=== PATIENT | female | born 1940 | race Two or more races ===

== ENCOUNTER 2016-09-14 18:16 | Inpatient (IN) | payer MEDICARE, OTHER ==
[~2016-09-14] VITALS: Ht 160 cm; Wt 102.5 kg
[2016-09-14 20:35] VITALS: BP 114/53; RESP 20
[2016-09-14] MEDS ORDERED: BIMA2.5D BOTH EYES (20:52)
[2016-09-14] MEDS ORDERED: COU5 PO (20:52)
[2016-09-14] MEDS ORDERED: ALPR0.257 PO (20:52)
[2016-09-14] MEDS ORDERED: LISI20TA11 PO (20:52)
[2016-09-14] MEDS ORDERED: TRAM50TA2 PO (20:52)
[2016-09-14] MEDS ORDERED: METO100T13 PO (20:52)
[2016-09-14] MEDS ORDERED: FER325 PO (20:52)
[2016-09-14] MEDS ORDERED: CHOL400C PO (20:52)
[2016-09-14 21:00] VITALS: Ht 160 cm; Wt 102.5 kg
--- NOTE | 2016-09-14 23:53 | HP ---
Date/Time of Note Date/Time of Note DATE: 09/14/16 TIME: 23:53 Assessment/Plan VTE Prophylaxis VTE Prophylaxis Intervention: heparin Assessment/Plan Assessment/Plan 1) Ulcer of Left Lower Leg with cellulitis - Admit to Med/Surg - IV ABX - Vancomycin and Rocephin (note, patient is listed as having a PCN allergy, but while she was at [facility], she received 1 dose each of Vancomycin and ZOSYN without adverse reaction. 2) Peripheral Vascular Disease 3) Undiagnosed Cardiac Murmur - EKG in AM - Echocardiogram 4) Essential Hypertension 5) Prediabetes - HgbA1c in AM 6) DVT 4 months ago, but patient does not remember where it was and she took herself off Coumadin 2 weeks ago - Heparin 5000 units SC Q 8 hours for aggressive DVT prophylaxis 7) Snoring - Sleep Disordered Breathing Suspected - Monitor HPI/ROS Admit Date/Time Admit Date/Time Sep 14, 2016 at 20:34 Hx of Present Illness This patient is transferred to us from [facility] after presenting there with complaints of worsening wound on her left lower extremity. She states the wound had been there for 10 days and she had been receiving outpatient treatment. She was on doxycycline and had multiple visits to the wound care center. She has an outpatient wound care appointment for this upcoming Friday, September 16, but felt the pain was too severe to wait until then. She feels that the wound has doubled in size with increasing redness and pain. She states the pain is severe and nothing seems to make it better or worse. She denies nausea vomiting fevers chills or other associated symptoms. She states that she was told she has borderline diabetes just a few weeks ago and that she had a DVT 4 months ago but stopped taking her Coumadin about 2 weeks ago. She does not recall if the DVT was in her leg or her arm. She has a history of multiple wounds on her lower legs she has had them on both the right and the left leg. While in the emergency room at [facility], patient had lab work, and EKG, a left tib-fib x-ray, a portable chest x-ray, and ultrasound of the left lower extremity venous system as well as antibiotics, fluids, pain medication and anti-emetics. EK-lead EKG at [address] [place] Normal sinus rhythm with ventricular rate of 64 bpm Left axis deviation Normal intervals No acute ST or T-wave changes suggestive of acute ischemia or ST JAZ LA BS: WBCs 10.3 without a left shift; H and H 11.8 and 37, respectively; platelets 280 Sodium 134; potassium 5.2; chloride 101; carbon dioxide 26; BUN 28; creatinine 1.4; glucose level 104; anion gap 12 eGFR > 60 RADIOLOGY: Portable chest x-ray impression: 1 atherosclerotic calcifications in the thoracic aorta; 2 no evidence for active cardiopulmonary disease Left tib-fib x-rays impression: 1 unremarkable left tibia and fibula x-ray series Ultrasound of the left lower extremity venous system impression: No evidence of a deep vein thrombosis within the left lower extremity. Unchanged from the previous examination (dated 08/20/2016) ER Course per ER Physician at [facility]: She has failed outpatient treatment and will be admitted for definitive management of her wound. She was empirically treated with IV vancomycin and IV Zosyn. She is noted to have an elevated BUN and creatinine with a ratio of 20- 1 and was given a normal saline 500 mL bolus. She has a creatinine level drawn on September 02, 2016 and it was 0.8 at that time she had a venous Doppler in August 20, 2016 that was negative for DVT. In addition, patient does mention that she got very sweaty twice and then felt hot and chilled 2 to 3 days ago. She states that at the same time she became nauseated and extremely tired. No specific chest pain, but a little short of breath. No pain between her shoulder blades. No history of a heart murmur or Echocardiogram. ROS General: Admits: Denies: Fever, Chills, Poor Appetite, Generalized Body Aches Eyes: Admits: Denies: Blurry Vision, Double Vision HENT: Admits: Denies: Ear Pain/Pressure, Runny/Stuffy Nose, Sore Throat Cardiovascular: Admits: Denies: Chest Pain, Palpitations, Leg Swelling, Heart Murmur Pulmonary: Admits: Denies: Cough, Wheeze, Shortness of Breath Gastrointestinal: Admits: Nausea Denies: Abdominal Pain, Vomiting, Diarrhea, Blood in Stool, Black-Colored Stool Urogenital: Admits: Denies: Burning with Urination, Urinary Frequency, Blood in Urine Musculoskeletal: Admits: Denies: Joint Pain, Joint Swelling, Muscle Pain Neurological: Admits: Denies: Headache, Dizziness, Numbness, Tingling, Shooting Pains Integumentary: Admits: Rash surrounding ulceration and extending to upper 1/3 of left leg and tenderness to the entire lower leg, but negative Suleman's sign. Calf is not firm. Denies: Itch Endocrine: Admits: Denies: Excessive Thirst, Excessive Hunger, Intolerant to Cold , Intolerant to Heat Psychiatric: Admits: Anxiety Denies: Depression PMH/Family/Social Social History Smoking Status: Never smoker Exam/Review of Systems Vital Signs Vitals Vital Signs Date Time Temp Pulse Resp B/P Pulse Ox O2 Delivery O2 Flow Rate FiO2 09/14/16 20:35 98.8 53 20 114/53 99 Exam Exam General: Morbidly obese female, alert and oriented, in no acute distress, but she does not recall in which limb she had the recent DVT Eyes: Sclera White, EOMI HENT: Normocephalic/Atraumatic, External Ears/Nose Normal, Moist Mucus Membranes Neck: Supple, Trachea Midline Cardiovascular: Normal Rate, Regular Rhythm, Normal S1 and S2, II/ mid- systolic and diastolic murmurs are present, heard loudest at the leeft sternam margin and radiating to the right and into the left axilla. No Extra Sounds. Radial pulse +2/4. Trace pedal edema to lower 1/3 of legs bilaterally.Patients feet are both cool and dusky with poor capillary refill. There is also evidence of chronic poor circulation with shiny, hairless, hyperpigmented skin to lower 1 /3 of legs bilaterally Pulmonary: Clear to Auscultation Bilaterally, Normal Respiratory Effort, No Rales, Rhonchi or Wheezes Gastrointestinal: Normoactive Bowel Sounds, Soft, Non-Tender/Non-Distended, No Hepatosplenomegaly Appreciated, No Pulsatile Masses Urogenital: Deferred Musculoskeletal: Normal Muscle Bulk and Tone Neurological: CN II - XII Grossly Intact, Non-Focal, Speech Normal Integumentary: Normal Moisture and Temperature, Good Turgor, No Jaundice, No Rash Lymphatic: No Cervical Lymphadenopathy Psychiatric: Appropriate Mood and Affect, Good Eye Contact Medications Medications Current Medications Morphine Sulfate (morphine) 2 mg Q6 PRN IV pain; Start 09/14/16 at 22:00 CHRISTIE HERRMANN DO Sep 14, 2016 23:53
[2016-09-15] MEDS ORDERED: VANCOMYCIN IV PER PHARMACY XX SCH
[2016-09-15] MEDS ORDERED: METOCLOPRAMIDE 10 MG INJ IV PRN
[2016-09-15] MEDS ORDERED: ONDANSETRON 4 MG TAB PO PRN
[2016-09-15] MEDS ORDERED: NACL 0.9% 3 ML SYG IV SCH
[2016-09-15] MEDS ORDERED: ACETAMINOPHEN 325 MG TAB PO PRN
[2016-09-15] MEDS: morphine 2 MG INJ IV PRN ×4 (00:11→18:37)
[2016-09-15 01:10] LABS: D-DIMER 804.48 ng/ml (<460)
[2016-09-15] MEDS: CEFTRIAXONE 1 GM/50 ML (PMX) 50 ML IV SCH (01:25)
[2016-09-15] MEDS ORDERED: VANCOMYCIN 2 GM in SOD CHLORIDE 0.9% 500 ML IVPB SCH (02:00)
[2016-09-15 05:57] LABS: ADD SCAN DIFF NO
[2016-09-15] MEDS: HEPARIN 5,000 UNIT/0.5 ML VIAL SC SCH ×3 (06:04→21:46)
[2016-09-15 06:15] LABS: ALBUMIN 3.4 g/dl (3.3-4.9); ALBUMIN/GLOBULIN RATIO 0.97; BILIRUBIN,INDIRECT 0.3 mg/dl (0-1.1); BILIRUBIN,TOTAL 0.3 mg/dl (0.2-1.3); CALCIUM 8.7 mg/dl (8.4-10.2); CHOL/HDL RATIO 2.5 RATIO; CREATININE 0.99 mg/dl (0.44-1.00); MAGNESIUM 2.1 mg/dl (1.7-2.5); POTASSIUM 4.8 mmol/L (3.5-5.1); TOTAL PROTEIN 6.9 g/dl (6.1-8.1)
[2016-09-15 06:20] LABS: BASOPHIL # 0.1 10^3/ul (0.0-0.1); BASOPHILS % 0.6 % (0.0-2.0); EOSINOPHILS # 0.3 10^3/ul (0.0-0.5); EOSINOPHILS % 3.9 % (0.0-7.0); HEMATOCRIT 32.7 % (37.0-47.0); HEMOGLOBIN 10.3 g/dl (12.0-16.0); LYMPHOCYTES # 2.6 10^3/ul (0.8-2.9); LYMPHOCYTES % 33.7 % (15.0-51.0); MEAN CORPUSCULAR HEMOGLOBIN 26.6 pg (29.0-33.0); MEAN CORPUSCULAR HGB CONC 31.5 g/dl (32.0-37.0); MEAN CORPUSCULAR VOLUME 84.5 fl (82.0-101.0); MEAN PLATELET VOLUME 10.8 fl (7.4-10.4); MONOCYTE # 0.7 10^3/ul (0.3-0.9); NEUTROPHIL # 4.1 10^3/ul (1.6-7.5); NEUTROPHILS % 52.5 % (39.0-77.0); PLATELET COUNT 235 10^3/UL (140-415); RED BLOOD COUNT 3.87 10^6/ul (4.20-5.40); RED CELL DISTRIBUTION WIDTH 15.4 % (11.5-14.5); WHITE BLOOD COUNT 7.7 10^3/ul (4.8-10.8)
[2016-09-15 06:32] LABS: THYROID STIMULATING HORMONE 1.73 MIU/L (0.465-4.680)
[2016-09-15 08:00] VITALS: BP 113/57; RESP 18
[2016-09-15] MEDS: FAMOTIDINE 20 MG TAB PO SCH ×2 (08:56→21:41)
[2016-09-15] MEDS: FERROUS SULFATE (EC) 325 MG TAB PO SCH (08:56)
[2016-09-15] MEDS: LISINOPRIL 20 MG TAB PO SCH ×3 (09:00→21:41)
[2016-09-15] MEDS: METOPROLOL (XL) 100 MG TAB PO SCH ×3 (09:00→16:54)
--- NOTE | 2016-09-15 14:18 | RADRPT ---
Vent Rate: 56 bpm RR Interval: 0 msec [place] Interval: 224 msec QRS Duration: 102 msec QT Interval: 410 msec QTC Interval: 395 msec P-R-T [place]: 72 - 86 - 78 degrees Sinus bradycardia with 1st degree AV block Indeterminate axis Incomplete right bundle branch block Abnormal ECG No previous tracing available for comparison Electronically Signed By: Moe Nelson [id number]
--- NOTE | 2016-09-15 16:59 | RADRPT ---
Echocardiogram Report Patient Name: RONALDO BAEZ Gender: Female Date: 1940 Study Date: 15-Sep-2016 [place] Hand: [facility] Location: [id number] Ref. Physician: CHRISTIE HERRMANN Quality: Adequate Procedures: Transthoracic echocardiogram with complete 2D, M-Mode, and doppler examination. Indications: NEW ONSET MURMUR. 2D/M Mode Doppler Measurement Value Normal Ranges Measurement Value Normal Ranges LVIDd 2D 4.8 3.5 - 5.6 cm DANIEL Vmax 1.3 cm2 LVIDs 2D 3.1 2.1 - 4.1 cm DANIEL VTI 1.3 cm2 LVPWd 2D 1.0 0.6 - 1.1 cm AV Mean Reagan 2.6 m/sec IVSd 2D 1.0 0.6 - 1.1 cm AV Mean PG 30.5 mmHg AoR Diam 2D 1.9 2.0 - 3.7 cm AV Peak Reagan 3.3 m/sec EDV 2D 110.0 cm3 AV Peak PG 44.7 mmHg ESV 2D 31.1 cm3 AV VTI 93.9 cm LVOT Diam 2.1 cm AI Peak PG 38.1 mmHg AI Peak Reagan 3.1 m/sec AI PHT 773.0 msec LVOT Mean Reagan 0.9 m/sec LVOT Mean PG 3.5 mmHg LVOT Peak Reagan 1.2 m/sec LVOT Peak PG 6.0 mmHg LVOT VTI 34.3 cm MV E Peak Reagan 1.3 m/sec MV A Peak Reagan 1.2 m/sec MV E/A 1.1 MV Decel Time 242 msec MV Decel [place] 6 MV E/A 1.1 TR Peak Reagan 2.6 m/sec TR Peak PG 28.0 mmHg Findings Left Ventricle: Normal left ventricular systolic function. Normal left ventricular cavity size. Normal left ventricular wall thickness. Ejection fraction is visually estimated at 65 %. Tissue Doppler/Mitral Doppler indices are consistent with impaired relaxation (Stage I diastolic dysfunction). Right Ventricle: Normal right ventricular size. Normal right ventricular systolic function. Left Atrium: There is moderate enlargement of left atrium. Right Atrium: The right atrium is normal in size. Mitral Valve: Mild mitral leaflet calcification. Mild mitral annular calcification. Trace mitral regurgitation. Aortic Valve: Moderate aortic stenosis. Max PG 44.70 mmHg. Mean PG 30.50 mmHg. Aortic cusps appear mildly calcified. Mild to moderate aortic valve regurgitation. Tricuspid Valve: Normal appearance of the tricuspid valve. Estimated peak PA systolic pressure 31 mmHg. There is mild tricuspid regurgitation. Pulmonic Valve: There is trace pulmonic regurgitation. Pericardium: Normal pericardium with no significant pericardial effusion. Aorta: Normal aortic root. IVC: Normal size and normal respiratory collapse consistent with normal right atrial pressure. Conclusions 1.Normal left ventricular systolic function. Normal left ventricular cavity size. Normal left ventricular wall thickness. Ejection fraction is visually estimated at 65 %. Tissue Doppler/Mitral Doppler indices are consistent with impaired relaxation (Stage I diastolic dysfunction). 2.Normal right ventricular size. Normal right ventricular systolic function. 3.There is moderate enlargement of left atrium. 4.The right atrium is normal in size. 5.Moderate aortic stenosis. Mild to moderate aortic valve regurgitation. 6.Trace mitral regurgitation. 7.Estimated peak PA systolic pressure 31 mmHg. There is mild tricuspid regurgitation. 8.Normal pericardium with no significant pericardial effusion. Electronically Signed By: Darrin Hernandez 15-Sep-2016 16:58:36 -0700 Patient Name: RONALDO BAEZ Study Date: 15-Sep-2016 [id number]
--- NOTE | 2016-09-15 17:56 | PN ---
Date/Time of Note Date/Time of Note DATE: 09/15/16 TIME: 17:51 Assessment/Plan VTE Prophylaxis VTE Prophylaxis Intervention: heparin Lines/Catheters IV Catheter Type (from Nrsg): Saline Lock Assessment/Plan Chief Complaint/Hosp Course 1) Ulcer of Left Lower Leg with cellulitis possibly related to PVD -Arterial US -Vascular consult - Admit to Med/Surg - IV ABX - Vancomycin and Rocephin 2) Peripheral Vascular Disease 3) Undiagnosed Cardiac Murmur - EKG in AM - Echocardiogram 4) Essential Hypertension 5) DVT 4 months ago, but patient does not remember where it was and she took herself off Coumadin 2 weeks ago - Heparin 5000 units SC Q 8 hours for aggressive DVT prophylaxis PPx- Heparin Problems: Subjective 24 Hr Interval Summary Skin: skin lesions Exam/Review of Systems Vital Signs Vitals Vital Signs Date Time Temp Pulse Resp B/P Pulse Ox O2 Delivery O2 Flow Rate FiO2 09/15/16 08:00 97.9 62 18 113/57 94 Intake and Output 09/14/16 09/14/16 09/15/16 15:00 23:00 07:00 Intake Total 550 ml Balance 550 ml Exam Constitutional: alert Respiratory: clear to auscultation Cardiovascular: regular rate and rhythm Gastrointestinal: soft, No distended Musculoskeletal: No nl extremities to inspection Results Result Diagram: 09/15/16 0455 09/15/16 0445 Results 24 hrs Laboratory Tests Test 09/15/16 04:45 09/15/16 04:55 Sodium Level 134 L Potassium Level 4.8 Chloride Level 107 Carbon Dioxide Level 23 Anion Gap 9 Blood Urea Nitrogen 23 H Creatinine 0.99 Glucose Level 92 Calcium Level 8.7 Magnesium Level 2.1 Total Bilirubin 0.3 Direct Bilirubin 0.00 Indirect Bilirubin 0.3 Aspartate Amino Transf (AST/SGOT) 21 Alanine Aminotransferase (ALT/SGPT) 23 Alkaline Phosphatase 75 Total Protein 6.9 Albumin 3.4 Globulin 3.50 H Albumin/Globulin Ratio 0.97 Triglycerides Level 83 Cholesterol Level 151 LDL Cholesterol, Calculated 74 HDL Cholesterol 60 Cholesterol/HDL Ratio 2.5 Thyroid Stimulating Hormone (TSH) 1.730 White Blood Count 7.7 Red Blood Count 3.87 L Hemoglobin 10.3 L Hematocrit 32.7 L Mean Corpuscular Volume 84.5 Mean Corpuscular Hemoglobin 26.6 L Mean Corpuscular Hemoglobin Concent 31.5 L Red Cell Distribution Width 15.4 H Platelet Count 235 Mean Platelet Volume 10.8 H Neutrophils % 52.5 Lymphocytes % 33.7 Monocytes % 9.0 Eosinophils % 3.9 Basophils % 0.6 Nucleated Red Blood Cells % 0.0 Neutrophils # 4.1 Lymphocytes # 2.6 Monocytes # 0.7 Eosinophils # 0.3 Basophils # 0.1 Nucleated Red Blood Cells # 0.0 Hemoglobin A1c 5.6 Medications Medications Current Medications Morphine Sulfate (morphine) 2 mg Q6 PRN IV pain Last administered on 09/15/16 12:16; Admin Dose 2 MG; Start 09/14/16 at 22:00 Ondansetron HCl (Zofran Tab) 4 mg Q6H PRN PO NAUSEA AND/OR VOMITING; Start at 00:00 Metoclopramide HCl (Reglan) 10 mg Q6H PRN IV NAUSEA AND/OR VOMITING; Start at 00:00 Acetaminophen (Tylenol Tab) 650 mg Q6H PRN PO PAIN LEVEL 1-3 OR FEVER; Start at 00:00 Oxycodone/ Acetaminophen (Percocet (5/ 325)) 1 tab Q6H PRN PO MODERATE PAIN LEVEL 4-6; Start 09/15/16 at 00:00 Morphine Sulfate (morphine) 2 mg Q4H PRN IV SEVERE PAIN LEVEL 7-10; Start 09/15 at 00:00 Famotidine (Pepcid) 20 mg Q12 PO Last administered on 09/15/16 08:56; Admin Dose 20 MG; Start 09/15/16 at 09:00 Heparin Sodium (Porcine) (Heparin (5000 Units/0.5 ml)) 5,000 unit Q8 SC Last administered on 09/15/16 14:17; Admin Dose 5,000 UNIT; Start 09/15/16 at 06:00 Vancomycin HCl 1 ea 1 ea NOTE XX ; Start 09/15/16 at 00:00 Ceftriaxone Sodium (Rocephin) 50 ml @ 100 mls/hr Q24H IV Last administered on 09/15/16 01:25; Admin Dose 100 MLS/HR; Start 09/15/16 at 00:00 Ferrous Sulfate (Ferrous Sulfate (Ec)) 325 mg DAILY PO Last administered on 08:56; Admin Dose 325 MG; Start 09/15/16 at 09:00 Lisinopril (Zestril) 20 mg BID PO ; Start 09/15/16 at 09:00 Metoprolol Succinate (Toprol Xl) 100 mg DAILY PO Last administered on t 16:54; Admin Dose 100 MG; Start 09/15/16 at 09:00 Alprazolam (Xanax) 0.25 mg HS PO ; Start 09/15/16 at 21:00 Latanoprost 1 drop 1 drop HS BOTH EYES ; Start 09/15/16 at 21:00 Vancomycin HCl/ Sodium Chloride (Vancocin/NS) 250 ml @ 83.333 mls/ hr Q24H IVPB ; Start 09/16/16 at 02:00 PHILL TRUONG Sep 15, 2016 17:56
[2016-09-15 18:38] VITALS: BP 148/74; PULSE 78; RESP 18
[2016-09-15 19:41] VITALS: BP 121/58; RESP 18
[2016-09-15] MEDS ORDERED: NON-FORMULARY/PATIENT OWN MED (Alprazolam 0.25 MG) PO SCH (21:00)
[2016-09-15] MEDS ORDERED: BIMATOPROST 0.01% 2.5 ML BTL BOTH EYES SCH (21:00)
[2016-09-15] MEDS: ALPRAZOLAM 0.25 MG TAB PO SCH (21:41)
[2016-09-15] MEDS: LATANOPROST 0.005% 2.5 ML OPH BOTH EYES SCH (21:49)
[2016-09-16] MEDS: CEFTRIAXONE 1 GM/50 ML (PMX) 50 ML IV SCH (00:12)
[2016-09-16] MEDS: morphine 2 MG INJ IV PRN ×4 (00:20→18:28)
[2016-09-16] MEDS: VANCOMYCIN 1.5 GM in SOD CHLORIDE 0.9% 250 ML IVPB SCH (02:33)
[2016-09-16 05:26] LABS: ADD SCAN DIFF NO
[2016-09-16 05:34] LABS: BASOPHILS % 0.6 % (0.0-2.0); EOSINOPHILS # 0.3 10^3/ul (0.0-0.5); EOSINOPHILS % 4.7 % (0.0-7.0); HEMATOCRIT 34.3 % (37.0-47.0); HEMOGLOBIN 10.7 g/dl (12.0-16.0); LYMPHOCYTES # 2.6 10^3/ul (0.8-2.9); LYMPHOCYTES % 37.7 % (15.0-51.0); MEAN CORPUSCULAR HEMOGLOBIN 26.3 pg (29.0-33.0); MEAN CORPUSCULAR HGB CONC 31.2 g/dl (32.0-37.0); MEAN CORPUSCULAR VOLUME 84.3 fl (82.0-101.0); MEAN PLATELET VOLUME 10.6 fl (7.4-10.4); MONOCYTE # 0.6 10^3/ul (0.3-0.9); MONOCYTES % 9.2 % (0.0-11.0); NEUTROPHIL # 3.3 10^3/ul (1.6-7.5); NEUTROPHILS % 47.7 % (39.0-77.0); PLATELET COUNT 228 10^3/UL (140-415); RED BLOOD COUNT 4.07 10^6/ul (4.20-5.40); RED CELL DISTRIBUTION WIDTH 15.2 % (11.5-14.5)
[2016-09-16 05:45] LABS: CREATININE 0.83 mg/dl (0.44-1.00); POTASSIUM 4.5 mmol/L (3.5-5.1)
[2016-09-16] MEDS: HEPARIN 5,000 UNIT/0.5 ML VIAL SC SCH ×3 (05:49→21:55)
[2016-09-16 07:48] VITALS: BP 158/68; RESP 18
[2016-09-16] MEDS: FAMOTIDINE 20 MG TAB PO SCH ×2 (08:18→20:50)
[2016-09-16] MEDS: FERROUS SULFATE (EC) 325 MG TAB PO SCH (08:18)
[2016-09-16] MEDS: LISINOPRIL 20 MG TAB PO SCH ×2 (08:18→20:50)
[2016-09-16] MEDS: METOPROLOL (XL) 100 MG TAB PO SCH (08:19)
--- NOTE | 2016-09-16 12:18 | RADRPT ---
PROCEDURE: US DVT. CLINICAL INDICATION: Left lower extremity pain and ulcer.. TECHNIQUE: Multiple longitudinal and transverse images of the bilateral lower extremity veins were obtained with hancock scale and color Doppler imaging. 2D grayscale measurements with compression, co aj Doppler flow, and augmentation was performed. The calf veins were interrogated as well. COMPARISON: No prior studies are available for comparison. FINDINGS: The bilateral common femoral, superficial femoral and popliteal veins are normally compressible thro ughout. Color flow demonstrates normal filling of the vessel. Normal waveforms are visualized and there is normal response to augmentation. IMPRESSION: 1. No evidence of a deep vein thrombosis involving either lower extremity. RPTAT: AACC Physician Last Date Time Electronically viewed and signed by Physician Last on 09/16/2016 12:18 /
[2016-09-16] MEDS: COLLAGENASE 30 GM TUBE TOP SCH (13:11)
--- NOTE | 2016-09-16 13:53 | RADRPT ---
PROCEDURE: Bilateral lower extremity arterial ultrasound CLINICAL INDICATION: Bilateral leg pain. Left lower extremity nonhealing wound TECHNIQUE: Multiple color and spectral Doppler images of the bilateral lower extremity arterial sy stem were obtained. Images were reviewed on a high-resolution PACS workstation. COMPARISON: None FINDINGS: The velocities and waveforms are within normal limits. Triphasic wave forms are seen throughout the bilateral lower extremity arterial system. No hemodynamically significant stenosis or occlusion is seen. Velocities: Centimeters per second. Right Common femoral artery: 132.1 Proximal SFA: 113.9 Mid SFA: 104.8 Distal SFA: 107.5 Popliteal: 101.7 Left: Common femoral artery: 116.9 Proximal SFA: 100.6 Mid SFA: 88 Distal SFA: 88.9 Popliteal: 85 JUICE: Right [employer]: 1.46 Right DPA: 1.38 Left [employer]: 1.53 Left DPA: 1.6 IMPRESSION: No hemodynamically significant stenosis. RPTAT: HPNM Physician Bc Date Time Electronically viewed and signed by Physician Bc on 09/16/2016 13:53 /
--- NOTE | 2016-09-16 14:15 | PN ---
Date/Time of Note Date/Time of Note DATE: 09/16/16 TIME: 14:12 Assessment/Plan VTE Prophylaxis VTE Prophylaxis Intervention: heparin Lines/Catheters IV [facility]from [facility] Saline Lock Urinary Cath still in place: No Assessment/Plan Chief Complaint/Hosp Course 1) Ulcer of Left Lower Leg with cellulitis possibly related to PVD -Arterial US is negative for significant stenosis -Venous study negative for DVT in both extremities -Vascular consult appreciated -Continue vancomycin and Rocephin 2) Peripheral Vascular Disease Vascular consultation 3) Moderate aortic stenosis -Monitor 4) Essential Hypertension-stable Continue lisinopril and metoprolol 5) DVT 4 months ago, but patient does not remember where it was and she took herself off Coumadin 2 weeks ago - Heparin 5000 units SC Q 8 hours for aggressive DVT prophylaxis -Venous study is negative for DVTs PPx- Heparin Problems: Subjective 24 Hr Interval Summary Skin: skin lesions Exam/Review of Systems Vital Signs Vitals Vital Signs Date Time Temp Pulse Resp B/P Pulse Ox O2 Delivery O2 Flow Rate FiO2 09/16/16 07:48 97.8 61 18 158/68 96 09/15/16 18:38 Room Air Intake and Output 09/15/16 09/15/16 09/16/16 15:00 23:00 07:00 Intake Total 800 ml 540 ml Balance 800 ml 540 ml Exam Constitutional: alert Respiratory: clear to auscultation Cardiovascular: regular rate and rhythm Gastrointestinal: soft, No distended Musculoskeletal: No nl extremities to inspection Results Result Diagram: 09/16/16 0506 09/16/16 0506 Results 24 hrs Laboratory Tests Test 09/16/16 05:06 White Blood Count 7.0 Red Blood Count 4.07 L Hemoglobin 10.7 L Hematocrit 34.3 L Mean Corpuscular Volume 84.3 Mean Corpuscular Hemoglobin 26.3 L Mean Corpuscular Hemoglobin Concent 31.2 L Red Cell Distribution Width 15.2 H Platelet Count 228 Mean Platelet Volume 10.6 H Neutrophils % 47.7 Lymphocytes % 37.7 Monocytes % 9.2 Eosinophils % 4.7 Basophils % 0.6 Nucleated Red Blood Cells % 0.0 Neutrophils # 3.3 Lymphocytes # 2.6 Monocytes # 0.6 Eosinophils # 0.3 Basophils # 0.0 Nucleated Red Blood Cells # 0.0 Sodium Level 135 Potassium Level 4.5 Chloride Level 106 Carbon Dioxide Level 25 Anion Gap 9 Blood Urea Nitrogen 18 Creatinine 0.83 Glucose Level 100 Calcium Level 9.0 Medications Medications Current Medications Morphine Sulfate (morphine) 2 mg Q6 PRN IV pain Last administered on 09/16/16 08:21; Admin Dose 2 MG; Start 09/14/16 at 22:00 Ondansetron HCl (Zofran Tab) 4 mg Q6H PRN PO NAUSEA AND/OR VOMITING; Start at 00:00 Metoclopramide HCl (Reglan) 10 mg Q6H PRN IV NAUSEA AND/OR VOMITING; Start at 00:00 Acetaminophen (Tylenol Tab) 650 mg Q6H PRN PO PAIN LEVEL 1-3 OR FEVER; Start at 00:00 Oxycodone/ Acetaminophen (Percocet (5/ 325)) 1 tab Q6H PRN PO MODERATE PAIN LEVEL 4-6; Start 09/15/16 at 00:00 Morphine Sulfate (morphine) 2 mg Q4H PRN IV SEVERE PAIN LEVEL 7-10 Last administered on 09/16/16 13:15; Admin Dose 2 MG; Start 09/15/16 at 00:00 Famotidine (Pepcid) 20 mg Q12 PO Last administered on 09/16/16 08:18; Admin Dose 20 MG; Start 09/15/16 at 09:00 Heparin Sodium (Porcine) (Heparin (5000 Units/0.5 ml)) 5,000 unit Q8 SC Last administered on 09/16/16 13:27; Admin Dose 5,000 UNIT; Start 09/15/16 at 06:00 Vancomycin HCl 1 ea 1 ea NOTE XX ; Start 09/15/16 at 00:00 Ceftriaxone Sodium (Rocephin) 50 ml @ 100 mls/hr Q24H IV Last administered on 09/16/16 00:12; Admin Dose 100 MLS/HR; Start 09/15/16 at 00:00 Ferrous Sulfate (Ferrous Sulfate (Ec)) 325 mg DAILY PO Last administered on 08:18; Admin Dose 325 MG; Start 09/15/16 at 09:00 Lisinopril (Zestril) 20 mg BID PO Last administered on 09/16/16 08:18; Admin Dose 20 MG; Start 09/15/16 at 09:00 Metoprolol Succinate (Toprol Xl) 100 mg DAILY PO Last administered on 08:19; Admin Dose 100 MG; Start 09/15/16 at 09:00 Alprazolam (Xanax) 0.25 mg HS PO Last administered on 09/15/16 21:41; Admin Dose 0.25 MG; Start 09/15/16 at 21:00 Latanoprost 1 drop 1 drop HS BOTH EYES Last administered on 09/15/16 21:49; Admin Dose 1 DROP; Start 09/15/16 at 21:00 Vancomycin HCl/ Sodium Chloride (Vancocin/NS) 250 ml @ 83.333 mls/ hr Q24H IVPB Last administered on 09/16/16 02:33; Admin Dose 83.333 MLS/HR; Start at 02:00 Collagenase (Santyl) 1 applic DAILY TOP Last administered on 09/16/16 13:11; Admin Dose 1 APPLIC; Start 09/16/16 at 12:30 PHILL TRUONG Sep 16, 2016 14:15
--- NOTE | 2016-09-16 16:35 | CONS ---
DATE OF ADMISSION: 09/14/2016 DATE OF CONSULTATION: 09/16/2016 TYPE OF CONSULTATION: Vascular surgery. Dear Doctors: Ms. Crane is a 75-year-old female who presented to [facility] from outside hosp ital with worsening left lower extremity nonhealing ulcer. It seems that the patient has been recei ving local wound care at outside facility for about a month with no improvement and worsening of her wound. The patient has significant amount of pain in that area and was evaluated and identified to have significant cellulitis and eschar has developed over that area. Of note, patient has had a hi story of DVT in the past which was diagnosed about 4 to 5 years ago. Patient had been on anticoagul ation on Coumadin for some time now. Patient also mentions that she has had a longstanding history of varicose veins in both lower extremities, more prominent on the left than the right. REVIEW OF SYSTEMS: A 12-point review performed and negative except what is mentioned in the HPI. T he patient denies shortness of breath, chest pain, nausea, vomiting, fever or chills. Some limited disabling claudication. PAST MEDICAL HISTORY: Entails morbidly obese, diabetes, hypertension, hypercholesterolemia, coronar y artery disease, bilateral lower extremity venous insufficiency and DVT. PAST SURGICAL HISTORY: None was recorded. SOCIAL HISTORY: Denies tobacco, alcohol or illicit drug use. FAMILY HISTORY: Positive for coronary artery disease and hypertension. PHYSICAL EXAMINATION: GENERAL: Alert and oriented x3, no apparent distress. HEENT: Normocephalic, atraumatic. PERRLA. Mucosa moist. NECK: Supple. No carotid bruit. PULMONARY: Clear to auscultation bilaterally, some systolic murmur. CHEST: Clear to auscultation bilaterally. No crackles. CARDIOVASCULAR: S1, S2 present, positive for systolic murmur. ABDOMEN: Soft, nontender, nondistended. Bowel sounds positive. Large truncal obesity and pannus. EXTREMITIES: Right lower extremity palpable femoral pulse, nonpalpable pedal pulse. Motor, sensory intact. Cap refill 3 to 4 seconds. Presence of lipodermatosclerosis, extensive spider veins and t elangiectasias from the ankle all the way up to the knee. Presence of varicose veins throughout the lower leg and in the medial aspect of the thigh. Left lower extremity palpable femoral pulse, nonpalpable pedal pulse. Motor, sensory intact. Cap r efill 3 to 4 seconds. Presence of lipodermatosclerosis around the ankle area. There is also a larg e lateral lower leg ulcer with eschar and tenderness upon palpation. There is surrounding erythema. There is also presence of extensive spider veins and telangiectasias. Presence of prominent varic ose veins, especially running along the anterolateral aspect of the lower leg on the segura all the wa y up to her distal thigh. There is eschar with no purulence identified. ASSESSMENT AND PLAN: Bilateral lower extremity atherosclerosis with a nonhealing ulcer. It seems t hat the patient may have a component of a mixed disease of bilateral lower extremities with arterial and venous insufficiency. We will plan to obtain noninvasive vascular studies to better ascertain her infrainguinal disease. The patient has had a longstanding history of varicose veins and his ulcer unfortunately has been wo rsening. This may be contributed to her venous disease, more so than the arterial. We will plan to obtain bilateral lower extremity reflux studies. It is unclear as to why the patient has developed a DVT. Would recommend today for hematology evalu ation and if the patient would require continuation of her Coumadin. Discussed findings, plan and management with the patient and she understands with a certified transl ator. Thank you for allowing us to partake in the care of your patient. Please call with any questions. Dictated By: ERIN SPEARS/CRISTIAN Conf#: [id number] DID#: [id number]
[2016-09-16 19:00] VITALS: BP 136/63; RESP 20
[2016-09-16] MEDS: ALPRAZOLAM 0.25 MG TAB PO SCH (20:50)
[2016-09-16] MEDS: LATANOPROST 0.005% 2.5 ML OPH BOTH EYES SCH (20:51)
[2016-09-17] MEDS: CEFTRIAXONE 1 GM/50 ML (PMX) 50 ML IV SCH ×2 (00:14→23:47)
[2016-09-17] MEDS: VANCOMYCIN 1.5 GM in SOD CHLORIDE 0.9% 250 ML IVPB SCH (01:43)
[2016-09-17] MEDS: morphine 2 MG INJ IV PRN ×4 (04:46→22:31)
[2016-09-17] MEDS: HEPARIN 5,000 UNIT/0.5 ML VIAL SC SCH ×3 (06:06→22:33)
[2016-09-17] MEDS: OXYCODONE/ACETAMINOPHEN (5/325) TAB PO PRN ×2 (06:10→20:45)
[2016-09-17 07:35] VITALS: BP 124/60; RESP 20
[2016-09-17] MEDS: FAMOTIDINE 20 MG TAB PO SCH ×2 (08:03→20:45)
[2016-09-17] MEDS: FERROUS SULFATE (EC) 325 MG TAB PO SCH (08:03)
[2016-09-17] MEDS: METOPROLOL (XL) 100 MG TAB PO SCH (08:03)
[2016-09-17] MEDS: COLLAGENASE 30 GM TUBE TOP SCH (08:03)
[2016-09-17] MEDS: LISINOPRIL 20 MG TAB PO SCH ×2 (08:04→20:45)
--- NOTE | 2016-09-17 18:59 | PN ---
Date/Time of Note Date/Time of Note DATE: 09/17/16 TIME: 18:58 Assessment/Plan VTE Prophylaxis VTE Prophylaxis Intervention: heparin Lines/Catheters IV Catheter Type (from Nrs): Saline Lock Urinary Cath still in place: No Assessment/Plan Chief Complaint/Hosp Course 1) Ulcer of Left Lower Leg with cellulitis possibly related to PVD -Arterial US is negative for significant stenosis -Venous study negative for DVT in both extremities -Vascular consult appreciated -Continue vancomycin and Rocephin, wound care 2) Peripheral Vascular Disease Vascular consultation 3) Moderate aortic stenosis -Monitor 4) Essential Hypertension-stable Continue lisinopril and metoprolol 5) DVT 4 months ago, but patient does not remember where it was and she took herself off Coumadin 2 weeks ago - Heparin 5000 units SC Q 8 hours for aggressive DVT prophylaxis -Venous study is negative for DVTs PPx- Heparin Problems: Subjective 24 Hr Interval Summary Skin: skin lesions Exam/Review of Systems Vital Signs Vitals Vital Signs Date Time Temp Pulse Resp B/P Pulse Ox O2 Delivery O2 Flow Rate FiO2 09/17/16 07:35 98.0 57 20 124/60 95 09/15/16 18:38 Room Air Intake and Output 09/16/16 09/16/16 09/17/16 15:00 23:00 07:00 Intake Total 960 ml 1070 ml Output Total 0 ml 400 ml Balance 960 ml 670 ml Exam Constitutional: alert, oriented Respiratory: clear to auscultation Cardiovascular: regular rate and rhythm Gastrointestinal: soft, No distended Musculoskeletal: No nl extremities to inspection Results Result Diagram: 09/16/16 0506 09/16/16 0506 Medications Medications Current Medications Morphine Sulfate (morphine) 2 mg Q6 PRN IV pain Last administered on 09/16/16t 08:21; Admin Dose 2 MG; Start 09/14/16 at 22:00 Ondansetron HCl (Zofran Tab) 4 mg Q6H PRN PO NAUSEA AND/OR VOMITING; Start at 00:00 Metoclopramide HCl (Reglan) 10 mg Q6H PRN IV NAUSEA AND/OR VOMITING; Start at 00:00 Acetaminophen (Tylenol Tab) 650 mg Q6H PRN PO PAIN LEVEL 1-3 OR FEVER; Start at 00:00 Oxycodone/ Acetaminophen (Percocet (5/ 325)) 1 tab Q6H PRN PO MODERATE PAIN LEVEL 4-6 Last administered on 09/17/16 06:10; Admin Dose 1 TAB; Start at 00:00 Morphine Sulfate (morphine) 2 mg Q4H PRN IV SEVERE PAIN LEVEL 7-10 Last administered on 09/17/16 18:47; Admin Dose 2 MG; Start 09/15/16 at 00:00 Famotidine (Pepcid) 20 mg Q12 PO Last administered on 09/17/16 08:03; Admin Dose 20 MG; Start 09/15/16 at 09:00 Heparin Sodium (Porcine) (Heparin (5000 Units/0.5 ml)) 5,000 unit Q8 SC Last administered on 09/17/16 12:00; Admin Dose 5,000 UNIT; Start 09/15/16 at 06:00 Vancomycin HCl 1 ea 1 ea NOTE XX ; Start 09/15/16 at 00:00 Ceftriaxone Sodium (Rocephin) 50 ml @ 100 mls/hr Q24H IV Last administered on 09/17/16 00:14; Admin Dose 100 MLS/HR; Start 09/15/16 at 00:00 Ferrous Sulfate (Ferrous Sulfate (Ec)) 325 mg DAILY PO Last administered on 08:03; Admin Dose 325 MG; Start 09/15/16 at 09:00 Lisinopril (Zestril) 20 mg BID PO Last administered on 09/17/16 08:04; Admin Dose 20 MG; Start 09/15/16 at 09:00 Metoprolol Succinate (Toprol Xl) 100 mg DAILY PO Last administered on 08:19; Admin Dose 100 MG; Start 09/15/16 at 09:00 Alprazolam (Xanax) 0.25 mg HS PO Last administered on 09/16/16 20:50; Admin Dose 0.25 MG; Start 09/15/16 at 21:00 Latanoprost 1 drop 1 drop HS BOTH EYES Last administered on 09/16/16 20:51; Admin Dose 1 DROP; Start 09/15/16 at 21:00 Vancomycin HCl/ Sodium Chloride (Vancocin/NS) 250 ml @ 83.333 mls/ hr Q24H IVPB Last administered on 09/17/16 01:43; Admin Dose 83.333 MLS/HR; Start at 02:00 Collagenase (Santyl) 1 applic DAILY TOP Last administered on 09/17/16 08:03; Admin Dose 1 APPLIC; Start 09/16/16 at 12:30 Miscellaneous Information (*Rx Drug Level Order Reminder*) VANCO TROUGH @ 0, 100 ON... ONCE ONCE XX ; Start 09/18/16 at 01:00; Stop 09/18/16 at 01:01 PHILL TRUONG Sep 17, 2016 18:59
[2016-09-17 20:18] VITALS: BP 166/67; RESP 20
[2016-09-17] MEDS: ALPRAZOLAM 0.25 MG TAB PO SCH (20:45)
[2016-09-17] MEDS: LATANOPROST 0.005% 2.5 ML OPH BOTH EYES SCH ×2 (21:00→22:32)
[2016-09-18] MEDS: VANCOMYCIN 1.5 GM in SOD CHLORIDE 0.9% 250 ML IVPB SCH (02:04)
[2016-09-18] MEDS: morphine 2 MG INJ IV PRN ×2 (02:57→09:48)
[2016-09-18] MEDS: OXYCODONE/ACETAMINOPHEN (5/325) TAB PO PRN (05:02)
[2016-09-18] MEDS: HEPARIN 5,000 UNIT/0.5 ML VIAL SC SCH (06:08)
[2016-09-18 08:07] VITALS: BP 139/65; RESP 18
[2016-09-18] MEDS: FERROUS SULFATE (EC) 325 MG TAB PO SCH (09:44)
[2016-09-18] MEDS: FAMOTIDINE 20 MG TAB PO SCH (09:44)
[2016-09-18] MEDS: LISINOPRIL 20 MG TAB PO SCH (09:44)
[2016-09-18] MEDS: METOPROLOL (XL) 100 MG TAB PO SCH (09:46)
[2016-09-18] MEDS: COLLAGENASE 30 GM TUBE TOP SCH (09:53)
[2016-09-18] MEDS ORDERED: SAN30GM TOP (10:31)
[2016-09-18] MEDS ORDERED: DOXY-220 PO (10:31)
--- NOTE | 2016-09-18 10:36 | PDOCDIS ---
Discharge Instructions CONDITION Patient Condition: Good HOME CARE INSTRUCTIONS: Diet Instructions: Reduced Calorie ACTIVITY: Activity Restrictions: No Restrictions FOLLOW UP/APPOINTMENTS Appointments F/U WITH YOUR PCP IN 1-2 WEEKS, F/U WITH DR ERIN LANDRY AT [facility] F/U WITH HOME HEALTH FOR WOUND CARE PHILL TRUONG Sep 18, 2016 10:36
[2016-09-18] MEDS ORDERED: Oxycodone/Acetamin (5/325) PO (10:39)
--- NOTE | 2016-09-18 17:49 | DS ---
DATE OF ADMISSION: 09/14/2016 DATE OF DISCHARGE: 09/18/2016 DISCHARGE DIAGNOSES: 1. Ulcer left lower leg with cellulitis, peripheral vascular disease ruled out. Deep vein thrombos is ruled out. Patient with wound care via home health and with Dr. Rai of [facility]. 2. Moderate aortic stenosis. Monitor. 3. Hypertension, stable. Continue home medications. 4. History of deep vein thrombosis. Etiology unclear, but the patient's ultrasound shows no deep v ein thrombosis at this time. HOSPITAL COURSE: The patient is a 75-year-old female with history of DVT x2 in the past, used to be on Coumadin, but gas stopped. She has a history of prediabetes, hypertension and peripheral vascul ar disease. The patient presents with an ulcer on the lateral part of her left lower leg and also w as very painful. The patient was seen by Dr. Rai of vascular surgery. She did have a ____ st udy that showed no evidence of hemodynamically significant stenosis. She had a venous study to rule out DVT, and she had no evidence of DVT involving either lower extremity. Patient was seen by [facility]. The patient was felt to be stable for discharge per vascular surgery with plans for w ound care and home health and follow up Dr. Rai as an outpatient. On the day of discharge, ed anaya's vitals, labs, physical exam were stable. She had no acute complaints and her pain was contr olled with medications and questions were answered. CONDITION ON DISCHARGE: Stable. DISPOSITION: To home. MEDICATIONS: To home with home health. MEDICATIONS: The patient was given a prescription for: 1. Santyl. 2. Doxycycline 100 mg p.o. b.i.d. for 1 days. 3. Percocet 10/325 1 tab p.o. q. 4 hours p.r.n. for pain. The patient to continue her other home medications. FOLLOWUP: The patient is to follow up with her PCP in 1 to [address] Rai at [facility]. The patient is also to follow up with home health. Greater than 30 minutes was spent coordinating discharge of this patient. Dictated By: PHILL TRUONG MD BS/NTS Conf#: [id number] DID#: [id number]
== END 2016-09-18 14:35 | disposition home or self-care (01) | DRG 593 ==
LOC: MS2 20:34
PROVIDERS: ADMIT Family Medicine; ATTEND Family Medicine
DX: L97.829 Non-pressure chronic ulcer of other part of left lower leg with unspecified severity (principal); L03.116 Cellulitis of left lower limb; R06.83 Snoring; Z68.41 Body mass index [BMI] 40.0-44.9, adult; I35.0 Nonrheumatic aortic (valve) stenosis; E66.01 Morbid (severe) obesity due to excess calories; E78.00 Pure hypercholesterolemia, unspecified; I10 Essential (primary) hypertension; I25.10 Atherosclerotic heart disease of native coronary artery without angina pectoris; R01.1 Cardiac murmur, unspecified; R73.03 Prediabetes; Z86.718 Personal history of other venous thrombosis and embolism
CPT/HCPCS: 80048; 80053; 80061; 80202; 83036; 83735; 84443; 85025; 85378; 87070; 93005; 93306; 93922; 93970; J0696; J1644; J2270; J3370; J7040; J7050

== ENCOUNTER 2016-10-29 09:00 | Day surgery (SDC) | payer MEDICARE, OTHER ==
[~2016-10-29] VITALS: Ht 160 cm; Wt 100.9 kg
[~2016-10-29 09:00] MED LIST: ALPR0.257 PO; BIMA2.5D BOTH EYES; CHOL400C PO; COU5 PO; DOXY-220 PO; FER325 PO; LISI20TA11 PO; METO100T13 PO; Oxycodone/Acetamin (5/325) PO; SAN30GM TOP; TRAM50TA2 PO
[2016-10-29 09:42] VITALS: BP 151/71; PULSE 63; RESP 16; Ht 160 cm; Wt 100.9 kg
[2016-10-29] MEDS ORDERED: ERGO500037 PO (09:58)
[2016-10-29] MEDS ORDERED: WARF10TA PO (09:59)
[2016-10-29] MEDS ORDERED: OXYC-209 PO (10:00)
--- NOTE | 2016-10-29 10:24 | RADRPT ---
PROCEDURE: XR Chest. CLINICAL INDICATION: Preop TECHNIQUE: An AP view of the chest was obtained. COMPARISON: No prior exam is available for comparison. FINDINGS: There is prominence of the interstitial markings. No pleural effusion or pneumothorax is seen. Th e cardiomediastinal silhouette is within normal limits for size. Calcifications are seen within the aortic arch. The osseous structures demonstrate senescent changes. IMPRESSION: 1. Mild prominence of the interstitial markings, may reflect mild underlying interstitial edema or chronic lung changes. 2. Aortic atherosclerosis. RPTAT: HH .Winnie Ortiz MD, MD Date Time Electronically viewed and signed by .Winnie Ortiz MD, on 10/29/2016 10:23 .G/
[2016-10-29] MEDS ORDERED: LIDOCAINE 1% (MPF) 30 ML INJ ONE ×2 (11:22→12:46)
[2016-10-29] MEDS ORDERED: FENTAnyl 50 MCG/ML VIAL IV PRN (12:30)
[2016-10-29] MEDS ORDERED: morphine (1 MG/ML) 10ML SYRINGE IV PRN ×2 (12:30)
[2016-10-29] MEDS ORDERED: DIPHENHYDRAMINE 50 MG INJ IV PRN (12:30)
[2016-10-29] MEDS ORDERED: ONDANSETRON 4 MG INJ IV PRN (12:30)
[2016-10-29] MEDS ORDERED: MIDAZOLAM 1 MG/ML 2 ML INJ ONE (12:40)
--- NOTE | 2016-10-29 12:42 | PDOCDIS ---
Discharge Instructions DIAGNOSIS Discharge Diagnosis: LLE VENOUS STASIS ULCER CONDITION Patient Condition: Good HOME CARE INSTRUCTIONS: Diet Instructions: Low Fat /Cholesterol ACTIVITY: Activity Restrictions: Slowly Increase Activity Avoid heavy lifting Do not Drive Do not operate Machinery Do not operate Power Tool Avoid Heavy Housework Keep Limb Elevated FOLLOW UP/APPOINTMENTS Appointments FOLLOW UP AT [facility] October, 830am DO NOT REMOVE DRESSING FOR ONE WEEK DO NOT TAKE A SHOWER OR BATH UNTIL SEEN IN OFFICE ERIN BLACKBURN MD Oct 29, 2016 12:42
[2016-10-29] MEDS ORDERED: CEFAZOLIN 1 GM INJ ONE (13:27)
[2016-10-29] MEDS ORDERED: LIDOCAINE 2% (SDV) 5 ML INJ ONE (13:27)
[2016-10-29] MEDS ORDERED: PROPOFOL 20 ML ONE (13:27)
[2016-10-29 13:36] VITALS: BP 118/49; PULSE 87; RESP 18
[2016-10-29 14:20] VITALS: BP 140/62; PULSE 69; RESP 16
--- NOTE | 2016-10-29 16:08 | OPR ---
Date/Time of Note Date/Time of Note DATE: 10/29/16 TIME: 16:02 Operative Report Free Text/Dictation DATE OF OPERATION: 10/29/2016 SURGEON: Matt Blackburn MD PREOPERATIVE DIAGNOSIS: Left lower extremity venous stasis ulcer and gangrene POSTOPERATIVE DIAGNOSIS: Same ANESTHESIA: sedation ESTIMATED BLOOD LOSS: Minimal. COMPLICATIONS: None. INDICATIONS: This is a 75-year-old female whom is noncompliant with diabetes and presented left lower extremity venous stasis ulcer and gangrene over the areas of her lower calf. The patient has been informed of the risks, benefits , and alternatives including but not limited to bleeding, worsening infection, limb loss, nerve injury, infection, , stroke, myocardial infarction, and multiple debridements in the near future and she has agreed to proceed. OPERATION PERFORMED: 1. Excisional sharp debridement of the left lower extremity involving skin, subcutaneous tissue, muscle Wound measuring 20cm X 11cm x 0.2cm in the greatest dimensions. 2. Application of 3 grams of xenograft MicroMatrix powder over the area of the lower leg. 3. Application of one [id number] two layer xenograft sheets measuring DESCRIPTION OF PROCEDURE: The patient was brought into the operating room table , placed in supine position. The normal bony prominences were padded. The anesthesia team had placed appropriate lines and anesthesia was induced. The patient tolerated procedure well and appropriate site was marked and confirmed. The patient's left lower extremity was then prepped and draped in usual standard sterile fashion. Preoperative antibiotics were given prior to skin incision. Using sharp scissors and a curette, excisional debridement of all necrotic tissue involving skin, subcutaneous tissue, and muscle was performed. The patient had good surrounding edges with necrotic tissues with necrotic fibrinous tissue that were all removed. Debridement was then performed with VersaJet device and good re-bleeding was initiated . Once this aspect was completed, we went ahead and placed xenograft micromatrix graft followed by two layer xenograft sheets over all the exposed areas. Adaptic was applied circumferentially followed by Surgilube. This was then followed with moist dressing, Telfa, 4 x 4, and Kerlix dressing. The patient tolerated procedure well and was taken to the postanesthesia care unit in stable condition. Our plan will be to revisit the wound again in one - two weeks. MATT BLACKBURN MD Oct 29, 2016 16:08
--- NOTE | 2016-10-30 17:51 | RADRPT ---
Vent Rate: 95 bpm RR Interval: 0 msec OH Interval: 162 msec QRS Duration: 88 msec QT Interval: 348 msec QTC Interval: 437 msec P-R-T Umbarger: 83 - 67 - 75 degrees Sinus rhythm with premature supraventricular complexes with occasional premature ventricular complexes Otherwise normal ECG Electronically Signed By: Fahad Gonzalez [id number]
== END 2016-10-29 16:55 | disposition home or self-care (01) ==
LOC: SDS 09:00
PROVIDERS: ATTEND Student in an Organized Health Care Education/Training Program
DX: I83.022 Varicose veins of left lower extremity with ulcer of calf (principal); L97.821 Non-pressure chronic ulcer of other part of left lower leg limited to breakdown of skin; I10 Essential (primary) hypertension; J44.9 Chronic obstructive pulmonary disease, unspecified; E66.01 Morbid (severe) obesity due to excess calories; Z68.39 Body mass index [BMI] 39.0-39.9, adult; I25.10 Atherosclerotic heart disease of native coronary artery without angina pectoris
CPT/HCPCS: 11043; 71010; 93005; J2250; J2270; J3010; Q4118; Q4166; J0690

== ENCOUNTER 2016-12-30 12:45 | Emergency (ER) | payer MEDICARE, OTHER ==
[~2016-12-30] VITALS: Ht 165.1 cm; Wt 99.0 kg
[~2016-12-30 12:45] MED LIST changes: -CHOL400C PO; -COU5 PO; -DOXY-220 PO; +ERGO500037 PO; +OXYC-209 PO; -Oxycodone/Acetamin (5/325) PO; -SAN30GM TOP; -TRAM50TA2 PO; +WARF10TA PO
[2016-12-30 12:54] VITALS: Ht 165.1 cm; Wt 99.0 kg
[2016-12-30] MEDS ORDERED: CIPR500T4 PO (14:10)
[2016-12-30] MEDS ORDERED: DOXY100T20 PO (14:10)
--- NOTE | 2016-12-30 14:39 | ERD ---
ER Documentation Chief Complaint Date/Time DATE: 12/30/16 TIME: 14:33 Chief Complaint Complain sof pain and swelling at the lower extremities HPI This is a 76-year-old female who has chronic lower extremity wounds and diabetes who presents for further evaluation. the patient is seen and treated in the amputation prevention center. The patient has chronic wounds and several times a week she is seen by the APC for dressing changes. Today they were concerned that there may be an infection, there were no doctors available and they sent the patient to the emergency room. The patient denies any fevers or chills. She states that she has had bilateral lower extreme any wounds that are unchanged. She states the chronic pain to bilateral lower extremities that is moderate and throbbing and constant that is unchanged. I spoke to the charge nurse at the amputation prevention center who stated that there may have been some greenish discharge and there were no doctors to look at the wound therefore she was sent to the emergency room. They do not report a document any fever. ROS All systems reviewed and are negative except as per history of present illness. Medications Home Meds Active Scripts Doxycycline Hyclate* (Doxycycline Hyclate*) 100 Mg Tablet.dr, 100 MG PO BID for 7 Days, TAB Prov:RONI VERDIN MD 12/30/16 Ciprofloxacin Hcl* (Ciprofloxacin Hcl*) 500 Mg Tablet, 500 MG PO BID for 7 Days , TAB Prov:RONI VERDIN MD 12/30/16 Reported Medications Oxycodone HCl/Acetaminophen (Percocet 10-325 mg Tablet) 1 Each Tablet, 1 EACH PO Q6 Y for PAIN, TAB 10/29/16 Warfarin Sodium* (Coumadin*) 10 Mg Tablet, 10 MG PO DAILY, TAB 10/29/16 Ergocalciferol (Vitamin D2) (VITAMIN D2) 50,000 Unit Capsule, 08154 UNIT PO EVERY FRIDAY, CAP 10/29/16 Bimatoprost* (Lumigan*) 0.01%-2.5 Ml Opht Drops, 1 DROP BOTH EYES HS, EA 09/14/16 Alprazolam (Alprazolam) 0.25 Mg Tab.rapdis, 0.25 MG PO hs for INSOMNIA, TAB 09/14/16 Metoprolol Succinate* (Toprol XL*) 100 Mg Tab.sr.24h, 100 MG PO DAILY, #30 TAB 09/14/16 Lisinopril* (Lisinopril*) 20 Mg Tablet, 20 MG PO BID, #30 TAB 09/14/16 Ferrous Sulfate* (Ferrous Sulfate*) 325 Mg Tabec, 325 MG PO DAILY, TAB 09/14/16 Allergies Allergies: Coded Allergies: Penicillins (Verified Allergy, Unknown, rash/hives, 12/30/16) PMhx/Soc History of Surgery: No Anesthesia Reaction: No Hx Neurological Disorder: No Hx Respiratory Disorders: No Hx Cardiac Disorders: No Hx Psychiatric Problems: No Hx Miscellaneous Medical Probl: Yes (BLOOD CLOT" LONG TIME AGO" PER PT) Hx Alcohol Use: No Hx Substance Use: No Hx Tobacco Use: No Smoking Status: Never smoker FmHx Family History: No diabetes Physical Exam Vitals Vital Signs Date Time Temp Pulse Resp B/P Pulse Ox O2 Delivery O2 Flow Rate FiO2 12/30/16 12:54 98.3 62 20 196/84 99 Physical Exam General: Well developed, well nourished, no acute distress Head: Normocephalic, atraumatic. Eyes: EOM intact ENT: Moist mucous membranes Neck: Full ROM Respiratory: No respiratory distress Cardiovascular: Good capillary refil Abdominal: Nondistended : Deferred MSK: Bilateral lower extremity wounds that appear to be subacute and chronic, the right lower extremity wound is slightly erythematous with slight weeping but this appears to be serosanguineous and likely secondary to edema fluid, no purulent drainage is noted. The patient has sensation that is intact. No crepitus Neurologic: Alert and oriented, moving all extremities, normal speech, steady gait Skin: As documented above Psych: Normal mood Procedures/MDM MEDICAL DECISION MAKING: The patient is afebrile her wounds appear to be subacute and chronic. There is slight weeping to the right lower extremity but this appears to be more edema fluid rather than infectious process. I spoke to the charge nurse who states the only reason she was sent to the emergency room is because there was no physician to see the patient at the amputation prevention center. I do not believe the patient requires laboratory testing or diagnostic imaging. Consideration for empiric antibiotics would be reasonable. I discussed the case with Dr. Blackburn, he is agreeable that the patient can follow-up on for routine care. I will initiate the patient on doxycycline and ciprofloxacin. This should cover staph, strep, anaerobes. ER COURSE: The patient states that her pain is at baseline and she does not require any further pain medication. A wound dressing will be applied at the amputation prevention center and the patient was discharged back to the [facility]. I kept the patient and/or family informed of laboratory and diagnostic imaging results throughout the emergency room course. DISPOSITION PLAN: We discussed follow up with the patient's primary care doctor within 24 to 48 hours as needed. We also discussed return to the emergency room for worsening symptoms or worsening condition. Outpatient referral: Amputation prevention center Discharge Medications: Doxycycline, ciprofloxacin Departure Diagnosis: Primary Impression: Leg wound, right Encounter type: initial encounter Qualified Code: S81.801A - Leg wound, right, initial encounter Additional Impression: Leg wound, left Encounter type: initial encounter Qualified Code: S81.802A - Leg wound, left , initial encounter Condition: Stable Patient Instructions: Wound Care Referrals: ERIN BLACKBURN MD Additional Instructions: Follow up on as planned RONI VERDIN MD Dec 30, 2016 14:39
== END 2016-12-30 14:51 | disposition home or self-care (01) ==
LOC: E/R 12:45
DX: S81.801A Unspecified open wound, right lower leg, initial encounter (principal); E11.9 Type 2 diabetes mellitus without complications; X58.XXXA Exposure to other specified factors, initial encounter; Y92.9 Unspecified place or not applicable; Z79.01 Long term (current) use of anticoagulants
CPT/HCPCS: 99284

== ENCOUNTER 2017-01-20 17:10 | Inpatient (IN) | payer MEDICARE, OTHER ==
[~2017-01-20] VITALS: Ht 152.4 cm; Wt 103.5 kg
[2017-01-20 17:00] VITALS: BP 158/70; PULSE 63; RESP 18
[~2017-01-20 17:10] MED LIST changes: +CIPR500T4 PO; +DOXY100T20 PO
[2017-01-20] MEDS ORDERED: DOCUSATE SODIUM 100 MG CAP PO PRN (18:30)
[2017-01-20] MEDS ORDERED: HYDROCODONE/APAP (5/325) TAB PO PRN (18:30)
[2017-01-20] MEDS ORDERED: MAGNESIUM HYDROXIDE 30ML CUP PO PRN (18:30)
[2017-01-20] MEDS ORDERED: ACETAMINOPHEN 325 MG TAB PO PRN (18:30)
[2017-01-20] MEDS ORDERED: ALBUTEROL/IPRATROPIUM (NEB) 3 ML AMP HHN PRN (18:30)
[2017-01-20] MEDS ORDERED: VANCOMYCIN IV PER PHARMACY XX SCH (18:30)
[2017-01-20] MEDS ORDERED: NACL 0.9% 3 ML SYG IV SCH (18:30)
[2017-01-20] MEDS ORDERED: ONDANSETRON 4 MG INJ IV PRN (18:30)
--- NOTE | 2017-01-20 18:41 | HP ---
Date/Time of Note Date/Time of Note DATE: 01/20/17 TIME: 18:35 Assessment/Plan VTE Prophylaxis VTE Prophylaxis Intervention: SCD's Assessment/Plan Chief Complaint/Hosp Course Assessment and plan: 76-year-old female sent in from [facility] clinic because of chronic lower extremity ulcers and possible cellulitis, past medical history of hypertension and possible diabetes and PVD. 1. Lower extremity ulcers: Given the fact there is also possible cellulitis, will start aztreonam and vancomycin. -We will get wound nurse consult as well as vascular surgery consult -Check TSH, A1c, lipid panel -We will also get PT consult -Given the lower extremity swelling, will also check bilateral lower extremity ultrasounds to rule out DVT. Patient has prior history of DVT 3 years ago. 2. Possible diabetes: Check A1c, sliding scale 3. HTN: Hold ARIANNA inhibitor in case any contrast procedures need to be done, continue beta-jarred, also hydralazine IV as needed 4. GI prophylaxis: PPI Problems: HPI/ROS Admit Date/Time Admit Date/Time Jan 20, 2017 at 17:10 Hx of Present Illness 76-year-old female past medical history of possible diabetes, hypertension, chronic lower extremity ulcers, questionable peripheral vascular disease, prior DVT, who was sent in from [facility] clinic because of chronic lower extremity ulcers and possible cellulitis. Patient denies fevers or chills, nausea vomiting, diarrhea constipation, headaches dizziness or loss of consciousness. Patient has been followed by Dr. Rai a vascular surgeon as outpatient, who sent patient in earlier today. Denies any prior history of any strokes or heart attack. Patient states she has not been taking Coumadin for the last few months as well, despite it being listed as an active medication. PMH/Family/Social Past Medical History Medical History: other Past Surgical History Past Surgical Hx: other (Cataract surgery) Family History Significant Family History: no pertinent family hx Social History Alcohol Use: none Smoking Status: Never smoker Drug Use: none Exam/Review of Systems Vital Signs Vitals Vital Signs Date Time Temp Pulse Resp B/P Pulse Ox O2 Delivery O2 Flow Rate FiO2 01/20/17 17:00 97.6 63 18 158/70 100 Room Air Exam Exam General: Lying in bed, family at bedside HEENT: Pupils equal round reactive to light, extraocular muscles intact Neck: Supple Respiratory: Clear to auscultation bilaterally Cardiovascular: S1-S2 heard, no rubs or gallops Abdomen: Soft, nontender, nondistended, no rebound or guarding, normal bowel sounds Muscular skeletal: 1+ pitting edema bilateral lower extremity to the mid calves , rest of her ulcers on the feet are wrapped in bandages Neurologic: No focal deficits Medications Medications Current Medications Ondansetron HCl (Zofran Inj) 4 mg Q6H PRN IV NAUSEA AND/OR VOMITING; Start at 18:30 Acetaminophen (Tylenol Tab) 650 mg Q6H PRN PO PAIN LEVEL 1-3 OR FEVER; Start at 18:30 Acetaminophen/ Hydrocodone Bitart ([place] (5/325)) 1 tab Q6H PRN PO MODERATE PAIN LEVEL 4-6; Start 01/20/17 at 18:30 Morphine Sulfate (morphine) 2 mg Q4H PRN IV SEVERE PAIN LEVEL 7-10; Start 01/20 at 18:30 Docusate Sodium (Colace) 100 mg Q12H PRN PO CONSTIPATION; Start 01/20/17 at 18: 30 Magnesium Hydroxide (Milk Of Mag) 30 ml DAILY PRN PO CONSTIPATION; Start at 18:30 Sodium Biphosphate/ Sodium Phosphate (Fleet Enema) 133 ml DAILY PRN [place] CONSTIPATION; Start 01/20/17 at 18:30 Pantoprazole 40 mg 40 mg DAILY@06 IV ; Start 01/21/17 at 06:00 Sodium Chloride (1/2 NS) 1,000 ml @ 75 mls/hr [id number] IV ; Start 01/20/17 at 18 :15 Lorazepam (Ativan) 0.5 mg Q6H PRN IV ANXIETY; Start 01/20/17 at 18:30 Vancomycin HCl (Vanco Iv Per Pharmacy) VANCOMYCIN PER PHARMACY NOTE XX ; Start 01/20/17 at 18:30; Status UNV Hydralazine HCl (Apresoline) 10 mg Q6H PRN IV ELEVATED BLOOD PRESSURE; Start at 18:30 Nitroglycerin (Nitroglycerin (Sl Tab) 0.4 Mg) 1 tab Q5M PRN SL ANGINA; Start at 18:30 Diagnostic Test (Pha) (Accu-Chek) 1 02 XX ; Start 01/21/17 at 02:00 Insulin Aspart (Novolog Insulin Pen) NOVOLOG *MILD* ALGORI... Q4 SC ; Start at 21:00 Bimatoprost ([place] 0.01% Oph) 1 drop HS BOTH EYES ; Start 01/20/17 at 21:00 Ferrous Sulfate (Ferrous Sulfate (Ec)) 325 mg DAILY PO ; Start 01/21/17 at 09:00 Metoprolol Succinate 100 mg 100 mg DAILY PO ; Start 01/21/17 at 09:00 Aztreonam (Azactam 1gm/NS (Pmx)) 50 ml @ 100 mls/hr Q12 IVPB ; Start 01/20/17 at 21:00 Miscellaneous Information 1 ea NOTE XX ; Start 01/20/17 at 19:00 Glucose (Glutose) 15 gm Q15M PRN PO DECREASED GLUCOSE; Start 01/20/17 at 19:00 Glucose (Glutose) 22.5 gm Q15M PRN PO DECREASED GLUCOSE; Start 01/20/17 at 19: 00 Dextrose (D50w Syringe) 25 ml Q15M PRN IV DECREASED GLUCOSE; Start 01/20/17 at 19:00 Dextrose (D50w Syringe) 50 ml Q15M PRN IV DECREASED GLUCOSE; Start 01/20/17 at 19:00 Glucagon (Glucagen) 1 mg Q15M PRN IM DECREASED GLUCOSE; Start 01/20/17 at 19:00 Glucose (Glutose) 15 gm Q15M PRN BUCCAL DECREASED GLUCOSE; Start 01/20/17 at 19 :00 SANDRA KNOWLES Jan 20, 2017 18:41
[2017-01-20] MEDS: morphine 2 MG INJ IV PRN ×2 (18:45→22:43)
[2017-01-20] MEDS ORDERED: GLUCAGON 1 MG INJ IM PRN (19:00)
[2017-01-20] MEDS ORDERED: GLUCOSE GEL 15 GRAM TUBE PO PRN ×2 (19:00)
[2017-01-20] MEDS ORDERED: GLUCOSE GEL 15 GRAM TUBE BUCCAL PRN (19:00)
[2017-01-20] MEDS ORDERED: DEXTROSE 50% 50 ML SYRINGE IV PRN ×2 (19:00)
[2017-01-20 19:29] LABS: INR 1.08; PT RATIO 1.1
[2017-01-20 19:30] LABS: PARTIAL THROMBOPLASTIN TIME 31.2 Sec (25.0-35.0)
[2017-01-20 19:56] VITALS: BP 169/81; RESP 20
[2017-01-20] MEDS: SOD CHLORIDE 0.45% 1,000 ML IV SCH (20:09)
[2017-01-20] MEDS: FUROSEMIDE 20 MG INJ IV SCH (20:10)
[2017-01-20] MEDS: INSULIN ASPART [NOVOLOG] 3 ML PEN SC SCH (20:22)
[2017-01-20] MEDS ORDERED: VANCOMYCIN 2 GM in SOD CHLORIDE 0.9% 500 ML IVPB SCH (20:30)
[2017-01-20] MEDS ORDERED: BIMATOPROST 0.01% 2.5 ML BTL BOTH EYES SCH (21:00)
[2017-01-20] MEDS: AZTREONAM 1 GM/NS (PMX) 50 ML IVPB SCH (21:27)
[2017-01-20] MEDS: LATANOPROST 0.005% 2.5 ML OPH BOTH EYES SCH (21:27)
[2017-01-21] MEDS: morphine 4 MG/ML VIAL IV PRN ×3 (00:13→09:37)
[2017-01-21] MEDS: INSULIN ASPART [NOVOLOG] 3 ML PEN SC SCH ×6 (00:34→21:00)
[2017-01-21 01:48] VITALS: BP 168/75; RESP 20
[2017-01-21] MEDS: ACCU-CHEK XX SCH (02:00)
[2017-01-21] MEDS: HYDROCODONE/APAP (10/325) TAB PO PRN (02:20)
[2017-01-21] MEDS: LORAZEPAM 2 MG INJ IV PRN (02:31)
[2017-01-21 05:24] VITALS: BP 138/63; PULSE 84; RESP 19
[2017-01-21 05:54] LABS: BASOPHIL # 0.1 10^3/ul (0.0-0.1); BASOPHILS % 0.6 % (0.0-2.0); EOSINOPHILS # 0.3 10^3/ul (0.0-0.5); EOSINOPHILS % 2.7 % (0.0-7.0); HEMATOCRIT 25.1 % (37.0-47.0); HEMOGLOBIN 7.7 g/dl (12.0-16.0); LYMPHOCYTES # 1.7 10^3/ul (0.8-2.9); LYMPHOCYTES % 16.5 % (15.0-51.0); MEAN CORPUSCULAR HEMOGLOBIN 24.4 pg (29.0-33.0); MEAN CORPUSCULAR HGB CONC 30.7 g/dl (32.0-37.0); MEAN CORPUSCULAR VOLUME 79.7 fl (82.0-101.0); MEAN PLATELET VOLUME 10.1 fl (7.4-10.4); MONOCYTE # 0.8 10^3/ul (0.3-0.9); MONOCYTES % 8.1 % (0.0-11.0); NEUTROPHILS % 71.6 % (39.0-77.0); PLATELET COUNT 347 10^3/UL (140-415); RED BLOOD COUNT 3.15 10^6/ul (4.20-5.40); RED CELL DISTRIBUTION WIDTH 16.5 % (11.5-14.5); WHITE BLOOD COUNT 10.4 10^3/ul (4.8-10.8)
[2017-01-21] MEDS ORDERED: PANTOPRAZOLE 40 MG INJ IV SCH (06:00)
[2017-01-21 06:06] LABS: INR 1.07; PROTIME 13.9 Sec (12.2-14.2); PT RATIO 1.1
[2017-01-21 06:28] LABS: CALCIUM 8.9 mg/dl (8.4-10.2); CHOL/HDL RATIO 2.1 RATIO; CREATININE 0.83 mg/dl (0.44-1.00); MAGNESIUM 1.8 mg/dl (1.7-2.5); PHOSPHORUS 4.2 mg/dl (2.5-4.9); POTASSIUM 4.8 mmol/L (3.5-5.1)
[2017-01-21 06:54] LABS: THYROID STIMULATING HORMONE 2.99 MIU/L (0.465-4.680)
[2017-01-21 07:28] VITALS: BP 119/57; RESP 20
[2017-01-21] MEDS: SOD CHLORIDE 0.45% 1,000 ML IV SCH ×2 (07:35→17:07)
--- NOTE | 2017-01-21 08:19 | RADRPT ---
PROCEDURE: Ultrasound of the bilateral lower extremity venous system. CLINICAL INDICATION: Bilateral leg pain and swelling, deep venous thrombosis TECHNIQUE: Gunter scale with and without compression, color doppler, spectral doppler of the venous system of the bilateral lower extremities was performed. Venous augmentation maneuvers were utilized . COMPARISON: 09/16/2016 FINDINGS: RIGHT: Common femoral vein: Patent. Femoral vein: Patent. Popliteal vein: Patent. Calf veins: Patent. No soft tissue abnormalities are identified. LEFT: Common femoral vein: Patent. Femoral vein: Patent. Popliteal vein: Patent. Calf veins: Patent. No soft tissue abnormalities are identified. IMPRESSION: No evidence of a deep vein thrombosis within the bilateral lower extremities. RPTAT: AADD .Yony Florse MD, MD Date Time Electronically viewed and signed by .Yony Flores MD, on 01/21/2017 08:18 .B/
[2017-01-21] MEDS: AZTREONAM 1 GM/NS (PMX) 50 ML IVPB SCH ×2 (09:36→20:59)
[2017-01-21] MEDS: FERROUS SULFATE (EC) 325 MG TAB PO SCH (09:36)
[2017-01-21] MEDS: FUROSEMIDE 20 MG INJ IV SCH (09:38)
[2017-01-21] MEDS: METOPROLOL (XL) 100 MG TAB PO SCH (09:42)
--- NOTE | 2017-01-21 10:08 | PN ---
Date/Time of Note Date/Time of Note DATE: 01/21/17 TIME: 10:05 Assessment/Plan VTE Prophylaxis VTE Prophylaxis Intervention: SCD's Lines/Catheters Urinary Cath still in place: No Assessment/Plan Chief Complaint/Hosp Course Assessment and plan: 76-year-old female sent in from [facility] clinic because of chronic lower extremity ulcers and possible cellulitis, past medical history of hypertension and possible diabetes and PVD. 1. Lower extremity ulcers: Given the fact there is also possible cellulitis, -Continue aztreonam and vancomycin. -Follow-up wound nurse consult as well as vascular surgery consult recommendation -Follow-up PT consult 2. Possible diabetes: A1c less than 6.0, monitor for now 3. HTN: Holding ARIANNA inhibitor in case any contrast procedures need to be done, continue beta-jarred, also hydralazine IV as needed 4. GI prophylaxis: PPI 5. History of DVT: Bilateral lower extremity ultrasound negative for DVT.Patient has prior history of DVT 3 years ago. -Monitor for now, patient stated she does not take Coumadin now for the last few months. Problems: Subjective 24 Hr Interval Summary Free Text/Dictation Patient with some body pains last night, waiting to be seen by vascular surgery and wound care teams. Exam/Review of Systems Vital Signs Vitals Vital Signs Date Time Temp Pulse Resp B/P Pulse Ox O2 Delivery O2 Flow Rate FiO2 01/21/17 07:28 98.8 75 20 119/57 95 01/21/17 05:24 Room Air Intake and Output 01/20/17 01/20/17 01/21/17 14:59 22:59 06:59 Intake Total 50 ml 650 ml Balance 50 ml 650 ml Exam General: Lying in bed, in mild distress HEENT: Pupils equal round reactive to light, extraocular muscles intact Neck: Supple Respiratory: Clear to auscultation bilaterally Cardiovascular: S1-S2 heard, no rubs or gallops Abdomen: Soft, nontender, nondistended, no rebound or guarding, normal bowel sounds Muscular skeletal: 1+ pitting edema bilateral lower extremity to the mid calves , rest of her ulcers on the feet are wrapped in bandages Neurologic: No focal deficits Results Result Diagram: 01/21/17 0519 01/21/17 0519 Results 24 hrs Laboratory Tests Test 01/20/17 18:51 01/20/17 20:15 01/21/17 00:28 01/21/17 05:15 Prothrombin Time 14.0 Prothrombin Time Ratio 1.1 INR International Normalized Ratio 1.08 Activated Partial Thromboplast Time 31.2 Free Thyroxine 1.10 Bedside Glucose 75 89 94 Test 01/21/17 05:19 01/21/17 09:28 White Blood Count 10.4 Red Blood Count 3.15 L Hemoglobin 7.7 #L Hematocrit 25.1 #L Mean Corpuscular Volume 79.7 L Mean Corpuscular Hemoglobin 24.4 L Mean Corpuscular Hemoglobin Concent 30.7 L Red Cell Distribution Width 16.5 H Platelet Count 347 Mean Platelet Volume 10.1 Neutrophils % 71.6 Lymphocytes % 16.5 Monocytes % 8.1 Eosinophils % 2.7 Basophils % 0.6 Nucleated Red Blood Cells % 0.0 Neutrophils # (Manual) 7.5 Lymphocytes # 1.7 Monocytes # 0.8 Eosinophils # 0.3 Basophils # 0.1 Nucleated Red Blood Cells # 0.0 Prothrombin Time 13.9 Prothrombin Time Ratio 1.1 INR International Normalized Ratio 1.07 Sodium Level 140 Potassium Level 4.8 Chloride Level 101 Carbon Dioxide Level 27 Anion Gap 17 H Blood Urea Nitrogen 22 H Creatinine 0.83 Glucose Level 98 Hemoglobin A1c 5.6 Calcium Level 8.9 Phosphorus Level 4.2 Magnesium Level 1.8 Triglycerides Level 56 Cholesterol Level 142 LDL Cholesterol, Calculated 66 HDL Cholesterol 65 Cholesterol/HDL Ratio 2.1 Thyroid Stimulating Hormone (TSH) 2.990 Bedside Glucose 86 Medications Medications Current Medications Ondansetron HCl (Zofran Inj) 4 mg Q6H PRN IV NAUSEA AND/OR VOMITING; Start at 18:30 Acetaminophen (Tylenol Tab) 650 mg Q6H PRN PO PAIN LEVEL 1-3 OR FEVER; Start at 18:30 Docusate Sodium (Colace) 100 mg Q12H PRN PO CONSTIPATION; Start 01/20/17 at 18: 30 Magnesium Hydroxide (Milk Of Mag) 30 ml DAILY PRN PO CONSTIPATION; Start at 18:30 Sodium Biphosphate/ Sodium Phosphate (Fleet Enema) 133 ml DAILY PRN [place] CONSTIPATION; Start 01/20/17 at 18:30 Pantoprazole 40 mg 40 mg DAILY@06 IV Last administered on 01/21/17t 05:17; Admin Dose 40 MG; Start 01/21/17 at 06:00 Sodium Chloride (1/2 NS) 1,000 ml @ 75 mls/hr [id number] IV Last administered on 01/20/17 20:09; Admin Dose 75 MLS/HR; Start 01/20/17 at 18:15 Lorazepam (Ativan) 0.5 mg Q6H PRN IV ANXIETY Last administered on 01/21/17 02: 31; Admin Dose 0.5 MG; Start 01/20/17 at 18:30 Vancomycin HCl (Vanco Iv Per Pharmacy) VANCOMYCIN PER PHARMACY NOTE XX ; Start 01/20/17 at 18:30 Hydralazine HCl (Apresoline) 10 mg Q6H PRN IV ELEVATED BLOOD PRESSURE; Start at 18:30 Nitroglycerin (Nitroglycerin (Sl Tab) 0.4 Mg) 1 tab Q5M PRN SL ANGINA; Start at 18:30 Diagnostic Test (Pha) (Accu-Chek) 1 ea 02 XX ; Start 01/21/17 at 02:00 Insulin Aspart (Novolog Insulin Pen) NOVOLOG *MILD* ALGORI... Q4 SC ; Start at 21:00 Ferrous Sulfate (Ferrous Sulfate (Ec)) 325 mg DAILY PO Last administered on 09:36; Admin Dose 325 MG; Start 01/21/17 at 09:00 Metoprolol Succinate 100 mg 100 mg DAILY PO Last administered on 01/21/17 09: 42; Admin Dose 100 MG; Start 01/21/17 at 09:00 Aztreonam (Azactam 1gm/NS (Pmx)) 50 ml @ 100 mls/hr Q12 IVPB Last administered on 01/21/17 09:36; Admin Dose 100 MLS/HR; Start 01/20/17 at 21:00 Miscellaneous Information 1 ea NOTE XX ; Start 01/20/17 at 19:00 Glucose (Glutose) 15 gm Q15M PRN PO DECREASED GLUCOSE; Start 01/20/17 at 19:00 Glucose (Glutose) 22.5 gm Q15M PRN PO DECREASED GLUCOSE; Start 01/20/17 at 19: 00 Dextrose (D50w Syringe) 25 ml Q15M PRN IV DECREASED GLUCOSE; Start 01/20/17 at 19:00 Dextrose (D50w Syringe) 50 ml Q15M PRN IV DECREASED GLUCOSE; Start 01/20/17 at 19:00 Glucagon (Glucagen) 1 mg Q15M PRN IM DECREASED GLUCOSE; Start 01/20/17 at 19:00 Glucose (Glutose) 15 gm Q15M PRN BUCCAL DECREASED GLUCOSE; Start 01/20/17 at 19 :00 Furosemide (Lasix) 20 mg DAILY IV Last administered on 01/21/17 09:38; Admin Dose 20 MG; Start 01/20/17 at 19:00 Latanoprost 1 drop 1 drop HS BOTH EYES Last administered on 01/20/17 21:27; Admin Dose 1 DROP; Start 01/20/17 at 21:00 Vancomycin HCl/ Sodium Chloride (Vancocin/NS) 250 ml @ 83.333 mls/ hr Q24H IVPB ; Start 01/21/17 at 22:30 Morphine Sulfate (morphine) 4 mg Q4H PRN IV PAIN Last administered on 09:37; Admin Dose 4 MG; Start 01/21/17 at 00:00 Acetaminophen/ Hydrocodone Bitart ([place] (10/325)) 1 tab Q4H PRN PO PAIN Last administered on 01/21/17 02:20; Admin Dose 1 TAB; Start 01/21/17 at 00:00 SANDRA KNOWLES Jan 21, 2017 10:08
[2017-01-21] MEDS: HYDROmorphONE 1 MG/ML SYG IV PRN ×2 (13:08→23:19)
--- NOTE | 2017-01-21 13:58 | HP ---
DATE OF ADMISSION: 01/20/2017 Dear Doctors: Ms. Crane is a 76-year-old female, known to our vascular surgery service for a long-standing history of bilateral lower extremity atherosclerosis with nonhealing ulcers and mixed disease with bilateral lower extremity venous insufficiency and varicose veins. The patient had been under our care at our wound care center with compression dressings and local wound care twice weekly; however, upon her last visitation to the Wound Care Center, it seems that the patient has developed significant erythema, pain and discomfort of the right lower extremity, suggestion of cellulitis. Therefore, the patient was admitted to [facility] for IV antibiotics and for further evaluation. In addition, the patient's right lower extremity had begun to increase in size, ulcer that was around the Achilles segment, in which concern for arterial insufficiency has become more prominent. The patient is going to be scheduled for an angiogram during her hospitalization. At the moment, patient denies shortness of breath, chest pain, nausea, vomiting, fever, or chills. Patient does have pain in bilateral lower extremities in the areas of where her ulcers. REVIEW OF SYSTEMS: Fourteen point review performed, negative except what was mentioned in HPI. PAST MEDICAL HISTORY: Entails morbidly obese, BMI of 44.6, hypertension, possible diabetes, bilateral lower extremity atherosclerosis with ulcers, bilateral lower extremity venous insufficiency with venous stasis ulcers, previous deep vein thrombosis, recurrent bilateral lower extremity cellulitis and ulcer formations, cataracts. SURGICAL HISTORY: Multiple debridements of bilateral lower extremities, cataract surgery. SOCIAL HISTORY: Denies tobacco, alcohol or illicit drug use. FAMILY HISTORY: Positive for diabetes and hypertension. PHYSICAL EXAMINATION: GENERAL APPEARANCE: Alert, oriented x3. No apparent distress. HEENT: Normocephalic, atraumatic. PERRLA. EOMI. Mucosa moist. NECK: Supple. No carotid bruit. LUNGS: Clear to auscultation bilaterally. No crackles. CARDIOVASCULAR: S1, S2 present. No murmurs. ABDOMEN: Soft, nontender, nondistended. Bowel sounds positive. Truncal obesity. EXTREMITIES: Right lower extremity: Palpable femoral pulse. Nonpalpable pedal pulse. Motor and sensory intact. Capillary refill 3 seconds. There are circumferential ulcers that start from the ankle all the way up to the knee. Areas of erythema, pain upon palpation. Areas of purulent discharge from her ulcers. Left lower extremity: Palpable femoral pulse. Nonpalpable pedal pulse. Motor and sensory intact. Capillary refill 3-4 seconds. Circumferential ulcers that are measuring different sizes from the ankle all the way up to the knee. ASSESSMENT AND PLAN: 1. Bilateral lower extremity atherosclerosis with nonhealing ulcers: It seems that the patient's atherosclerotic disease has become quite prominent as the patient's ulcer have worsened in size despite local wound care and compression dressing, as the patient has mixed disease of arterial and venous insufficiency. We will plan to schedule the patient to undergo angiography as the patient's noninvasive vascular studies have not definitively identified significant flow-limiting disease. However, at this point, with the concern of enlarging ulcers would need to further delineate this. 2. We will plan to obtain vein mapping for possible conduit if needed. 3. We will continue with the local wound care with applying Santyl to all the wounds for now. 4. Recommend continue with intravenous antibiotics with vancomycin and Zosyn until our infectious disease colleagues evaluate the patient and make other recommendations. 5. Recommend for the patient to be evaluated by our endocrine colleagues, as the patient has had borderline glucose levels. 6. Optimize vascular status (blood pressure meds, diet, nutrition, antiplatelets, sugar control, weight loss). 7. I discussed findings, plan and management with the patient with a certified accounts executive and they understand. Thank you for allowing us to partake in the care of your patient. Please call with any questions. Dictated By: Matt Rai MD /bela/lizzette /Document#: [id number]
[2017-01-21] MEDS: COLLAGENASE 30 GM TUBE TOP SCH (14:00)
[2017-01-21 14:01] VITALS: BP 126/67; RESP 20
--- NOTE | 2017-01-21 14:43 | RADRPT ---
Echocardiogram Report Patient Name: RONALDO BAEZ Gender: Female Date: 1940 Study Date: 21-Jan-2017 Plant Machinist: Wyatt Jensen [facility] Location: [id number] Ref. Physician: SANDRA KNOWLES Quality: Adequate Procedures: Transthoracic echocardiogram with complete 2D, M-Mode, and doppler examination. Indications: LE Edema. 2D/M Mode Doppler Measurement Value Normal Ranges Measurement Value Normal Ranges LVIDd 2D 3.8 3.5 - 5.6 cm DANIEL Vmax 1.6 cm2 LVIDs 2D 2.5 2.1 - 4.1 cm DANIEL VTI 1.6 cm2 LVPWd 2D 1.4 0.6 - 1.1 cm AV Mean Reagan 3.1 m/sec IVSd 2D 1.4 0.6 - 1.1 cm AV Mean PG 41.7 mmHg AoR Diam 2D 2.8 2.0 - 3.7 cm AV Peak Reagan 4.2 m/sec EDV 2D 60.1 cm3 AV Peak PG 70.6 mmHg ESV 2D 16.0 cm3 AV VTI 96.5 cm LA Dimen 2D 2.9 2.3 - 4.0 cm AI Peak PG 57.0 mmHg LVOT Diam 2.0 cm AI Peak Reagan 3.8 m/sec AI PHT 494.4 msec LVOT Mean Reagan 1.4 m/sec LVOT Mean PG 9.9 mmHg LVOT Peak Reagan 2.1 m/sec LVOT Peak PG 17.7 mmHg LVOT VTI 51.9 cm MV E Peak Reagan 0.8 m/sec MV A Peak Reagan 1.2 m/sec MV E/A 0.7 MV Decel Time 172 msec MV Decel Briscoe 5 MV E/A 0.7 TR Peak Reagan 4.2 m/sec TR Peak PG 71.5 mmHg RVSP 82.0 mmHg Findings Left Ventricle: Normal left ventricular systolic function. Normal left ventricular cavity size. Moderate concentric left ventricular hypertrophy. Ejection fraction is visually estimated at 65 %. Right Ventricle: Normal right ventricular size. Normal right ventricular systolic function. Left Atrium: The left atrium is normal in size. Right Atrium: The right atrium is normal in size. Mitral Valve: Mild mitral leaflet calcification. Moderate mitral annular calcification. Mild mitral valve regurgitation. Aortic Valve: Aortic valve not well visualized. Severe aortic stenosis. Aortic valve Max velocity 4.20 m/sec. Max PG 70.60 mmHg. Mean PG 41.70 mmHg. Aortic cusps appear severely calcified. Mild aortic valve regurgitation. Tricuspid Valve: Normal appearance of the tricuspid valve. Estimated peak PA systolic pressure 82 mmHg. There is moderate tricuspid regurgitation. Pulmonic Valve: Normal pulmonic valve appearance. Pericardium: Normal pericardium with no significant pericardial effusion. Aorta: Normal aortic root. IVC: Dilated IVC with respiratory collapse consistent with elevated right atrial pressure. Conclusions 1.Normal left ventricular systolic function. Normal left ventricular cavity size. Moderate concentric left ventricular hypertrophy. Ejection fraction is visually estimated at 65 %. 2.Mild mitral leaflet calcification. Moderate mitral annular calcification. Mild mitral valve regurgitation. 3.Aortic valve not well visualized. Severe aortic stenosis. Aortic valve Max velocity 4.20 m/sec. Max PG 70.60 mmHg. Mean PG 41.70 mmHg. Aortic cusps appear severely calcified. Mild aortic valve regurgitation. 4.Normal appearance of the tricuspid valve. Estimated peak PA systolic pressure 82 mmHg. There is moderate tricuspid regurgitation. 5.Dilated IVC with respiratory collapse consistent with elevated right atrial pressure. Electronically Signed By: Darwin Bah 21-Jan-2017 14:42:52 -0700 Patient Name: RONALDO BAEZ Study Date: 21-Jan-2017 [id number]
--- NOTE | 2017-01-21 17:45 | RADRPT ---
PROCEDURE: Bilateral lower extremity venous mapping. CLINICAL INDICATION: Preoperative for CABG. TECHNIQUE: The greater saphenous vein was evaluated bilaterally with ultrasound in the axial and s agittal planes. Diameter of the veins were determined as indicated below. COMPARISON: No prior studies are available for comparison. FINDINGS: Right greater saphenous vein: At groin: 0.64 cm. Upper thigh: 0.54 cm. Mid thigh: 0.38 cm. Lower thigh: 0.36 cm. At knee: 0.16 cm. Upper calf: 0.19 cm. Mid calf: 0.16 cm. Ankle: 0.17 cm. Left greater saphenous vein: At groin: 0.41 cm. Upper thigh: 0.35 cm. Mid thigh: 0.33 cm. Lower thigh: 0.30 cm. At knee: 0.19 cm. Upper calf: 0.15 cm. Mid calf: 0.24 cm. Ankle: 0.13 cm. The greater saphenous veins demonstrate normal compressibility with no thrombus or occlusion. IMPRESSION: 1. Diameter of greater saphenous veins as indicated above. 2. No thrombosis visualized. RPTAT: QQ .Gerald Rey MD, Date Time Electronically viewed and signed by .Gerald Rey MD, on 01/21/2017 17:45 .R/
[2017-01-21 19:44] VITALS: BP 155/75; RESP 20
[2017-01-21] MEDS: LATANOPROST 0.005% 2.5 ML OPH BOTH EYES SCH (20:58)
[2017-01-21] MEDS: FAMOTIDINE 20 MG INJ IV SCH (20:59)
[2017-01-21] MEDS ORDERED: VANCOMYCIN 1.5 GM in SOD CHLORIDE 0.9% 250 ML IVPB SCH (21:00)
[2017-01-21] MEDS: VANCOMYCIN 1.5 GM in SOD CHLORIDE 0.9% 250 ML IVPB SCH (23:19)
[2017-01-22] MEDS: INSULIN ASPART [NOVOLOG] 3 ML PEN SC SCH ×6 (01:00→21:00)
[2017-01-22 01:30] VITALS: BP 133/65; RESP 20
[2017-01-22] MEDS: ACCU-CHEK XX SCH (01:55)
[2017-01-22] MEDS: morphine 4 MG/ML VIAL IV PRN ×2 (04:55→21:25)
[2017-01-22 06:36] LABS: BASOPHIL # 0.1 10^3/ul (0.0-0.1); BASOPHILS % 0.6 % (0.0-2.0); EOSINOPHILS # 0.4 10^3/ul (0.0-0.5); EOSINOPHILS % 4.9 % (0.0-7.0); HEMATOCRIT 23.6 % (37.0-47.0); HEMOGLOBIN 7.1 g/dl (12.0-16.0); LYMPHOCYTES % 24.6 % (15.0-51.0); MEAN CORPUSCULAR HGB CONC 30.1 g/dl (32.0-37.0); MEAN CORPUSCULAR VOLUME 79.7 fl (82.0-101.0); MEAN PLATELET VOLUME 10.1 fl (7.4-10.4); MONOCYTE # 0.9 10^3/ul (0.3-0.9); MONOCYTES % 10.7 % (0.0-11.0); NEUTROPHILS % 58.8 % (39.0-77.0); PLATELET COUNT 312 10^3/UL (140-415); RED BLOOD COUNT 2.96 10^6/ul (4.20-5.40); RED CELL DISTRIBUTION WIDTH 16.7 % (11.5-14.5); WHITE BLOOD COUNT 7.9 10^3/ul (4.8-10.8)
[2017-01-22 07:03] LABS: CALCIUM 8.6 mg/dl (8.4-10.2); CREATININE 0.78 mg/dl (0.44-1.00); POTASSIUM 4.4 mmol/L (3.5-5.1)
[2017-01-22 07:35] VITALS: BP 122/57; RESP 18
[2017-01-22] MEDS: HYDROmorphONE 1 MG/ML SYG IV PRN ×3 (08:07→17:39)
[2017-01-22] MEDS: METOPROLOL (XL) 100 MG TAB PO SCH (08:28)
[2017-01-22] MEDS: FERROUS SULFATE (EC) 325 MG TAB PO SCH (08:28)
[2017-01-22] MEDS: COLLAGENASE 30 GM TUBE TOP SCH (08:29)
[2017-01-22] MEDS: AZTREONAM 1 GM/NS (PMX) 50 ML IVPB SCH ×2 (08:30→21:28)
[2017-01-22] MEDS: FUROSEMIDE 20 MG INJ IV SCH (08:37)
--- NOTE | 2017-01-22 12:37 | PN ---
Date/Time of Note Date/Time of Note DATE: 01/22/17 TIME: 12:33 Assessment/Plan VTE Prophylaxis VTE Prophylaxis Intervention: SCD's Lines/Catheters IV Catheter Type (from Nrs): Peripheral IV Urinary Cath still in place: No Assessment/Plan Chief Complaint/Hosp Course Assessment and plan: 76-year-old female sent in from [facility] clinic because of chronic lower extremity ulcers and possible cellulitis, past medical history of hypertension and possible diabetes and PVD. 1. Lower extremity ulcers: Wrapped with bandages. -Given the fact there is also possible cellulitis, Continue aztreonam and vancomycin. -Follow-up wound nurse consult as well as vascular surgery consult recommendations, will also get infectious disease consult -Follow-up PT consult 2. Possible diabetes: A1c less than 6.0, monitor for now 3. HTN: Holding ARIANNA inhibitor in case any contrast procedures need to be done, continue beta-jarred, also hydralazine IV as needed 4. GI prophylaxis: PPI 5. History of DVT: Bilateral lower extremity ultrasound negative for DVT.Patient has prior history of DVT 3 years ago. -Monitor for now, patient stated she does not take Coumadin now for the last few months. Problems: Subjective 24 Hr Interval Summary Free Text/Dictation No acute events overnight, although patient still having some pain symptoms. Seen by vascular surgery team. Exam/Review of Systems Vital Signs Vitals Vital Signs Date Time Temp Pulse Resp B/P Pulse Ox O2 Delivery O2 Flow Rate FiO2 01/22/17 07:35 98.5 67 18 122/57 96 01/21/17 05:24 Room Air Intake and Output 01/21/17 01/21/17 01/22/17 14:59 22:59 06:59 Intake Total 100 ml 900 ml 1150 ml Output Total 0 ml Balance 100 ml 900 ml 1150 ml Exam General: Lying in bed, no acute distress presently HEENT: Pupils equal round reactive to light, extraocular muscles intact Neck: Supple Respiratory: Clear to auscultation bilaterally Cardiovascular: S1-S2 heard, no rubs or gallops Abdomen: Soft, nontender, nondistended, no rebound or guarding, normal bowel sounds Muscular skeletal: 1+ pitting edema bilateral lower extremity to the mid calves , rest of her ulcers on the feet are wrapped in bandages Neurologic: No focal deficits Results Result Diagram: 01/22/17 0550 01/22/17 0550 Results 24 hrs Laboratory Tests Test 01/21/17 13:23 01/21/17 17:11 01/21/17 21:12 01/22/17 01:12 Bedside Glucose 105 97 103 97 Test 01/22/17 05:03 01/22/17 05:50 01/22/17 08:09 01/22/17 12:05 Bedside Glucose 90 167 107 White Blood Count 7.9 # Red Blood Count 2.96 L Hemoglobin 7.1 L Hematocrit 23.6 L Mean Corpuscular Volume 79.7 L Mean Corpuscular Hemoglobin 24.0 L Mean Corpuscular Hemoglobin Concent 30.1 L Red Cell Distribution Width 16.7 H Platelet Count 312 Mean Platelet Volume 10.1 Neutrophils % 58.8 Lymphocytes % 24.6 Monocytes % 10.7 Eosinophils % 4.9 Basophils % 0.6 Nucleated Red Blood Cells % 0.0 Neutrophils # (Manual) 4.7 Lymphocytes # 2.0 Monocytes # 0.9 Eosinophils # 0.4 Basophils # 0.1 Nucleated Red Blood Cells # 0.0 Sodium Level 135 Potassium Level 4.4 Chloride Level 98 Carbon Dioxide Level 28 Anion Gap 13 Blood Urea Nitrogen 18 Creatinine 0.78 Glucose Level 88 Calcium Level 8.6 Medications Medications Current Medications Ondansetron HCl (Zofran Inj) 4 mg Q6H PRN IV NAUSEA AND/OR VOMITING Last administered on 01/21/17 13:07; Admin Dose 4 MG; Start 01/20/17 at 18:30 Acetaminophen (Tylenol Tab) 650 mg Q6H PRN PO PAIN LEVEL 1-3 OR FEVER; Start at 18:30 Docusate Sodium (Colace) 100 mg Q12H PRN PO CONSTIPATION; Start 01/20/17 at 18: 30 Magnesium Hydroxide (Milk Of Mag) 30 ml DAILY PRN PO CONSTIPATION; Start at 18:30 Sodium Biphosphate/ Sodium Phosphate 133 ml 133 ml DAILY PRN DE CONSTIPATION; Start 01/20/17 at 18:30 Sodium Chloride (1/2 NS) 1,000 ml @ 75 mls/hr [id number] IV Last administered on 01/21/17 17:07; Admin Dose 75 MLS/HR; Start 01/20/17 at 18:15 Lorazepam (Ativan) 0.5 mg Q6H PRN IV ANXIETY Last administered on 01/21/17 02: 31; Admin Dose 0.5 MG; Start 01/20/17 at 18:30 Vancomycin HCl (Vanco Iv Per Pharmacy) VANCOMYCIN PER PHARMACY NOTE XX ; Start 01/20/17 at 18:30 Hydralazine HCl (Apresoline) 10 mg Q6H PRN IV ELEVATED BLOOD PRESSURE; Start at 18:30 Nitroglycerin (Nitroglycerin (Sl Tab) 0.4 Mg) 1 tab Q5M PRN SL ANGINA; Start at 18:30 Diagnostic Test (Pha) (Accu-Chek) 1 ea 02 XX ; Start 01/21/17 at 02:00 Insulin Aspart (Novolog Insulin Pen) NOVOLOG *MILD* ALGORI... Q4 SC ; Start at 21:00 Ferrous Sulfate (Ferrous Sulfate (Ec)) 325 mg DAILY PO Last administered on 08:28; Admin Dose 325 MG; Start 01/21/17 at 09:00 Metoprolol Succinate 100 mg 100 mg DAILY PO Last administered on 01/22/17 08: 28; Admin Dose 100 MG; Start 01/21/17 at 09:00 Aztreonam (Azactam 1gm/NS (Pmx)) 50 ml @ 100 mls/hr Q12 IVPB Last administered on 01/22/17 08:30; Admin Dose 100 MLS/HR; Start 01/20/17 at 21:00 Miscellaneous Information 1 ea NOTE XX ; Start 01/20/17 at 19:00 Glucose (Glutose) 15 gm Q15M PRN PO DECREASED GLUCOSE; Start 01/20/17 at 19:00 Glucose (Glutose) 22.5 gm Q15M PRN PO DECREASED GLUCOSE; Start 01/20/17 at 19: 00 Dextrose (D50w Syringe) 25 ml Q15M PRN IV DECREASED GLUCOSE; Start 01/20/17 at 19:00 Dextrose (D50w Syringe) 50 ml Q15M PRN IV DECREASED GLUCOSE; Start 01/20/17 at 19:00 Glucagon (Glucagen) 1 mg Q15M PRN IM DECREASED GLUCOSE; Start 01/20/17 at 19:00 Glucose (Glutose) 15 gm Q15M PRN BUCCAL DECREASED GLUCOSE; Start 01/20/17 at 19 :00 Furosemide (Lasix) 20 mg DAILY IV Last administered on 01/22/17 08:37; Admin Dose 20 MG; Start 01/20/17 at 19:00 Latanoprost 1 drop 1 drop HS BOTH EYES Last administered on 01/21/17 20:58; Admin Dose 1 DROP; Start 01/20/17 at 21:00 Vancomycin HCl/ Sodium Chloride (Vancocin/NS) 250 ml @ 83.333 mls/ hr Q24H IVPB Last administered on 01/21/17 23:19; Admin Dose 83.333 MLS/HR; Start at 22:30 Acetaminophen/ Hydrocodone Bitart ([place] (10/325)) 1 tab Q4H PRN PO PAIN Last administered on 01/21/17 02:20; Admin Dose 1 TAB; Start 01/21/17 at 00:00 Morphine Sulfate (morphine) 2 mg Q4H PRN IV PAIN Last administered on 04:55; Admin Dose 2 MG; Start 01/21/17 at 12:00 Hydromorphone HCl (Dilaudid) 1 mg Q6H PRN IV PAIN Last administered on 12:02; Admin Dose 1 MG; Start 01/21/17 at 10:30 Collagenase (Santyl) 1 applic DAILY TOP Last administered on 01/22/17 08:29; Admin Dose 1 APPLIC; Start 01/21/17 at 14:00 Famotidine (Pepcid Iv) 20 mg Q12 IV Last administered on 01/21/17 20:59; Admin Dose 20 MG; Start 01/21/17 at 21:00 SANDRA KNOWLES Jan 22, 2017 12:37
[2017-01-22] MEDS ORDERED: SOD CHLORIDE 0.9% 250 ML IV* ONE (12:48)
[2017-01-22] MEDS: SOD CHLORIDE 0.45% 1,000 ML IV SCH ×2 (13:00→23:35)
[2017-01-22] MEDS: FAMOTIDINE 20 MG INJ IV SCH ×2 (13:02→21:28)
[2017-01-22 13:14] VITALS: BP 130/65; RESP 18
[2017-01-22] MEDS: HYDROCODONE/APAP (10/325) TAB PO PRN ×2 (15:43→17:35)
[2017-01-22 17:01] LABS: ADD UMIC YES; UR ASCORBIC ACID NEGATIVE (NEGATIVE); UR BILIRUBIN (Dip) NEGATIVE (NEGATIVE); UR BLOOD (Dip) 1+ mg/dL (NEGATIVE); UR CLARITY SLIGHTLY CLOUDY (CLEAR); UR COLOR YELLOW (YELLOW); UR GLUCOSE (Dip) NEGATIVE (NEGATIVE); UR KETONES (Dip) NEGATIVE (NEGATIVE); UR LEUKOCYTE ESTERASE (Dip) TRACE Leu/ul (NEGATIVE); UR NITRITE (Dip) NEGATIVE (NEGATIVE); UR RBC 1 /HPF (0-5); UR SPECIFIC GRAVITY (Dip) 1.012 (1.003-1.030); UR SQUAMOUS EPITHELIAL CELL FEW /HPF (FEW); UR TOTAL PROTEIN (Dip) NEGATIVE (NEGATIVE); UR UROBILINOGEN (Dip) NEGATIVE (NEGATIVE)
--- NOTE | 2017-01-22 17:17 | PN ---
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 Will plan for angiogram, however, the patient does have low HH and will need to decipher for a GIB -Will continue with the local wound care with applying Santyl to all the wounds for now. -Continue with intravenous antibiotics -Optimize vascular status (blood pressure meds, diet, nutrition, antiplatelets, sugar control, weight loss). -Discussed findings, plan and management with the patient with a certified sales agent and they understand. -Thank you for allowing us to partake in the care of your patient. Please call with any questions. Problems: Subjective 24 Hr Interval Summary no new vascular events overnight Exam/Review of Systems Vital Signs Vitals Vital Signs Date Time Temp Pulse Resp B/P Pulse Ox O2 Delivery O2 Flow Rate FiO2 01/22/17 13:14 98.5 68 18 130/65 98 01/21/17 05:24 Room Air Intake and Output 01/21/17 01/21/17 01/22/17 15:00 23:00 07:00 Intake Total 100 ml 900 ml 1150 ml Output Total 0 ml Balance 100 ml 900 ml 1150 ml Exam Free Text/Dictation GENERAL APPEARANCE: Alert, oriented x3. LUNGS: Clear to auscultation bilaterally CARDIOVASCULAR: S1, S2 present ABDOMEN: Soft, nontender, nondistended. Bowel sounds positive. Truncal obesity. EXTREMITIES: -Right lower extremity: Palpable femoral pulse. Nonpalpable pedal pulse. Motor and sensory intact. Capillary refill 3 seconds. Circumferential ulcers from the ankle all the way up to the knee. erythema, pain upon palpation. Areas of purulent discharge from her ulcers. edema 1+ -Left lower extremity: Palpable femoral pulse. Nonpalpable pedal pulse. Motor and sensory intact. Capillary refill 3-4 seconds. Circumferential ulcers that are measuring different sizes from the ankle to the knee. edema 1+ Results Result Diagram: 01/22/17 0550 01/22/17 0550 ERIN BLACKBURN MD Jan 22, 2017 17:17
[2017-01-22] MEDS: SOD CHLORIDE 0.9% 1,000 ML IV SCH (20:00)
[2017-01-22 20:04] VITALS: BP 182/77; RESP 20
[2017-01-22 20:08] VITALS: BP 130/58; PULSE 68; RESP 18
[2017-01-22] MEDS: LATANOPROST 0.005% 2.5 ML OPH BOTH EYES SCH (21:00)
--- NOTE | 2017-01-22 22:14 | CONS ---
DATE OF ADMISSION: 01/20/2017 DATE OF CONSULTATION: 01/22/2017 Infectious Disease Consultation REASON FOR CONSULTATION: Antibiotic management. HISTORY OF PRESENT ILLNESS: Karla Youngblood is a 76-year-old female with numerous problems, who comes in from [facility] with chronic lower extremity ulcers and possible cellulitis and is being seen for antibiotic management. PROBLEMS: 1. Adult-onset diabetes mellitus. 2. Hypertension. 3. Chronic lower extremity ulcers secondary to diabetes. 4. Question of peripheral vascular disease. 5. Prior DVT. The patient denies fever, chills, nausea, vomiting. She has been followed by Dr. Rai, the vascular surgeon as an outpatient and he sent her in earlier on the 20 of January. She has not been taking Coumadin. She had chronic lower extremity ulcers and possible cellulitis. HOSPITAL COURSE: She was seen by Dr. Rai whose assessment was bilateral lower extremity atherosclerosis with nonhealing ulcers, the atherosclerotic disease appearing quite prominent as the patient's ulcers have worsened in size despite local care, wound compression dressings. She has mixed disease of arterial and venous insufficiency. She is scheduled to undergo angiography as patient's noninvasive vascular studies have not definitely identified significant flow-limiting disease. The patient was started on vancomycin and Zosyn. Endocrine was asked to play a role as well. On admission her white count was 10.4, H and H of 7.7 and 25.1, platelet count was 347,000. Today, white count is 7.9. The BUN and creatinine is 18/0.78. Urine is negative for nitrites and trace leukocyte esterase, 0 white cells per high-powered field. The patient is currently on vancomycin and aztreonam. ALLERGIES: SHE IS ALLERGIC TO PENICILLIN. PAST MEDICAL HISTORY: Operations as outlined. She also has cataract surgery in the past. FAMILY HISTORY: Noncontributory. SOCIAL HISTORY: She does not smoke, drink, or abuse drugs. ALLERGIES: NONE TO SULFA, OR FOODS. MEDICATION: Per chart. REVIEW OF SYSTEMS: As per HPI. PHYSICAL EXAMINATION: GENERAL: Patient is a well-developed, well-nourished, elderly appearing female who is alert, responsive, in no acute distress. VITAL SIGNS: Stable. She is afebrile. SKIN: Without generalized rash. HEENT: Within normal limits. NECK: Supple. Lymph nodes nonpalpable. CHEST: Decreased breath sounds at the bases. HEART: Without murmur or gallop. ABDOMEN: Soft, nontender, nondistended, without organomegaly or splenomegaly or masses. EXTREMITIES: Without cyanosis, clubbing, or edema. She has 1+ pitting edema in the bilateral lower extremities up to the calves. Her ulcers are wrapped in bandages at the present time. RECTAL AND GENITAL: Exam is deferred. NEUROLOGIC: No focal neurologic focal abnormalities IMPRESSION AND PLAN: The patient is on vancomycin and Zosyn. She is to have an angiogram to see if there is a way of improving her blood flow. We will continue her IV antibiotics. I will dictate my findings to the hospitalist and to Dr. Rai. Dictated By: Balta Herman MD JD/bela/[email or web address] /Document#: [id number]
[2017-01-22] MEDS: VANCOMYCIN 1.5 GM in SOD CHLORIDE 0.9% 250 ML IVPB SCH (22:46)
[2017-01-23] MEDS: INSULIN ASPART [NOVOLOG] 3 ML PEN SC SCH ×6 (01:00→20:51)
[2017-01-23] MEDS: HYDROmorphONE 1 MG/ML SYG IV PRN ×3 (01:15→20:34)
[2017-01-23 02:00] VITALS: BP 146/67; RESP 20
[2017-01-23] MEDS: ACCU-CHEK XX SCH ×3 (02:00→23:00)
[2017-01-23] MEDS: SOD CHLORIDE 0.9% 1,000 ML IV SCH ×3 (03:30→19:01)
[2017-01-23] MEDS: HYDROCODONE/APAP (10/325) TAB PO PRN ×2 (05:36→20:33)
[2017-01-23] MEDS: NA PHOSPHATE/BIPHOS 133 ML ENEMA PR PRN (05:40)
[2017-01-23] MEDS: FERROUS SULFATE (EC) 325 MG TAB PO SCH (07:57)
[2017-01-23] MEDS: FUROSEMIDE 20 MG INJ IV SCH (07:58)
[2017-01-23] MEDS: FAMOTIDINE 20 MG INJ IV SCH ×2 (08:00→20:34)
[2017-01-23] MEDS: AZTREONAM 1 GM/NS (PMX) 50 ML IVPB SCH ×2 (08:01→20:33)
[2017-01-23] MEDS: COLLAGENASE 30 GM TUBE TOP SCH (08:01)
[2017-01-23 08:06] VITALS: BP 150/67; RESP 19
[2017-01-23] MEDS: METOPROLOL (XL) 100 MG TAB PO SCH (09:00)
[2017-01-23] MEDS: morphine 4 MG/ML VIAL IV PRN ×2 (10:55→17:46)
--- NOTE | 2017-01-23 11:18 | PN ---
Date/Time of Note Date/Time of Note DATE: 01/23/17 TIME: 11:15 Assessment/Plan VTE Prophylaxis VTE Prophylaxis Intervention: SCD's Lines/Catheters IV Catheter Type (from Nrs): Peripheral IV Urinary Cath still in place: No Assessment/Plan Chief Complaint/Hosp Course Assessment and plan: 76-year-old female sent in from [facility] clinic because of chronic lower extremity ulcers and possible cellulitis, past medical history of hypertension and possible diabetes and PVD. 1. Lower extremity ulcers: Wrapped with bandages, with infection as well per - Continue aztreonam and vancomycin. -Follow-up wound nurse consult as well as vascular surgery consult recommendations, will also get infectious disease consult -Follow-up PT consult -Regarding peripheral vascular disease, for possible angiogram today per vascular surgery recommendations, follow-up their recommendations. -Follow-up pending CBC from this morning 2. diabetes: A1c less than 6.0, monitor for now 3. HTN: Holding ARIANNA inhibitor in case any contrast procedures need to be done, continue beta-jarred, also hydralazine IV as needed 4. GI prophylaxis: PPI 5. History of DVT: Bilateral lower extremity ultrasound negative for DVT.Patient has prior history of DVT 3 years ago. -Monitor for now, patient stated she does not take Coumadin now for the last few months. Problems: Subjective 24 Hr Interval Summary Free Text/Dictation Patient received blood transfusion yesterday. Still having some body pains. Awaiting possible angiogram later today. Occult is still pending as well per Exam/Review of Systems Vital Signs Vitals Vital Signs Date Time Temp Pulse Resp B/P Pulse Ox O2 Delivery O2 Flow Rate FiO2 01/23/17 08:06 98.1 58 19 150/67 95 01/22/17 20:08 Room Air Intake and Output 01/22/17 01/22/17 01/23/17 15:00 23:00 07:00 Intake Total 100 ml 1540 ml 250 ml Output Total 300 ml Balance 100 ml 1240 ml 250 ml Exam General: Lying in bed, no acute distress presently HEENT: Pupils equal round reactive to light, extraocular muscles intact Neck: Supple Respiratory: Clear to auscultation bilaterally Cardiovascular: S1-S2 heard, no rubs or gallops Abdomen: Soft, nontender, nondistended, no rebound or guarding, normal bowel sounds Muscular skeletal: 1+ pitting edema bilateral lower extremity to the mid calves , rest of her ulcers on the feet are wrapped in bandages Neurologic: No focal deficits Results Result Diagram: 01/22/17 0550 01/22/17 0550 Results 24 hrs Laboratory Tests Test 01/22/17 12:05 01/22/17 17:23 01/22/17 21:47 01/23/17 01:19 Bedside Glucose 107 123 89 108 Test 01/23/17 05:49 01/23/17 07:54 Bedside Glucose 74 87 Medications Medications Current Medications Ondansetron HCl (Zofran Inj) 4 mg Q6H PRN IV NAUSEA AND/OR VOMITING Last administered on 01/21/17 13:07; Admin Dose 4 MG; Start 01/20/17 at 18:30 Acetaminophen (Tylenol Tab) 650 mg Q6H PRN PO PAIN LEVEL 1-3 OR FEVER; Start at 18:30 Docusate Sodium (Colace) 100 mg Q12H PRN PO CONSTIPATION; Start 01/20/17 at 18: 30 Magnesium Hydroxide (Milk Of Mag) 30 ml DAILY PRN PO CONSTIPATION; Start at 18:30 Sodium Biphosphate/ Sodium Phosphate 133 ml 133 ml DAILY PRN HI CONSTIPATION Last administered on 01/23/17 05:40; Admin Dose 133 ML; Start 01/20/17 at 18:30 Sodium Chloride (1/2 NS) 1,000 ml @ 75 mls/hr [id number] IV Last administered on 01/22/17 13:00; Admin Dose 75 MLS/HR; Start 01/20/17 at 18:15 Lorazepam (Ativan) 0.5 mg Q6H PRN IV ANXIETY Last administered on 01/21/17 02: 31; Admin Dose 0.5 MG; Start 01/20/17 at 18:30 Vancomycin HCl (Vanco Iv Per Pharmacy) VANCOMYCIN PER PHARMACY NOTE XX ; Start 01/20/17 at 18:30 Hydralazine HCl (Apresoline) 10 mg Q6H PRN IV ELEVATED BLOOD PRESSURE; Start at 18:30 Nitroglycerin (Nitroglycerin (Sl Tab) 0.4 Mg) 1 tab Q5M PRN SL ANGINA; Start at 18:30 Diagnostic Test (Pha) (Accu-Chek) 1 ea 02 XX ; Start 01/21/17 at 02:00 Insulin Aspart (Novolog Insulin Pen) NOVOLOG *MILD* ALGORI... Q4 SC ; Start at 21:00 Ferrous Sulfate (Ferrous Sulfate (Ec)) 325 mg DAILY PO Last administered on 07:57; Admin Dose 325 MG; Start 01/21/17 at 09:00 Metoprolol Succinate 100 mg 100 mg DAILY PO Last administered on 01/22/17 08: 28; Admin Dose 100 MG; Start 01/21/17 at 09:00 Aztreonam (Azactam 1gm/NS (Pmx)) 50 ml @ 100 mls/hr Q12 IVPB Last administered on 01/23/17 08:01; Admin Dose 100 MLS/HR; Start 01/20/17 at 21:00 Miscellaneous Information 1 ea NOTE XX ; Start 01/20/17 at 19:00 Glucose (Glutose) 15 gm Q15M PRN PO DECREASED GLUCOSE; Start 01/20/17 at 19:00 Glucose (Glutose) 22.5 gm Q15M PRN PO DECREASED GLUCOSE; Start 01/20/17 at 19: 00 Dextrose (D50w Syringe) 25 ml Q15M PRN IV DECREASED GLUCOSE; Start 01/20/17 at 19:00 Dextrose (D50w Syringe) 50 ml Q15M PRN IV DECREASED GLUCOSE; Start 01/20/17 at 19:00 Glucagon (Glucagen) 1 mg Q15M PRN IM DECREASED GLUCOSE; Start 01/20/17 at 19:00 Glucose (Glutose) 15 gm Q15M PRN BUCCAL DECREASED GLUCOSE; Start 01/20/17 at 19 :00 Furosemide (Lasix) 20 mg DAILY IV Last administered on 01/23/17 07:58; Admin Dose 20 MG; Start 01/20/17 at 19:00 Latanoprost 1 drop 1 drop HS BOTH EYES Last administered on 01/21/17 20:58; Admin Dose 1 DROP; Start 01/20/17 at 21:00 Vancomycin HCl/ Sodium Chloride (Vancocin/NS) 250 ml @ 83.333 mls/ hr Q24H IVPB Last administered on 01/22/17 22:46; Admin Dose 83.333 MLS/HR; Start at 22:30 Acetaminophen/ Hydrocodone Bitart ([place] (10/325)) 1 tab Q4H PRN PO PAIN Last administered on 01/23/17 05:36; Admin Dose 1 TAB; Start 01/21/17 at 00:00 Morphine Sulfate (morphine) 2 mg Q4H PRN IV PAIN Last administered on 10:55; Admin Dose 2 MG; Start 01/21/17 at 12:00 Hydromorphone HCl (Dilaudid) 1 mg Q6H PRN IV PAIN Last administered on 07:01; Admin Dose 1 MG; Start 01/21/17 at 10:30 Collagenase (Santyl) 1 applic DAILY TOP Last administered on 01/23/17 08:01; Admin Dose 1 APPLIC; Start 01/21/17 at 14:00 Famotidine 20 mg 20 mg Q12 IV Last administered on 01/23/17 08:00; Admin Dose 20 MG; Start 01/21/17 at 21:00 Sodium Chloride (NS) 1,000 ml @ 100 mls/hr Q10H IV Last administered on 08:01; Admin Dose 100 MLS/HR; Start 01/22/17 at 17:30 SANDRA KNOWLES Jan 23, 2017 11:18
[2017-01-23] MEDS: SOD CHLORIDE 0.45% 1,000 ML IV SCH (12:29)
--- NOTE | 2017-01-23 15:10 | PN ---
DATE: 01/23/2017 SUBJECTIVE DATA: No acute changes overnight. The patient is alert, feels good, family at bedside. No fevers. Temperature 98.1, pulse 64, respirations 20, blood pressure 146/67, saturation 95 percent on room air. WBC yesterday was 7.9, BUN 18, creatinine 0.78. MICROBIOLOGY: Urine culture negative. ANTIMICROBIALS: The patient is on IV vancomycin and aztreonam. ALLERGIES: PENICILLIN. PHYSICAL EXAMINATION: Well-developed, obese, elderly woman, who is awake, in no distress. HEENT: Head atraumatic, normocephalic. Sclerae anicteric. Buccal mucosa dry. NECK: Supple. CHEST: Rise symmetrical. Breath sounds clear. HEART: S1, S2. ABDOMEN: Soft, bowel sounds present. EXTREMITIES: Without cyanosis. ASSESSMENT: 1. Bilateral lower extremities. Nonhealing ulcers, worsening with chronic venous insufficiency. 2. Peripheral vascular disease. 3. Diabetes. 4. Hypertension. 5. History of deep venous thrombosis. 6. Allergy to penicillin. PLAN: Patient remains stable. The scheduled for angiogram. Continue present care. Antibiotics. Wound cultures if able to obtain. Dictated By: Rommel Ball NP /bela/fredy /Document#: [id number]
[2017-01-23 15:11] LABS: WHITE BLOOD COUNT 9.3 10^3/ul (4.8-10.8)
[2017-01-23 15:12] LABS: BASOPHIL # 0.1 10^3/ul (0.0-0.1); BASOPHILS % 0.8 % (0.0-2.0); EOSINOPHILS # 0.3 10^3/ul (0.0-0.5); EOSINOPHILS % 3.2 % (0.0-7.0); HEMATOCRIT 32.9 % (37.0-47.0); HEMOGLOBIN 10.2 g/dl (12.0-16.0); LYMPHOCYTES # 1.9 10^3/ul (0.8-2.9); LYMPHOCYTES % 20.5 % (15.0-51.0); MEAN CORPUSCULAR HEMOGLOBIN 24.6 pg (29.0-33.0); MEAN CORPUSCULAR VOLUME 79.5 fl (82.0-101.0); MEAN PLATELET VOLUME 9.8 fl (7.4-10.4); MONOCYTE # 0.8 10^3/ul (0.3-0.9); MONOCYTES % 8.2 % (0.0-11.0); NEUTROPHILS % 66.8 % (39.0-77.0); PLATELET COUNT 336 10^3/UL (140-415); RED BLOOD COUNT 4.14 10^6/ul (4.20-5.40); RED CELL DISTRIBUTION WIDTH 16.1 % (11.5-14.5)
[2017-01-23 15:41] LABS: CALCIUM 8.7 mg/dl (8.4-10.2); CREATININE 0.78 mg/dl (0.44-1.00); POTASSIUM 3.7 mmol/L (3.5-5.1)
[2017-01-23 19:38] VITALS: BP 126/81; RESP 19
[2017-01-23] MEDS ORDERED: Discontinue current oral sulfonylureas (glyburide, glipizide, and/or glimepiride) prior to XX ONE (20:00)
[2017-01-23] MEDS ORDERED: HYPOGLYCEMIA PROTOCOL when Glucose is <70 mg/dL or symptomatic <90 mg/dL. XX ONE (20:00)
[2017-01-23] MEDS: LATANOPROST 0.005% 2.5 ML OPH BOTH EYES SCH (20:48)
[2017-01-23] MEDS: VANCOMYCIN 1.5 GM in SOD CHLORIDE 0.9% 250 ML IVPB SCH (22:46)
[2017-01-24] VITALS (14 sets, daily range): BP systolic 105–192; BP diastolic 63–80; PULSE 62–88; RESP 16–30
[2017-01-24] MEDS ORDERED: PENDING SANTYL ORDER FOR WOUND CARE XX PRN
[2017-01-24] MEDS: HYDROCODONE/APAP (10/325) TAB PO PRN ×4 (00:25→22:51)
[2017-01-24] MEDS: SOD CHLORIDE 0.45% 1,000 ML IV SCH (02:15)
[2017-01-24] MEDS: HYDROmorphONE 1 MG/ML SYG IV PRN ×4 (03:04→22:51)
[2017-01-24 05:47] LABS: BASOPHIL # 0.1 10^3/ul (0.0-0.1); BASOPHILS % 0.7 % (0.0-2.0); EOSINOPHILS # 0.5 10^3/ul (0.0-0.5); EOSINOPHILS % 6.3 % (0.0-7.0); HEMATOCRIT 29.1 % (37.0-47.0); HEMOGLOBIN 9.2 g/dl (12.0-16.0); LYMPHOCYTES # 2.4 10^3/ul (0.8-2.9); LYMPHOCYTES % 27.8 % (15.0-51.0); MEAN CORPUSCULAR HEMOGLOBIN 25.1 pg (29.0-33.0); MEAN CORPUSCULAR HGB CONC 31.6 g/dl (32.0-37.0); MEAN CORPUSCULAR VOLUME 79.3 fl (82.0-101.0); MEAN PLATELET VOLUME 9.9 fl (7.4-10.4); MONOCYTE # 0.9 10^3/ul (0.3-0.9); MONOCYTES % 10.4 % (0.0-11.0); NEUTROPHILS % 54.4 % (39.0-77.0); PLATELET COUNT 287 10^3/UL (140-415); RED BLOOD COUNT 3.67 10^6/ul (4.20-5.40); RED CELL DISTRIBUTION WIDTH 16.5 % (11.5-14.5); WHITE BLOOD COUNT 8.5 10^3/ul (4.8-10.8)
[2017-01-24 06:23] LABS: CALCIUM 8.1 mg/dl (8.4-10.2); CREATININE 0.87 mg/dl (0.44-1.00)
[2017-01-24] MEDS: INSULIN ASPART [NOVOLOG] 3 ML PEN SC SCH ×4 (08:08→21:00)
[2017-01-24] MEDS: FUROSEMIDE 20 MG INJ IV SCH (08:09)
[2017-01-24] MEDS: FAMOTIDINE 20 MG INJ IV SCH ×2 (08:09→21:05)
[2017-01-24] MEDS: METOPROLOL (XL) 100 MG TAB PO SCH (08:10)
[2017-01-24] MEDS: FERROUS SULFATE (EC) 325 MG TAB PO SCH (08:10)
[2017-01-24] MEDS: AZTREONAM 1 GM/NS (PMX) 50 ML IVPB SCH ×2 (08:10→21:06)
[2017-01-24] MEDS: COLLAGENASE 30 GM TUBE TOP SCH (08:11)
[2017-01-24] MEDS: SOD CHLORIDE 0.9% 1,000 ML IV SCH ×2 (09:30→09:53)
[2017-01-24] MEDS ORDERED: SOD CHLORIDE 0.45% 1,000 ML IV SCH ×2 (12:00→16:55)
--- NOTE | 2017-01-24 12:01 | PN ---
Date/Time of Note Date/Time of Note DATE: 01/24/17 TIME: 12:00 Assessment/Plan VTE Prophylaxis VTE Prophylaxis Intervention: SCD's Lines/Catheters IV Catheter Type (from Nrs): Peripheral IV Urinary Cath still in place: No Assessment/Plan Chief Complaint/Hosp Course Assessment and plan: 76-year-old female sent in from [facility] clinic because of chronic lower extremity ulcers and possible cellulitis, past medical history of hypertension and possible diabetes and PVD. 1. Lower extremity ulcers: Wrapped with bandages, with infection as well per - Continue aztreonam and vancomycin. -Follow-up wound nurse consult as well as vascular surgery consult recommendations, as well as infectious disease -Follow-up PT consult -Regarding peripheral vascular disease, for angiogram today per vascular surgery recommendations, follow-up their recommendations. -Follow-up pending CBC from this morning 2. diabetes: A1c less than 6.0, monitor for now 3. HTN: Holding ARIANNA inhibitor in case any contrast procedures need to be done, continue beta-jarred, also hydralazine IV as needed 4. GI prophylaxis: PPI 5. History of DVT: Bilateral lower extremity ultrasound negative for DVT.Patient has prior history of DVT 3 years ago. -Monitor for now, patient stated she does not take Coumadin now for the last few months. Problems: Subjective 24 Hr Interval Summary Free Text/Dictation Patient still having some lower extremity pain symptoms occasionally. Angiogram was not performed yesterday, but awaiting to be performed later this afternoon. Exam/Review of Systems Vital Signs Vitals Vital Signs Date Time Temp Pulse Resp B/P Pulse Ox O2 Delivery O2 Flow Rate FiO2 01/24/17 10:30 62 16 105/65 01/24/17 08:25 97.7 98 01/22/17 20:08 Room Air Intake and Output 01/23/17 01/23/17 01/24/17 14:59 22:59 06:59 Intake Total 50 ml 1400 ml 1440 ml Balance 50 ml 1400 ml 1440 ml Exam General: Lying in bed, no acute distress presently HEENT: Pupils equal round reactive to light, extraocular muscles intact Neck: Supple Respiratory: Clear to auscultation bilaterally Cardiovascular: S1-S2 heard, no rubs or gallops Abdomen: Soft, nontender, nondistended, no rebound or guarding, normal bowel sounds Muscular skeletal: 1+ pitting edema bilateral lower extremity to the mid calves , rest of her ulcers on the feet are wrapped in bandages Neurologic: No focal deficits Results Result Diagram: 01/24/17 0524 01/24/17 0524 Results 24 hrs Laboratory Tests Test 01/23/17 12:04 01/23/17 14:46 01/23/17 14:48 01/23/17 17:17 Bedside Glucose 76 73 Sodium Level 140 Potassium Level 3.7 Chloride Level 97 Carbon Dioxide Level 30 Anion Gap 17 H Blood Urea Nitrogen 11 Creatinine 0.78 Glucose Level 80 Calcium Level 8.7 White Blood Count 9.3 Red Blood Count 4.14 #L Hemoglobin 10.2 #L Hematocrit 32.9 #L Mean Corpuscular Volume 79.5 L Mean Corpuscular Hemoglobin 24.6 L Mean Corpuscular Hemoglobin Concent 31.0 L Red Cell Distribution Width 16.1 H Platelet Count 336 Mean Platelet Volume 9.8 Neutrophils % 66.8 Lymphocytes % 20.5 Monocytes % 8.2 Eosinophils % 3.2 Basophils % 0.8 Nucleated Red Blood Cells % 0.0 Neutrophils # (Manual) 6.2 Lymphocytes # 1.9 Monocytes # 0.8 Eosinophils # 0.3 Basophils # 0.1 Nucleated Red Blood Cells # 0.0 Test 01/23/17 20:50 01/23/17 21:19 01/24/17 05:24 01/24/17 07:35 Bedside Glucose 132 Vancomycin Level Trough 11.0 White Blood Count 8.5 Red Blood Count 3.67 L Hemoglobin 9.2 L Hematocrit 29.1 L Mean Corpuscular Volume 79.3 L Mean Corpuscular Hemoglobin 25.1 L Mean Corpuscular Hemoglobin Concent 31.6 L Red Cell Distribution Width 16.5 H Platelet Count 287 Mean Platelet Volume 9.9 Neutrophils % 54.4 Lymphocytes % 27.8 Monocytes % 10.4 Eosinophils % 6.3 Basophils % 0.7 Nucleated Red Blood Cells % 0.0 Neutrophils # (Manual) 4.6 Lymphocytes # 2.4 Monocytes # 0.9 Eosinophils # 0.5 Basophils # 0.1 Nucleated Red Blood Cells # 0.0 Sodium Level 137 Potassium Level 4.0 Chloride Level 102 Carbon Dioxide Level 30 Anion Gap 9 # Blood Urea Nitrogen 15 Creatinine 0.87 Glucose Level 89 Calcium Level 8.1 L Lab Scanned Report BLOOD TRANSFUSION Test 01/24/17 08:07 01/24/17 11:49 Bedside Glucose 90 91 Medications Medications Current Medications Ondansetron HCl (Zofran Inj) 4 mg Q6H PRN IV NAUSEA AND/OR VOMITING Last administered on 01/21/17 13:07; Admin Dose 4 MG; Start 01/20/17 at 18:30 Acetaminophen (Tylenol Tab) 650 mg Q6H PRN PO PAIN LEVEL 1-3 OR FEVER; Start at 18:30 Docusate Sodium (Colace) 100 mg Q12H PRN PO CONSTIPATION; Start 01/20/17 at 18: 30 Magnesium Hydroxide (Milk Of Mag) 30 ml DAILY PRN PO CONSTIPATION; Start at 18:30 Sodium Biphosphate/ Sodium Phosphate 133 ml 133 ml DAILY PRN [place] CONSTIPATION Last administered on 01/23/17 05:40; Admin Dose 133 ML; Start 01/20/17 at 18:30 Sodium Chloride (1/2 NS) 1,000 ml @ 75 mls/hr [id number] IV Last administered on 01/22/17 13:00; Admin Dose 75 MLS/HR; Start 01/20/17 at 18:15 Lorazepam (Ativan) 0.5 mg Q6H PRN IV ANXIETY Last administered on 01/21/17 02: 31; Admin Dose 0.5 MG; Start 01/20/17 at 18:30 Vancomycin HCl (Vanco Iv Per Pharmacy) VANCOMYCIN PER PHARMACY NOTE XX ; Start 01/20/17 at 18:30 Hydralazine HCl (Apresoline) 10 mg Q6H PRN IV ELEVATED BLOOD PRESSURE; Start at 18:30 Nitroglycerin (Nitroglycerin (Sl Tab) 0.4 Mg) 1 tab Q5M PRN SL ANGINA; Start at 18:30 Ferrous Sulfate (Ferrous Sulfate (Ec)) 325 mg DAILY PO Last administered on 01/24 08:10; Admin Dose 325 MG; Start 01/21/17 at 09:00 Metoprolol Succinate 100 mg 100 mg DAILY PO Last administered on 01/24/17 08:10 ; Admin Dose 100 MG; Start 01/21/17 at 09:00 Aztreonam (Azactam 1gm/NS (Pmx)) 50 ml @ 100 mls/hr Q12 IVPB Last administered on 01/24/17 08:10; Admin Dose 100 MLS/HR; Start 01/20/17 at 21:00 Miscellaneous Information 1 ea NOTE XX ; Start 01/20/17 at 19:00 Glucose (Glutose) 15 gm Q15M PRN PO DECREASED GLUCOSE; Start 01/20/17 at 19:00 Glucose (Glutose) 22.5 gm Q15M PRN PO DECREASED GLUCOSE; Start 01/20/17 at 19: 00 Dextrose (D50w Syringe) 25 ml Q15M PRN IV DECREASED GLUCOSE; Start 01/20/17 at 19:00 Dextrose (D50w Syringe) 50 ml Q15M PRN IV DECREASED GLUCOSE; Start 01/20/17 at 19:00 Glucagon (Glucagen) 1 mg Q15M PRN IM DECREASED GLUCOSE; Start 01/20/17 at 19:00 Glucose (Glutose) 15 gm Q15M PRN BUCCAL DECREASED GLUCOSE; Start 01/20/17 at 19 :00 Furosemide (Lasix) 20 mg DAILY IV Last administered on 01/24/17 08:09; Admin Dose 20 MG; Start 01/20/17 at 19:00 Latanoprost 1 drop 1 drop HS BOTH EYES Last administered on 01/23/17 20:48; Admin Dose 1 DROP; Start 01/20/17 at 21:00 Vancomycin HCl/ Sodium Chloride (Vancocin/NS) 250 ml @ 83.333 mls/ hr Q24H IVPB Last administered on 01/23/17 22:46; Admin Dose 83.333 MLS/HR; Start at 22:30 Acetaminophen/ Hydrocodone Bitart ([place] (10/325)) 1 tab Q4H PRN PO PAIN Last administered on 01/24/17 06:10; Admin Dose 1 TAB; Start 01/21/17 at 00:00 Morphine Sulfate (morphine) 2 mg Q4H PRN IV PAIN Last administered on 17:46; Admin Dose 2 MG; Start 01/21/17 at 12:00 Hydromorphone HCl (Dilaudid) 1 mg Q6H PRN IV PAIN Last administered on 09:53; Admin Dose 1 MG; Start 01/21/17 at 10:30 Collagenase (Santyl) 1 applic DAILY TOP Last administered on 01/24/17 08:11; Admin Dose 1 APPLIC; Start 01/21/17 at 14:00 Famotidine 20 mg 20 mg Q12 IV Last administered on 01/24/17 08:09; Admin Dose 20 MG; Start 01/21/17 at 21:00 Sodium Chloride (NS) 1,000 ml @ 100 mls/hr Q10H IV Last administered on 09:53; Admin Dose 100 MLS/HR; Start 01/22/17 at 17:30 Diagnostic Test (Pha) (Accu-Chek) 1 ea 02 XX ; Start 01/24/17 at 02:00 Diagnostic Test (Pha) (Accu-Chek) 1 ea 02 XX ; Start 01/24/17 at 02:00 Miscellaneous Information (Pending Santyl Order For Wound Care) This patient humphries... PRN PRN XX WOUND CARE; Start 01/24/17 at 00:00 SANDRA KNOWLES Jan 24, 2017 12:01
--- NOTE | 2017-01-24 13:42 | PN ---
DATE: 01/24/2017 SUBJECTIVE DATA: No events overnight. The patient is sleeping, looks comfortable. No fevers. OBJECTIVE DATA: VITAL SIGNS: Temperature 97.7, pulse 62, respirations 16, blood pressure 105/65. Saturation 98 percent on room air. LABORATORY AND DIAGNOSTIC DATA: WBC 8.5, no shift, no bands. BUN 15, creatinine 0.87. MICROBIOLOGY: Urine culture grew Beverly albicans less than 10,000 colonies. ANTIMICROBIALS: The patient is on vancomycin and Aztreonam. ALLERGIES: PENICILLIN. OBJECTIVE DATA: PHYSICAL EXAMINATION: GENERAL: Well-developed, obese, elderly woman, who is alert, in no distress. HEENT: Head atraumatic, normocephalic. Sclerae anicteric. Buccal mucosa pink. NECK: Supple. CHEST: Rise symmetrical. Breath sounds clear. HEART: S1, S2. ABDOMEN: Soft, bowel sounds present. EXTREMITIES: With bilateral lower extremity dressing intact. ASSESSMENT: 1. Bilateral lower extremities non-healing wounds. 2. Chronic venous insufficiency and peripheral vascular disease. 3. Diabetes. 4. Hypertension. 5. Penicillin allergy. PLAN: The patient remains stable. We will continue her on current regimen in regards to antibiotics. We will give her a dose of fluconazole. Await for vascular intervention. Dictated By: Rommel Ball NP /bela/leonor /Document#: [id number]
[2017-01-24] MEDS ORDERED: HEPARIN 1000 UNITS/NS (A-LINE) 1,000 ML ONE (15:59)
[2017-01-24] MEDS ORDERED: LIDOCAINE 1% (MDV) 20 ML INJ ONE (15:59)
[2017-01-24] MEDS ORDERED: IODIXANOL LOCM 100 ML BTL ONE (15:59)
[2017-01-24] MEDS ORDERED: MIDAZOLAM 1 MG/ML 2 ML INJ ONE (16:29)
[2017-01-24] MEDS ORDERED: FENTAnyl 50 MCG/ML VIAL ONE (16:29)
--- NOTE | 2017-01-24 16:55 | HPN ---
Date/Time of Note Date/Time of Note DATE: 01/24/17 TIME: 16:55 Interval H&P Admission Note Pt. seen H&P reviewed: No system changes ERIN BLACKBURN MD Jan 24, 2017 16:55
[2017-01-24] MEDS ORDERED: ONDANSETRON 4 MG INJ IV PRN (17:00)
--- NOTE | 2017-01-24 17:53 | SIPON ---
Date/Time of Note Date/Time of Note DATE: 01/24/17 TIME: 17:51 Operative Report Preoperative Diagnosis BILATERAL LOWER EXTREMITY NON-HEALING ULCERS Operation/Procedure Performed AORTOILIAC ANGIOGRAM AND BILATERAL LOWER EXTREMITY RUNOFFS Surgeon: ERIN BLACKBURN MD Anesthesia Type: moderate sedation Estimated Blood Loss: minimal Transfusion Required: no Specimen: none Grafts/Implants: none Complications: no ERIN BLACKBURN MD Jan 24, 2017 17:53
[2017-01-24] MEDS: LORAZEPAM 2 MG INJ IV PRN (18:15)
[2017-01-24] MEDS: hydrALAzine 20 MG INJ IV PRN (18:15)
[2017-01-24] MEDS ORDERED: FLUCONAZOLE 100 MG TAB PO SCH (20:30)
[2017-01-24] MEDS: LATANOPROST 0.005% 2.5 ML OPH BOTH EYES SCH (21:06)
[2017-01-24] MEDS: ACCU-CHEK XX SCH (21:18)
[2017-01-24] MEDS: VANCOMYCIN 1.5 GM in SOD CHLORIDE 0.9% 250 ML IVPB SCH (22:50)
[2017-01-25] VITALS (8 sets, daily range): BP systolic 124–175; BP diastolic 60–77; PULSE 62–77; RESP 18–22
[2017-01-25] MEDS: ACCU-CHEK XX SCH (01:12)
[2017-01-25 06:03] LABS: BASOPHIL # 0.1 10^3/ul (0.0-0.1); BASOPHILS % 0.8 % (0.0-2.0); EOSINOPHILS # 0.4 10^3/ul (0.0-0.5); EOSINOPHILS % 4.8 % (0.0-7.0); HEMATOCRIT 31.8 % (37.0-47.0); HEMOGLOBIN 9.8 g/dl (12.0-16.0); LYMPHOCYTES # 1.7 10^3/ul (0.8-2.9); MEAN CORPUSCULAR HEMOGLOBIN 24.7 pg (29.0-33.0); MEAN CORPUSCULAR HGB CONC 30.8 g/dl (32.0-37.0); MEAN CORPUSCULAR VOLUME 80.1 fl (82.0-101.0); MEAN PLATELET VOLUME 9.6 fl (7.4-10.4); MONOCYTE # 0.7 10^3/ul (0.3-0.9); MONOCYTES % 8.3 % (0.0-11.0); NEUTROPHILS % 66.8 % (39.0-77.0); PLATELET COUNT 305 10^3/UL (140-415); RED BLOOD COUNT 3.97 10^6/ul (4.20-5.40); RED CELL DISTRIBUTION WIDTH 16.5 % (11.5-14.5); WHITE BLOOD COUNT 8.9 10^3/ul (4.8-10.8)
[2017-01-25 06:20] LABS: CALCIUM 8.3 mg/dl (8.4-10.2); CREATININE 0.71 mg/dl (0.44-1.00); POTASSIUM 4.1 mmol/L (3.5-5.1)
[2017-01-25] MEDS: INSULIN ASPART [NOVOLOG] 3 ML PEN SC SCH ×4 (08:08→20:54)
[2017-01-25] MEDS: FERROUS SULFATE (EC) 325 MG TAB PO SCH (08:37)
[2017-01-25] MEDS: METOPROLOL (XL) 100 MG TAB PO SCH (08:38)
[2017-01-25] MEDS: FAMOTIDINE 20 MG INJ IV SCH (08:39)
[2017-01-25] MEDS: FUROSEMIDE 20 MG INJ IV SCH (08:39)
[2017-01-25] MEDS: AZTREONAM 1 GM/NS (PMX) 50 ML IVPB SCH ×2 (08:49→20:47)
[2017-01-25] MEDS: NITROGLYCERIN (SL) 0.4 MG TAB SL PRN ×2 (08:49→17:25)
[2017-01-25] MEDS: COLLAGENASE 30 GM TUBE TOP SCH (08:57)
--- NOTE | 2017-01-25 09:41 | RADRPT ---
Vent Rate: 91 bpm RR Interval: 0 msec HI Interval: 0 msec QRS Duration: 92 msec QT Interval: 358 msec QTC Interval: 440 msec P-R-T [place]: -25 - -89 - 79 degrees Undetermined rhythm Left axis deviation Abnormal ECG Electronically Signed By: Alec Briceno [id number]
[2017-01-25] MEDS: HYDROmorphONE 1 MG/ML SYG IV PRN (11:27)
--- NOTE | 2017-01-25 12:09 | PN ---
Date/Time of Note Date/Time of Note DATE: 01/25/17 TIME: 12:04 Assessment/Plan VTE Prophylaxis VTE Prophylaxis Intervention: SCD's Lines/Catheters IV Catheter Type (from Nrs): Peripheral IV Urinary Cath still in place: No Assessment/Plan Chief Complaint/Hosp Course Assessment and plan: 76-year-old female sent in from [facility] clinic because of chronic lower extremity ulcers and possible cellulitis, past medical history of hypertension and possible diabetes and PVD. 1. Lower extremity ulcers: Wrapped with bandages, status post lower extremity angiogram yesterday. - Continue aztreonam and vancomycin. -Follow-up vascular surgery consult recommendations, as well as infectious disease -Continue PT 2. diabetes: A1c less than 6.0, monitor for now 3. HTN: Holding ARIANNA inhibitor in case any contrast procedures need to be done, continue beta-jarred, also hydralazine IV as needed 4. GI prophylaxis: PPI 5. History of DVT: Bilateral lower extremity ultrasound negative for DVT.Patient has prior history of DVT 3 years ago. -Monitor for now, patient stated she does not take Coumadin now for the last few months. 6. Chest pain and arrhythmia: We will get cardiology consult Problems: Subjective 24 Hr Interval Summary Free Text/Dictation Patient had angiogram performed yesterday. Complained of some chest pain this morning, troponin was negative. Exam/Review of Systems Vital Signs Vitals Vital Signs Date Time Temp Pulse Resp B/P Pulse Ox O2 Delivery O2 Flow Rate FiO2 01/25/17 08:08 97.9 66 22 137/74 99 01/24/17 20:00 Nasal Cannula 2.0 Intake and Output 01/24/17 01/24/17 01/25/17 15:00 23:00 07:00 Intake Total 450 ml 810 ml 1660 ml Output Total 700 ml Balance 450 ml 110 ml 1660 ml Exam General: Lying in bed, no acute distress presently HEENT: Pupils equal round reactive to light, extraocular muscles intact Neck: Supple Respiratory: Clear to auscultation bilaterally Cardiovascular: S1-S2 heard, no rubs or gallops Abdomen: Soft, nontender, nondistended, no rebound or guarding, normal bowel sounds Muscular skeletal: 1+ pitting edema bilateral lower extremity to the mid calves , rest of her ulcers on the feet are wrapped in bandages Neurologic: No focal deficits Results Result Diagram: 01/25/17 0534 01/25/17 0534 Results 24 hrs Laboratory Tests Test 01/24/17 21:17 01/24/17 23:54 01/25/17 05:34 01/25/17 08:08 Bedside Glucose 77 83 Troponin I < 0.012 White Blood Count 8.9 Red Blood Count 3.97 L Hemoglobin 9.8 L Hematocrit 31.8 L Mean Corpuscular Volume 80.1 L Mean Corpuscular Hemoglobin 24.7 L Mean Corpuscular Hemoglobin Concent 30.8 L Red Cell Distribution Width 16.5 H Platelet Count 305 Mean Platelet Volume 9.6 Neutrophils % 66.8 Lymphocytes % 19.0 Monocytes % 8.3 Eosinophils % 4.8 Basophils % 0.8 Nucleated Red Blood Cells % 0.0 Neutrophils # (Manual) 5.9 Lymphocytes # 1.7 Monocytes # 0.7 Eosinophils # 0.4 Basophils # 0.1 Nucleated Red Blood Cells # 0.0 Sodium Level 135 Potassium Level 4.1 Chloride Level 102 Carbon Dioxide Level 28 Anion Gap 9 Blood Urea Nitrogen 14 Creatinine 0.71 Glucose Level 89 Calcium Level 8.3 L Medications Medications Current Medications Acetaminophen (Tylenol Tab) 650 mg Q6H PRN PO PAIN LEVEL 1-3 OR FEVER; Start at 18:30 Docusate Sodium (Colace) 100 mg Q12H PRN PO CONSTIPATION; Start 01/20/17 at 18: 30 Magnesium Hydroxide (Milk Of Mag) 30 ml DAILY PRN PO CONSTIPATION; Start at 18:30 Sodium Biphosphate/ Sodium Phosphate (Fleet Enema) 133 ml DAILY PRN [place] CONSTIPATION Last administered on 01/23/17 05:40; Admin Dose 133 ML; Start at 18:30 Lorazepam (Ativan) 0.5 mg Q6H PRN IV ANXIETY Last administered on 01/24/17 18: 15; Admin Dose 0.5 MG; Start 01/20/17 at 18:30 Vancomycin HCl (Vanco Iv Per Pharmacy) VANCOMYCIN PER PHARMACY NOTE XX ; Start 01/20/17 at 18:30 Hydralazine HCl (Apresoline) 10 mg Q6H PRN IV ELEVATED BLOOD PRESSURE Last administered on 01/24/17 18:15; Admin Dose 10 MG; Start 01/20/17 at 18:30 Nitroglycerin (Nitroglycerin (Sl Tab) 0.4 Mg) 1 tab Q5M PRN SL ANGINA Last administered on 01/25/17 08:49; Admin Dose 1 TAB; Start 01/20/17 at 18:30 Ferrous Sulfate (Ferrous Sulfate (Ec)) 325 mg DAILY PO Last administered on 01/25 08:37; Admin Dose 325 MG; Start 01/21/17 at 09:00 Metoprolol Succinate 100 mg 100 mg DAILY PO Last administered on 01/25/17 08:38 ; Admin Dose 100 MG; Start 01/21/17 at 09:00 Aztreonam (Azactam 1gm/NS (Pmx)) 50 ml @ 100 mls/hr Q12 IVPB Last administered on 01/25/17 08:49; Admin Dose 100 MLS/HR; Start 01/20/17 at 21:00 Miscellaneous Information 1 ea NOTE XX ; Start 01/20/17 at 19:00 Glucose (Glutose) 15 gm Q15M PRN PO DECREASED GLUCOSE; Start 01/20/17 at 19:00 Glucose (Glutose) 22.5 gm Q15M PRN PO DECREASED GLUCOSE; Start 01/20/17 at 19: 00 Dextrose (D50w Syringe) 25 ml Q15M PRN IV DECREASED GLUCOSE; Start 01/20/17 at 19:00 Dextrose (D50w Syringe) 50 ml Q15M PRN IV DECREASED GLUCOSE; Start 01/20/17 at 19:00 Glucagon (Glucagen) 1 mg Q15M PRN IM DECREASED GLUCOSE; Start 01/20/17 at 19:00 Glucose (Glutose) 15 gm Q15M PRN BUCCAL DECREASED GLUCOSE; Start 01/20/17 at 19 :00 Furosemide (Lasix) 20 mg DAILY IV Last administered on 01/25/17 08:39; Admin Dose 20 MG; Start 01/20/17 at 19:00 Latanoprost 1 drop 1 drop HS BOTH EYES Last administered on 01/24/17 21:06; Admin Dose 1 DROP; Start 01/20/17 at 21:00 Vancomycin HCl/ Sodium Chloride (Vancocin/NS) 250 ml @ 83.333 mls/ hr Q24H IVPB Last administered on 01/24/17 22:50; Admin Dose 83.333 MLS/HR; Start 01/21 at 22:30 Acetaminophen/ Hydrocodone Bitart ([place] (10/325)) 1 tab Q4H PRN PO PAIN Last administered on 01/24/17 22:51; Admin Dose 1 TAB; Start 01/21/17 at 00:00 Morphine Sulfate (morphine) 2 mg Q4H PRN IV PAIN Last administered on 17:46; Admin Dose 2 MG; Start 01/21/17 at 12:00 Hydromorphone HCl (Dilaudid) 1 mg Q6H PRN IV PAIN Last administered on 11:27; Admin Dose 1 MG; Start 01/21/17 at 10:30 Collagenase (Santyl) 1 applic DAILY TOP Last administered on 01/25/17 08:57; Admin Dose 1 APPLIC; Start 01/21/17 at 14:00 Diagnostic Test (Pha) (Accu-Chek) 1 ea 02 XX ; Start 01/24/17 at 02:00 Diagnostic Test (Pha) (Accu-Chek) 1 ea 02 XX ; Start 01/24/17 at 02:00 Miscellaneous Information (Pending Santyl Order For Wound Care) This patient humphries... PRN PRN XX WOUND CARE; Start 01/24/17 at 00:00 Ondansetron HCl (Zofran Inj) 4 mg Q4H PRN IV NAUSEA AND/OR VOMITING; Start 01/24 at 17:00 Famotidine (Pepcid) 20 mg DAILY PO ; Start 01/26/17 at 09:00 SANDRA KNOWLES Jan 25, 2017 12:09
[2017-01-25] MEDS: morphine 4 MG/ML VIAL IV PRN ×2 (16:00→20:22)
--- NOTE | 2017-01-25 18:32 | CONS ---
Date/Time of Note Date/Time of Note DATE: 01/25/17 TIME: 18:31 Assessment/Plan Assessment/Plan Chief Complaint/Hosp Course ID PROGRESS NOTE CURRENT ABX: => VANCO IV + Azactam + Diflucan 24H INTERVAL SUMMARY * Pt complaining of chest pain relieved by Morphine/NTG -> Troponins (-), afebrile, chart reviewed * POD #1 s/p 01/24/17 AORTOILIAC ANGIOGRAM AND BILATERAL LOWER EXTREMITY RUNOFFS * MICROBIOLOGY: * Leg Wound Cx 01/23 => WOUND CULTURE Preliminary Organism 1 GRAM NEGATIVE KALIN QUANTITY 2+ * Urine culture grew Beverly albicans less than 10,000 colonies. EXAM GENERAL: Well-developed, obese, elderly woman, who is alert, in no distress. HEENT: Head atraumatic, normocephalic. Sclerae anicteric. Buccal mucosa pink. NECK: Supple. CHEST: Rise symmetrical. Breath sounds clear. HEART: S1, S2. ABDOMEN: Soft, bowel sounds present. EXTREMITIES: With bilateral lower extremity dressing intact. ID ASSESSMENT 76 yo super morbid obese F admit with: 1. Bilateral lower extremities non-healing wounds. 2. PVD: Chronic venous insufficiency and peripheral arterial disease. * POD #1 s/p 01/24/17 AORTOILIAC ANGIOGRAM AND BILATERAL LOWER EXTREMITY RUNOFFS 3. Diabetes. 4. Hypertension. 5. Chest pain -> (-)Troponins, cards consult pending 6. Yeast UTI-> s/p Diflucan (-) MRSA Nares INVASIVES: PIV ABX ALLERGY: PCN CURRENT ABX: =>VANCO IV + Azactam + Diflucan ID RECOMMENDATIONS Continue current ABX f/u GNR wound Cx => Pending . Problems: Consultation Date/Type/Reason Admit Date/Time Jan 20, 2017 at 17:10 Initial Consult Date Exam/Review of Systems Vital Signs Vitals Vital Signs Date Time Temp Pulse Resp B/P Pulse Ox O2 Delivery O2 Flow Rate FiO2 01/25/17 14:24 98.0 104 20 175/77 99 01/24/17 20:00 Nasal Cannula 2.0 Intake and Output 01/24/17 01/24/17 01/25/17 15:00 23:00 07:00 Intake Total 450 ml 810 ml 1660 ml Output Total 700 ml Balance 450 ml 110 ml 1660 ml Results Result Diagram: 01/25/17 0534 01/25/17 0534 Results 24 hrs Laboratory Tests Test 01/24/17 21:17 01/24/17 23:54 01/25/17 05:34 01/25/17 08:08 Bedside Glucose 77 83 Troponin I < 0.012 White Blood Count 8.9 Red Blood Count 3.97 L Hemoglobin 9.8 L Hematocrit 31.8 L Mean Corpuscular Volume 80.1 L Mean Corpuscular Hemoglobin 24.7 L Mean Corpuscular Hemoglobin Concent 30.8 L Red Cell Distribution Width 16.5 H Platelet Count 305 Mean Platelet Volume 9.6 Neutrophils % 66.8 Lymphocytes % 19.0 Monocytes % 8.3 Eosinophils % 4.8 Basophils % 0.8 Nucleated Red Blood Cells % 0.0 Neutrophils # (Manual) 5.9 Lymphocytes # 1.7 Monocytes # 0.7 Eosinophils # 0.4 Basophils # 0.1 Nucleated Red Blood Cells # 0.0 Sodium Level 135 Potassium Level 4.1 Chloride Level 102 Carbon Dioxide Level 28 Anion Gap 9 Blood Urea Nitrogen 14 Creatinine 0.71 Glucose Level 89 Calcium Level 8.3 L Test 01/25/17 12:11 01/25/17 17:24 Bedside Glucose 83 96 Medications Medications Current Medications Acetaminophen (Tylenol Tab) 650 mg Q6H PRN PO PAIN LEVEL 1-3 OR FEVER; Start at 18:30 Docusate Sodium (Colace) 100 mg Q12H PRN PO CONSTIPATION; Start 01/20/17 at 18: 30 Magnesium Hydroxide (Milk Of Mag) 30 ml DAILY PRN PO CONSTIPATION; Start at 18:30 Sodium Biphosphate/ Sodium Phosphate (Fleet Enema) 133 ml DAILY PRN [place] CONSTIPATION Last administered on 01/23/17 05:40; Admin Dose 133 ML; Start at 18:30 Lorazepam (Ativan) 0.5 mg Q6H PRN IV ANXIETY Last administered on 01/24/17 18: 15; Admin Dose 0.5 MG; Start 01/20/17 at 18:30 Vancomycin HCl (Vanco Iv Per Pharmacy) VANCOMYCIN PER PHARMACY NOTE XX ; Start 01/20/17 at 18:30 Hydralazine HCl (Apresoline) 10 mg Q6H PRN IV ELEVATED BLOOD PRESSURE Last administered on 01/24/17 18:15; Admin Dose 10 MG; Start 01/20/17 at 18:30 Nitroglycerin (Nitroglycerin (Sl Tab) 0.4 Mg) 1 tab Q5M PRN SL ANGINA Last administered on 01/25/17 17:25; Admin Dose 1 TAB; Start 01/20/17 at 18:30 Ferrous Sulfate (Ferrous Sulfate (Ec)) 325 mg DAILY PO Last administered on 01/25 08:37; Admin Dose 325 MG; Start 01/21/17 at 09:00 Metoprolol Succinate 100 mg 100 mg DAILY PO Last administered on 01/25/17 08:38 ; Admin Dose 100 MG; Start 01/21/17 at 09:00 Aztreonam (Azactam 1gm/NS (Pmx)) 50 ml @ 100 mls/hr Q12 IVPB Last administered on 01/25/17 08:49; Admin Dose 100 MLS/HR; Start 01/20/17 at 21:00 Miscellaneous Information 1 ea NOTE XX ; Start 01/20/17 at 19:00 Glucose (Glutose) 15 gm Q15M PRN PO DECREASED GLUCOSE; Start 01/20/17 at 19:00 Glucose (Glutose) 22.5 gm Q15M PRN PO DECREASED GLUCOSE; Start 01/20/17 at 19: 00 Dextrose (D50w Syringe) 25 ml Q15M PRN IV DECREASED GLUCOSE; Start 01/20/17 at 19:00 Dextrose (D50w Syringe) 50 ml Q15M PRN IV DECREASED GLUCOSE; Start 01/20/17 at 19:00 Glucagon (Glucagen) 1 mg Q15M PRN IM DECREASED GLUCOSE; Start 01/20/17 at 19:00 Glucose (Glutose) 15 gm Q15M PRN BUCCAL DECREASED GLUCOSE; Start 01/20/17 at 19 :00 Furosemide (Lasix) 20 mg DAILY IV Last administered on 01/25/17 08:39; Admin Dose 20 MG; Start 01/20/17 at 19:00 Latanoprost 1 drop 1 drop HS BOTH EYES Last administered on 01/24/17 21:06; Admin Dose 1 DROP; Start 01/20/17 at 21:00 Vancomycin HCl/ Sodium Chloride (Vancocin/NS) 250 ml @ 83.333 mls/ hr Q24H IVPB Last administered on 01/24/17 22:50; Admin Dose 83.333 MLS/HR; Start 01/21 at 22:30 Acetaminophen/ Hydrocodone Bitart ([place] (10/325)) 1 tab Q4H PRN PO PAIN Last administered on 01/24/17 22:51; Admin Dose 1 TAB; Start 01/21/17 at 00:00 Morphine Sulfate (morphine) 2 mg Q4H PRN IV PAIN Last administered on 01/25/17 16:00; Admin Dose 2 MG; Start 01/21/17 at 12:00 Hydromorphone HCl (Dilaudid) 1 mg Q6H PRN IV PAIN Last administered on 11:27; Admin Dose 1 MG; Start 01/21/17 at 10:30 Collagenase (Santyl) 1 applic DAILY TOP Last administered on 01/25/17 08:57; Admin Dose 1 APPLIC; Start 01/21/17 at 14:00 Diagnostic Test (Pha) (Accu-Chek) 1 ea 02 XX ; Start 01/24/17 at 02:00 Diagnostic Test (Pha) (Accu-Chek) 1 ea 02 XX ; Start 01/24/17 at 02:00 Miscellaneous Information (Pending Santyl Order For Wound Care) This patient humphries... PRN PRN XX WOUND CARE; Start 01/24/17 at 00:00 Ondansetron HCl (Zofran Inj) 4 mg Q4H PRN IV NAUSEA AND/OR VOMITING; Start 01/24 at 17:00 Famotidine (Pepcid) 20 mg DAILY PO ; Start 01/26/17 at 09:00 MARCELO BEE NP Jan 25, 2017 18:32
[2017-01-25] MEDS: LATANOPROST 0.005% 2.5 ML OPH BOTH EYES SCH (20:47)
[2017-01-25] MEDS: hydrALAzine 20 MG INJ IV PRN (20:49)
[2017-01-25] MEDS: VANCOMYCIN 1.5 GM in SOD CHLORIDE 0.9% 250 ML IVPB SCH (22:47)
[2017-01-26] MEDS: morphine 2 MG INJ IV PRN ×3 (01:22→18:20)
[2017-01-26] MEDS: ACCU-CHEK XX SCH ×2 (02:00)
[2017-01-26 02:56] VITALS: BP 133/58; RESP 18
[2017-01-26 06:54] LABS: BASOPHIL # 0.1 10^3/ul (0.0-0.1); BASOPHILS % 0.6 % (0.0-2.0); EOSINOPHILS # 0.5 10^3/ul (0.0-0.5); EOSINOPHILS % 5.3 % (0.0-7.0); HEMATOCRIT 31.1 % (37.0-47.0); HEMOGLOBIN 9.6 g/dl (12.0-16.0); LYMPHOCYTES # 1.7 10^3/ul (0.8-2.9); LYMPHOCYTES % 20.4 % (15.0-51.0); MEAN CORPUSCULAR HEMOGLOBIN 24.5 pg (29.0-33.0); MEAN CORPUSCULAR HGB CONC 30.9 g/dl (32.0-37.0); MEAN CORPUSCULAR VOLUME 79.3 fl (82.0-101.0); MEAN PLATELET VOLUME 9.9 fl (7.4-10.4); MONOCYTE # 0.8 10^3/ul (0.3-0.9); MONOCYTES % 9.1 % (0.0-11.0); NEUTROPHILS % 64.2 % (39.0-77.0); NUCLEATED RED BLOOD CELLS% 0.2 /100WBC (0.0-0.0); PLATELET COUNT 291 10^3/UL (140-415); RED BLOOD COUNT 3.92 10^6/ul (4.20-5.40); RED CELL DISTRIBUTION WIDTH 16.8 % (11.5-14.5); WHITE BLOOD COUNT 8.5 10^3/ul (4.8-10.8)
[2017-01-26 07:33] LABS: CALCIUM 8.7 mg/dl (8.4-10.2); CREATININE 0.69 mg/dl (0.44-1.00); POTASSIUM 4.1 mmol/L (3.5-5.1)
[2017-01-26] MEDS: INSULIN ASPART [NOVOLOG] 3 ML PEN SC SCH ×3 (08:02→21:00)
[2017-01-26] MEDS: AZTREONAM 1 GM/NS (PMX) 50 ML IVPB SCH (09:40)
[2017-01-26] MEDS: COLLAGENASE 30 GM TUBE TOP SCH (09:40)
[2017-01-26] MEDS: FAMOTIDINE 20 MG TAB PO SCH (09:41)
[2017-01-26] MEDS: FUROSEMIDE 20 MG INJ IV SCH (09:41)
[2017-01-26] MEDS: FERROUS SULFATE (EC) 325 MG TAB PO SCH (09:41)
[2017-01-26] MEDS: METOPROLOL (XL) 100 MG TAB PO SCH (09:41)
[2017-01-26] MEDS: APIXABAN 5 MG TABLET PO SCH ×3 (11:37→22:42)
--- NOTE | 2017-01-26 11:40 | PN ---
Date/Time of Note Date/Time of Note DATE: 01/26/17 TIME: 11:35 Assessment/Plan VTE Prophylaxis VTE Prophylaxis Intervention: other (Eliquis) Lines/Catheters IV C[facility]ter Type (from [facility]): Saline Lock Urinary Cath still in place: No Assessment/Plan Chief Complaint/Hosp Course Assessment and plan: 76-year-old female sent in from [facility] clinic because of chronic lower extremity ulcers and possible cellulitis, past medical history of hypertension and possible diabetes and PVD. 1. Lower extremity ulcers: Wrapped with bandages, status post lower extremity angiogram 2 days ago, official results still pending. Wound culture positive for Pseudomonas. -Change aztreonam to ciprofloxacin based on sensitivities, and continue vancomycin. -Follow-up vascular surgery consult recommendations, as well as infectious disease recommendations -Continue PT 2. diabetes: A1c less than 6.0, monitor for now 3. HTN: Holding ARIANNA inhibitor in case any further contrast procedures need to be done, continue beta-jarred, also hydralazine IV as needed 4. GI prophylaxis: PPI 5. History of DVT: Bilateral lower extremity ultrasound negative for DVT.Patient has prior history of DVT 3 years ago. -Monitor for now, patient stated she does not take Coumadin now for the last few months. 6. Chest pain and arrhythmia: Resolving, but EKG did show signs of atrial fibrillation. Upon palpation of her pulse, her pulse does appear to be irregularly irregular, rate controlled. Denies chest pain or palpitations presently. -Follow-up cardiology consult -We will go ahead and have patient transferred to telemetry floor for continued monitoring -While awaiting for cardiology consult, with the presumptive diagnosis of new onset atrial fibrillation, rate controlled, and with a CHADS2 score likely of 2, will go ahead and start low-dose Eliquis 2.5 mg p.o. twice daily today until further cardiac input and further telemetry monitoring. Problems: Subjective 24 Hr Interval Summary Free Text/Dictation Patient having less chest pain and leg pain symptoms. Still waiting to be seen by cardiology team. Exam/Review of Systems Vital Signs Vitals Vital Signs Date Time Temp Pulse Resp B/P Pulse Ox O2 Delivery O2 Flow Rate FiO2 01/26/17 02:56 98.5 74 18 133/58 96 01/25/17 21:30 Room Air 01/24/17 20:00 2.0 Intake and Output 901/25/17 01/26/17 15:00 23:00 07:00 Intake Total 100 ml 1130 ml 970 ml Output Total 900 ml Balance 100 ml 1130 ml 70 ml Exam General: Lying in bed, no acute distress presently HEENT: Pupils equal round reactive to light, extraocular muscles intact Neck: Supple Respiratory: Clear to auscultation bilaterally Cardiovascular: S1-S2 heard, no rubs or gallops Abdomen: Soft, nontender, nondistended, no rebound or guarding, normal bowel sounds Muscular skeletal: 1+ pitting edema bilateral lower extremity to the mid calves , rest of her ulcers on the feet are wrapped in bandages Neurologic: No focal deficits Results Result Diagram: 01/26/17 0548 01/26/17 0548 Results 24 hrs Laboratory Tests Test 01/25/17 12:11 01/25/17 17:24 01/25/17 20:54 01/26/17 05:48 Bedside Glucose 83 96 82 White Blood Count 8.5 Red Blood Count 3.92 L Hemoglobin 9.6 L Hematocrit 31.1 L Mean Corpuscular Volume 79.3 L Mean Corpuscular Hemoglobin 24.5 L Mean Corpuscular Hemoglobin Concent 30.9 L Red Cell Distribution Width 16.8 H Platelet Count 291 Mean Platelet Volume 9.9 Neutrophils % 64.2 Lymphocytes % 20.4 Monocytes % 9.1 Eosinophils % 5.3 Basophils % 0.6 Nucleated Red Blood Cells % 0.2 H Neutrophils # (Manual) 5.5 Lymphocytes # 1.7 Monocytes # 0.8 Eosinophils # 0.5 Basophils # 0.1 Nucleated Red Blood Cells # 0.0 Sodium Level 136 Potassium Level 4.1 Chloride Level 102 Carbon Dioxide Level 28 Anion Gap 10 Blood Urea Nitrogen 14 Creatinine 0.69 Glucose Level 92 Calcium Level 8.7 Test 01/26/17 08:02 Bedside Glucose 95 Medications Medications Current Medications Acetaminophen (Tylenol Tab) 650 mg Q6H PRN PO PAIN LEVEL 1-3 OR FEVER; Start at 18:30 Docusate Sodium (Colace) 100 mg Q12H PRN PO CONSTIPATION; Start 01/20/17 at 18: 30 Magnesium Hydroxide (Milk Of Mag) 30 ml DAILY PRN PO CONSTIPATION; Start at 18:30 Sodium Biphosphate/ Sodium Phosphate (Fleet Enema) 133 ml DAILY PRN [place] CONSTIPATION Last administered on 01/23/17 05:40; Admin Dose 133 ML; Start at 18:30 Lorazepam (Ativan) 0.5 mg Q6H PRN IV ANXIETY Last administered on 01/24/17 18: 15; Admin Dose 0.5 MG; Start 01/20/17 at 18:30 Vancomycin HCl (Vanco Iv Per Pharmacy) VANCOMYCIN PER PHARMACY NOTE XX ; Start 01/20/17 at 18:30 Hydralazine HCl (Apresoline) 10 mg Q6H PRN IV ELEVATED BLOOD PRESSURE Last administered on 01/25/17 20:49; Admin Dose 10 MG; Start 01/20/17 at 18:30 Nitroglycerin (Nitroglycerin (Sl Tab) 0.4 Mg) 1 tab Q5M PRN SL ANGINA Last administered on 01/25/17 17:25; Admin Dose 1 TAB; Start 01/20/17 at 18:30 Ferrous Sulfate (Ferrous Sulfate (Ec)) 325 mg DAILY PO Last administered on 01/26 09:41; Admin Dose 325 MG; Start 01/21/17 at 09:00 Metoprolol Succinate (Toprol Xl) 100 mg DAILY PO Last administered on 01/26/17 09:41; Admin Dose 100 MG; Start 01/21/17 at 09:00 Miscellaneous Information 1 ea NOTE XX ; Start 01/20/17 at 19:00 Glucose (Glutose) 15 gm Q15M PRN PO DECREASED GLUCOSE; Start 01/20/17 at 19:00 Glucose (Glutose) 22.5 gm Q15M PRN PO DECREASED GLUCOSE; Start 01/20/17 at 19: 00 Dextrose (D50w Syringe) 25 ml Q15M PRN IV DECREASED GLUCOSE; Start 01/20/17 at 19:00 Dextrose (D50w Syringe) 50 ml Q15M PRN IV DECREASED GLUCOSE; Start 01/20/17 at 19:00 Glucagon (Glucagen) 1 mg Q15M PRN IM DECREASED GLUCOSE; Start 01/20/17 at 19:00 Glucose (Glutose) 15 gm Q15M PRN BUCCAL DECREASED GLUCOSE; Start 01/20/17 at 19 :00 Furosemide (Lasix) 20 mg DAILY IV Last administered on 01/26/17 09:41; Admin Dose 20 MG; Start 01/20/17 at 19:00 Latanoprost 1 drop 1 drop HS BOTH EYES Last administered on 01/25/17 20:47; Admin Dose 1 DROP; Start 01/20/17 at 21:00 Vancomycin HCl/ Sodium Chloride (Vancocin/NS) 250 ml @ 83.333 mls/ hr Q24H IVPB Last administered on 01/25/17 22:47; Admin Dose 83.333 MLS/HR; Start 01/21 at 22:30 Acetaminophen/ Hydrocodone Bitart ([place] (10/325)) 1 tab Q4H PRN PO PAIN Last administered on 01/24/17 22:51; Admin Dose 1 TAB; Start 01/21/17 at 00:00 Collagenase (Santyl) 1 applic DAILY TOP Last administered on 01/26/17 09:40; Admin Dose 1 APPLIC; Start 01/21/17 at 14:00 Diagnostic Test (Pha) (Accu-Chek) 1 ea 02 XX ; Start 01/24/17 at 02:00 Diagnostic Test (Pha) (Accu-Chek) 1 ea 02 XX ; Start 01/24/17 at 02:00 Miscellaneous Information (Pending Santyl Order For Wound Care) This patient humphries... PRN PRN XX WOUND CARE; Start 01/24/17 at 00:00 Ondansetron HCl (Zofran Inj) 4 mg Q4H PRN IV NAUSEA AND/OR VOMITING; Start 01/24 at 17:00 Famotidine (Pepcid) 20 mg DAILY PO Last administered on 01/26/17 09:41; Admin Dose 20 MG; Start 01/26/17 at 09:00 Morphine Sulfate 2 mg 2 mg Q2H PRN IV PAIN Last administered on 01/26/17 04:10 ; Admin Dose 2 MG; Start 01/26/17 at 01:30 Ciprofloxacin/ Dextrose (Cipro Ivpb) 200 ml @ 200 mls/hr Q12 IVPB ; Start at 11:30 Apixaban (Eliquis) 2.5 mg BID PO ; Start 01/26/17 at 11:30 SANDRA KNOWLES Jan 26, 2017 11:40
[2017-01-26 12:33] VITALS: PULSE 82
[2017-01-26 12:41] VITALS: BP 131/80; RESP 18
[2017-01-26] MEDS: HYDROCODONE/APAP (10/325) TAB PO PRN (13:56)
[2017-01-26] MEDS: CIPROFLOXACIN 400MG/D5W 200 ML IVPB SCH ×2 (13:57→22:42)
--- NOTE | 2017-01-26 14:49 | CONS ---
Date/Time of Note Date/Time of Note DATE: 01/26/17 TIME: 14:42 Assessment/Plan Assessment/Plan Chief Complaint/Hosp Course ID PROGRESS NOTE CURRENT ABX: => VANCO IV + + Diflucan + CIPRO s/p Azactam 24H INTERVAL SUMMARY * Super morbid obese F, stable, no fevers, * POD #2 s/p 01/24/17 AORTOILIAC ANGIOGRAM AND BILATERAL LOWER EXTREMITY RUNOFFS * MICROBIOLOGY: * Leg Wound Cx 01/23 => WOUND CULTURE Final Organism 1 PSEUDOMONAS AERUGINOSA QUANTITY 2+ P.AERUG M.I.C. RX --------- --- AMIKACIN <=2 S AZTREONAM S CEFEPIME 2 S CEFTAZIDIME 4 S CIPROFLOXACIN <=0.25 S GENTAMICIN <=1 S LEVOFLOXACIN 1 S TOBRAMYCIN <=1 S PIPERACILLIN/TAZOBACTAM 8 S EXAM GENERAL: Well-developed, obese, elderly woman, who is alert, in no distress. HEENT: Head atraumatic, normocephalic. Sclerae anicteric. Buccal mucosa pink. NECK: Supple. CHEST: Rise symmetrical. Breath sounds clear. HEART: S1, S2. ABDOMEN: Soft, bowel sounds present. EXTREMITIES: With bilateral lower extremity dressing intact. ID ASSESSMENT 76 yo super morbid obese F admit with: 1. Bilateral lower extremities non-healing wounds. * Leg Wound Cx 01/23 => WOUND CULTURE Final Organism 1 PSEUDOMONAS AERUGINOSA QUANTITY 2+ P.AERUG M.I.C. RX --------- --- AMIKACIN <=2 S AZTREONAM S CEFEPIME 2 S CEFTAZIDIME 4 S CIPROFLOXACIN <=0.25 S GENTAMICIN <=1 S LEVOFLOXACIN 1 S TOBRAMYCIN <=1 S PIPERACILLIN/TAZOBACTAM 8 S 2. PVD: Chronic venous insufficiency and peripheral arterial disease. * POD #2 s/p 01/24/17 AORTOILIAC ANGIOGRAM AND BILATERAL LOWER EXTREMITY RUNOFFS 3. Diabetes. 4. Hypertension. 5. Chest pain -> (-)Troponins, cards consult pending 6. Yeast UTI-> s/p Diflucan (-) MRSA Nares INVASIVES: PIV ABX ALLERGY: PCN CURRENT ABX: =>VANCO IV ++ Diflucan + CIPRO Azactam -> DC'd 01/26 ID RECOMMENDATIONS Azactam changed to Cipro by primary -- Continue Vanco IV . . Problems: Consultation Date/Type/Reason Admit Date/Time Jan 20, 2017 at 17:10 Exam/Review of Systems Vital Signs Vitals Vital Signs Date Time Temp Pulse Resp B/P Pulse Ox O2 Delivery O2 Flow Rate FiO2 01/26/17 12:41 98.5 55 18 131/80 97 01/25/17 21:30 Room Air 01/24/17 20:00 2.0 Intake and Output 01/25/17 01/25/17 01/26/17 15:00 23:00 07:00 Intake Total 100 ml 1130 ml 970 ml Output Total 900 ml Balance 100 ml 1130 ml 70 ml Results Result Diagram: 01/26/17 0548 01/26/17 0548 Results 24 hrs Laboratory Tests Test 01/25/17 17:24 01/25/17 20:54 01/26/17 05:48 01/26/17 08:02 Bedside Glucose 96 82 95 White Blood Count 8.5 Red Blood Count 3.92 L Hemoglobin 9.6 L Hematocrit 31.1 L Mean Corpuscular Volume 79.3 L Mean Corpuscular Hemoglobin 24.5 L Mean Corpuscular Hemoglobin Concent 30.9 L Red Cell Distribution Width 16.8 H Platelet Count 291 Mean Platelet Volume 9.9 Neutrophils % 64.2 Lymphocytes % 20.4 Monocytes % 9.1 Eosinophils % 5.3 Basophils % 0.6 Nucleated Red Blood Cells % 0.2 H Neutrophils # (Manual) 5.5 Lymphocytes # 1.7 Monocytes # 0.8 Eosinophils # 0.5 Basophils # 0.1 Nucleated Red Blood Cells # 0.0 Sodium Level 136 Potassium Level 4.1 Chloride Level 102 Carbon Dioxide Level 28 Anion Gap 10 Blood Urea Nitrogen 14 Creatinine 0.69 Glucose Level 92 Calcium Level 8.7 Test 01/26/17 12:18 Bedside Glucose 92 Medications Medications Current Medications Acetaminophen (Tylenol Tab) 650 mg Q6H PRN PO PAIN LEVEL 1-3 OR FEVER; Start at 18:30 Docusate Sodium (Colace) 100 mg Q12H PRN PO CONSTIPATION; Start 01/20/17 at 18: 30 Magnesium Hydroxide (Milk Of Mag) 30 ml DAILY PRN PO CONSTIPATION; Start at 18:30 Sodium Biphosphate/ Sodium Phosphate (Fleet Enema) 133 ml DAILY PRN [place] CONSTIPATION Last administered on 01/23/17 05:40; Admin Dose 133 ML; Start at 18:30 Lorazepam (Ativan) 0.5 mg Q6H PRN IV ANXIETY Last administered on 01/24/17 18: 15; Admin Dose 0.5 MG; Start 01/20/17 at 18:30 Vancomycin HCl (Vanco Iv Per Pharmacy) VANCOMYCIN PER PHARMACY NOTE XX ; Start 01/20/17 at 18:30 Hydralazine HCl (Apresoline) 10 mg Q6H PRN IV ELEVATED BLOOD PRESSURE Last administered on 01/25/17 20:49; Admin Dose 10 MG; Start 01/20/17 at 18:30 Nitroglycerin (Nitroglycerin (Sl Tab) 0.4 Mg) 1 tab Q5M PRN SL ANGINA Last administered on 01/25/17 17:25; Admin Dose 1 TAB; Start 01/20/17 at 18:30 Ferrous Sulfate (Ferrous Sulfate (Ec)) 325 mg DAILY PO Last administered on 01/26 09:41; Admin Dose 325 MG; Start 01/21/17 at 09:00 Metoprolol Succinate (Toprol Xl) 100 mg DAILY PO Last administered on 01/26/17 09:41; Admin Dose 100 MG; Start 01/21/17 at 09:00 Miscellaneous Information 1 ea NOTE XX ; Start 01/20/17 at 19:00 Glucose (Glutose) 15 gm Q15M PRN PO DECREASED GLUCOSE; Start 01/20/17 at 19:00 Glucose (Glutose) 22.5 gm Q15M PRN PO DECREASED GLUCOSE; Start 01/20/17 at 19: 00 Dextrose (D50w Syringe) 25 ml Q15M PRN IV DECREASED GLUCOSE; Start 01/20/17 at 19:00 Dextrose (D50w Syringe) 50 ml Q15M PRN IV DECREASED GLUCOSE; Start 01/20/17 at 19:00 Glucagon (Glucagen) 1 mg Q15M PRN IM DECREASED GLUCOSE; Start 01/20/17 at 19:00 Glucose (Glutose) 15 gm Q15M PRN BUCCAL DECREASED GLUCOSE; Start 01/20/17 at 19 :00 Furosemide (Lasix) 20 mg DAILY IV Last administered on 01/26/17 09:41; Admin Dose 20 MG; Start 01/20/17 at 19:00 Latanoprost 1 drop 1 drop HS BOTH EYES Last administered on 01/25/17 20:47; Admin Dose 1 DROP; Start 01/20/17 at 21:00 Vancomycin HCl/ Sodium Chloride (Vancocin/NS) 250 ml @ 83.333 mls/ hr Q24H IVPB Last administered on 01/25/17 22:47; Admin Dose 83.333 MLS/HR; Start 01/21 at 22:30 Acetaminophen/ Hydrocodone Bitart ([place] (10/325)) 1 tab Q4H PRN PO PAIN Last administered on 01/26/17 13:56; Admin Dose 1 TAB; Start 01/21/17 at 00:00 Collagenase (Santyl) 1 applic DAILY TOP Last administered on 01/26/17 09:40; Admin Dose 1 APPLIC; Start 01/21/17 at 14:00 Diagnostic Test (Pha) (Accu-Chek) 1 ea 02 XX ; Start 01/24/17 at 02:00 Diagnostic Test (Pha) (Accu-Chek) 1 ea 02 XX ; Start 01/24/17 at 02:00 Miscellaneous Information (Pending Santyl Order For Wound Care) This patient humphries... PRN PRN XX WOUND CARE; Start 01/24/17 at 00:00 Ondansetron HCl (Zofran Inj) 4 mg Q4H PRN IV NAUSEA AND/OR VOMITING; Start 01/24 at 17:00 Famotidine (Pepcid) 20 mg DAILY PO Last administered on 01/26/17 09:41; Admin Dose 20 MG; Start 01/26/17 at 09:00 Morphine Sulfate 2 mg 2 mg Q2H PRN IV PAIN Last administered on 01/26/17 04:10 ; Admin Dose 2 MG; Start 01/26/17 at 01:30 Ciprofloxacin/ Dextrose (Cipro Ivpb) 200 ml @ 200 mls/hr Q12 IVPB Last administered on 01/26/17 13:57; Admin Dose 200 MLS/HR; Start 01/26/17 at 11:30 Apixaban (Eliquis) 2.5 mg BID PO Last administered on 01/26/17 11:37; Admin Dose 2.5 MG; Start 01/26/17 at 11:30 MARCELO BEE NP Jan 26, 2017 14:49
[2017-01-26 16:02] VITALS: BP 112/54; RESP 17
[2017-01-26 16:53] VITALS: PULSE 74
[2017-01-26 20:00] VITALS: BP 131/60; PULSE 65; RESP 20
[2017-01-26] MEDS: LATANOPROST 0.005% 2.5 ML OPH BOTH EYES SCH (22:42)
[2017-01-27] VITALS (11 sets, daily range): BP systolic 117–173; BP diastolic 57–79; PULSE 59–100; RESP 18–20
[2017-01-27] MEDS: HYDROCODONE/APAP (10/325) TAB PO PRN ×3 (00:48→19:55)
[2017-01-27] MEDS: VANCOMYCIN 1.5 GM in SOD CHLORIDE 0.9% 250 ML IVPB SCH (00:49)
[2017-01-27] MEDS: ACCU-CHEK XX SCH ×2 (02:00)
[2017-01-27 07:07] LABS: BASOPHIL # 0.1 10^3/ul (0.0-0.1); BASOPHILS % 0.7 % (0.0-2.0); EOSINOPHILS # 0.5 10^3/ul (0.0-0.5); EOSINOPHILS % 5.9 % (0.0-7.0); HEMATOCRIT 30.7 % (37.0-47.0); HEMOGLOBIN 9.6 g/dl (12.0-16.0); LYMPHOCYTES # 1.9 10^3/ul (0.8-2.9); LYMPHOCYTES % 24.8 % (15.0-51.0); MEAN CORPUSCULAR HEMOGLOBIN 24.9 pg (29.0-33.0); MEAN CORPUSCULAR HGB CONC 31.3 g/dl (32.0-37.0); MEAN CORPUSCULAR VOLUME 79.5 fl (82.0-101.0); MONOCYTE # 0.8 10^3/ul (0.3-0.9); MONOCYTES % 10.2 % (0.0-11.0); NEUTROPHILS % 58.1 % (39.0-77.0); PLATELET COUNT 278 10^3/UL (140-415); RED BLOOD COUNT 3.86 10^6/ul (4.20-5.40); RED CELL DISTRIBUTION WIDTH 16.7 % (11.5-14.5); WHITE BLOOD COUNT 7.6 10^3/ul (4.8-10.8)
[2017-01-27 07:39] LABS: CALCIUM 8.7 mg/dl (8.4-10.2); CREATININE 0.74 mg/dl (0.44-1.00)
[2017-01-27] MEDS: INSULIN ASPART [NOVOLOG] 3 ML PEN SC SCH ×4 (08:00→21:00)
[2017-01-27] MEDS ORDERED: LISINOPRIL 20 MG TAB PO SCH (09:00)
[2017-01-27] MEDS: FAMOTIDINE 20 MG TAB PO SCH (09:20)
[2017-01-27] MEDS: METOPROLOL (XL) 100 MG TAB PO SCH (09:20)
[2017-01-27] MEDS: FERROUS SULFATE (EC) 325 MG TAB PO SCH (09:20)
[2017-01-27] MEDS: FUROSEMIDE 20 MG INJ IV SCH (09:36)
[2017-01-27] MEDS: CIPROFLOXACIN 400MG/D5W 200 ML IVPB SCH (10:53)
[2017-01-27] MEDS: morphine 2 MG INJ IV PRN ×2 (17:31→23:28)
[2017-01-27] MEDS: COLLAGENASE 30 GM TUBE TOP SCH (17:34)
--- NOTE | 2017-01-27 18:46 | PN ---
Date/Time of Note Date/Time of Note DATE: 01/27/17 TIME: 18:41 Assessment/Plan Lines/Catheters IV Catheter Type (from [facility]): Saline Lock Jones in Place (from [facility]): No Assessment/Plan Chief Complaint/Hosp Course -Bilateral lower extremity atherosclerosis with nonhealing ulcers: S/P Angiogram -It seems the patient has in-line flow from the common femoral artery all the way down to her PT artery to the foot and her ulcerations likely related to her venous insufficiency as shes had history of what seems to be mixed (arterial/ venous) -Recommend with the local wound care with applying Santyl to all the wounds for now. -Will plan to re-apply two layer compression therapy once her cellulitis settles down. She may be a candidate for shaquille boot -Continue with intravenous antibiotics -Optimize vascular status (blood pressure meds, diet, nutrition, antiplatelets, sugar control, weight loss). -Discussed findings, plan and management with the patient with a certified senior technical support engineer and they understand. -Thank you for allowing us to partake in the care of your patient. Please call with any questions. Problems: Subjective 24 Hr Interval Summary no new vascular events overnight Exam/Review of Systems Vital Signs Vitals Vital Signs Date Time Temp Pulse Resp B/P Pulse Ox O2 Delivery O2 Flow Rate FiO2 01/27/17 16:55 98.3 65 20 131/60 100 01/25/17 21:30 Room Air 01/24/17 20:00 2.0 Intake and Output 01/26/17 01/26/17 01/27/17 14:59 22:59 06:59 Intake Total 300 ml Output Total 250 ml Balance 50 ml Exam Free Text/Dictation GENERAL APPEARANCE: Alert, oriented x3. LUNGS: Clear to auscultation bilaterally CARDIOVASCULAR: S1, S2 present ABDOMEN: Soft, nontender, nondistended. Bowel sounds positive. Truncal obesity. EXTREMITIES: -Right lower extremity: Palpable femoral pulse. Nonpalpable pedal pulse. Motor and sensory intact. Capillary refill 3 seconds. Circumferential ulcers from the ankle all the way up to the knee. erythema, pain upon palpation. Areas of purulent discharge from her ulcers improving . edema 1+ -Left lower extremity: Palpable femoral pulse. Nonpalpable pedal pulse. Motor and sensory intact. Capillary refill 3-4 seconds. Circumferential ulcers that are measuring different sizes from the ankle to the knee. edema 1+ Results Result Diagram: 01/27/17 0623 01/27/17 0623 ERIN BLACKBURN MD Jan 27, 2017 18:45
[2017-01-27] MEDS: CIPROFLOXACIN 500 MG TAB PO SCH (18:47)
--- NOTE | 2017-01-27 19:56 | PN ---
Date/Time of Note Date/Time of Note DATE: 01/27/17 TIME: 19:42 Assessment/Plan VTE Prophylaxis VTE Prophylaxis Intervention: SCD's Lines/Catheters IV Catheter Type (from Nrsg): Saline Lock Urinary Cath still in place: No Assessment/Plan Assessment/Plan 76 yo F with PVD, chronic LE ulcers sent from [facility] clinic for chronic LE ulcers PLAN #chronic LE ulcers, concern for possible cellulitis -cont cipro for PSAR isolated from wounds. anticipate 5-7 days of therapy -vascular on cs #HTN: cont home meds #chest pain: transient AFib, now in sinus with PACs -cards eval pending -ATC started -TTE with preserved EF last week SNF placement pending Subjective 24 Hr Interval Summary Free Text/Dictation in sinus with PACs re tele leg wounds unchanged per patient Exam/Review of Systems Vital Signs Vitals Vital Signs Date Time Temp Pulse Resp B/P Pulse Ox O2 Delivery O2 Flow Rate FiO2 01/27/17 16:55 98.3 65 20 131/60 100 01/25/17 21:30 Room Air 01/24/17 20:00 2.0 Intake and Output 01/26/17 01/26/17 01/27/17 14:59 22:59 06:59 Intake Total 300 ml Output Total 250 ml Balance 50 ml Exam nad no mrg lungs clear abd soft wounds with adherent dressings in place Results Result Diagram: 01/27/17 0623 01/27/17 0623 Results 24 hrs Laboratory Tests Test 01/26/17 21:13 01/27/17 06:23 01/27/17 08:32 01/27/17 12:03 Bedside Glucose 95 88 102 White Blood Count 7.6 Red Blood Count 3.86 L Hemoglobin 9.6 L Hematocrit 30.7 L Mean Corpuscular Volume 79.5 L Mean Corpuscular Hemoglobin 24.9 L Mean Corpuscular Hemoglobin Concent 31.3 L Red Cell Distribution Width 16.7 H Platelet Count 278 Mean Platelet Volume 10.0 Neutrophils % 58.1 Lymphocytes % 24.8 Monocytes % 10.2 Eosinophils % 5.9 Basophils % 0.7 Nucleated Red Blood Cells % 0.0 Neutrophils # (Manual) 4.4 Lymphocytes # 1.9 Monocytes # 0.8 Eosinophils # 0.5 Basophils # 0.1 Nucleated Red Blood Cells # 0.0 Sodium Level 135 Potassium Level 4.0 Chloride Level 100 Carbon Dioxide Level 31 Anion Gap 8 Blood Urea Nitrogen 18 Creatinine 0.74 Glucose Level 91 Calcium Level 8.7 Test 01/27/17 17:14 Bedside Glucose 103 Medications Medications Current Medications Acetaminophen (Tylenol Tab) 650 mg Q6H PRN PO PAIN LEVEL 1-3 OR FEVER; Start at 18:30 Docusate Sodium (Colace) 100 mg Q12H PRN PO CONSTIPATION; Start 01/20/17 at 18: 30 Magnesium Hydroxide (Milk Of Mag) 30 ml DAILY PRN PO CONSTIPATION; Start at 18:30 Sodium Biphosphate/ Sodium Phosphate (Fleet Enema) 133 ml DAILY PRN [place] CONSTIPATION Last administered on 01/23/17 05:40; Admin Dose 133 ML; Start at 18:30 Hydralazine HCl (Apresoline) 10 mg Q6H PRN IV ELEVATED BLOOD PRESSURE Last administered on 01/25/17 20:49; Admin Dose 10 MG; Start 01/20/17 at 18:30 Nitroglycerin (Nitroglycerin (Sl Tab) 0.4 Mg) 1 tab Q5M PRN SL ANGINA Last administered on 01/25/17 17:25; Admin Dose 1 TAB; Start 01/20/17 at 18:30 Ferrous Sulfate (Ferrous Sulfate (Ec)) 325 mg DAILY PO Last administered on 01/27 09:20; Admin Dose 325 MG; Start 01/21/17 at 09:00 Metoprolol Succinate (Toprol Xl) 100 mg DAILY PO Last administered on 01/27/17 09:20; Admin Dose 100 MG; Start 01/21/17 at 09:00 Miscellaneous Information 1 ea NOTE XX ; Start 01/20/17 at 19:00 Glucose (Glutose) 15 gm Q15M PRN PO DECREASED GLUCOSE; Start 01/20/17 at 19:00 Glucose (Glutose) 22.5 gm Q15M PRN PO DECREASED GLUCOSE; Start 01/20/17 at 19: 00 Dextrose (D50w Syringe) 25 ml Q15M PRN IV DECREASED GLUCOSE; Start 01/20/17 at 19:00 Dextrose (D50w Syringe) 50 ml Q15M PRN IV DECREASED GLUCOSE; Start 01/20/17 at 19:00 Glucagon (Glucagen) 1 mg Q15M PRN IM DECREASED GLUCOSE; Start 01/20/17 at 19:00 Glucose (Glutose) 15 gm Q15M PRN BUCCAL DECREASED GLUCOSE; Start 01/20/17 at 19 :00 Furosemide (Lasix) 20 mg DAILY IV Last administered on 01/27/17 09:36; Admin Dose 20 MG; Start 01/20/17 at 19:00 Latanoprost (Xalatan) 1 drop HS BOTH EYES Last administered on 01/26/17 22:42; Admin Dose 1 DROP; Start 01/20/17 at 21:00 Acetaminophen/ Hydrocodone Bitart ([place] (10/325)) 1 tab Q4H PRN PO PAIN Last administered on 01/27/17 09:36; Admin Dose 1 TAB; Start 01/21/17 at 00:00 Collagenase (Santyl) 1 applic DAILY TOP Last administered on 01/27/17 17:34; Admin Dose 1 APPLIC; Start 01/21/17 at 14:00 Diagnostic Test (Pha) (Accu-Chek) 1 ea 02 XX ; Start 01/24/17 at 02:00 Diagnostic Test (Pha) (Accu-Chek) 1 ea 02 XX ; Start 01/24/17 at 02:00 Miscellaneous Information (Pending Santyl Order For Wound Care) This patient humphries... PRN PRN XX WOUND CARE; Start 01/24/17 at 00:00 Ondansetron HCl (Zofran Inj) 4 mg Q4H PRN IV NAUSEA AND/OR VOMITING; Start 01/24 at 17:00 Morphine Sulfate (morphine) 2 mg Q2H PRN IV PAIN Last administered on 01/27/17 17:31; Admin Dose 2 MG; Start 01/26/17 at 01:30 Apixaban (Eliquis) 2.5 mg BID PO Last administered on 01/26/17 22:42; Admin Dose 2.5 MG; Start 01/26/17 at 11:30 Lisinopril (Zestril) 20 mg DAILY PO ; Start 01/27/17 at 09:00; Status Future Hold Ciprofloxacin (Cipro) 500 mg BID@18 PO Last administered on 01/27/17 18:47; Admin Dose 500 MG; Start 01/27/17 at 18:00 LATESHA PIMENTEL MD Jan 27, 2017 19:56
--- NOTE | 2017-01-27 20:00 | CONS ---
Date/Time of Note Date/Time of Note DATE: 01/27/17 TIME: 19:58 Assessment/Plan Assessment/Plan Chief Complaint/Hosp Course ID PROGRESS NOTE CURRENT ABX: => VANCO IV + + Diflucan + CIPRO s/p Azactam 24H INTERVAL SUMMARY * No new issues, resting w/eyes closed, super morbid obese F, stable, no fevers, * POD #3 s/p 01/24/17 AORTOILIAC ANGIOGRAM AND BILATERAL LOWER EXTREMITY RUNOFFS * MICROBIOLOGY: * Leg Wound Cx 01/23 => WOUND CULTURE Final Organism 1 PSEUDOMONAS AERUGINOSA QUANTITY 2+ P.AERUG M.I.C. RX --------- --- AMIKACIN <=2 S AZTREONAM S CEFEPIME 2 S CEFTAZIDIME 4 S CIPROFLOXACIN <=0.25 S GENTAMICIN <=1 S LEVOFLOXACIN 1 S TOBRAMYCIN <=1 S PIPERACILLIN/TAZOBACTAM 8 S EXAM GENERAL: Well-developed, obese, elderly woman, who is alert, in no distress. HEENT: Head atraumatic, normocephalic. Sclerae anicteric. Buccal mucosa pink. NECK: Supple. CHEST: Rise symmetrical. Breath sounds clear. HEART: S1, S2. ABDOMEN: Soft, bowel sounds present. EXTREMITIES: With bilateral lower extremity dressing intact. ID ASSESSMENT 76 yo super morbid obese F admit with: 1. Bilateral lower extremities non-healing wounds. * Leg Wound Cx 01/23 => WOUND CULTURE Final Organism 1 PSEUDOMONAS AERUGINOSA QUANTITY 2+ P.AERUG M.I.C. RX --------- --- AMIKACIN <=2 S AZTREONAM S CEFEPIME 2 S CEFTAZIDIME 4 S CIPROFLOXACIN <=0.25 S GENTAMICIN <=1 S LEVOFLOXACIN 1 S TOBRAMYCIN <=1 S PIPERACILLIN/TAZOBACTAM 8 S 2. PVD: Chronic venous insufficiency and peripheral arterial disease. * POD #2 s/p 01/24/17 AORTOILIAC ANGIOGRAM AND BILATERAL LOWER EXTREMITY RUNOFFS 3. Diabetes. 4. Hypertension. 5. Chest pain -> (-)Troponins, cards consult pending 6. Yeast UTI-> s/p Diflucan (-) MRSA Nares INVASIVES: PIV ABX ALLERGY: PCN CURRENT ABX: =>VANCO IV ++ Diflucan + CIPRO Azactam -> DC'd 01/26 ID RECOMMENDATIONS Azactam changed to Cipro by primary -- Continue Vanco IV Vascular notes reviewed -- topical wound care w/compression Tx henry romano future . . . Problems: Consultation Date/Type/Reason Admit Date/Time Jan 20, 2017 at 17:10 Exam/Review of Systems Vital Signs Vitals Vital Signs Date Time Temp Pulse Resp B/P Pulse Ox O2 Delivery O2 Flow Rate FiO2 01/27/17 19:47 98.0 78 20 173/74 98 01/25/17 21:30 Room Air 01/24/17 20:00 2.0 Intake and Output 01/26/17 01/26/17 01/27/17 15:00 23:00 07:00 Intake Total 300 ml Output Total 250 ml Balance 50 ml Results Result Diagram: 01/27/17 0623 01/27/17 0623 Results 24 hrs Laboratory Tests Test 01/26/17 21:13 01/27/17 06:23 01/27/17 08:32 01/27/17 12:03 Bedside Glucose 95 88 102 White Blood Count 7.6 Red Blood Count 3.86 L Hemoglobin 9.6 L Hematocrit 30.7 L Mean Corpuscular Volume 79.5 L Mean Corpuscular Hemoglobin 24.9 L Mean Corpuscular Hemoglobin Concent 31.3 L Red Cell Distribution Width 16.7 H Platelet Count 278 Mean Platelet Volume 10.0 Neutrophils % 58.1 Lymphocytes % 24.8 Monocytes % 10.2 Eosinophils % 5.9 Basophils % 0.7 Nucleated Red Blood Cells % 0.0 Neutrophils # (Manual) 4.4 Lymphocytes # 1.9 Monocytes # 0.8 Eosinophils # 0.5 Basophils # 0.1 Nucleated Red Blood Cells # 0.0 Sodium Level 135 Potassium Level 4.0 Chloride Level 100 Carbon Dioxide Level 31 Anion Gap 8 Blood Urea Nitrogen 18 Creatinine 0.74 Glucose Level 91 Calcium Level 8.7 Test 01/27/17 17:14 Bedside Glucose 103 Medications Medications Current Medications Acetaminophen (Tylenol Tab) 650 mg Q6H PRN PO PAIN LEVEL 1-3 OR FEVER; Start at 18:30 Docusate Sodium (Colace) 100 mg Q12H PRN PO CONSTIPATION; Start 01/20/17 at 18: 30 Magnesium Hydroxide (Milk Of Mag) 30 ml DAILY PRN PO CONSTIPATION; Start at 18:30 Sodium Biphosphate/ Sodium Phosphate (Fleet Enema) 133 ml DAILY PRN [place] CONSTIPATION Last administered on 01/23/17 05:40; Admin Dose 133 ML; Start at 18:30 Hydralazine HCl (Apresoline) 10 mg Q6H PRN IV ELEVATED BLOOD PRESSURE Last administered on 01/25/17 20:49; Admin Dose 10 MG; Start 01/20/17 at 18:30 Nitroglycerin (Nitroglycerin (Sl Tab) 0.4 Mg) 1 tab Q5M PRN SL ANGINA Last administered on 01/25/17 17:25; Admin Dose 1 TAB; Start 01/20/17 at 18:30 Ferrous Sulfate (Ferrous Sulfate (Ec)) 325 mg DAILY PO Last administered on 01/27 09:20; Admin Dose 325 MG; Start 01/21/17 at 09:00 Metoprolol Succinate (Toprol Xl) 100 mg DAILY PO Last administered on 01/27/17 09:20; Admin Dose 100 MG; Start 01/21/17 at 09:00 Miscellaneous Information 1 ea NOTE XX ; Start 01/20/17 at 19:00 Glucose (Glutose) 15 gm Q15M PRN PO DECREASED GLUCOSE; Start 01/20/17 at 19:00 Glucose (Glutose) 22.5 gm Q15M PRN PO DECREASED GLUCOSE; Start 01/20/17 at 19: 00 Dextrose (D50w Syringe) 25 ml Q15M PRN IV DECREASED GLUCOSE; Start 01/20/17 at 19:00 Dextrose (D50w Syringe) 50 ml Q15M PRN IV DECREASED GLUCOSE; Start 01/20/17 at 19:00 Glucagon (Glucagen) 1 mg Q15M PRN IM DECREASED GLUCOSE; Start 01/20/17 at 19:00 Glucose (Glutose) 15 gm Q15M PRN BUCCAL DECREASED GLUCOSE; Start 01/20/17 at 19 :00 Furosemide (Lasix) 20 mg DAILY IV Last administered on 01/27/17 09:36; Admin Dose 20 MG; Start 01/20/17 at 19:00 Latanoprost (Xalatan) 1 drop HS BOTH EYES Last administered on 01/26/17 22:42; Admin Dose 1 DROP; Start 01/20/17 at 21:00 Acetaminophen/ Hydrocodone Bitart ([place] (10/325)) 1 tab Q4H PRN PO PAIN Last administered on 01/27/17 19:55; Admin Dose 1 TAB; Start 01/21/17 at 00:00 Collagenase (Santyl) 1 applic DAILY TOP Last administered on 01/27/17 17:34; Admin Dose 1 APPLIC; Start 01/21/17 at 14:00 Diagnostic Test (Pha) (Accu-Chek) 1 ea 02 XX ; Start 01/24/17 at 02:00 Diagnostic Test (Pha) (Accu-Chek) 1 ea 02 XX ; Start 01/24/17 at 02:00 Miscellaneous Information (Pending Santyl Order For Wound Care) This patient humphries... PRN PRN XX WOUND CARE; Start 01/24/17 at 00:00 Ondansetron HCl (Zofran Inj) 4 mg Q4H PRN IV NAUSEA AND/OR VOMITING; Start 01/24 at 17:00 Morphine Sulfate (morphine) 2 mg Q2H PRN IV PAIN Last administered on 01/27/17 17:31; Admin Dose 2 MG; Start 01/26/17 at 01:30 Apixaban (Eliquis) 2.5 mg BID PO Last administered on 01/26/17 22:42; Admin Dose 2.5 MG; Start 01/26/17 at 11:30 Lisinopril (Zestril) 20 mg DAILY PO ; Start 01/27/17 at 09:00; Status Future Hold Ciprofloxacin (Cipro) 500 mg BID@ PO Last administered on 01/27/17 18:47; Admin Dose 500 MG; Start 01/27/17 at 18:00 MARCELO BEE NP Jan 27, 2017 20:00
[2017-01-27] MEDS: APIXABAN 5 MG TABLET PO SCH (20:40)
[2017-01-27] MEDS: LATANOPROST 0.005% 2.5 ML OPH BOTH EYES SCH (20:40)
[2017-01-27] MEDS: LISINOPRIL 20 MG TAB PO SCH (21:00)
[2017-01-28] VITALS (10 sets, daily range): BP systolic 105–157; BP diastolic 43–94; PULSE 61–70; RESP 19–20
[2017-01-28] MEDS: ACCU-CHEK XX SCH ×2 (02:00)
[2017-01-28] MEDS: morphine 2 MG INJ IV PRN ×3 (03:50→23:53)
[2017-01-28] MEDS: CIPROFLOXACIN 500 MG TAB PO SCH ×2 (06:53→17:30)
[2017-01-28 07:39] LABS: BASOPHIL # 0.1 10^3/ul (0.0-0.1); BASOPHILS % 1.2 % (0.0-2.0); EOSINOPHILS # 0.5 10^3/ul (0.0-0.5); EOSINOPHILS % 6.5 % (0.0-7.0); HEMATOCRIT 31.3 % (37.0-47.0); HEMOGLOBIN 9.5 g/dl (12.0-16.0); LYMPHOCYTES # 1.9 10^3/ul (0.8-2.9); LYMPHOCYTES % 24.8 % (15.0-51.0); MEAN CORPUSCULAR HEMOGLOBIN 24.2 pg (29.0-33.0); MEAN CORPUSCULAR HGB CONC 30.4 g/dl (32.0-37.0); MEAN CORPUSCULAR VOLUME 79.8 fl (82.0-101.0); MEAN PLATELET VOLUME 10.1 fl (7.4-10.4); MONOCYTE # 0.7 10^3/ul (0.3-0.9); MONOCYTES % 9.5 % (0.0-11.0); NEUTROPHILS % 57.7 % (39.0-77.0); PLATELET COUNT 282 10^3/UL (140-415); RED BLOOD COUNT 3.92 10^6/ul (4.20-5.40); RED CELL DISTRIBUTION WIDTH 17.1 % (11.5-14.5); WHITE BLOOD COUNT 7.5 10^3/ul (4.8-10.8)
[2017-01-28] MEDS: INSULIN ASPART [NOVOLOG] 3 ML PEN SC SCH ×4 (08:00→20:58)
--- NOTE | 2017-01-28 08:01 | OPR ---
DATE OF OPERATION: 01/24/2017 SURGEON: Matt Rai MD. PREOPERATIVE DIAGNOSIS: Bilateral lower extremity nonhealing ulcers. POSTOPERATIVE DIAGNOSIS: Bilateral lower extremity nonhealing ulcers. ANESTHESIA: Local with moderate sedation. ESTIMATED BLOOD LOSS: Minimal. COMPLICATIONS: None. HEPARIN: As recorded. CONTRAST: As recorded ACCESS: Left common femoral artery, 5-Haitian sheath. CLOSURE: Manual compression Angio-Seal closure device. SEDATION: Under physician's supervision, moderate sedation was administered intravenously under continuous monitoring by the interventional team and attending physician. Pulse oximeter, heart rate and blood pressures were continuously monitored by the interventional surgeon. The physician spent time was 35 minutes of [id number] sedation time with the patient. INDICATIONS: This is a 76-year-old female, whom has had history of bilateral lower extremity venous insufficiency and infrapopliteal tibial disease. The patient has had a long- standing history of nonhealing lower extremity ulcers despite 2- layer compression therapy. Therefore, alternatives, risks and benefits were discussed with the patient. Angiogram was suggested. The patient had been informed alternatives, risks and benefits of angiogram, balloon angioplasty, stenting and atherectomy. The risks including, but not limited to, bleeding, thrombosis, embolization, myocardial infarction, , device malfunction, infection, nephrotoxicity, patient has agreed to proceed. OPERATION PERFORMED: 1. Ultrasound-guided access of the left common femoral artery. 2. Aortoiliac angiogram. 3. Third order selection of the right common femoral artery and the right lower extremity angiogram. 4. Moderate sedation. FINDINGS: 1. Bilateral renal arteries are patent. 2. Infrarenal aorta is patent. 3. Bilateral common iliac, internal iliac, and external iliacs are tortuous and patent. 4. The left common femoral artery is patent. 5. Proximal left profunda femoral artery is patent. 6. Left proximal superficial femoral artery is patent. 7. Right common femoral artery is patent. 8. Right superficial femoral artery is patent. 9. Right profunda femoral artery is patent. 10. The right above-knee popliteal artery is patent. 11. Right at-knee popliteal artery is patent. 12. The right below-knee popliteal artery is patent. 13. Right tibioperoneal trunk is patent. 14. The right anterior tibial artery is patent in its proximal aspect and then it becomes diminutive towards the foot. 15. Right peroneal artery is patent and becomes diminutive near the ankle. 16. Right posterior tibial artery is the dominant vessel to the foot. Normal in caliber. 17. Right common plantar artery is patent. 18. Right lateral plantar artery is patent. 19. Right medial plantar artery is not visualized. 20. Right dorsalis pedis artery is not visualized. 21. Limited pedal artery circulation. 22. Left superficial femoral artery is patent. 23. Left profunda femoral artery is patent. 24. Left above-knee popliteal artery is patent. 25. Left at-knee popliteal artery is patent. 26. Left below-knee popliteal artery is patent. 27. Left tibioperoneal trunk is patent. 28. Left anterior tibial artery is patent in its proximal aspect and diminutive near the foot. 29. Left peroneal artery is patent in its proximal aspect and becomes diminutive near the foot. 30. Left posterior tibial artery is patent with inline flow to the foot. 31. Left common plantar artery is patent. 32. Left lateral plantar artery and medial plantar arteries are not well visualized. 33. Left dorsalis pedis artery is not well visualized OPERATIVE PROCEDURE: The patient was brought into the angio suite, and positioned in supine position on the fluoroscopic table. Sedation was administered without complications. The left groin was shaved, prepped, and draped in usual standard sterile fashion. Time-out and appropriate site was marked and confirmed. Local anesthesia was then infiltrated in the region of the left common femoral artery. The artery was then cannulated with a micro-access needle under ultrasound guidance and a guidewire was advanced into the iliac artery under fluoroscopic guidance. The needle was removed and a micro-catheter was placed. A Bentson wire was then passed into the infrarenal aorta under fluoroscopic guidance, followed by a short 5-Haitian sheath over the wire. The sheath was then appropriately flushed with heparinized saline solution. Omni Flush catheter was then passed into the suprarenal aorta and an aortoiliac angiogram was performed. Findings are noted above. At this point, the Omni Flush catheter was then used to select the right common femoral artery in a 3rd order selection. A right lower extremity angiogram was then performed and findings are noted above. It was identified patient has in-line flow from the common femoral artery all the way down to the foot via a posterior tibial artery as the dominant the tibial vessel. At this point, Omni Flush catheter was then removed and a left lower extremity angiogram was then performed through the 5-Haitian sheath. Left lower extremity angiogram was then performed and findings are noted above. It was also identified patient has inline flow all the way down to the foot via a dominant posterior tibial artery on the left side. At this point, it was determined no further vascular intervention would be needed and all catheter sheaths and wires were removed. Angio-Seal closure device was deployed in the left common femoral artery. The patient tolerated procedure well, was taken to the postanesthesia care unit in stable condition. PLAN: Essentially, the patient has bilateral lower extremity in- line flow from the common femoral artery all the way down to the foot via the posterior tibial artery vessel. No further vascular intervention will be needed from an arterial aspect even though the patient does have severe pedal disease that is not amenable for any open or endovascular intervention. At this point, I would recommend for the patient to continue with her with her 2- layer compression therapies for her venous insufficiency. We will continue to follow the patient as an outpatient. Dictated By: Matt Rai MD /bela/lizzette /Document#: [id number]
[2017-01-28 08:20] LABS: CALCIUM 8.5 mg/dl (8.4-10.2); CREATININE 0.75 mg/dl (0.44-1.00)
[2017-01-28] MEDS: FERROUS SULFATE (EC) 325 MG TAB PO SCH (09:54)
[2017-01-28] MEDS: APIXABAN 5 MG TABLET PO SCH ×2 (09:54→20:58)
[2017-01-28] MEDS: FUROSEMIDE 20 MG INJ IV SCH (09:54)
[2017-01-28] MEDS: HYDROCODONE/APAP (10/325) TAB PO PRN ×2 (09:55→16:02)
[2017-01-28] MEDS: LISINOPRIL 20 MG TAB PO SCH ×2 (09:55→20:57)
[2017-01-28] MEDS: METOPROLOL (XL) 100 MG TAB PO SCH (09:55)
--- NOTE | 2017-01-28 14:23 | PN ---
Date/Time of Note Date/Time of Note DATE: 01/28/17 TIME: 14:21 Assessment/Plan Lines/Catheters IV Catheter Type (from [facility]): Saline Lock Jones in Place (from [facility]): No Assessment/Plan Chief Complaint/Hosp Course -Bilateral lower extremity atherosclerosis with nonhealing ulcers: S/P Angiogram -It seems the patient has in-line flow from the common femoral artery all the way down to her PT artery to the foot and her ulcerations likely related to her venous insufficiency as shes had history of what seems to be mixed (arterial/ venous) -Recommend with the local wound care with applying Santyl to all the wounds for now. -Will plan to re-apply two layer compression therapy . She may be a candidate for shaquille boot -Educated patient as she is non-compliant with elevating LE's -Continue with intravenous antibiotics -Optimize vascular status (blood pressure meds, diet, nutrition, antiplatelets, sugar control, weight loss). -Discussed findings, plan and management with the patient with a certified sports recruiter and they understand. -Thank you for allowing us to partake in the care of your patient. Please call with any questions. Problems: Subjective 24 Hr Interval Summary no new vascular events overnight Exam/Review of Systems Vital Signs Vitals Vital Signs Date Time Temp Pulse Resp B/P Pulse Ox O2 Delivery O2 Flow Rate FiO2 01/28/17 12:11 99.1 62 20 105/54 98 01/25/17 21:30 Room Air 01/24/17 20:00 2.0 Exam Free Text/Dictation GENERAL APPEARANCE: Alert, oriented x3. LUNGS: Clear to auscultation bilaterally CARDIOVASCULAR: S1, S2 present ABDOMEN: Soft, nontender, nondistended. Bowel sounds positive. Truncal obesity. EXTREMITIES: -Right lower extremity: Palpable femoral pulse. Nonpalpable pedal pulse. Motor and sensory intact. Capillary refill 3 seconds. Circumferential ulcers from the ankle all the way up to the knee. erythema and pain improved. edema much improved -Left lower extremity: Palpable femoral pulse. Nonpalpable pedal pulse. Motor and sensory intact. Capillary refill 3-4 seconds. Circumferential ulcers that are measuring different sizes from the ankle to the knee improving. edema much improved Results Result Diagram: 01/28/17 0611 01/28/17610 ERIN BLACKBURN MD Jan 28, 2017 14:23
[2017-01-28] MEDS: COLLAGENASE 30 GM TUBE TOP SCH (14:52)
[2017-01-28] MEDS: NA PHOSPHATE/BIPHOS 133 ML ENEMA PR PRN (16:01)
[2017-01-28] MEDS ORDERED: BISACODYL 10 MG SUPP PR PRN (17:00)
--- NOTE | 2017-01-28 17:08 | PN ---
Date/Time of Note Date/Time of Note DATE: 01/28/17 TIME: 17:06 Assessment/Plan VTE Prophylaxis VTE Prophylaxis Intervention: SCD's Lines/Catheters IV Catheter Type (from Nrsg): Saline Lock Urinary Cath still in place: No Assessment/Plan Assessment/Plan 76 yo F with PVD, chronic LE ulcers sent from [facility] clinic for chronic LE ulcers PLAN #chronic LE ulcers, concern for possible cellulitis -cont cipro for PSAR isolated from wounds. Pt has been on abx since 01.20. Will stop abx in the AM -vascular on cs #HTN: cont home meds #chest pain: transient AFib, now in sinus with PACs -ATC started -TTE with preserved EF last week -HR controlled -PCP follow up after discharge -lasix converted to PO SNF placement pending Subjective 24 Hr Interval Summary Free Text/Dictation awaiting SNF transfer Exam/Review of Systems Vital Signs Vitals Vital Signs Date Time Temp Pulse Resp B/P Pulse Ox O2 Delivery O2 Flow Rate FiO2 01/28/17 16:12 98.3 64 20 117/54 98 01/25/17 21:30 Room Air 01/24/17 20:00 2.0 Exam nad no mrg lungs clear abd soft LEs dressed Results Result Diagram: 01/28/17 0611 01/28/17 0611 Results 24 hrs Laboratory Tests Test 01/27/17 17:14 01/27/17 21:05 01/28/17 06:11 01/28/17 08:17 Bedside Glucose 103 101 101 White Blood Count 7.5 Red Blood Count 3.92 L Hemoglobin 9.5 L Hematocrit 31.3 L Mean Corpuscular Volume 79.8 L Mean Corpuscular Hemoglobin 24.2 L Mean Corpuscular Hemoglobin Concent 30.4 L Red Cell Distribution Width 17.1 H Platelet Count 282 Mean Platelet Volume 10.1 Neutrophils % 57.7 Lymphocytes % 24.8 Monocytes % 9.5 Eosinophils % 6.5 Basophils % 1.2 Nucleated Red Blood Cells % 0.0 Neutrophils # (Manual) 4.3 Lymphocytes # 1.9 Monocytes # 0.7 Eosinophils # 0.5 Basophils # 0.1 Nucleated Red Blood Cells # 0.0 Sodium Level 135 Potassium Level 4.0 Chloride Level 100 Carbon Dioxide Level 29 Anion Gap 10 Blood Urea Nitrogen 21 H Creatinine 0.75 Glucose Level 83 Calcium Level 8.5 Test 01/28/17 11:37 Bedside Glucose 109 Medications Medications Current Medications Acetaminophen (Tylenol Tab) 650 mg Q6H PRN PO PAIN LEVEL 1-3 OR FEVER; Start at 18:30 Docusate Sodium (Colace) 100 mg Q12H PRN PO CONSTIPATION; Start 01/20/17 at 18: 30 Magnesium Hydroxide (Milk Of Mag) 30 ml DAILY PRN PO CONSTIPATION Last administered on 01/28/17 09:53; Admin Dose 30 ML; Start 01/20/17 at 18:30 Sodium Biphosphate/ Sodium Phosphate (Fleet Enema) 133 ml DAILY PRN [place] CONSTIPATION Last administered on 01/28/17 16:01; Admin Dose 133 ML; Start 01/20 at 18:30 Hydralazine HCl (Apresoline) 10 mg Q6H PRN IV ELEVATED BLOOD PRESSURE Last administered on 01/25/17 20:49; Admin Dose 10 MG; Start 01/20/17 at 18:30 Nitroglycerin (Nitroglycerin (Sl Tab) 0.4 Mg) 1 tab Q5M PRN SL ANGINA Last administered on 01/25/17 17:25; Admin Dose 1 TAB; Start 01/20/17 at 18:30 Ferrous Sulfate (Ferrous Sulfate (Ec)) 325 mg DAILY PO Last administered on 01/28 09:54; Admin Dose 325 MG; Start 01/21/17 at 09:00 Metoprolol Succinate (Toprol Xl) 100 mg DAILY PO Last administered on 01/28/17 09:55; Admin Dose 100 MG; Start 01/21/17 at 09:00 Miscellaneous Information 1 ea NOTE XX ; Start 01/20/17 at 19:00 Glucose (Glutose) 15 gm Q15M PRN PO DECREASED GLUCOSE; Start 01/20/17 at 19:00 Glucose (Glutose) 22.5 gm Q15M PRN PO DECREASED GLUCOSE; Start 01/20/17 at 19: 00 Dextrose (D50w Syringe) 25 ml Q15M PRN IV DECREASED GLUCOSE; Start 01/20/17 at 19:00 Dextrose (D50w Syringe) 50 ml Q15M PRN IV DECREASED GLUCOSE; Start 01/20/17 at 19:00 Glucagon (Glucagen) 1 mg Q15M PRN IM DECREASED GLUCOSE; Start 01/20/17 at 19:00 Glucose (Glutose) 15 gm Q15M PRN BUCCAL DECREASED GLUCOSE; Start 01/20/17 at 19 :00 Furosemide (Lasix) 20 mg DAILY IV Last administered on 01/28/17 09:54; Admin Dose 20 MG; Start 01/20/17 at 19:00 Latanoprost (Xalatan) 1 drop HS BOTH EYES Last administered on 01/27/17 20:40; Admin Dose 1 DROP; Start 01/20/17 at 21:00 Acetaminophen/ Hydrocodone Bitart ([place] (10/325)) 1 tab Q4H PRN PO PAIN Last administered on 01/28/17 16:02; Admin Dose 1 TAB; Start 01/21/17 at 00:00 Collagenase (Santyl) 1 applic DAILY TOP Last administered on 01/28/17 14:52; Admin Dose 1 APPLIC; Start 01/21/17 at 14:00 Diagnostic Test (Pha) (Accu-Chek) 1 ea 02 XX ; Start 01/24/17 at 02:00 Diagnostic Test (Pha) (Accu-Chek) 1 ea 02 XX ; Start 01/24/17 at 02:00 Miscellaneous Information (Pending Santyl Order For Wound Care) This patient humphries... PRN PRN XX WOUND CARE; Start 01/24/17 at 00:00 Ondansetron HCl (Zofran Inj) 4 mg Q4H PRN IV NAUSEA AND/OR VOMITING; Start 01/24 at 17:00 Morphine Sulfate (morphine) 2 mg Q2H PRN IV PAIN Last administered on 01/28/17 14:52; Admin Dose 2 MG; Start 01/26/17 at 01:30 Apixaban (Eliquis) 2.5 mg BID PO Last administered on 01/28/17 09:54; Admin Dose 2.5 MG; Start 01/26/17 at 11:30 Ciprofloxacin (Cipro) 500 mg BID@18 PO Last administered on 01/28/17 06:53; Admin Dose 500 MG; Start 01/27/17 at 18:00 Lisinopril (Zestril) 20 mg BID PO Last administered on 01/28/17 09:55; Admin Dose 20 MG; Start 01/27/17 at 21:00 Bisacodyl (Dulcolax Supp) 10 mg DAILY PRN [place] CONSTIPATION; Start 01/28/17 at 17: 00 LATESHA PIMENTEL MD Jan 28, 2017 17:08
[2017-01-28] MEDS: LATANOPROST 0.005% 2.5 ML OPH BOTH EYES SCH (20:57)
--- NOTE | 2017-01-28 22:06 | PN ---
DATE: 01/28/2017 SUBJECTIVE DATA: No acute changes. Patient is awake, looks comfortable, afebrile. LABORATORY AND DIAGNOSTIC DATA: WBC 7.5. No shift, no bands. BUN 21, creatinine 0.75. MICROBIOLOGY: Lower extremity wound culture growing Pseudomonas aeruginosa, susceptible to all antibiotics. ALLERGIES: PENICILLIN. ANTIMICROBIALS: Ciprofloxacin. PHYSICAL EXAMINATION: GENERAL: Well-developed, obese, elderly woman, who is awake, in no distress. HEENT: Head atraumatic, normocephalic. Sclerae nonicteric. NECK: Supple. CHEST: Rise symmetrical. Breath sounds clear. HEART: S1, S2. ABDOMEN: Soft, bowel sounds present. EXTREMITIES: With bilateral lower extremity dressing intact. ASSESSMENT: 1. Bilateral lower extremities chronic cellulitis with chronic venous stasis. 2. Peripheral vascular disease. 3. Diabetes. 4. Hypertension. PLAN: Patient remains stable, on appropriate antibiotics. Continue local wound care. Follow recommendations of consultants. Dictated By: Rommel Ball NP /bela/jesse /Document#: [id number]
[2017-01-29] MEDS: ACCU-CHEK XX SCH ×2 (01:04)
[2017-01-29 02:22] VITALS: BP 115/57; RESP 18
[2017-01-29] MEDS: morphine 2 MG INJ IV PRN ×5 (03:45→20:49)
[2017-01-29] MEDS: CIPROFLOXACIN 500 MG TAB PO SCH ×2 (05:18→17:52)
[2017-01-29] MEDS: INSULIN ASPART [NOVOLOG] 3 ML PEN SC SCH ×4 (08:00→21:00)
[2017-01-29 08:07] VITALS: BP 125/56; RESP 19
[2017-01-29] MEDS: METOPROLOL (XL) 100 MG TAB PO SCH (08:50)
[2017-01-29] MEDS: LISINOPRIL 20 MG TAB PO SCH ×2 (08:50→20:58)
[2017-01-29] MEDS: FUROSEMIDE 40 MG TAB PO SCH (08:50)
[2017-01-29] MEDS: APIXABAN 5 MG TABLET PO SCH ×2 (08:51→20:57)
[2017-01-29] MEDS: COLLAGENASE 30 GM TUBE TOP SCH (08:51)
[2017-01-29] MEDS: FERROUS SULFATE (EC) 325 MG TAB PO SCH (08:51)
--- NOTE | 2017-01-29 13:00 | CONS ---
Date/Time of Note Date/Time of Note DATE: 01/29/17 TIME: 12:59 Assessment/Plan Assessment/Plan Chief Complaint/Hosp Course SUBJECTIVE DATA: No acute changes. Patient is awake, looks comfortable, afebrile. MICROBIOLOGY: Lower extremity wound culture growing Pseudomonas aeruginosa, susceptible to all antibiotics. ALLERGIES: PENICILLIN. ANTIMICROBIALS: Ciprofloxacin. PHYSICAL EXAMINATION: GENERAL: Well-developed, obese, elderly woman, who is awake, in no distress. HEENT: Head atraumatic, normocephalic. Sclerae nonicteric. NECK: Supple. CHEST: Rise symmetrical. Breath sounds clear. HEART: S1, S2. ABDOMEN: Soft, bowel sounds present. EXTREMITIES: With bilateral lower extremity dressing intact. ASSESSMENT: 1. Bilateral lower extremities chronic cellulitis with chronic venous stasis. 2. Peripheral vascular disease. 3. Diabetes. 4. Hypertension. PLAN: Patient remains stable, continue antibiotics, local wound care, vascular surgery rec-s DW staff Problems: Consultation Date/Type/Reason Admit Date/Time Jan 20, 2017 at 17:10 Initial Consult Date Type of Consultation: ID Exam/Review of Systems Vital Signs Vitals Vital Signs Date Time Temp Pulse Resp B/P Pulse Ox O2 Delivery O2 Flow Rate FiO2 01/29/17 08:07 98.2 67 19 125/56 95 01/25/17 21:30 Room Air Intake and Output 01/28/17 01/28/17 01/29/17 14:59 22:59 06:59 Intake Total 350 ml 320 ml Output Total 400 ml Balance -50 ml 320 ml Results Result Diagram: 01/28/17 0611 01/28/17 0611 Results 24 hrs Laboratory Tests Test 01/28/17 20:56 01/29/17 08:10 01/29/17 11:40 Bedside Glucose 106 96 73 Medications Medications Current Medications Acetaminophen (Tylenol Tab) 650 mg Q6H PRN PO PAIN LEVEL 1-3 OR FEVER; Start at 18:30 Docusate Sodium (Colace) 100 mg Q12H PRN PO CONSTIPATION; Start 01/20/17 at 18: 30 Magnesium Hydroxide (Milk Of Mag) 30 ml DAILY PRN PO CONSTIPATION Last administered on 01/28/17t 09:53; Admin Dose 30 ML; Start 01/20/17 at 18:30 Sodium Biphosphate/ Sodium Phosphate (Fleet Enema) [address] CONSTIPATION Last administered on 01/28/17 16:01; Admin Dose 133 ML; Start 01/20 at 18:30 Hydralazine HCl (Apresoline) 10 mg Q6H PRN IV ELEVATED BLOOD PRESSURE Last administered on 01/25/17 20:49; Admin Dose 10 MG; Start 01/20/17 at 18:30 Nitroglycerin (Nitroglycerin (Sl Tab) 0.4 Mg) 1 tab Q5M PRN SL ANGINA Last administered on 01/25/17 17:25; Admin Dose 1 TAB; Start 01/20/17 at 18:30 Ferrous Sulfate (Ferrous Sulfate (Ec)) 325 mg DAILY PO Last administered on 01/29 08:51; Admin Dose 325 MG; Start 01/21/17 at 09:00 Metoprolol Succinate (Toprol Xl) 100 mg DAILY PO Last administered on 01/29/17 08:50; Admin Dose 100 MG; Start 01/21/17 at 09:00 Miscellaneous Information 1 ea NOTE XX ; Start 01/20/17 at 19:00 Glucose (Glutose) 15 gm Q15M PRN PO DECREASED GLUCOSE; Start 01/20/17 at 19:00 Glucose (Glutose) 22.5 gm Q15M PRN PO DECREASED GLUCOSE; Start 01/20/17 at 19: 00 Dextrose (D50w Syringe) 25 ml Q15M PRN IV DECREASED GLUCOSE; Start 01/20/17 at 19:00 Dextrose (D50w Syringe) 50 ml Q15M PRN IV DECREASED GLUCOSE; Start 01/20/17 at 19:00 Glucagon (Glucagen) 1 mg Q15M PRN IM DECREASED GLUCOSE; Start 01/20/17 at 19:00 Glucose (Glutose) 15 gm Q15M PRN BUCCAL DECREASED GLUCOSE; Start 01/20/17 at 19 :00 Latanoprost (Xalatan) 1 drop HS BOTH EYES Last administered on 01/28/17 20:57; Admin Dose 1 DROP; Start 01/20/17 at 21:00 Acetaminophen/ Hydrocodone Bitart ([place] (10/325)) 1 tab Q4H PRN PO PAIN Last administered on 01/28/17 16:02; Admin Dose 1 TAB; Start 01/21/17 at 00:00 Collagenase (Santyl) 1 applic DAILY TOP Last administered on 01/29/17 08:51; Admin Dose 1 APPLIC; Start 01/21/17 at 14:00 Diagnostic Test (Pha) (Accu-Chek) 1 ea 02 XX ; Start 01/24/17 at 02:00 Diagnostic Test (Pha) (Accu-Chek) 1 ea 02 XX ; Start 01/24/17 at 02:00 Miscellaneous Information (Pending Santyl Order For Wound Care) This patient humphries... PRN PRN XX WOUND CARE; Start 01/24/17 at 00:00 Ondansetron HCl (Zofran Inj) 4 mg Q4H PRN IV NAUSEA AND/OR VOMITING; Start 01/24 at 17:00 Morphine Sulfate (morphine) 2 mg Q2H PRN IV PAIN Last administered on 01/29/17 03:45; Admin Dose 2 MG; Start 01/26/17 at 01:30 Apixaban (Eliquis) 2.5 mg BID PO Last administered on 01/29/17 08:51; Admin Dose 2.5 MG; Start 01/26/17 at 11:30 Ciprofloxacin (Cipro) 500 mg BID@06,18 PO Last administered on 01/29/17 05:18; Admin Dose 500 MG; Start 01/27/17 at 18:00 Lisinopril (Zestril) 20 mg BID PO Last administered on 01/29/17 08:50; Admin Dose 20 MG; Start 01/27/17 at 21:00 Bisacodyl (Dulcolax Supp) [address] CONSTIPATION Last administered on 01/28/17 17:30; Admin Dose 10 MG; Start 01/28/17 at 17:00 Furosemide (Lasix) 40 mg DAILY PO Last administered on 01/29/17 08:50; Admin Dose 40 MG; Start 01/29/17 at 09:00 ALECIA SOTELO NP Jan 29, 2017 13:00
[2017-01-29 14:36] VITALS: BP 99/44; RESP 19
[2017-01-29] MEDS ORDERED: NITROGLYCERIN (SL) 0.4 MG TAB SL PRN (17:00)
--- NOTE | 2017-01-29 18:30 | PN ---
Date/Time of Note Date/Time of Note DATE: 01/29/17 TIME: 18:29 Assessment/Plan VTE Prophylaxis VTE Prophylaxis Intervention: SCD's Lines/Catheters IV Catheter Type (from Nrsg): Saline Lock Urinary Cath still in place: No Assessment/Plan Assessment/Plan 76 yo F with PVD, chronic LE ulcers sent from [facility] clinic for chronic LE ulcers PLAN #chronic LE ulcers, concern for possible cellulitis -cont cipro for PSAR isolated from wounds. Pt has been on abx since 01.20.length of therapy as per ID -vascular on cs -vitamins as per RD #HTN: cont home meds #chest pain: transient AFib, now in sinus with PACs -ATC started -TTE with preserved EF last week -HR controlled -PCP follow up after discharge -lasix converted to PO SNF placement pending Subjective 24 Hr Interval Summary Free Text/Dictation wondering when she'll be leaving Exam/Review of Systems Vital Signs Vitals Vital Signs Date Time Temp Pulse Resp B/P Pulse Ox O2 Delivery O2 Flow Rate FiO2 01/29/17 14:36 98.4 71 19 99/44 97 01/25/17 21:30 Room Air Intake and Output 01/28/17 01/28/17 01/29/17 15:00 23:00 07:00 Intake Total 350 ml 320 ml Output Total 400 ml Balance -50 ml 320 ml Exam nad no mrg lungs clear abd soft LEs wrapped Results Result Diagram: 01/28/17 0611 01/28/17 0611 Results 24 hrs Laboratory Tests Test 01/28/17 20:56 01/29/17 08:10 01/29/17 11:40 01/29/17 17:21 Bedside Glucose 106 96 73 118 Medications Medications Current Medications Acetaminophen (Tylenol Tab) 650 mg Q6H PRN PO PAIN LEVEL 1-3 OR FEVER; Start at 18:30 Docusate Sodium (Colace) 100 mg Q12H PRN PO CONSTIPATION; Start 01/20/17 at 18: 30 Magnesium Hydroxide (Milk Of Mag) 30 ml DAILY PRN PO CONSTIPATION Last administered on 01/28/17 09:53; Admin Dose 30 ML; Start 01/20/17 at 18:30 Sodium Biphosphate/ Sodium Phosphate (Fleet Enema) 133 ml DAILY PRN [place] CONSTIPATION Last administered on 01/28/17 16:01; Admin Dose 133 ML; Start 01/20 at 18:30 Hydralazine HCl (Apresoline) 10 mg Q6H PRN IV ELEVATED BLOOD PRESSURE Last administered on 01/25/17 20:49; Admin Dose 10 MG; Start 01/20/17 at 18:30 Ferrous Sulfate (Ferrous Sulfate (Ec)) 325 mg DAILY PO Last administered on 01/29 08:51; Admin Dose 325 MG; Start 01/21/17 at 09:00 Metoprolol Succinate (Toprol Xl) 100 mg DAILY PO Last administered on 01/29/17 08:50; Admin Dose 100 MG; Start 01/21/17 at 09:00 Miscellaneous Information 1 ea NOTE XX ; Start 01/20/17 at 19:00 Glucose (Glutose) 15 gm Q15M PRN PO DECREASED GLUCOSE; Start 01/20/17 at 19:00 Glucose (Glutose) 22.5 gm Q15M PRN PO DECREASED GLUCOSE; Start 01/20/17 at 19: 00 Dextrose (D50w Syringe) 25 ml Q15M PRN IV DECREASED GLUCOSE; Start 01/20/17 at 19:00 Dextrose (D50w Syringe) 50 ml Q15M PRN IV DECREASED GLUCOSE; Start 01/20/17 at 19:00 Glucagon (Glucagen) 1 mg Q15M PRN IM DECREASED GLUCOSE; Start 01/20/17 at 19:00 Glucose (Glutose) 15 gm Q15M PRN BUCCAL DECREASED GLUCOSE; Start 01/20/17 at 19 :00 Latanoprost (Xalatan) 1 drop HS BOTH EYES Last administered on 01/28/17 20:57; Admin Dose 1 DROP; Start 01/20/17 at 21:00 Acetaminophen/ Hydrocodone Bitart ([place] (10/325)) 1 tab Q4H PRN PO PAIN Last administered on 01/28/17 16:02; Admin Dose 1 TAB; Start 01/21/17 at 00:00 Collagenase (Santyl) 1 applic DAILY TOP Last administered on 01/29/17 08:51; Admin Dose 1 APPLIC; Start 01/21/17 at 14:00 Diagnostic Test (Pha) (Accu-Chek) 1 ea 02 XX ; Start 01/24/17 at 02:00 Diagnostic Test (Pha) (Accu-Chek) 1 ea 02 XX ; Start 01/24/17 at 02:00 Miscellaneous Information (Pending Santyl Order For Wound Care) This patient humphries... PRN PRN XX WOUND CARE; Start 01/24/17 at 00:00 Ondansetron HCl (Zofran Inj) 4 mg Q4H PRN IV NAUSEA AND/OR VOMITING; Start 01/24 at 17:00 Morphine Sulfate (morphine) 2 mg Q2H PRN IV PAIN Last administered on 01/29/17 17:52; Admin Dose 2 MG; Start 01/26/17 at 01:30 Apixaban (Eliquis) 2.5 mg BID PO Last administered on 01/29/17 08:51; Admin Dose 2.5 MG; Start 01/26/17 at 11:30 Ciprofloxacin (Cipro) 500 mg BID@,18 PO Last administered on 01/29/17 17:52; Admin Dose 500 MG; Start 01/27/17 at 18:00 Lisinopril (Zestril) 20 mg BID PO Last administered on 01/29/17 08:50; Admin Dose 20 MG; Start 01/27/17 at 21:00 Bisacodyl (Dulcolax Supp) 10 mg DAILY PRN [place] CONSTIPATION Last administered on 01/28/17 17:30; Admin Dose 10 MG; Start 01/28/17 at 17:00 Furosemide (Lasix) 40 mg DAILY PO Last administered on 01/29/17 08:50; Admin Dose 40 MG; Start 01/29/17 at 09:00 Nitroglycerin (Nitroglycerin (Sl Tab) 0.4 Mg) 1 tab Q5M PRN SL ANGINA; Start at 17:00 LATESHA PIMENTEL MD Jan 29, 2017 18:30
--- NOTE | 2017-01-29 19:14 | CONS ---
DATE OF ADMISSION: 01/20/2017 DATE OF CONSULTATION: 01/29/2017 REASON FOR CONSULTATION: Chest pain. Assess for acute coronary syndrome, as well as possible cardiac arrhythmia. REFERRING PHYSICIAN: Lilly Saez MD from the hospitalist service HISTORY OF PRESENT ILLNESS: Ms. Youngblood is a very pleasant 76- year-old Latvian-speaking female with a history of peripheral arterial disease, nonhealing lower extremity ulcerations, diabetes mellitus, hypertension, who initially presented with nonhealing ulcers and lower extremity pain and possible infection consistent with cellulitis. Initially upon arrival, January 20 blood pressure of 158/70, pulse 63, temp 97.6, 100 percent on room air. The patient's labs, sodium 140, potassium 4.8, creatinine 0.83, BUN 22, TSH 2.99, free T4 at 1.1. White blood cell count 10.4, hemoglobin of 7.7, platelet count 347. UA borderline. Patient underwent a venous ultrasound revealing no evidence of DVT in the bilateral lower extremities and admitted to the floor. Patient was initially monitored on telemetry at that time revealing sinus rhythm with frequent PACs and a questionable episode of paroxysmal atrial fibrillation more likely consistent with sinus arrhythmias with PACs. The patient's chest pain is resolved at this time. Patient continues on leg pain. PAST MEDICAL HISTORY: As above in HPI. MEDICATION: In hospital: 1. Lasix 40 mg daily. 2. Zestril 20 mg p.o. b.i.d. 3. Ciprofloxacin. 4. Eliquis 2.5 mg p.o. b.i.d. 5. Metoprolol 100 mg daily. 6. Xalatan eyedrops. ALLERGIES: PENICILLIN. SOCIAL HISTORY: No tobacco, EtOH or illicit drug use. FAMILY HISTORY: No history of sudden cardiac or early CAD. REVIEW OF SYSTEMS: As above in HPI. CONSTITUTIONAL: No fevers or chills. RESPIRATORY: No current shortness of breath. CARDIOVASCULAR: Intermittent chest pain. GASTROINTESTINAL: No vomiting. GENITOURINARY: No hematuria. MUSCULOSKELETAL: Lower extremity ulcerations, lower extremity cellulitis. ENDOCRINE: Diabetes mellitus. PHYSICAL EXAMINATION: VITAL SIGNS: Temperature of 98.4, blood pressure 99/44, pulse 71, respiratory rate 19, saturating 97 percent. GENERAL: The patient is alert, awake, complaining of leg pain. NECK: JVP approximately 9 cm of water. LUNGS: Fair air movement throughout with mildly decreased breath sounds at the bases bilaterally. HEART: Regular rate and rhythm. Normal S1, S2. A 1/6 systolic murmur. Nondisplaced PMI. ABDOMEN: Positive bowel sounds. Soft. EXTREMITIES: Nonhealing lower extremity ulcerations. Multiple excoriations on the legs, difficult to palpate distal pulses. Bilateral posterior tibial, dorsalis pedis. Legs wrapped bilaterally. LABORATORY: As above in HPI with most recently from the : Sodium 135, potassium 4, creatinine 0.7, BUN of 21. White blood cell count 7.5, hemoglobin 9.5, platelet count of 282. IMAGING STUDIES: As above in HPI. No further imaging studies for reviewed. ECG from January 24 had revealed a rhythm most consistent with sinus rhythm with frequent PACs, left axis deviation, nonspecific ST abnormalities diffusely. IMPRESSION: 1. Cardiac arrhythmia with at this time most consistent with sinus rhythm with premature atrial contractions, questionable history of paroxysmal atrial fibrillation, patient was on Coumadin. 2. Chest pain, currently resolved. 3. Abnormal electrocardiogram. Assess for acute coronary syndrome. 4. Hypertension. 5. Peripheral arterial disease. 6. Nonhealing lower extremity ulcers. 7. Cellulitis. 8. Diabetes mellitus. RECOMMENDATIONS: 1. At this time would complete the patient's rule out for myocardial infarction to ensure the patient's chest pain was not due to acute coronary syndrome, acute myocardial infarction and send troponin q.6h x2. 2. Patient is already status post 2D echo on January 21, that revealed a preserved EF but severe aortic stenosis. 3. Continue the patient's current antihypertensive at this time with Zestril and Toprol-XL. 4. We will continue patient's Eliquis at this time though for likely for history of atrial fibrillation. Patient does not have a clear atrial fibrillation here in the hospital. 5. Continue the patient's gentle Lasix diuresis and continue patient's lower extremity wound care and antibiotic coverage. 6. In addition, we will give patient sublingual nitroglycerin for recurrence of chest pain, and patient should have close followup for her aortic stenosis upon discharge in my clinic. Thank you for allowing to take part in the care of this patient. I will continue to follow her closely with you. Further recommendation will be made as patient progresses in her inpatient hospital course. Dictated By: Angel Norwood MD /bela/brittney /Document#: [id number] CC: Lilly Saez MD;*[facility]*
[2017-01-29 19:26] LABS: CREATINE KINASE 67 IU/L (23-200)
[2017-01-29 19:39] LABS: CK-MB 1.43 ng/ml (0.0-2.4)
[2017-01-29 19:41] LABS: TROPONIN-I < 0.012 ng/ml (0.00-0.12)
[2017-01-29 20:19] VITALS: BP 115/54; RESP 18
[2017-01-29] MEDS: ASCORBIC ACID 500 MG TAB PO SCH (20:57)
[2017-01-29] MEDS: LATANOPROST 0.005% 2.5 ML OPH BOTH EYES SCH (20:57)
[2017-01-29 21:08] VITALS: BP 142/60; PULSE 66
[2017-01-30] MEDS: morphine 2 MG INJ IV PRN ×6 (00:13→20:55)
[2017-01-30] MEDS: ACCU-CHEK XX SCH ×2 (01:21)
[2017-01-30] MEDS: HYDROCODONE/APAP (10/325) TAB PO PRN ×2 (01:23→16:58)
[2017-01-30 01:29] LABS: CREATINE KINASE 56 IU/L (23-200)
[2017-01-30 01:41] LABS: CK-MB 1.18 ng/ml (0.0-2.4)
[2017-01-30 01:48] LABS: TROPONIN-I < 0.012 ng/ml (0.00-0.12)
[2017-01-30 02:25] VITALS: BP 127/59; RESP 17
[2017-01-30] MEDS: CIPROFLOXACIN 500 MG TAB PO SCH (06:00)
[2017-01-30 07:04] LABS: CHOL/HDL RATIO 2.5 RATIO
[2017-01-30] MEDS: INSULIN ASPART [NOVOLOG] 3 ML PEN SC SCH ×4 (07:41→21:00)
[2017-01-30 08:16] VITALS: BP 133/60; RESP 18
[2017-01-30] MEDS: FERROUS SULFATE (EC) 325 MG TAB PO SCH (08:44)
[2017-01-30] MEDS: ASCORBIC ACID 500 MG TAB PO SCH ×2 (08:44→20:54)
[2017-01-30] MEDS: APIXABAN 5 MG TABLET PO SCH ×2 (08:44→20:54)
[2017-01-30] MEDS: ZINC SULFATE 220 MG CAP PO SCH (08:44)
[2017-01-30] MEDS: LISINOPRIL 20 MG TAB PO SCH (08:44)
[2017-01-30] MEDS: MULTIVITAMINS THERAPEUTIC TAB PO SCH (08:45)
[2017-01-30] MEDS: FUROSEMIDE 40 MG TAB PO SCH (08:45)
[2017-01-30] MEDS: METOPROLOL (XL) 100 MG TAB PO SCH (08:45)
[2017-01-30] MEDS: COLLAGENASE 30 GM TUBE TOP SCH (08:46)
[2017-01-30 15:04] VITALS: BP 95/53; RESP 18
--- NOTE | 2017-01-30 15:22 | PN ---
Date/Time of Note Date/Time of Note DATE: 01/30/17 TIME: 15:20 Assessment/Plan VTE Prophylaxis VTE Prophylaxis Intervention: SCD's Lines/Catheters IV Catheter Type (from Nrsg): Saline Lock Urinary Cath still in place: No Assessment/Plan Assessment/Plan 76 yo F with PVD, chronic LE ulcers sent from [facility] clinic for chronic LE ulcers PLAN #chronic LE ulcers, concern for possible cellulitis -cont cipro for PSAR isolated from wounds. Pt has been on abx since 01.20.length of therapy as per ID would stop at 14 days unless ID advises stopping sooner -vascular on cs -vitamins as per RD #HTN: cont home meds #chest pain: transient AFib, now in sinus with PACs -ATC started -TTE with preserved EF last week -HR controlled -PCP follow up after discharge -lasix converted to PO SNF placement pending Subjective 24 Hr Interval Summary Free Text/Dictation Pt's daughter with lots of questions about varicose veins Exam/Review of Systems Vital Signs Vitals Vital Signs Date Time Temp Pulse Resp B/P Pulse Ox O2 Delivery O2 Flow Rate FiO2 01/30/17 15:04 97.9 62 18 95/53 97 Intake and Output 01/29/17 01/29/17 01/30/17 15:00 23:00 07:00 Intake Total 780 ml 340 ml Balance 780 ml 340 ml Exam nad no mrg lungs clear abd soft L leg assessed, improved in edema and wound sizes Results Result Diagram: 01/28/17 0611 01/28/17 0611 Results 24 hrs Laboratory Tests Test 01/29/17 17:21 01/29/17 18:13 01/29/17 21:00 01/30/17 01:04 Bedside Glucose 118 100 Creatine Kinase 67 56 Creatine Kinase Index 2.1 2.1 Creatinine Kinase MB (Mass) 1.43 1.18 Troponin I < 0.012 < 0.012 Test 01/30/17 05:49 01/30/17 07:31 01/30/17 12:16 Triglycerides Level 50 Cholesterol Level 132 LDL Cholesterol, Calculated 70 HDL Cholesterol 52 Cholesterol/HDL Ratio 2.5 Bedside Glucose 86 123 Medications Medications Current Medications Acetaminophen (Tylenol Tab) 650 mg Q6H PRN PO PAIN LEVEL 1-3 OR FEVER; Start at 18:30 Docusate Sodium (Colace) 100 mg Q12H PRN PO CONSTIPATION; Start 01/20/17 at 18: 30 Magnesium Hydroxide (Milk Of Mag) 30 ml DAILY PRN PO CONSTIPATION Last administered on 01/28/17 09:53; Admin Dose 30 ML; Start 01/20/17 at 18:30 Sodium Biphosphate/ Sodium Phosphate (Fleet Enema) 133 ml DAILY PRN [place] CONSTIPATION Last administered on 01/28/17 16:01; Admin Dose 133 ML; Start 01/20 at 18:30 Hydralazine HCl (Apresoline) 10 mg Q6H PRN IV ELEVATED BLOOD PRESSURE Last administered on 01/25/17 20:49; Admin Dose 10 MG; Start 01/20/17 at 18:30 Ferrous Sulfate (Ferrous Sulfate (Ec)) 325 mg DAILY PO Last administered on 01/30 08:44; Admin Dose 325 MG; Start 01/21/17 at 09:00 Metoprolol Succinate (Toprol Xl) 100 mg DAILY PO Last administered on 01/30/17 08:45; Admin Dose 100 MG; Start 01/21/17 at 09:00 Miscellaneous Information 1 ea NOTE XX ; Start 01/20/17 at 19:00 Glucose (Glutose) 15 gm Q15M PRN PO DECREASED GLUCOSE; Start 01/20/17 at 19:00 Glucose (Glutose) 22.5 gm Q15M PRN PO DECREASED GLUCOSE; Start 01/20/17 at 19: 00 Dextrose (D50w Syringe) 25 ml Q15M PRN IV DECREASED GLUCOSE; Start 01/20/17 at 19:00 Dextrose (D50w Syringe) 50 ml Q15M PRN IV DECREASED GLUCOSE; Start 01/20/17 at 19:00 Glucagon (Glucagen) 1 mg Q15M PRN IM DECREASED GLUCOSE; Start 01/20/17 at 19:00 Glucose (Glutose) 15 gm Q15M PRN BUCCAL DECREASED GLUCOSE; Start 01/20/17 at 19 :00 Latanoprost (Xalatan) 1 drop HS BOTH EYES Last administered on 01/29/17 20:57; Admin Dose 1 DROP; Start 01/20/17 at 21:00 Acetaminophen/ Hydrocodone Bitart ([place] (10/325)) 1 tab Q4H PRN PO PAIN Last administered on 01/30/17 01:23; Admin Dose 1 TAB; Start 01/21/17 at 00:00 Collagenase (Santyl) 1 applic DAILY TOP Last administered on 01/30/17 08:46; Admin Dose 1 APPLIC; Start 01/21/17 at 14:00 Diagnostic Test (Pha) (Accu-Chek) 1 ea 02 XX ; Start 01/24/17 at 02:00 Diagnostic Test (Pha) (Accu-Chek) 1 ea 02 XX ; Start 01/24/17 at 02:00 Miscellaneous Information (Pending Santyl Order For Wound Care) This patient humphries... PRN PRN XX WOUND CARE; Start 01/24/17 at 00:00 Ondansetron HCl (Zofran Inj) 4 mg Q4H PRN IV NAUSEA AND/OR VOMITING; Start 01/24 at 17:00 Morphine Sulfate (morphine) 2 mg Q2H PRN IV PAIN Last administered on 01/30/17 14:59; Admin Dose 2 MG; Start 01/26/17 at 01:30 Apixaban (Eliquis) 2.5 mg BID PO Last administered on 01/30/17 08:44; Admin Dose 2.5 MG; Start 01/26/17 at 11:30 Ciprofloxacin (Cipro) 500 mg BID@18 PO Last administered on 01/30/17 06:00; Admin Dose 500 MG; Start 01/27/17 at 18:00 Lisinopril (Zestril) 20 mg BID PO Last administered on 01/30/17 08:44; Admin Dose 20 MG; Start 01/27/17 at 21:00 Bisacodyl (Dulcolax Supp) 10 mg DAILY PRN [place] CONSTIPATION Last administered on 01/28/17 17:30; Admin Dose 10 MG; Start 01/28/17 at 17:00 Furosemide (Lasix) 40 mg DAILY PO Last administered on 01/30/17 08:45; Admin Dose 40 MG; Start 01/29/17 at 09:00 Nitroglycerin (Nitroglycerin (Sl Tab) 0.4 Mg) 1 tab Q5M PRN SL ANGINA; Start at 17:00 Multivitamins Therapeutic (Theragran) 1 tab DAILY PO Last administered on 08:45; Admin Dose 1 TAB; Start 01/30/17 at 09:00 Zinc Sulfate (Zinc Sulfate) 220 mg DAILY PO Last administered on 01/30/17 08:44 ; Admin Dose 220 MG; Start 01/30/17 at 09:00; Stop 02/13/17 at 08:59 Ascorbic Acid (Vitamin C) 500 mg BID PO Last administered on 01/30/17 08:44; Admin Dose 500 MG; Start 01/29/17 at 21:00 LATESHA PIMENTEL MD Jan 30, 2017 15:22
--- NOTE | 2017-01-30 18:21 | PN ---
DATE: 01/30/2017 SUBJECTIVE DATA: No acute events overnight. The patient is alert, lying comfortably in bed. Family at bedside. The patient still has significant amount of pain in her lower extremities and her daughter who is at bedside requesting antibiotics to be changed to intravenous route. ALLERGIES: THE PATIENT IS ALLERGIC TO PENICILLIN. ANTIMICROBIALS: She is currently on oral ciprofloxacin. MICROBIOLOGY: Wound culture grew Pseudomonas aeruginosa, susceptible to all antibiotics. PHYSICAL EXAMINATION: GENERAL: This is obese, well developed, elderly woman, who is awake, in no distress. HEENT: Head atraumatic, normocephalic. Sclerae anicteric. Buccal mucosa pink. NECK: Supple. CHEST: Chest rise symmetrical. Breath sounds clear. HEART: S1, S2. ABDOMEN: Soft, bowel sounds present. EXTREMITIES: Bilateral lower extremities is [place] wrapped. ASSESSMENT: 1. Bilateral lower extremity chronic nonhealing vascular wound, status post debridement. 2. Peripheral vascular disease. 3. Diabetes. 4. Hypertension. PLAN: 1. We are going to change ciprofloxacin to IV as per family request. 2. We are going to add gentamicin topical twice a day. 3. Continue local wound care as per Vascular team. 4. Follow recommendations of consultants. Dictated By: Rommel Ball NP /bela/jessica /Document#: [id number] [place]
[2017-01-30] MEDS: GENTAMICIN 0.1% 15 GM OINT TOP SCH (18:22)
--- NOTE | 2017-01-30 18:29 | CONS ---
Date/Time of Note Date/Time of Note DATE: 01/30/17 TIME: 18:24 Assessment/Plan Assessment/Plan Chief Complaint/Hosp Course IMPRESSION: 1. Cardiac arrhythmia with at this time most consistent with sinus rhythm with premature atrial contractions, questionable history of paroxysmal atrial fibrillation, patient was on Coumadin at baseline 2. Chest pain, currently resolved.-negative trop x 3/NL EF by echo this admit 3. Abnormal electrocardiogram. Assess for acute coronary syndrome. 4. Hypertension. 5. Peripheral arterial disease. 6. Nonhealing lower extremity ulcers. 7. Cellulitis LE. 8. Diabetes mellitus. Recc: -Continue current BB consider decrease in zestril given marginal BP -Continue abx's and f/u cx data -Follow exam closely -Continue gentle lasix diuresis and follow volume status closely Problems: Consultation Date/Type/Reason Admit Date/Time Jan 20, 2017 at 17:10 Initial Consult Date 01/29/2017 Type of Consultation: cardiology Reason for Consultation cardiac arrythmia Referring Provider: LATESHA PIMENTEL MD Exam/Review of Systems Vital Signs Vitals Vital Signs Date Time Temp Pulse Resp B/P Pulse Ox O2 Delivery O2 Flow Rate FiO2 01/30/17 15:04 97.9 62 18 95/53 97 Intake and Output 01/29/17 01/29/17 01/30/17 14:59 22:59 06:59 Intake Total 780 ml 340 ml Balance 780 ml 340 ml Exam Review of Systems: CONSTITUTIONAL: No fevers, chills. PULMONARY: No sob CARDIOVASCULAR: No chest pain/palpitations GASTROINTESTINAL: No nausea/vomiting. GENITOURINARY: No hematuria/dysuria. MUSCULOSKELETAL: pain in legs PSYCHIATRIC: The patient denies depression. NEUROLOGIC: No weakness Constitutional: alert, oriented Psych: no complaints Head: normocephalic ENMT: mucosa pink and moist Neck: jvd (8-9 cm water), supple Respiratory: intercostal retraction (at bases/B) Cardiovascular: regular rate and rhythm Gastrointestinal: non-tender, soft Extremities: edema (bilateral), other (legs wrapped bilateral ) Neurological: other (No focal deficits) Results Result Diagram: 01/28/17 0611 01/28/17 0611 Results 24 hrs Laboratory Tests Test 01/29/17 21:00 01/30/17 01:04 01/30/17 05:49 01/30/17 07:31 Bedside Glucose 100 86 Creatine Kinase 56 Creatine Kinase Index 2.1 Creatinine Kinase MB (Mass) 1.18 Troponin I < 0.012 Triglycerides Level 50 Cholesterol Level 132 LDL Cholesterol, Calculated 70 HDL Cholesterol 52 Cholesterol/HDL Ratio 2.5 Test 01/30/17 12:16 01/30/17 17:04 Bedside Glucose 123 109 Medications Medications Current Medications Acetaminophen (Tylenol Tab) 650 mg Q6H PRN PO PAIN LEVEL 1-3 OR FEVER; Start at 18:30 Docusate Sodium (Colace) 100 mg Q12H PRN PO CONSTIPATION; Start 01/20/17 at 18: 30 Magnesium Hydroxide (Milk Of Mag) 30 ml DAILY PRN PO CONSTIPATION Last administered on 01/28/17 09:53; Admin Dose 30 ML; Start 01/20/17 at 18:30 Sodium Biphosphate/ Sodium Phosphate (Fleet Enema) 133 ml DAILY PRN [place] CONSTIPATION Last administered on 01/28/17 16:01; Admin Dose 133 ML; Start 01/20 at 18:30 Hydralazine HCl (Apresoline) 10 mg Q6H PRN IV ELEVATED BLOOD PRESSURE Last administered on 01/25/17 20:49; Admin Dose 10 MG; Start 01/20/17 at 18:30 Ferrous Sulfate (Ferrous Sulfate (Ec)) 325 mg DAILY PO Last administered on 01/30 08:44; Admin Dose 325 MG; Start 01/21/17 at 09:00 Metoprolol Succinate (Toprol Xl) 100 mg DAILY PO Last administered on 01/30/17 08:45; Admin Dose 100 MG; Start 01/21/17 at 09:00 Miscellaneous Information 1 ea NOTE XX ; Start 01/20/17 at 19:00 Glucose (Glutose) 15 gm Q15M PRN PO DECREASED GLUCOSE; Start 01/20/17 at 19:00 Glucose (Glutose) 22.5 gm Q15M PRN PO DECREASED GLUCOSE; Start 01/20/17 at 19: 00 Dextrose (D50w Syringe) 25 ml Q15M PRN IV DECREASED GLUCOSE; Start 01/20/17 at 19:00 Dextrose (D50w Syringe) 50 ml Q15M PRN IV DECREASED GLUCOSE; Start 01/20/17 at 19:00 Glucagon (Glucagen) 1 mg Q15M PRN IM DECREASED GLUCOSE; Start 01/20/17 at 19:00 Glucose (Glutose) 15 gm Q15M PRN BUCCAL DECREASED GLUCOSE; Start 01/20/17 at 19 :00 Latanoprost (Xalatan) 1 drop HS BOTH EYES Last administered on 01/29/17 20:57; Admin Dose 1 DROP; Start 01/20/17 at 21:00 Acetaminophen/ Hydrocodone Bitart ([place] (10/325)) 1 tab Q4H PRN PO PAIN Last administered on 01/30/17 16:58; Admin Dose 1 TAB; Start 01/21/17 at 00:00 Collagenase (Santyl) 1 applic DAILY TOP Last administered on 01/30/17 08:46; Admin Dose 1 APPLIC; Start 01/21/17 at 14:00 Diagnostic Test (Pha) (Accu-Chek) 1 ea 02 XX ; Start 01/24/17 at 02:00 Miscellaneous Information (Pending Santyl Order For Wound Care) This patient humphries... PRN PRN XX WOUND CARE; Start 01/24/17 at 00:00 Ondansetron HCl (Zofran Inj) 4 mg Q4H PRN IV NAUSEA AND/OR VOMITING; Start 01/24 at 17:00 Morphine Sulfate (morphine) 2 mg Q2H PRN IV PAIN Last administered on 01/30/17 18:22; Admin Dose 2 MG; Start 01/26/17 at 01:30 Apixaban (Eliquis) 2.5 mg BID PO Last administered on 01/30/17 08:44; Admin Dose 2.5 MG; Start 01/26/17 at 11:30 Lisinopril (Zestril) 20 mg BID PO Last administered on 01/30/17 08:44; Admin Dose 20 MG; Start 01/27/17 at 21:00 Bisacodyl (Dulcolax Supp) 10 mg DAILY PRN [place] CONSTIPATION Last administered on 01/28/17 17:30; Admin Dose 10 MG; Start 01/28/17 at 17:00 Furosemide (Lasix) 40 mg DAILY PO Last administered on 01/30/17 08:45; Admin Dose 40 MG; Start 01/29/17 at 09:00 Nitroglycerin (Nitroglycerin (Sl Tab) 0.4 Mg) 1 tab Q5M PRN SL ANGINA; Start at 17:00 Multivitamins Therapeutic (Theragran) 1 tab DAILY PO Last administered on 08:45; Admin Dose 1 TAB; Start 01/30/17 at 09:00 Zinc Sulfate (Zinc Sulfate) 220 mg DAILY PO Last administered on 01/30/17 08:44 ; Admin Dose 220 MG; Start 01/30/17 at 09:00; Stop 02/13/17 at 08:59 Ascorbic Acid 500 mg 500 mg BID PO Last administered on 01/30/17 08:44; Admin Dose 500 MG; Start 01/29/17 at 21:00 Ciprofloxacin/ Dextrose (Cipro Ivpb) 200 ml @ 200 mls/hr Q12 IVPB ; Start at 21:00 Gentamicin Sulfate (Gentamicin 0.1% Oint) 1 applic TID TOP Last administered on 01/30/17 18:22; Admin Dose 1 APPLIC; Start 01/30/17 at 21:00 STEWART SOUZA Jan 30, 2017 18:29
--- NOTE | 2017-01-30 19:35 | RADRPT ---
Vent Rate: 61 bpm RR Interval: 0 msec NE Interval: 212 msec QRS Duration: 100 msec QT Interval: 416 msec QTC Interval: 418 msec P-R-T [place]: 65 - -62 - 69 degrees Sinus rhythm with 1st degree AV block Left axis deviation Abnormal ECG Electronically Signed By: Angel Norwood [id number]
[2017-01-30] MEDS: LATANOPROST 0.005% 2.5 ML OPH BOTH EYES SCH (20:54)
[2017-01-30] MEDS: CIPROFLOXACIN 400MG/D5W 200 ML IVPB SCH (20:54)
[2017-01-30 20:58] VITALS: BP 140/58; RESP 16
[2017-01-31] MEDS: morphine 2 MG INJ IV PRN ×3 (01:31→09:13)
[2017-01-31] MEDS: ACCU-CHEK XX SCH (02:00)
[2017-01-31 02:57] VITALS: BP 129/60; RESP 20
[2017-01-31] MEDS: INSULIN ASPART [NOVOLOG] 3 ML PEN SC SCH ×3 (07:58→17:49)
[2017-01-31 08:00] VITALS: BP 131/60; RESP 20
[2017-01-31] MEDS ORDERED: LISINOPRIL 20 MG TAB PO SCH (09:00)
[2017-01-31] MEDS: CIPROFLOXACIN 400MG/D5W 200 ML IVPB SCH (09:12)
[2017-01-31] MEDS: FERROUS SULFATE (EC) 325 MG TAB PO SCH (09:14)
[2017-01-31] MEDS: MULTIVITAMINS THERAPEUTIC TAB PO SCH (09:14)
[2017-01-31] MEDS: ASCORBIC ACID 500 MG TAB PO SCH (09:14)
[2017-01-31] MEDS: ZINC SULFATE 220 MG CAP PO SCH (09:14)
[2017-01-31] MEDS: GENTAMICIN 0.1% 15 GM OINT TOP SCH ×2 (09:15→13:47)
[2017-01-31] MEDS: COLLAGENASE 30 GM TUBE TOP SCH (09:15)
[2017-01-31] MEDS: APIXABAN 5 MG TABLET PO SCH (09:15)
[2017-01-31] MEDS: FUROSEMIDE 40 MG TAB PO SCH (09:15)
[2017-01-31] MEDS: METOPROLOL (XL) 100 MG TAB PO SCH (09:15)
[2017-01-31] MEDS: HYDROCODONE/APAP (10/325) TAB PO PRN ×2 (12:15→16:18)
[2017-01-31 14:00] VITALS: BP 113/64; RESP 20
--- NOTE | 2017-01-31 16:16 | CONS ---
Date/Time of Note Date/Time of Note DATE: 01/31/17 TIME: 16:15 Assessment/Plan Assessment/Plan Chief Complaint/Hosp Course SUBJECTIVE DATA: No acute changes. Patient is awake, looks comfortable, afebrile. MICROBIOLOGY: Lower extremity wound culture growing Pseudomonas aeruginosa, susceptible to all antibiotics. ALLERGIES: PENICILLIN. ANTIMICROBIALS: Ciprofloxacin, Gentamicin topical. PHYSICAL EXAMINATION: GENERAL: Well-developed, obese, elderly woman, who is awake, in no distress. HEENT: Head atraumatic, normocephalic. Sclerae nonicteric. NECK: Supple. CHEST: Rise symmetrical. Breath sounds clear. HEART: S1, S2. ABDOMEN: Soft, bowel sounds present. EXTREMITIES: With bilateral lower extremity dressing intact. ASSESSMENT: 1. Bilateral lower extremities chronic cellulitis with chronic venous stasis. 2. Peripheral vascular disease. 3. Diabetes. 4. Hypertension. PLAN: Patient remains stable, continue antibiotics, local wound care, vascular surgery rec-s. Recommend PO Cipro or Levaquin and topical Gent for 2 weeks DW staff Problems: Consultation Date/Type/Reason Admit Date/Time Jan 20, 2017 at 17:10 Type of Consultation: id Referring Provider: LATESHA PIMENTEL MD Exam/Review of Systems Vital Signs Vitals Vital Signs Date Time Temp Pulse Resp B/P Pulse Ox O2 Delivery O2 Flow Rate FiO2 01/31/17 08:00 98.6 86 20 131/60 96 Intake and Output 01/30/17 01/30/17 01/31/17 15:00 23:00 07:00 Intake Total 1220 ml 480 ml Output Total 300 ml Balance 1220 ml 180 ml Results Result Diagram: 01/28/17 0611 01/28/17 0611 Results 24 hrs Laboratory Tests Test 01/30/17 17:04 01/30/17 21:15 01/31/17 07:56 01/31/17 12:02 Bedside Glucose 109 105 94 75 Medications Medications Current Medications Acetaminophen (Tylenol Tab) 650 mg Q6H PRN PO PAIN LEVEL 1-3 OR FEVER; Start at 18:30 Docusate Sodium (Colace) 100 mg Q12H PRN PO CONSTIPATION; Start 01/20/17 at 18: 30 Magnesium Hydroxide (Milk Of Mag) 30 ml DAILY PRN PO CONSTIPATION Last administered on 01/28/17t 09:53; Admin Dose 30 ML; Start 01/20/17 at 18:30 Sodium Biphosphate/ Sodium Phosphate (Fleet Enema) 133 ml DAILY PRN [place] CONSTIPATION Last administered on 01/28/17 16:01; Admin Dose 133 ML; Start 01/20 at 18:30 Ferrous Sulfate (Ferrous Sulfate (Ec)) 325 mg DAILY PO Last administered on 01/31 09:14; Admin Dose 325 MG; Start 01/21/17 at 09:00 Metoprolol Succinate (Toprol Xl) 100 mg DAILY PO Last administered on 01/31/17 09:15; Admin Dose 100 MG; Start 01/21/17 at 09:00 Miscellaneous Information 1 ea NOTE XX ; Start 01/20/17 at 19:00 Glucose (Glutose) 15 gm Q15M PRN PO DECREASED GLUCOSE; Start 01/20/17 at 19:00 Glucose (Glutose) 22.5 gm Q15M PRN PO DECREASED GLUCOSE; Start 01/20/17 at 19: 00 Dextrose (D50w Syringe) 25 ml Q15M PRN IV DECREASED GLUCOSE; Start 01/20/17 at 19:00 Dextrose (D50w Syringe) 50 ml Q15M PRN IV DECREASED GLUCOSE; Start 01/20/17 at 19:00 Glucagon (Glucagen) 1 mg Q15M PRN IM DECREASED GLUCOSE; Start 01/20/17 at 19:00 Glucose (Glutose) 15 gm Q15M PRN BUCCAL DECREASED GLUCOSE; Start 01/20/17 at 19 :00 Latanoprost (Xalatan) 1 drop HS BOTH EYES Last administered on 01/30/17 20:54; Admin Dose 1 DROP; Start 01/20/17 at 21:00 Acetaminophen/ Hydrocodone Bitart ([place] (10/325)) 1 tab Q4H PRN PO PAIN Last administered on 01/31/17 12:15; Admin Dose 1 TAB; Start 01/21/17 at 00:00 Collagenase (Santyl) 1 applic DAILY TOP Last administered on 01/31/17 09:15; Admin Dose 1 APPLIC; Start 01/21/17 at 14:00 Diagnostic Test (Pha) (Accu-Chek) 1 ea 02 XX ; Start 01/24/17 at 02:00 Miscellaneous Information (Pending Santyl Order For Wound Care) This patient humphries... PRN PRN XX WOUND CARE; Start 01/24/17 at 00:00 Ondansetron HCl (Zofran Inj) 4 mg Q4H PRN IV NAUSEA AND/OR VOMITING; Start 01/24 at 17:00 Apixaban (Eliquis) 2.5 mg BID PO Last administered on 01/31/17 09:15; Admin Dose 2.5 MG; Start 01/26/17 at 11:30 Bisacodyl (Dulcolax Supp) 10 mg DAILY PRN [place] CONSTIPATION Last administered on 01/28/17 17:30; Admin Dose 10 MG; Start 01/28/17 at 17:00 Furosemide (Lasix) 40 mg DAILY PO Last administered on 01/31/17 09:15; Admin Dose 40 MG; Start 01/29/17 at 09:00 Nitroglycerin (Nitroglycerin (Sl Tab) 0.4 Mg) 1 tab Q5M PRN SL ANGINA; Start at 17:00 Multivitamins Therapeutic (Theragran) 1 tab DAILY PO Last administered on 09:14; Admin Dose 1 TAB; Start 01/30/17 at 09:00 Zinc Sulfate (Zinc Sulfate) 220 mg DAILY PO Last administered on 01/31/17 09:14 ; Admin Dose 220 MG; Start 01/30/17 at 09:00; Stop 02/13/17 at 08:59 Ascorbic Acid 500 mg 500 mg BID PO Last administered on 01/31/17 09:14; Admin Dose 500 MG; Start 01/29/17 at 21:00 Ciprofloxacin/ Dextrose (Cipro Ivpb) 200 ml @ 200 mls/hr Q12 IVPB Last administered on 01/31/17 09:12; Admin Dose 200 MLS/HR; Start 01/30/17 at 21:00 Gentamicin Sulfate (Gentamicin 0.1% Oint) 1 applic TID TOP Last administered on 01/31/17 13:47; Admin Dose 1 APPLIC; Start 01/30/17 at 21:00 Lisinopril (Zestril) 20 mg DAILY PO Last administered on 01/31/17 09:14; Admin Dose 20 MG; Start 01/31/17 at 09:00 ALECIA SOTELO NP Jan 31, 2017 16:16
--- NOTE | 2017-01-31 17:04 | CONS ---
Date/Time of Note Date/Time of Note DATE: 01/31/17 TIME: 17:01 Assessment/Plan Assessment/Plan Chief Complaint/Hosp Course IMPRESSION: 1. Cardiac arrhythmia with at this time most consistent with sinus rhythm with premature atrial contractions, questionable history of paroxysmal atrial fibrillation, patient was on Coumadin at baseline 2. Chest pain, currently resolved.-negative trop x 3/NL EF by echo this admit 3. Abnormal electrocardiogram-negative trop x 3 4. Hypertension. 5. Peripheral arterial disease. 6. Nonhealing lower extremity ulcers. 7. Cellulitis LE. 8. Diabetes mellitus. Recc: -Continue current BB and ACEI now only daily and follow BP closely -Continue abx's and f/u cx data -Follow exam closely -Continue gentle daily lasix diuresis and follow volume status closely Problems: Consultation Date/Type/Reason Admit Date/Time Jan 20, 2017 at 17:10 Initial Consult Date 01/29/2017 Type of Consultation: cardiology Reason for Consultation cardiac arrytthmia Referring Provider: LATESHA PIMENTEL MD Exam/Review of Systems Vital Signs Vitals Vital Signs Date Time Temp Pulse Resp B/P Pulse Ox O2 Delivery O2 Flow Rate FiO2 01/31/17 14:00 98.6 86 20 113/64 96 Intake and Output 01/30/17 01/30/17 01/31/17 15:00 23:00 07:00 Intake Total 1220 ml 480 ml Output Total 300 ml Balance 1220 ml 180 ml Exam Review of Systems: CONSTITUTIONAL: No fevers, chills. PULMONARY: No sob CARDIOVASCULAR: No chest pain/palpitations GASTROINTESTINAL: No nausea/vomiting. GENITOURINARY: No hematuria/dysuria. MUSCULOSKELETAL: No myagias/arthalgias. PSYCHIATRIC: The patient denies depression. NEUROLOGIC: No weakness Constitutional: alert Psych: no complaints Head: normocephalic ENMT: mucosa pink and moist Neck: jvd (9 cm water), supple Respiratory: diminished breath sounds (at bases/B) Cardiovascular: regular rate and rhythm Gastrointestinal: non-tender, soft Musculoskeletal: muscle weakness (mild generalized) Extremities: edema (none) Neurological: other (No focal deficits) Results Result Diagram: 01/28/17 0611 01/28/17 0611 Results 24 hrs Laboratory Tests Test 01/30/17 17:04 01/30/17 21:15 01/31/17 07:56 01/31/17 12:02 Bedside Glucose 109 105 94 75 Medications Medications Current Medications Acetaminophen (Tylenol Tab) 650 mg Q6H PRN PO PAIN LEVEL 1-3 OR FEVER; Start at 18:30 Docusate Sodium (Colace) 100 mg Q12H PRN PO CONSTIPATION; Start 01/20/17 at 18: 30 Magnesium Hydroxide (Milk Of Mag) 30 ml DAILY PRN PO CONSTIPATION Last administered on 01/28/17 09:53; Admin Dose 30 ML; Start 01/20/17 at 18:30 Sodium Biphosphate/ Sodium Phosphate (Fleet Enema) 133 ml DAILY PRN [place] CONSTIPATION Last administered on 01/28/17 16:01; Admin Dose 133 ML; Start 01/20 at 18:30 Ferrous Sulfate (Ferrous Sulfate (Ec)) 325 mg DAILY PO Last administered on 01/31 09:14; Admin Dose 325 MG; Start 01/21/17 at 09:00 Metoprolol Succinate (Toprol Xl) 100 mg DAILY PO Last administered on 01/31/17 09:15; Admin Dose 100 MG; Start 01/21/17 at 09:00 Miscellaneous Information 1 ea NOTE XX ; Start 01/20/17 at 19:00 Glucose (Glutose) 15 gm Q15M PRN PO DECREASED GLUCOSE; Start 01/20/17 at 19:00 Glucose (Glutose) 22.5 gm Q15M PRN PO DECREASED GLUCOSE; Start 01/20/17 at 19: 00 Dextrose (D50w Syringe) 25 ml Q15M PRN IV DECREASED GLUCOSE; Start 01/20/17 at 19:00 Dextrose (D50w Syringe) 50 ml Q15M PRN IV DECREASED GLUCOSE; Start 01/20/17 at 19:00 Glucagon (Glucagen) 1 mg Q15M PRN IM DECREASED GLUCOSE; Start 01/20/17 at 19:00 Glucose (Glutose) 15 gm Q15M PRN BUCCAL DECREASED GLUCOSE; Start 01/20/17 at 19 :00 Latanoprost (Xalatan) 1 drop HS BOTH EYES Last administered on 01/30/17 20:54; Admin Dose 1 DROP; Start 01/20/17 at 21:00 Acetaminophen/ Hydrocodone Bitart ([place] (10325)) 1 tab Q4H PRN PO PAIN Last administered on 01/31/17 16:18; Admin Dose 1 TAB; Start 01/21/17 at 00:00 Collagenase (Santyl) 1 applic DAILY TOP Last administered on 01/31/17 09:15; Admin Dose 1 APPLIC; Start 01/21/17 at 14:00 Diagnostic Test (Pha) (Accu-Chek) 1 ea 02 XX ; Start 01/24/17 at 02:00 Miscellaneous Information (Pending Santyl Order For Wound Care) This patient humphries... PRN PRN XX WOUND CARE; Start 01/24/17 at 00:00 Ondansetron HCl (Zofran Inj) 4 mg Q4H PRN IV NAUSEA AND/OR VOMITING; Start 01/24 at 17:00 Apixaban (Eliquis) 2.5 mg BID PO Last administered on 01/31/17 09:15; Admin Dose 2.5 MG; Start 01/26/17 at 11:30 Bisacodyl (Dulcolax Supp) 10 mg DAILY PRN [place] CONSTIPATION Last administered on 01/28/17 17:30; Admin Dose 10 MG; Start 01/28/17 at 17:00 Furosemide (Lasix) 40 mg DAILY PO Last administered on 01/31/17 09:15; Admin Dose 40 MG; Start 01/29/17 at 09:00 Nitroglycerin (Nitroglycerin (Sl Tab) 0.4 Mg) 1 tab Q5M PRN SL ANGINA; Start at 17:00 Multivitamins Therapeutic (Theragran) 1 tab DAILY PO Last administered on 09:14; Admin Dose 1 TAB; Start 01/30/17 at 09:00 Zinc Sulfate (Zinc Sulfate) 220 mg DAILY PO Last administered on 01/31/17 09:14 ; Admin Dose 220 MG; Start 01/30/17 at 09:00; Stop 02/13/17 at 08:59 Ascorbic Acid 500 mg 500 mg BID PO Last administered on 01/31/17 09:14; Admin Dose 500 MG; Start 01/29/17 at 21:00 Ciprofloxacin/ Dextrose (Cipro Ivpb) 200 ml @ 200 mls/hr Q12 IVPB Last administered on 01/31/17 09:12; Admin Dose 200 MLS/HR; Start 01/30/17 at 21:00 Gentamicin Sulfate (Gentamicin 0.1% Oint) 1 applic TID TOP Last administered on 01/31/17 13:47; Admin Dose 1 APPLIC; Start 01/30/17 at 21:00 Lisinopril (Zestril) 20 mg DAILY PO Last administered on 01/31/17 09:14; Admin Dose 20 MG; Start 01/31/17 at 09:00 STEWART SOUZA Jan 31, 2017 17:03
--- NOTE | 2017-01-31 18:22 | DS ---
Date/Time of Note Date/Time of Note DATE: 01/31/17 TIME: 18:15 Discharge Summary Admission/Discharge Info Admit Date/Time Jan 20, 2017 at 17:10 Discharge Date/Time Discharge Diagnosis cellulitis, chronic lower extremity ulcers Patient Condition: Stable Consults infectious disease, vascular surgery Procedures 8.28 BL LE dopplers IMPRESSION: No evidence of a deep vein thrombosis within the bilateral lower extremities. 8.29 BL LE vein mapping IMPRESSION: 1. Diameter of greater saphenous veins as indicated above. 2. No thrombosis visualized. TTE 8.29 Conclusions 1. Normal left ventricular systolic function. Normal left ventricular cavity size. Moderate concentric left ventricular hypertrophy. Ejection fraction is visually estimated at 65 %. 2. Mild mitral leaflet calcification. Moderate mitral annular calcification. Mild mitral valve regurgitation. 3. Aortic valve not well visualized. Severe aortic stenosis. Aortic valve Max velocity 4.20 m/sec. Max PG 70.60 mmHg. Mean PG 41.70 mmHg. Aortic cusps appear severely calcified. Mild aortic valve regurgitation. 4. Normal appearance of the tricuspid valve. Estimated peak PA systolic pressure 82 mmHg. There is moderate tricuspid regurgitation. 5. Dilated IVC with respiratory collapse consistent with elevated right atrial pressure. 9.31 leg wound culture: pseudomonas 9.1 OPERATION PERFORMED: 1. Ultrasound-guided access of the left common femoral artery. 2. Aortoiliac angiogram. 3. Third order selection of the right common femoral artery and the right lower extremity angiogram. 4. Moderate sedation. FINDINGS: 1. Bilateral renal arteries are patent. 2. Infrarenal aorta is patent. 3. Bilateral common iliac, internal iliac, and external iliacs are tortuous and patent. 4. The left common femoral artery is patent. 5. Proximal left profunda femoral artery is patent. 6. Left proximal superficial femoral artery is patent. 7. Right common femoral artery is patent. 8. Right superficial femoral artery is patent. 9. Right profunda femoral artery is patent. 10. The right above-knee popliteal artery is patent. 11. Right at-knee popliteal artery is patent. 12. The right below-knee popliteal artery is patent. 13. Right tibioperoneal trunk is patent. 14. The right anterior tibial artery is patent in its proximal aspect and then it becomes diminutive towards the foot. 15. Right peroneal artery is patent and becomes diminutive near the ankle. 16. Right posterior tibial artery is the dominant vessel to the foot. Normal in caliber. 17. Right common plantar artery is patent. 18. Right lateral plantar artery is patent. 19. Right medial plantar artery is not visualized. 20. Right dorsalis pedis artery is not visualized. 21. Limited pedal artery circulation. 22. Left superficial femoral artery is patent. 23. Left profunda femoral artery is patent. 24. Left above-knee popliteal artery is patent. 25. Left at-knee popliteal artery is patent. 26. Left below-knee popliteal artery is patent. 27. Left tibioperoneal trunk is patent. 28. Left anterior tibial artery is patent in its proximal aspect and diminutive near the foot. 29. Left peroneal artery is patent in its proximal aspect and becomes diminutive near the foot. 30. Left posterior tibial artery is patent with inline flow to the foot. 31. Left common plantar artery is patent. 32. Left lateral plantar artery and medial plantar arteries are not well visualized. 33. Left dorsalis pedis artery is not well visualized Hx of Present Illness 76-year-old female past medical history of possible diabetes, hypertension, chronic lower extremity ulcers, questionable peripheral vascular disease, prior DVT, who was sent in from [facility] because of chronic lower extremity ulcers and possible cellulitis. Patient denies fevers or chills, nausea vomiting, diarrhea constipation, headaches dizziness or loss of consciousness. Patient has been followed by Dr. Blackburn a vascular surgeon as outpatient, who sent patient in earlier today. Denies any prior history of any strokes or heart attack. Patient states she has not been taking Coumadin for the last few months as well, despite it being listed as an active medication. Hospital Course 76 yo F with PVD, chronic LE ulcers sent from [facility] for chronic LE ulcers with possible cellulitis. PSAR isolated from wounds on culture, pt seen by ID and started on ciprofloxacin. Pt seen by her wound physician who advised compression. Pt also with transient AFib during her stay, rate controlled. Pt was already supposed to be on ATC (warfarin on home meds list). This was changed to Eliquis for convenience purposes. Blood pressure medications adjusted during her stay as well. Changes from admit meds: cipro for cellulitis, should follow up with ID within 1-2 weeks warfarin stopped, changed to Eliquis Vitamin C, Zinc, topical Santyl, topical gent started for wounds Lasix started for help with BP control and chronic LE edema Lisinopril changed from BID to daily Home Meds Active Scripts Doxycycline Hyclate* (Doxycycline Hyclate*) 100 Mg Tablet.dr, 100 MG PO BID for 7 Days, TAB Prov:RONI VERDIN MD 12/30/16 Ciprofloxacin Hcl* (Ciprofloxacin Hcl*) 500 Mg Tablet, 500 MG PO BID for 7 Days , TAB Prov:RONI VERDIN MD 12/30/16 Reported Medications Oxycodone HCl/Acetaminophen (Percocet 10-325 mg Tablet) 1 Each Tablet, 1 EACH PO Q6 Y for PAIN, TAB 10/29/16 Warfarin Sodium* (Coumadin*) 10 Mg Tablet, 10 MG PO DAILY, TAB 10/29/16 Ergocalciferol (Vitamin D2) (VITAMIN D2) 50,000 Unit Capsule, 30054 UNIT PO EVERY FRIDAY, CAP 10/29/16 Bimatoprost* (Lumigan*) 0.01%-2.5 Ml Opht Drops, 1 DROP BOTH EYES HS, EA 09/14/16 Alprazolam (Alprazolam) 0.25 Mg Tab.rapdis, 0.25 MG PO hs for INSOMNIA, TAB 09/14/16 Metoprolol Succinate* (Toprol XL*) 100 Mg Tab.sr.24h, 100 MG PO DAILY, #30 TAB 09/14/16 Lisinopril* (Lisinopril*) 20 Mg Tablet, 20 MG PO BID, #30 TAB 09/14/16 Ferrous Sulfate* (Ferrous Sulfate*) 325 Mg Tabec, 325 MG PO DAILY, TAB 09/14/16 Follow-up Plan [facility], PCP, ID Primary Care Provider Harper Moura Time spent on discharge: > 30 minutes Pending Labs Laboratory Tests Test 01/30/17 21:15 01/31/17 07:56 01/31/17 12:02 01/31/17 17:46 Bedside Glucose 105mg/dL (70-220) 94mg/dL (70-220) 75mg/dL (70-220) 155mg/dL (70-220) Copies To: CC: IGNACIO YORK MD; ERIN BLACKBURN MD, ELLEN MD Jan 31, 2017 18:22
--- NOTE | 2017-01-31 18:26 | PDOCDIS ---
Discharge Instructions DIAGNOSIS Discharge Diagnosis cellulitis, chronic lower extremity ulcers CONDITION Patient Condition: Stable HOME CARE INSTRUCTIONS: Special Diet: 1800 ADA FOLLOW UP/APPOINTMENTS Follow-up Plan Within 2 weeks follow up with your regular doctor, the vascular doctor at [facility] and the infectious disease doctors Dentro de 2 semanas de seguimiento con smith mdico regular, el mdico vascular en [facility] y los mdicos de [facility] Rai Office Address [id number] [address] Office Infectious Disease [facility] Herman Office Address [address] [facility] [address] [place] [address] Office LATESHA PIMENTEL MD Jan 31, 2017 18:26
== END 2017-01-31 19:00 | DRG 300 ==
LOC: MS2 17:10 → MS4 01-26 12:02 → PP2 01-28 23:25
PROVIDERS: ADMIT Internal Medicine; ATTEND Internal Medicine
PROC: 30233N1 Transfusion of Nonautologous Red Blood Cells into Peripheral Vein, Percutaneous Approach (ICD-10-PCS; 2017-01-22)
PROC: B40D1ZZ Plain Radiography of Aorta and Bilateral Lower Extremity Arteries using Low Osmolar Contrast (ICD-10-PCS; principal; 2017-01-24)
DX: I70.238 Atherosclerosis of native arteries of right leg with ulceration of other part of lower leg (principal); L03.115 Cellulitis of right lower limb; E11.622 Type 2 diabetes mellitus with other skin ulcer; Z68.41 Body mass index [BMI] 40.0-44.9, adult; L03.116 Cellulitis of left lower limb; B96.5 Pseudomonas (aeruginosa) (mallei) (pseudomallei) as the cause of diseases classified elsewhere; I48.91 Unspecified atrial fibrillation; B37.49 Other urogenital candidiasis; I10 Essential (primary) hypertension; E66.01 Morbid (severe) obesity due to excess calories; L97.819 Non-pressure chronic ulcer of other part of right lower leg with unspecified severity; L97.829 Non-pressure chronic ulcer of other part of left lower leg with unspecified severity; I70.248 Atherosclerosis of native arteries of left leg with ulceration of other part of lower leg; Z86.718 Personal history of other venous thrombosis and embolism; R07.9 Chest pain, unspecified; I87.8 Other specified disorders of veins
CPT/HCPCS: 36430; 80048; 80061; 80202; 81001; 82270; 82550; 82553; 82962; 83036; 83735; 84100; 84439; 84443; 84484; 85025; 85610; 85730; 86850; 86900; 86901; 86920; 87070; 87086; 93005; 93306; 93970; 97110; 97161; 97162; 97530; J1940; C1760; C1769; C1887; C1894; C9113; J0360; J0744; J1170; J1644; J1815; J2060; J2250; J2270; J2405; J3010; J3370; J7030; J7040; J7050; P9016; Q9967

== ENCOUNTER 2017-02-03 18:34 | Inpatient (IN) | payer MEDICARE, OTHER ==
[~2017-02-03] VITALS: Ht 162.6 cm; Wt 93.7 kg
[~2017-02-03 18:34] MED LIST changes: +METO-336 PO; -METO100T13 PO
--- NOTE | 2017-02-03 19:20 | ERA ---
ER Documentation Chief Complaint Date/Time DATE: 02/03/17 TIME: 19:17 Chief Complaint miquel pa from [facility] for BLE wounds HPI 76-year-old woman here for evaluation of bilateral lower skin ulcerations. She has been using oral antibiotics for a few days but wounds to the lower extremities have become red and more purulent. ROS All systems reviewed and are negative except as per history of present illness. Medications Home Meds Active Scripts Ciprofloxacin Hcl* (Ciprofloxacin Hcl*) 500 Mg Tablet, 500 MG PO BID for 7 Days , TAB Prov:RONI VERDIN MD 12/30/16 Reported Medications Latanoprost (Latanoprost) 2.5 Ml Drops, 1 DROP BOTH EYES QHS, #1 BOTTLE 02/03/17 Magnesium Hydroxide* (Milk Of Magnesia*) 400 Mg/5 Ml Oral.susp, 30 ML PO Q24H for CONSTIPATION, ML 02/03/17 Nystatin (Nystatin Powder) 1 Each Powder.ea., 1 APPLIC TOPICAL Q8, BOTTLE 02/03/17 Multivitamin with Minerals (Multivitamins with Minerals) 1 Each Tablet, 1 EACH PO DAILY, TAB 02/03/17 Ascorbic Acid (Vitamin C) 500 Mg Tab, 500 MG PO DAILY, TAB 02/03/17 Gabapentin* (Gabapentin*) 300 Mg Capsule, 300 MG PO TID, #90 CAP 02/03/17 Warfarin Sodium* (Warfarin Sodium*) 6 Mg Tablet, 6 MG PO DAILY, TAB 02/03/17 Warfarin Sodium* (Warfarin Sodium*) 4 Mg Tablet, 4 MG PO DAILY, TAB 02/03/17 Apixaban* (Eliquis*) 5 Mg Tablet, 5 MG PO DAILY, TAB 02/03/17 Nifedipine* (Nifedipine ER*) 90 Mg Tablet.sa, 90 MG PO DAILY, TAB.SA 02/03/17 Furosemide* (Furosemide*) 40 Mg Tablet, 40 MG PO DAILY, TAB 02/03/17 Oxycodone HCl/Acetaminophen (Percocet 10-325 mg Tablet) 1 Each Tablet, 1 EACH PO Q6 Y for PAIN, TAB 10/29/16 Ergocalciferol (Vitamin D2) (VITAMIN D2) 50,000 Unit Capsule, 24180 UNIT PO EVERY FRIDAY, CAP 10/29/16 Bimatoprost* (Lumigan*) 0.01%-2.5 Ml Opht Drops, 1 DROP BOTH EYES HS, EA 09/14/16 Alprazolam (Alprazolam) 0.25 Mg Tab.rapdis, 0.25 MG PO hs for INSOMNIA, TAB 09/14/16 Metoprolol Succinate* (Toprol XL*) 100 Mg Tab.sr.24h, 100 MG PO DAILY, #30 TAB 09/14/16 Lisinopril* (Lisinopril*) 20 Mg Tablet, 20 MG PO DAILY, #30 TAB 09/14/16 Ferrous Sulfate* (Ferrous Sulfate*) 325 Mg Tabec, 325 MG PO DAILY, TAB 09/14/16 Discontinued Reported Medications Warfarin Sodium* (Coumadin*) 10 Mg Tablet, 10 MG PO DAILY, TAB 10/29/16 Discontinued Scripts Doxycycline Hyclate* (Doxycycline Hyclate*) 100 Mg Tablet.dr, 100 MG PO BID for 7 Days, TAB Prov:RONI VERDIN MD 12/30/16 Allergies Allergies: Coded Allergies: Penicillins (Verified Allergy, Unknown, rash/hives, 02/03/17) PMhx/Soc Bilateral lower extremity atherosclerosis with nonhealing skin ulcerations currently being treated with oral ciprofloxacin and doxycycline, Diabetes mellitus,hypertension, chronic lower extremity ulcers, prior DVT, A. fib History of Surgery: Yes (Cataract -3 yrs) Anesthesia Reaction: No Hx Neurological Disorder: No Hx Respiratory Disorders: No Hx Cardiac Disorders: Yes (HTN) Hx Psychiatric Problems: Yes (Depression) Hx Miscellaneous Medical Probl: Yes (chronic BLE ulcer,poss cellulitis,htn, DM , PVD) Hx Alcohol Use: No Hx Substance Use: No Hx Tobacco Use: No FmHx Family History: No diabetes Physical Exam Vitals Vital Signs Date Time Temp Pulse Resp B/P Pulse Ox O2 Delivery O2 Flow Rate FiO2 02/03/17 20:00 97.9 69 20 144/59 100 Room Air 02/03/17 19:07 98.8 77 19 115/72 99 Physical Exam GENERAL: Well-developed, well-nourished, well-hydrated, in no apparent distress , looks nontoxic in appearance HEENT: Moist mucous membranes, pink conjunctiva, no cervical spine tenderness or step-off deformities, no goiter, no jaundice or icterus, extraocular movements intact without pain. No submandibular induration, and no pharyngeal erythema NEURO: Alert and oriented 3, cranial nerves II through XII intact bilaterally, pupils equal round reactive to light, no focal deficits or facial asymmetry, sensation intact distally Strength 5/5 in upper and lower extremities bilaterally CARDIAC: Regular rate and rhythm, no murmurs rubs or gallops LUNGS: Clear bilaterally no wheezing crackles or stridor ABDOMEN: Soft nontender, no guarding, no rigidity, no rebound, no psoas sign no obturator sign. Normoactive bowel sounds SKIN: Bilateral lower extremity skin ulcerations and skin erythema with induration, purulent discharge EXTREMITIES: No clubbing cyanosis or edema, calves are bilaterally symmetrical, no Homans sign, no popliteal cord sign. Distal pulses equal and bilateral PSYCH: Normal affect without agitation or irritability Result Diagram: 02/05/17 0451 02/06/17 0520 Results 24 hrs Laboratory Tests Test 02/03/17 19:00 White Blood Count 9.810^3/ul Red Blood Count 4.4810^6/ul Hemoglobin 11.0g/dl Hematocrit 36.2% Mean Corpuscular Volume 80.8fl Mean Corpuscular Hemoglobin 24.6pg Mean Corpuscular Hemoglobin Concent 30.4g/dl Red Cell Distribution Width 17.0% Platelet Count 21135^3/UL Mean Platelet Volume 10.4fl Neutrophils % 65.7% Lymphocytes % 22.0% Monocytes % 8.3% Eosinophils % 2.7% Basophils % 0.8% Nucleated Red Blood Cells % 0.0/100WBC Neutrophils # (Manual) 6.410^3/ul Lymphocytes # 2.210^3/ul Monocytes # 0.810^3/ul Eosinophils # 0.310^3/ul Basophils # 0.110^3/ul Nucleated Red Blood Cells # 0.010^3/ul Prothrombin Time 14.5Sec Prothrombin Time Ratio 1.1 INR International Normalized Ratio 1.13 Sodium Level 134mmol/L Potassium Level 4.3mmol/L Chloride Level 98mmol/L Carbon Dioxide Level 29mmol/L Anion Gap 11 Blood Urea Nitrogen 32mg/dl Creatinine 0.95mg/dl Glucose Level 109mg/dl Calcium Level 9.2mg/dl Total Bilirubin 0.2mg/dl Direct Bilirubin 0.00mg/dl Indirect Bilirubin 0.2mg/dl Aspartate Amino Transf (AST/SGOT) 21IU/L Alanine Aminotransferase (ALT/SGPT) 26IU/L Alkaline Phosphatase 79IU/L Total Protein 7.9g/dl Albumin 3.9g/dl Globulin 4.00g/dl Albumin/Globulin Ratio 0.97 Lipase 38U/L Current Medications Medications (Trade) Dose Ordered Sig/Laine Route PRN Reason Start Time Stop Time Status Last Admin Dose Admin Sodium Chloride 500 ml @ 500 mls/hr Q1H STAT IV 02/03/17 19:25 02/03/17 20:24 DC 02/03/17 21:00 Cefepime HCl 50 ml @ 100 mls/hr ONCE ONCE IVPB 02/03/17 19:30 02/03/17 19:59 DC 02/03/17 21:00 Vancomycin HCl (Vancocin) 250 ml @ 125 mls/hr ONCE IVPB 02/03/17 19:30 02/03/17 21:29 DC 02/03/17 21:36 Ibuprofen (Motrin) 600 mg ONCE ONCE PO 02/03/17 19:30 02/03/17 19:33 DC 02/03/17 20:59 Procedures/MDM IV line was established 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 EKG performed, read by me revealed a normal sinus rhythm at 64 bpm, left axis deviation, and a right ventricular conduction delay with incarceration of 106 ms , no concerning ST elevations or depressions noted. I administered vancomycin 1 g IV, cefepime 1 g IV, 1 L normal saline IV 1 and ibuprofen 600 mg p.o. CBC and electrolytes were normal, liver function tests were normal, troponin was negative. Departure Diagnosis: Primary Impression: Bilateral lower leg cellulitis Additional Impression: Peripheral vascular disease Condition: MURPHY Addison MD Feb 03, 2017 19:20
[2017-02-03] MEDS ORDERED: SOD CHLORIDE 0.9% 500 ML IV STA (19:25)
[2017-02-03] MEDS ORDERED: IBUPROFEN 600 MG TAB PO ONE (19:30)
[2017-02-03] MEDS ORDERED: VANCOMYCIN 1 GM (PMX) 250 ML IVPB SCH (19:30)
[2017-02-03] MEDS ORDERED: CEFEPIME 1GM/50 ML (PMX) 50 ML IVPB ONE (19:30)
[2017-02-03 20:00] VITALS: TEMP 97.9
[2017-02-03 20:39] LABS: BASOPHIL # 0.1 10^3/ul (0.0-0.1); BASOPHILS % 0.8 % (0.0-2.0); EOSINOPHILS # 0.3 10^3/ul (0.0-0.5); EOSINOPHILS % 2.7 % (0.0-7.0); HEMATOCRIT 36.2 % (37.0-47.0); LYMPHOCYTES # 2.2 10^3/ul (0.8-2.9); MEAN CORPUSCULAR HEMOGLOBIN 24.6 pg (29.0-33.0); MEAN CORPUSCULAR HGB CONC 30.4 g/dl (32.0-37.0); MEAN CORPUSCULAR VOLUME 80.8 fl (82.0-101.0); MEAN PLATELET VOLUME 10.4 fl (7.4-10.4); MONOCYTE # 0.8 10^3/ul (0.3-0.9); MONOCYTES % 8.3 % (0.0-11.0); NEUTROPHILS % 65.7 % (39.0-77.0); PLATELET COUNT 349 10^3/UL (140-415); RED BLOOD COUNT 4.48 10^6/ul (4.20-5.40); WHITE BLOOD COUNT 9.8 10^3/ul (4.8-10.8)
[2017-02-03 20:56] LABS: INR 1.13; PROTIME 14.5 Sec (12.2-14.2); PT RATIO 1.1
[2017-02-03 20:58] LABS: ALBUMIN 3.9 g/dl (3.3-4.9); ALBUMIN/GLOBULIN RATIO 0.97; BILIRUBIN,INDIRECT 0.2 mg/dl (0-1.1); BILIRUBIN,TOTAL 0.2 mg/dl (0.2-1.3); CALCIUM 9.2 mg/dl (8.4-10.2); CREATININE 0.95 mg/dl (0.44-1.00); POTASSIUM 4.3 mmol/L (3.5-5.1); TOTAL PROTEIN 7.9 g/dl (6.1-8.1)
[2017-02-03] MEDS ORDERED: FURO40TA4 PO (20:58)
[2017-02-03] MEDS ORDERED: NIFE90TA21 PO (20:59)
[2017-02-03] MEDS ORDERED: APIX5TAB PO (21:00)
[2017-02-03] MEDS ORDERED: WARF4TAB52 PO (21:00)
[2017-02-03] MEDS ORDERED: WARF6TAB35 PO (21:00)
[2017-02-03] MEDS ORDERED: GABA300C16 PO (21:01)
[2017-02-03] MEDS ORDERED: ASC500 PO (21:02)
[2017-02-03] MEDS ORDERED: MULT-105 PO (21:03)
[2017-02-03] MEDS ORDERED: NYST1POW22 TOPICAL (21:04)
[2017-02-03] MEDS ORDERED: MAGN400O4 PO (21:06)
[2017-02-03] MEDS ORDERED: LATA2.5D2 BOTH EYES (21:08)
[2017-02-03 22:52] VITALS: BP 146/63; RESP 18
[2017-02-03] MEDS ORDERED: VANCOMYCIN IV PER PHARMACY XX SCH (23:30)
[2017-02-03] MEDS ORDERED: ACETAMINOPHEN 325 MG TAB PO PRN (23:30)
[2017-02-03] MEDS ORDERED: ONDANSETRON 4 MG INJ IV PRN (23:30)
[2017-02-03] MEDS ORDERED: morphine 2 MG INJ IV PRN (23:30)
[2017-02-04] MEDS: MAGNESIUM HYDROXIDE 30ML CUP PO SCH ×2 (00:16→23:29)
[2017-02-04 01:41] VITALS: Ht 162.6 cm; Wt 93.7 kg
[2017-02-04] MEDS ORDERED: GLUCOSE GEL 15 GRAM TUBE PO PRN ×2 (02:00)
[2017-02-04] MEDS ORDERED: GLUCOSE GEL 15 GRAM TUBE BUCCAL PRN (02:00)
[2017-02-04] MEDS: ACCU-CHEK XX SCH (02:00)
[2017-02-04] MEDS ORDERED: DEXTROSE 50% 50 ML SYRINGE IV PRN ×2 (02:00)
[2017-02-04] MEDS ORDERED: GLUCAGON 1 MG INJ IM PRN (02:00)
[2017-02-04] MEDS ORDERED: PENDING SANTYL ORDER FOR WOUND CARE XX PRN (02:30)
[2017-02-04] MEDS ORDERED: VANCOMYCIN 1.25 GM in SOD CHLORIDE 0.9% 250 ML IVPB SCH (03:00)
[2017-02-04 03:11] VITALS: BP 120/56; RESP 16
[2017-02-04] MEDS: NYSTATIN 15 GM POWDER BTL TOP SCH ×3 (05:30→21:58)
[2017-02-04 06:00] LABS: BASOPHIL # 0.1 10^3/ul (0.0-0.1); BASOPHILS % 1.2 % (0.0-2.0); EOSINOPHILS # 0.4 10^3/ul (0.0-0.5); EOSINOPHILS % 5.4 % (0.0-7.0); HEMATOCRIT 32.7 % (37.0-47.0); HEMOGLOBIN 9.9 g/dl (12.0-16.0); LYMPHOCYTES # 1.9 10^3/ul (0.8-2.9); LYMPHOCYTES % 25.1 % (15.0-51.0); MEAN CORPUSCULAR HEMOGLOBIN 24.2 pg (29.0-33.0); MEAN CORPUSCULAR HGB CONC 30.3 g/dl (32.0-37.0); MEAN PLATELET VOLUME 10.4 fl (7.4-10.4); MONOCYTE # 0.7 10^3/ul (0.3-0.9); MONOCYTES % 9.7 % (0.0-11.0); NEUTROPHILS % 58.2 % (39.0-77.0); PLATELET COUNT 298 10^3/UL (140-415); RED BLOOD COUNT 4.09 10^6/ul (4.20-5.40); RED CELL DISTRIBUTION WIDTH 17.1 % (11.5-14.5); WHITE BLOOD COUNT 7.4 10^3/ul (4.8-10.8)
[2017-02-04 06:23] LABS: IRON 22 ug/dl (35-150)
[2017-02-04 06:33] LABS: TOTAL IRON BINDING CAPACITY 278 ug/dl (241-421)
[2017-02-04 07:18] LABS: ALBUMIN/GLOBULIN RATIO 0.96; BILIRUBIN,INDIRECT 0.3 mg/dl (0-1.1); BILIRUBIN,TOTAL 0.3 mg/dl (0.2-1.3); CALCIUM 9.2 mg/dl (8.4-10.2); CREATININE 0.77 mg/dl (0.44-1.00); PHOSPHORUS 4.3 mg/dl (2.5-4.9); POTASSIUM 4.2 mmol/L (3.5-5.1); TOTAL PROTEIN 6.1 g/dl (6.1-8.1)
[2017-02-04] MEDS: INSULIN ASPART [NOVOLOG] 3 ML PEN SC SCH ×4 (07:30→21:00)
[2017-02-04] MEDS: INSULIN GLARGINE [LANtus] 3 ML PEN SC SCH (08:00)
[2017-02-04 08:04] VITALS: BP 134/62; RESP 18
[2017-02-04] MEDS: morphine 4 MG/ML VIAL IV PRN (08:58)
[2017-02-04] MEDS: CEFEPIME 1GM/50 ML (PMX) 50 ML IVPB SCH ×2 (08:59→21:29)
[2017-02-04] MEDS ORDERED: APIXABAN 5 MG TABLET PO SCH (09:00)
[2017-02-04] MEDS: NIFEdipine (XL) 90 MG TAB PO SCH (10:40)
[2017-02-04] MEDS: LISINOPRIL 20 MG TAB PO SCH (10:41)
[2017-02-04] MEDS: GABAPENTIN 300 MG CAP PO SCH ×3 (10:41→21:30)
[2017-02-04] MEDS: METOPROLOL (XL) 100 MG TAB PO SCH (10:41)
[2017-02-04] MEDS: ASCORBIC ACID 500 MG TAB PO SCH (10:42)
[2017-02-04] MEDS: FUROSEMIDE 40 MG TAB PO SCH (10:42)
[2017-02-04] MEDS: FERROUS SULFATE (EC) 325 MG TAB PO SCH (10:42)
[2017-02-04] MEDS: HYDROCODONE/APAP (10/325) TAB PO PRN (12:30)
--- NOTE | 2017-02-04 13:31 | CONS ---
DATE OF ADMISSION: 02/03/2017 DATE OF CONSULTATION: 02/03/2017 HISTORY OF PRESENT ILLNESS: Ms. Crane is a 76-year-old female known to our vascular surgery service secondary to longstanding history of bilateral lower extremity atherosclerosis and venous insufficiency with multiple nonhealing ulcers that are circumferential of her lower leg. As of recent, patient was admitted earlier in December in which she underwent IV antibiotic treatment with leg elevations and eventual CO2 angiography which identified patient having inline flow from her common femoral artery all the way down to her bilateral feet with a single- vessel runoff. At that point, it was determined the patient has adequate arterial flow and requires mainly local wound care and limb elevation and compression therapy for treatment of her ulcerations. Unfortunately, although she has been discharged with p.o. antibiotics, it seems that she has developed recurrent cellulitis of her right lower extremity with a wound that has been draining. At the moment, the patient denies shortness of breath, chest pain, nausea, vomiting, fever, or chills. She denies lower extremity rest pain or discomfort. REVIEW OF SYSTEMS: A 14-point review performed and negative except what was mentioned in HPI. PAST MEDICAL HISTORY: Morbidly obese with BMI of 44.6, hypertension, borderline diabetic, bilateral lower extremity atherosclerosis with ulcers, bilateral lower extremity venous insufficiency with venous stasis ulcers, history of DVT, bilateral recurrent cellulitis and cataracts. PAST SURGICAL HISTORY: Bilateral lower extremity debridements of her ulcers, cataract surgery, and lower extremity angiogram. SOCIAL HISTORY: Denies tobacco, alcohol or illicit drug use. FAMILY HISTORY: Positive for diabetes and hypertension. PHYSICAL EXAMINATION: GENERAL APPEARANCE: Alert and oriented x3 in no apparent distress. HEENT: Normocephalic and atraumatic. PERRLA. EOMI. Mucosa moist. NECK: Supple. No carotid bruit. PULMONARY: Clear to auscultation bilaterally, no crackles. HEART: S1, S2 present. No murmurs. ABDOMEN: Soft, nontender, nondistended. Bowel sounds positive. Large truncal obesity. EXTREMITIES: Right lower extremity palpable femoral pulse. Nonpalpable pedal pulse. Motor and sensory intact. Capillary refill 3 seconds. There is circumferential ulcers, especially on the anterior segura where there is purulent drainage from an ulcer with necrotic fibrinous tissue. She has erythema that goes from the ankle all the way up to her upper calf, areas of varicose veins, spider veins and telangiectasias, and lipodermatosclerosis. The left lower extremity palpable femoral pulse. Nonpalpable pedal pulse. Motor and sensory intact. Capillary refill 3-4 seconds. There is circumferential ulcers that are smaller in size. Small area of erythema around her ulcer near her medial aspect of the lower leg. Otherwise, presence of lipodermatosclerosis, spider veins, telangiectasias. Edema bilateral lower extremities, 2+. IMPRESSION AND PLAN: 1. Bilateral lower extremity atherosclerosis with nonhealing ulcers: It seems the patient does have a component of atherosclerotic disease, especially in her infrapopliteal segment in which she only has 1 tibial vessel that is her main runoff to the foot. No further vascular intervention would be needed in regard to her arterial perfusion, however the patient does have mixed venous and arterial disease in which she would require close observation of her wound healing and compression therapy with limb elevation. 2. Bilateral lower extremity venous insufficiency and venous stasis ulcers (CEAP classification 6): The patient is not necessarily compliant with her limb elevation and compression therapy for her lower extremity venous stasis ulcers. The patient does have reflux in her lower extremities. However, she may have a pelvic venous disease in which further investigation would need to be obtained with possible venograms to further delineate her venous outflow. At the moment, we will plan to keep the patient on IV antibiotics and keep her limbs elevated and local wound care. 3. We will plan to discuss local wound care with Santyl and silver alginate/Melgisorb. 4. Optimize vascular status, (BP medications, diet, nutrition, exercise, sugar control, antiplatelets, weight loss). 5. Discussed findings, plan and management with the patient and the family at the bedside and they understand. Thank you for allowing us to partake in the care of your patient. Please call with any questions. Dictated By: Matt Rai MD /bela/greyson /Document#: [id number]
--- NOTE | 2017-02-04 14:01 | PN ---
Date/Time of Note Date/Time of Note DATE: 02/04/17 TIME: 13:46 Assessment/Plan VTE Prophylaxis VTE Prophylaxis Intervention: LMWH Lines/Catheters IV Catheter Type (from Nrsg): Saline Lock Assessment/Plan Assessment/Plan 1. Bilateral lower extremity venous insufficiency with stasis dermatitis and ulcers, with cellulitis, on cefepime and vancomycin 2. Peripheral vascular disease. follow up with vascular 3. Diabetes. on insulin, stable 4. Hypertension, stable 5. Patient had DVT on lower extremity 4 years ago that she was taking eliquis but she has stopped it for 4 weeks 6. Recent fall with back pain, spinal x-ray 7. Glaucoma, on eye drops 8. DVT prophylaxis: lovenox Exam/Review of Systems Vital Signs Vitals Vital Signs Date Time Temp Pulse Resp B/P Pulse Ox O2 Delivery O2 Flow Rate FiO2 02/04/17 08:04 98.3 60 18 134/62 96 02/03/17 21:00 Room Air Intake and Output 02/03/17 02/03/17 02/04/17 15:00 23:00 07:00 Intake Total 550 ml 820 ml Balance 550 ml 820 ml Exam Constitutional: alert, obese, oriented, well developed Psych: nl mood/affect, no complaints Head: atraumatic, normocephalic Eyes: EOMI, nl conjunctiva, nl lids ENMT: nl external ears & nose, nl lips & teeth, nl nasal mucosa & septum Neck: non-tender, supple Respiratory: clear to auscultation, normal air movement, No congested cough, No crackles/rales, No diminished breath sounds, No intercostal retraction, No labored breathing, No other, No respirations, No tactile fremitus, No wheezing Cardiovascular: nl pulses, regular rate and rhythm, No S3, No S4, No bruits, No diastolic murmur, No edema, No gallop, No irregular rhythm, No jugular venous distention (JVD), No murmurs/extra sounds, No other, No rub, No systolic murmur Gastrointestinal: nl liver, spleen, non-tender, soft Musculoskeletal: nl extremities to inspection 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, nl mental status, nl speech, nl strength, other (bilateral lower extremity wounds ) Results Result Diagram: 02/04/17 0500 02/04/17 0519 Results 24 hrs Laboratory Tests Test 02/03/17 19:00 02/03/17 22:22 02/04/17 05:00 02/04/17 05:19 White Blood Count 9.8 # 7.4 # Red Blood Count 4.48 4.09 L Hemoglobin 11.0 L 9.9 L Hematocrit 36.2 L 32.7 L Mean Corpuscular Volume 80.8 L 80.0 L Mean Corpuscular Hemoglobin 24.6 L 24.2 L Mean Corpuscular Hemoglobin Concent 30.4 L 30.3 L Red Cell Distribution Width 17.0 H 17.1 H Platelet Count 349 # 298 Mean Platelet Volume 10.4 10.4 Neutrophils % 65.7 58.2 Lymphocytes % 22.0 25.1 Monocytes % 8.3 9.7 Eosinophils % 2.7 5.4 Basophils % 0.8 1.2 Nucleated Red Blood Cells % 0.0 0.0 Neutrophils # (Manual) 6.4 4.3 Lymphocytes # 2.2 1.9 Monocytes # 0.8 0.7 Eosinophils # 0.3 0.4 Basophils # 0.1 0.1 Nucleated Red Blood Cells # 0.0 0.0 Prothrombin Time 14.5 H Prothrombin Time Ratio 1.1 INR International Normalized Ratio 1.13 Sodium Level 134 L 136 Potassium Level 4.3 4.2 Chloride Level 98 105 Carbon Dioxide Level 29 26 Anion Gap 11 9 Blood Urea Nitrogen 32 H 30 H Creatinine 0.95 0.77 Glucose Level 109 88 Calcium Level 9.2 9.2 Total Bilirubin 0.2 0.3 Direct Bilirubin 0.00 0.00 Indirect Bilirubin 0.2 0.3 Aspartate Amino Transf (AST/SGOT) 21 17 Alanine Aminotransferase (ALT/SGPT) 26 21 Alkaline Phosphatase 79 67 Total Protein 7.9 6.1 # Albumin 3.9 3.0 L Globulin 4.00 H 3.10 Albumin/Globulin Ratio 0.97 0.96 Lipase 38 Bedside Glucose 84 Hemoglobin A1c 5.3 Phosphorus Level 4.3 Magnesium Level 2.0 Iron Level 22 L Total Iron Binding Capacity 278 Percent Iron Saturation 8 L Test 02/04/17 05:21 02/04/17 08:07 02/04/17 12:02 Ferritin 59.0 Bedside Glucose 94 127 Medications Medications Current Medications Ascorbic Acid (Vitamin C) 500 mg DAILY PO Last administered on 02/04/17t 10:42 ; Admin Dose 500 MG; Start 02/04/17 at 09:00 Ferrous Sulfate (Ferrous Sulfate (Ec)) 325 mg DAILY PO Last administered on 10:42; Admin Dose 325 MG; Start 02/04/17 at 09:00 Furosemide (Lasix) 40 mg DAILY PO Last administered on 02/04/17 10:42; Admin Dose 40 MG; Start 02/04/17 at 09:00 Gabapentin (Neurontin) 300 mg TID PO Last administered on 02/04/17 13:09; Admin Dose 300 MG; Start 02/04/17 at 09:00 Latanoprost (Xalatan) 1 drop QHS BOTH EYES ; Start 02/04/17 at 21:00 Lisinopril (Zestril) 20 mg DAILY PO Last administered on 02/04/17 10:41; Admin Dose 20 MG; Start 02/04/17 at 09:00 Magnesium Hydroxide (Milk Of Mag) 30 ml Q24H PO Last administered on 02/04/17 00:16; Admin Dose 30 ML; Start 02/03/17 at 23:00 Metoprolol Succinate (Toprol Xl) 100 mg DAILY PO Last administered on 10:41; Admin Dose 100 MG; Start 02/04/17 at 09:00 Nifedipine (Procardia Xl) 90 mg DAILY PO Last administered on 02/04/17 10:40; Admin Dose 90 MG; Start 02/04/17 at 09:00 Nystatin 1 applic Q8 TOP Last administered on 02/04/17 05:30; Admin Dose 1 APPLIC; Start 02/04/17 at 06:00 Insulin Glargine (Lantus) 10 unit DAILY@08 SC ; Start 02/04/17 at 08:00 Ondansetron HCl 4 mg 4 mg Q6H PRN IV NAUSEA AND/OR VOMITING; Start 02/03/17 at 23:30 Cefepime HCl (Maxipime 1gm/50 ml (Pmx)) 50 ml @ 100 mls/hr Q12 IVPB Last administered on 02/04/17 08:59; Admin Dose 100 MLS/HR; Start 02/04/17 at 09:00 Diagnostic Test (Pha) (Accu-Chek) 1 ea 02 XX ; Start 02/04/17 at 02:00 Acetaminophen (Tylenol Tab) 650 mg Q6H PRN PO PAIN AND OR ELEVATED TEMP; Start 02/03/17 at 23:30 Apixaban (Eliquis) 5 mg DAILY PO Last administered on 02/04/17 10:40; Admin Dose 5 MG; Start 02/04/17 at 09:00 Morphine Sulfate (morphine) 4 mg Q4H PRN IV PAIN Last administered on 08:58; Admin Dose 4 MG; Start 02/04/17 at 02:00 Acetaminophen/ Hydrocodone Bitart ([place] (10/325)) 1 tab Q4H PRN PO PAIN Last administered on 02/04/17 12:30; Admin Dose 1 TAB; Start 02/04/17 at 02:00 Miscellaneous Information 1 ea NOTE XX ; Start 02/04/17 at 02:00 Glucose (Glutose) 15 gm Q15M PRN PO DECREASED GLUCOSE; Start 02/04/17 at 02:00 Glucose (Glutose) 22.5 gm Q15M PRN PO DECREASED GLUCOSE; Start 02/04/17 at 02: 00 Dextrose (D50w Syringe) 25 ml Q15M PRN IV DECREASED GLUCOSE; Start 02/04/17 at 02:00 Dextrose (D50w Syringe) 50 ml Q15M PRN IV DECREASED GLUCOSE; Start 02/04/17 at 02:00 Glucagon (Glucagen) 1 mg Q15M PRN IM DECREASED GLUCOSE; Start 02/04/17 at 02:00 Glucose (Glutose) 15 gm Q15M PRN BUCCAL DECREASED GLUCOSE; Start 02/04/17 at 02 :00 Miscellaneous Information This patient humphries... PRN PRN XX WOUND CARE; Start 02/04 at 02:30 Vancomycin HCl/ Sodium Chloride (Vancocin/NS) 250 ml @ 83.333 mls/ hr Q24H IVPB ; Start 02/05/17 at 03:00 KIMBERLY CARLSON MD Feb 04, 2017 13:59
[2017-02-04 14:35] VITALS: BP 113/56; RESP 16
[2017-02-04] MEDS: ENOXAPARIN 40 MG/0.4 ML SYG SC SCH (15:00)
[2017-02-04] MEDS: [UNRECOGNIZED DRUG - REMARK] XX SCH (17:30)
[2017-02-04 19:35] VITALS: BP 108/58; RESP 20
[2017-02-04] MEDS: LATANOPROST 0.005% 2.5 ML OPH BOTH EYES SCH (21:30)
--- NOTE | 2017-02-04 22:29 | HP ---
Date/Time of Note Date/Time of Note DATE: 02/04/17 TIME: 22:29 Assessment/Plan VTE Prophylaxis VTE Prophylaxis Intervention: heparin Lines/Catheters IV Catheter Type (from Nrsg): Saline Lock Assessment/Plan Assessment/Plan ASSESSMENT 76-year-old female past medical history of hypertension, chronic bilateral lower extremity ulcers, peripheral vascular disease, DVT, who presented to ER c /o worsening lower ext cellulitis. PLAN IV abx wound cx Vascular, ID and Wound care consult Pain mgmt Cont home meds with adjustment as needed HPI/ROS Admit Date/Time Admit Date/Time Feb 03, 2017 at 20:27 Hx of Present Illness This is a 76-year-old female past medical history of hypertension, chronic bilateral lower extremity ulcers, peripheral vascular disease, DVT, who presented to ER c/o worsening lower ext cellulitis. [facility], but per daughter cellulitis gotten worsen and as such they decided to come back here for evaluation. pt reported bilateral lower ext pain as well. Denied fever/chills, CP or SOB. . ROS Psychological: nl mood/affect, no complaints PMH/Family/Social Past Surgical History Past Surgical Hx: other Social History Smoking Status: Never smoker Exam/Review of Systems Vital Signs Vitals Vital Signs Date Time Temp Pulse Resp B/P Pulse Ox O2 Delivery O2 Flow Rate FiO2 02/04/17 19:35 97.5 67 20 108/58 97 02/03/17 21:00 Room Air Intake and Output 02/03/17 02/03/17 02/04/17 15:00 23:00 07:00 Intake Total 550 ml 820 ml Balance 550 ml 820 ml Exam Constitutional: alert, oriented, well developed Head: atraumatic, normocephalic Eyes: EOMI, PERRL Respiratory: clear to auscultation Cardiovascular: nl pulses, regular rate and rhythm Gastrointestinal: non-tender, soft Musculoskeletal: other (maxwell lower ext erythema, ulcer, tenderness and blackish skin changes on segura) Labs Result Diagram: 02/04/17 0500 02/04/17 0519 Medications Medications Current Medications Ascorbic Acid (Vitamin C) 500 mg DAILY PO Last administered on 02/04/17t 10:42 ; Admin Dose 500 MG; Start 02/04/17 at 09:00 Ferrous Sulfate (Ferrous Sulfate (Ec)) 325 mg DAILY PO Last administered on 10:42; Admin Dose 325 MG; Start 02/04/17 at 09:00 Furosemide (Lasix) 40 mg DAILY PO Last administered on 02/04/17 10:42; Admin Dose 40 MG; Start 02/04/17 at 09:00 Gabapentin (Neurontin) 300 mg TID PO Last administered on 02/04/17 21:30; Admin Dose 300 MG; Start 02/04/17 at 09:00 Latanoprost (Xalatan) 1 drop QHS BOTH EYES Last administered on 02/04/17 21:30 ; Admin Dose 1 DROP; Start 02/04/17 at 21:00 Lisinopril (Zestril) 20 mg DAILY PO Last administered on 02/04/17 10:41; Admin Dose 20 MG; Start 02/04/17 at 09:00 Magnesium Hydroxide (Milk Of Mag) 30 ml Q24H PO Last administered on 02/04/17 00:16; Admin Dose 30 ML; Start 02/03/17 at 23:00 Metoprolol Succinate (Toprol Xl) 100 mg DAILY PO Last administered on 10:41; Admin Dose 100 MG; Start 02/04/17 at 09:00 Nifedipine (Procardia Xl) 90 mg DAILY PO Last administered on 02/04/17 10:40; Admin Dose 90 MG; Start 02/04/17 at 09:00 Nystatin 1 applic Q8 TOP Last administered on 02/04/17 21:58; Admin Dose 1 APPLIC; Start 02/04/17 at 06:00 Insulin Glargine (Lantus) 10 unit DAILY@08 SC ; Start 02/04/17 at 08:00 Ondansetron HCl 4 mg 4 mg Q6H PRN IV NAUSEA AND/OR VOMITING; Start 02/03/17 at 23:30 Cefepime HCl (Maxipime 1gm/50 ml (Pmx)) 50 ml @ 100 mls/hr Q12 IVPB Last administered on 02/04/17 21:29; Admin Dose 100 MLS/HR; Start 02/04/17 at 09:00 Diagnostic Test (Pha) (Accu-Chek) 1 ea 02 XX ; Start 02/04/17 at 02:00 Acetaminophen (Tylenol Tab) 650 mg Q6H PRN PO PAIN AND OR ELEVATED TEMP; Start 02/03/17 at 23:30 Morphine Sulfate (morphine) 4 mg Q4H PRN IV PAIN Last administered on 08:58; Admin Dose 4 MG; Start 02/04/17 at 02:00 Acetaminophen/ Hydrocodone Bitart ([place] (10/325)) 1 tab Q4H PRN PO PAIN Last administered on 02/04/17 12:30; Admin Dose 1 TAB; Start 02/04/17 at 02:00 Miscellaneous Information 1 ea NOTE XX ; Start 02/04/17 at 02:00 Glucose (Glutose) 15 gm Q15M PRN PO DECREASED GLUCOSE; Start 02/04/17 at 02:00 Glucose (Glutose) 22.5 gm Q15M PRN PO DECREASED GLUCOSE; Start 02/04/17 at 02: 00 Dextrose (D50w Syringe) 25 ml Q15M PRN IV DECREASED GLUCOSE; Start 02/04/17 at 02:00 Dextrose (D50w Syringe) 50 ml Q15M PRN IV DECREASED GLUCOSE; Start 02/04/17 at 02:00 Glucagon (Glucagen) 1 mg Q15M PRN IM DECREASED GLUCOSE; Start 02/04/17 at 02:00 Glucose (Glutose) 15 gm Q15M PRN BUCCAL DECREASED GLUCOSE; Start 02/04/17 at 02 :00 Miscellaneous Information This patient humphries... PRN PRN XX WOUND CARE; Start 02/04 at 02:30 Vancomycin HCl/ Sodium Chloride (Vancocin/NS) 250 ml @ 83.333 mls/ hr Q24H IVPB ; Start 02/05/17 at 03:00 Enoxaparin Sodium (Lovenox) 40 mg DAILY@15 SC ; Start 02/04/17 at 15:00 Patient Own Medication 1 ea DAILY BOTH EYES ; Start 02/05/17 at 21:00; Status UNV Miscellaneous Information (*Order Clarification Bulletin) LUMIGAN DROPS: PLEASE ASK FAMILY... Q8H XX ; Start 02/04/17 at 17:30 FAHAD ROGER MD Feb 04, 2017 22:29
[2017-02-05] MEDS: [UNRECOGNIZED DRUG - REMARK] XX SCH ×3 (01:30→17:30)
[2017-02-05] MEDS: ACCU-CHEK XX SCH (02:00)
[2017-02-05 02:34] VITALS: BP 140/63; RESP 20
[2017-02-05] MEDS ORDERED: VANCOMYCIN 1.5 GM in SOD CHLORIDE 0.9% 250 ML IVPB SCH (03:00)
[2017-02-05] MEDS: NYSTATIN 15 GM POWDER BTL TOP SCH ×3 (05:11→21:29)
[2017-02-05 05:34] LABS: BASOPHIL # 0.1 10^3/ul (0.0-0.1); BASOPHILS % 1.3 % (0.0-2.0); EOSINOPHILS # 0.5 10^3/ul (0.0-0.5); EOSINOPHILS % 6.4 % (0.0-7.0); HEMATOCRIT 31.4 % (37.0-47.0); HEMOGLOBIN 9.4 g/dl (12.0-16.0); LYMPHOCYTES # 1.8 10^3/ul (0.8-2.9); LYMPHOCYTES % 23.8 % (15.0-51.0); MEAN CORPUSCULAR HEMOGLOBIN 23.9 pg (29.0-33.0); MEAN CORPUSCULAR HGB CONC 29.9 g/dl (32.0-37.0); MEAN CORPUSCULAR VOLUME 79.9 fl (82.0-101.0); MEAN PLATELET VOLUME 10.3 fl (7.4-10.4); MONOCYTE # 0.7 10^3/ul (0.3-0.9); MONOCYTES % 8.8 % (0.0-11.0); NEUTROPHILS % 59.4 % (39.0-77.0); PLATELET COUNT 306 10^3/UL (140-415); RED BLOOD COUNT 3.93 10^6/ul (4.20-5.40); RED CELL DISTRIBUTION WIDTH 17.5 % (11.5-14.5); WHITE BLOOD COUNT 7.6 10^3/ul (4.8-10.8)
[2017-02-05 06:04] LABS: CALCIUM 9.1 mg/dl (8.4-10.2); CREATININE 0.77 mg/dl (0.44-1.00); POTASSIUM 4.3 mmol/L (3.5-5.1)
--- NOTE | 2017-02-05 07:23 | RADRPT ---
PROCEDURE: XR Cervical Spine. CLINICAL INDICATION: Fall, pain TECHNIQUE: Supine portable AP, lateral and odontoid views of the cervical spine were performed. Th e images were reviewed on a PACS workstation. COMPARISON: None. FINDINGS: The exam is limited due to positioning. The shoulder partially obscures the upper cervical spine on the lateral view. There is loss of the normal cervical lordosis. The vertebral body alignment, height and osseous mineralization are see normal. There is severe C4-5, C5-6 disc height loss and endplate spondylosis. Multilevel facet arthrosis is noted. No acute fracture is identified. IMPRESSION: Straightening of the cervical lordosis. Severe C4-5, C5-6 degenerative disc disease. Limited exam. CT is recommended if clinically indicated. Physician Candy Date Time Electronically viewed and signed by Physician Candy on 02/05/2017 07:23 /
[2017-02-05] MEDS: INSULIN ASPART [NOVOLOG] 3 ML PEN SC SCH ×4 (07:30→21:00)
[2017-02-05 07:59] VITALS: BP 124/59; RESP 20
[2017-02-05] MEDS: INSULIN GLARGINE [LANtus] 3 ML PEN SC SCH (08:00)
--- NOTE | 2017-02-05 08:28 | RADRPT ---
PROCEDURE: XR thoracic Spine. CLINICAL INDICATION: Fall, pain TECHNIQUE: AP, and lateral views of the thoracic spine were obtained. COMPARISON: No prior studies are available for comparison. FINDINGS: Increase thoracic kyphosis and reverse S-shaped scoliosis are noted. There is grossly normal vertebral mineralization and alignment. Multilevel small anterior osteophytes and mild moderate disc height loss are visualized. The T8 vertebral body appears decreased in height. The lateral view is limited due to artifact from the ribs and motion. IMPRESSION: Moderate degenerative changes of the thoracic spine.. Probable T8 compression fracture, age indeterminate. The lateral view is limited. Physician Candy Date Time Electronically viewed and signed by Physician Candy on 02/05/2017 08:28 ANNE/
[2017-02-05] MEDS: GABAPENTIN 300 MG CAP PO SCH ×3 (08:56→21:06)
[2017-02-05] MEDS: FERROUS SULFATE (EC) 325 MG TAB PO SCH (08:57)
[2017-02-05] MEDS: FUROSEMIDE 40 MG TAB PO SCH (08:57)
[2017-02-05] MEDS: METOPROLOL (XL) 100 MG TAB PO SCH (08:57)
[2017-02-05] MEDS: ASCORBIC ACID 500 MG TAB PO SCH (08:58)
[2017-02-05] MEDS: LISINOPRIL 20 MG TAB PO SCH (08:58)
[2017-02-05] MEDS: NIFEdipine (XL) 90 MG TAB PO SCH (08:59)
[2017-02-05] MEDS: CEFEPIME 1GM/50 ML (PMX) 50 ML IVPB SCH ×2 (08:59→21:06)
[2017-02-05] MEDS: morphine 4 MG/ML VIAL IV PRN ×2 (09:02→18:59)
--- NOTE | 2017-02-05 14:00 | PN ---
Date/Time of Note Date/Time of Note DATE: 02/05/17 TIME: 13:57 Assessment/Plan VTE Prophylaxis VTE Prophylaxis Intervention: LMWH Lines/Catheters IV Catheter Type (from Nrsg): Saline Lock Assessment/Plan Assessment/Plan 1. Bilateral lower extremity venous insufficiency with stasis dermatitis and ulcers, with cellulitis, on cefepime and vancomycin 2. Peripheral vascular disease. follow up with vascular 3. Diabetes. on insulin, stable 4. Hypertension, stable 5. Patient had DVT on lower extremity 4 years ago that she was taking eliquis but she has stopped it for 4 weeks 6. Recent fall with back pain, spinal x-ray 7. Glaucoma, on eye drops 8. Bilateral knee pain, likely osteoarthritis, x-ray 9. T8 possible mild compression fracture, pain management and PT 10. DVT prophylaxis: lovenox Subjective 24 Hr Interval Summary Free Text/Dictation knee pain on both side Exam/Review of Systems Vital Signs Vitals Vital Signs Date Time Temp Pulse Resp B/P Pulse Ox O2 Delivery O2 Flow Rate FiO2 02/05/17 07:59 97.8 62 20 124/59 95 02/03/17 21:00 Room Air Intake and Output 02/04/17 02/04/17 02/05/17 15:00 23:00 07:00 Intake Total 50 ml 1050 ml 360 ml Balance 50 ml 1050 ml 360 ml Exam Constitutional: alert, obese, oriented, well developed Head: atraumatic, normocephalic Eyes: EOMI, PERRL, nl conjunctiva, nl lids ENMT: nl external ears & nose, nl lips & teeth, nl nasal mucosa & septum Neck: non-tender, supple Respiratory: clear to auscultation, normal air movement, No congested cough, No crackles/rales, No diminished breath sounds, No intercostal retraction, No labored breathing, No other, No respirations, No tactile fremitus, No wheezing Cardiovascular: nl pulses, regular rate and rhythm, No S3, No S4, No bruits, No diastolic murmur, No edema, No gallop, No irregular rhythm, No jugular venous distention (JVD), No murmurs/extra sounds, No other, No rub, No systolic murmur Gastrointestinal: nl liver, spleen, non-tender, soft, No ascites, No bowel sounds, No distended, No firm, No hepatomegaly, No mass , No other, No rebound or guarding, No splenomegaly, No surgical scars, No tender Extremities: normal pulses, other (bilateral lower extremity wounds) Neurological: RECYCLING MANAGER II-XII intact, nl mental status, nl speech, nl strength Skin: nl turgor Results Result Diagram: 02/05/17 0451 02/05/17 0451 Results 24 hrs Laboratory Tests Test 02/04/17 17:30 02/04/17 21:28 02/05/17 04:51 02/05/17 07:57 Bedside Glucose 128 87 98 White Blood Count 7.6 Red Blood Count 3.93 L Hemoglobin 9.4 L Hematocrit 31.4 L Mean Corpuscular Volume 79.9 L Mean Corpuscular Hemoglobin 23.9 L Mean Corpuscular Hemoglobin Concent 29.9 L Red Cell Distribution Width 17.5 H Platelet Count 306 Mean Platelet Volume 10.3 Neutrophils % 59.4 Lymphocytes % 23.8 Monocytes % 8.8 Eosinophils % 6.4 Basophils % 1.3 Nucleated Red Blood Cells % 0.0 Neutrophils # (Manual) 4.5 Lymphocytes # 1.8 Monocytes # 0.7 Eosinophils # 0.5 Basophils # 0.1 Nucleated Red Blood Cells # 0.0 Sodium Level 136 Potassium Level 4.3 Chloride Level 103 Carbon Dioxide Level 30 Anion Gap 7 L Blood Urea Nitrogen 27 H Creatinine 0.77 Glucose Level 96 Calcium Level 9.1 Test 02/05/17 11:38 Bedside Glucose 108 Medications Medications Current Medications Ascorbic Acid (Vitamin C) 500 mg DAILY PO Last administered on 02/05/17 08:58 ; Admin Dose 500 MG; Start 02/04/17 at 09:00 Ferrous Sulfate (Ferrous Sulfate (Ec)) 325 mg DAILY PO Last administered on 08:57; Admin Dose 325 MG; Start 02/04/17 at 09:00 Furosemide (Lasix) 40 mg DAILY PO Last administered on 02/05/17 08:57; Admin Dose 40 MG; Start 02/04/17 at 09:00 Gabapentin (Neurontin) 300 mg TID PO Last administered on 02/05/17 13:14; Admin Dose 300 MG; Start 02/04/17 at 09:00 Latanoprost (Xalatan) 1 drop QHS BOTH EYES Last administered on 02/04/17 21:30 ; Admin Dose 1 DROP; Start 02/04/17 at 21:00 Lisinopril (Zestril) 20 mg DAILY PO Last administered on 02/05/17 08:58; Admin Dose 20 MG; Start 02/04/17 at 09:00 Magnesium Hydroxide (Milk Of Mag) 30 ml Q24H PO Last administered on 02/04/17 23:29; Admin Dose 30 ML; Start 02/03/17 at 23:00 Metoprolol Succinate (Toprol Xl) 100 mg DAILY PO Last administered on 08:57; Admin Dose 100 MG; Start 02/04/17 at 09:00 Nifedipine (Procardia Xl) 90 mg DAILY PO Last administered on 02/05/17 08:59; Admin Dose 90 MG; Start 02/04/17 at 09:00 Nystatin 1 applic Q8 TOP Last administered on 02/05/17 05:11; Admin Dose 1 APPLIC; Start 02/04/17 at 06:00 Insulin Glargine (Lantus) 10 unit DAILY@08 SC ; Start 02/04/17 at 08:00 Ondansetron HCl 4 mg 4 mg Q6H PRN IV NAUSEA AND/OR VOMITING; Start 02/03/17 at 23:30 Cefepime HCl (Maxipime 1gm/50 ml (Pmx)) 50 ml @ 100 mls/hr Q12 IVPB Last administered on 02/05/17 08:59; Admin Dose 100 MLS/HR; Start 02/04/17 at 09:00 Diagnostic Test (Pha) (Accu-Chek) 1 ea 02 XX ; Start 02/04/17 at 02:00 Acetaminophen (Tylenol Tab) 650 mg Q6H PRN PO PAIN AND OR ELEVATED TEMP; Start 02/03/17 at 23:30 Morphine Sulfate (morphine) 4 mg Q4H PRN IV PAIN Last administered on 09:02; Admin Dose 4 MG; Start 02/04/17 at 02:00 Acetaminophen/ Hydrocodone Bitart ([place] (10/325)) 1 tab Q4H PRN PO PAIN Last administered on 02/04/17 12:30; Admin Dose 1 TAB; Start 02/04/17 at 02:00 Miscellaneous Information 1 ea NOTE XX ; Start 02/04/17 at 02:00 Glucose (Glutose) 15 gm Q15M PRN PO DECREASED GLUCOSE; Start 02/04/17 at 02:00 Glucose (Glutose) 22.5 gm Q15M PRN PO DECREASED GLUCOSE; Start 02/04/17 at 02: 00 Dextrose (D50w Syringe) 25 ml Q15M PRN IV DECREASED GLUCOSE; Start 02/04/17 at 02:00 Dextrose (D50w Syringe) 50 ml Q15M PRN IV DECREASED GLUCOSE; Start 02/04/17 at 02:00 Glucagon (Glucagen) 1 mg Q15M PRN IM DECREASED GLUCOSE; Start 02/04/17 at 02:00 Glucose (Glutose) 15 gm Q15M PRN BUCCAL DECREASED GLUCOSE; Start 02/04/17 at 02 :00 Miscellaneous Information This patient humphries... PRN PRN XX WOUND CARE; Start 02/04 at 02:30 Vancomycin HCl/ Sodium Chloride (Vancocin/NS) 250 ml @ 83.333 mls/ hr Q24H IVPB Last administered on 02/05/17t 03:12; Admin Dose 83.333 MLS/HR; Start at 03:00 Enoxaparin Sodium (Lovenox) 40 mg DAILY@15 SC ; Start 02/04/17 at 15:00 Patient Own Medication 1 ea DAILY BOTH EYES ; Start 02/05/17 at 21:00; Status UNV Miscellaneous Information (*Order Clarification Bulletin) LUMIGAN DROPS: PLEASE ASK FAMILY... Q8H XX ; Start 02/04/17 at 17:30 KIMBERLY CARLSON MD Feb 05, 2017 14:00
--- NOTE | 2017-02-05 14:08 | RADRPT ---
PROCEDURE: XR Lumbar Spine. CLINICAL INDICATION: Back pain. TECHNIQUE: Three views. AP, lateral and cone-down lateral view of the lumbar spine were obtained. COMPARISON: No prior studies are available for comparison. FINDINGS: There is lumbar scoliosis convex left superiorly measuring 16 degrees between T10 and L2. There is lumbar scoliosis convex right inferiorly measuring 25 degrees between L3 and L5. There is no lytic or blastic lesion. There is no fracture or dislocation. There are degenerative changes with disc space narrowing and osteophytes throughout. IMPRESSION: 1. Scoliosis as described above. 2. Degenerative changes throughout. 3. No acute abnormality. RPTAT: QQ .Gerald Rey MD, MD Date Time Electronically viewed and signed by .Gerald Rey MD, MD on 02/05/2017 14:07 .R/
[2017-02-05 14:32] VITALS: BP 111/57; RESP 16
[2017-02-05] MEDS: ENOXAPARIN 40 MG/0.4 ML SYG SC SCH (15:21)
[2017-02-05 19:52] VITALS: BP 93/51; RESP 18
[2017-02-05] MEDS ORDERED: PATIENT'S OWN MEDICATION BOTH EYES SCH (21:00)
[2017-02-05] MEDS: LATANOPROST 0.005% 2.5 ML OPH BOTH EYES SCH (21:06)
[2017-02-05] MEDS: MAGNESIUM HYDROXIDE 30ML CUP PO SCH (22:29)
[2017-02-06] VITALS (10 sets, daily range): BP systolic 114–171; BP diastolic 55–89; PULSE 67–74; RESP 16–24
[2017-02-06] MEDS: morphine 4 MG/ML VIAL IV PRN ×3 (00:08→13:28)
[2017-02-06] MEDS: [UNRECOGNIZED DRUG - REMARK] XX SCH ×2 (01:25→09:30)
--- NOTE | 2017-02-06 01:42 | RADRPT ---
PROCEDURE: XR Chest. CLINICAL INDICATION: Preoperative evaluation. TECHNIQUE: Single frontal view of the chest. COMPARISON: Plain film chest dated 10/29/2016. FINDINGS: Cardiomegaly. Prominence of bilateral pulmonary arteries compatible with a degree of pulmonary arter y hypertension. Atherosclerotic calcifications in the tortuous thoracic aorta. Mild vascular crowdin g at bilateral lung bases, and pulmonary vascular markings are accentuated by patient body habitus a nd hypoinflated lungs. The lungs are otherwise clear. No signs of pleural fluid or pneumothorax are seen. The osseous structures and soft tissues are unremarkable. IMPRESSION: 1. Likely degree of pulmonary vascular hypertension. 2. Mild vascular crowding at bilateral lung bases. RPTAT: [facility] Physician Jolie Date Time Electronically viewed and signed by Physician Jolie on 02/06/2017 01:41 RS/
[2017-02-06] MEDS: ACCU-CHEK XX SCH (02:00)
--- NOTE | 2017-02-06 04:59 | CONS ---
DATE OF ADMISSION: 02/03/2017 DATE OF CONSULTATION: 02/06/2017 CONSULTING PHYSICIAN: Dr. Balta Herman. HISTORY OF PRESENT ILLNESS: The patient is a 76-year-old female who was admitted for failed outpatient antibiotic treatment for infected stasis dermatitis. The patient has a long history of stasis dermatitis, stasis ulcers, and cellulitis of both lower extremities and is attending the [facility]. She has been treated with elevation, bandages, and antibiotics when indicated. She is not perfectly compliant with elevation. PHYSICAL EXAMINATION: VITALS: On admission on 02/03/2017, the patient had a white count of 9800. She was afebrile. Her vital signs were stable. Her blood pressure is 93/51, pulse 54, temperature 98.6, and oxygen saturation 96 percent on room air. GENERAL: Reveals a morbidly obese, female, who is alert and cooperative. HEENT: The pupils are equal, round, and reactive to light. Extraocular movements are full. NECK: Supple. CHEST: Clear to auscultation. HEART: Regular without gallops, murmurs, or rubs. ABDOMEN: Obese, soft. No palpable organs. EXTREMITIES: Examination of the lower extremities reveal extensive connecting areas of granulation tissue with areas of necrotic tissue and slough on both lower extremities. There is +3 edema of both legs and feet. There is no foul odor. NEUROLOGIC: The patient can move all 4 extremities. Cranial nerves 2-12 are within normal limits. INITIAL IMPRESSION: 1. Cellulitis in both lower extremities. 2. Stasis ulcers in both legs. 3. Venous insufficiency, bilateral. 4. Morbid obesity. 5. Hypertension. RECOMMENDATIONS: Pending culture and MRSA, would begin treatment with cefazolin 1 gram IV q.8 h and change pending any other culture and sensitivity results. It would be appropriate to do so. Also, elevate the lower extremities 30 degrees and consider some judicious use of diuretic therapy and wet- to-dry saline bandages for removing slough. Thank you, Dr. Glass, for referring this patient to Dr. Herman. Dictated By: Sharonda Elizalde MD /bela/matteo /Document#: [id number]
[2017-02-06] MEDS: NYSTATIN 15 GM POWDER BTL TOP SCH ×3 (05:26→22:01)
[2017-02-06] MEDS ORDERED: CEFAZOLIN 1 GM/50 ML (PMX) 50 ML IVPB SCH (06:00)
[2017-02-06 06:42] LABS: ALBUMIN 3.1 g/dl (3.3-4.9); ALBUMIN/GLOBULIN RATIO 0.91; BILIRUBIN,INDIRECT 0.5 mg/dl (0-1.1); BILIRUBIN,TOTAL 0.5 mg/dl (0.2-1.3); CALCIUM 8.7 mg/dl (8.4-10.2); CREATININE 0.71 mg/dl (0.44-1.00); POTASSIUM 4.4 mmol/L (3.5-5.1); TOTAL PROTEIN 6.5 g/dl (6.1-8.1)
[2017-02-06] MEDS: INSULIN ASPART [NOVOLOG] 3 ML PEN SC SCH ×4 (07:30→20:55)
[2017-02-06] MEDS: INSULIN GLARGINE [LANtus] 3 ML PEN SC SCH (08:00)
[2017-02-06] MEDS: NIFEdipine (XL) 90 MG TAB PO SCH (09:00)
[2017-02-06] MEDS: ASCORBIC ACID 500 MG TAB PO SCH (09:00)
[2017-02-06] MEDS: LISINOPRIL 20 MG TAB PO SCH (09:00)
[2017-02-06] MEDS: METOPROLOL (XL) 100 MG TAB PO SCH (09:00)
[2017-02-06] MEDS: FUROSEMIDE 40 MG TAB PO SCH (09:00)
[2017-02-06] MEDS: FERROUS SULFATE (EC) 325 MG TAB PO SCH (09:00)
[2017-02-06] MEDS: GABAPENTIN 300 MG CAP PO SCH ×3 (09:00→20:54)
--- NOTE | 2017-02-06 12:04 | PN ---
Date/Time of Note Date/Time of Note DATE: 02/06/17 TIME: 12:00 Assessment/Plan VTE Prophylaxis VTE Prophylaxis Intervention: LMWH Lines/Catheters IV Catheter Type (from Nrsg): Saline Lock Assessment/Plan Assessment/Plan 1. Bilateral lower extremity venous insufficiency with stasis dermatitis and ulcers, with cellulitis, surgical debridement today, on antibiotics per ID 2. Severe pulmonary hypertension 3. Severe aortic stenosis, cardiology/surgery outpatient, discussed with patient and family 4. Peripheral vascular disease. follow up with vascular 5. Diabetes. on insulin, stable 6. Hypertension, stable 7. Patient had DVT on lower extremity 4 years ago that she was taking eliquis but she has stopped it for 4 weeks 8. Recent fall with back pain, spinal x-ray 9. Glaucoma, on eye drops 10. Bilateral knee pain, likely osteoarthritis, x-ray 11. T8 possible mild compression fracture, pain management and PT 12. Recent mechanical fall 13. DVT prophylaxis: lovenox Subjective 24 Hr Interval Summary Free Text/Dictation right knee pain Exam/Review of Systems Vital Signs Vitals Vital Signs Date Time Temp Pulse Resp B/P Pulse Ox O2 Delivery O2 Flow Rate FiO2 02/06/17 08:10 98.8 64 20 125/61 97 02/03/17 21:00 Room Air Intake and Output 02/05/17 02/05/17 02/06/17 15:00 23:00 07:00 Intake Total 100 ml 1110 ml 900 ml Balance 100 ml 1110 ml 900 ml Exam Constitutional: alert, obese, oriented, well developed Psych: nl mood/affect, no complaints Head: atraumatic, normocephalic Eyes: EOMI, PERRL, nl conjunctiva, nl lids, nl sclera ENMT: nl external ears & nose, nl lips & teeth, nl nasal mucosa & septum Neck: non-tender, supple Respiratory: clear to auscultation, normal air movement, No congested cough, No crackles/rales, No diminished breath sounds, No intercostal retraction, No labored breathing, No other, No respirations, No tactile fremitus, No wheezing Cardiovascular: nl pulses, regular rate and rhythm, No S3, No S4, No bruits, No diastolic murmur, No edema, No gallop, No irregular rhythm, No jugular venous distention (JVD), No murmurs/extra sounds, No other, No rub, No systolic murmur Gastrointestinal: nl liver, spleen, non-tender, soft, No ascites, No bowel sounds, No distended, No firm, No hepatomegaly, No mass , No other, No rebound or guarding, No splenomegaly, No surgical scars, No tender Musculoskeletal: nl extremities to inspection Extremities: other (bilateral lower extremity wounds) Neurological: COUNTY CORONER II-XII intact, nl mental status, nl speech, nl strength Results Result Diagram: 02/05/17 0451 02/06/17 0520 Results 24 hrs Laboratory Tests Test 02/05/17 17:06 02/05/17 21:10 02/06/17 05:20 02/06/17 07:55 Bedside Glucose 110 102 86 Sodium Level 134 L Potassium Level 4.4 Chloride Level 99 Carbon Dioxide Level 31 Anion Gap 8 Blood Urea Nitrogen 28 H Creatinine 0.71 Glucose Level 85 Calcium Level 8.7 Total Bilirubin 0.5 Direct Bilirubin 0.00 Indirect Bilirubin 0.5 Aspartate Amino Transf (AST/SGOT) 17 Alanine Aminotransferase (ALT/SGPT) 22 Alkaline Phosphatase 63 Total Protein 6.5 Albumin 3.1 L Globulin 3.40 H Albumin/Globulin Ratio 0.91 Medications Medications Current Medications Ascorbic Acid (Vitamin C) 500 mg DAILY PO Last administered on 02/05/17 08:58 ; Admin Dose 500 MG; Start 02/04/17 at 09:00 Ferrous Sulfate (Ferrous Sulfate (Ec)) 325 mg DAILY PO Last administered on 08:57; Admin Dose 325 MG; Start 02/04/17 at 09:00 Furosemide (Lasix) 40 mg DAILY PO Last administered on 02/05/17 08:57; Admin Dose 40 MG; Start 02/04/17 at 09:00 Gabapentin (Neurontin) 300 mg TID PO Last administered on 02/05/17 21:06; Admin Dose 300 MG; Start 02/04/17 at 09:00 Latanoprost (Xalatan) 1 drop QHS BOTH EYES Last administered on 02/05/17 21:06 ; Admin Dose 1 DROP; Start 02/04/17 at 21:00 Lisinopril (Zestril) 20 mg DAILY PO Last administered on 02/05/17 08:58; Admin Dose 20 MG; Start 02/04/17 at 09:00 Magnesium Hydroxide (Milk Of Mag) 30 ml Q24H PO Last administered on 02/05/17 22:29; Admin Dose 30 ML; Start 02/03/17 at 23:00 Metoprolol Succinate (Toprol Xl) 100 mg DAILY PO Last administered on 08:57; Admin Dose 100 MG; Start 02/04/17 at 09:00 Nifedipine (Procardia Xl) 90 mg DAILY PO Last administered on 02/05/17 08:59; Admin Dose 90 MG; Start 02/04/17 at 09:00 Nystatin 1 applic Q8 TOP Last administered on 02/06/17 05:26; Admin Dose 1 APPLIC; Start 02/04/17 at 06:00 Insulin Glargine (Lantus) 10 unit DAILY@08 SC ; Start 02/04/17 at 08:00 Ondansetron HCl (Zofran Inj) 4 mg Q6H PRN IV NAUSEA AND/OR VOMITING; Start 04/11 at 23:30 Diagnostic Test (Pha) (Accu-Chek) 1 ea 02 XX ; Start 02/04/17 at 02:00 Acetaminophen (Tylenol Tab) 650 mg Q6H PRN PO PAIN AND OR ELEVATED TEMP; Start 02/03/17 at 23:30 Morphine Sulfate (morphine) 4 mg Q4H PRN IV PAIN Last administered on 08:00; Admin Dose 4 MG; Start 02/04/17 at 02:00 Acetaminophen/ Hydrocodone Bitart ([place] (10/325)) 1 tab Q4H PRN PO PAIN Last administered on 02/04/17 12:30; Admin Dose 1 TAB; Start 02/04/17 at 02:00 Miscellaneous Information 1 ea NOTE XX ; Start 02/04/17 at 02:00 Glucose (Glutose) 15 gm Q15M PRN PO DECREASED GLUCOSE; Start 02/04/17 at 02:00 Glucose (Glutose) 22.5 gm Q15M PRN PO DECREASED GLUCOSE; Start 02/04/17 at 02: 00 Dextrose (D50w Syringe) 25 ml Q15M PRN IV DECREASED GLUCOSE; Start 02/04/17 at 02:00 Dextrose (D50w Syringe) 50 ml Q15M PRN IV DECREASED GLUCOSE; Start 02/04/17 at 02:00 Glucagon (Glucagen) 1 mg Q15M PRN IM DECREASED GLUCOSE; Start 02/04/17 at 02:00 Glucose (Glutose) 15 gm Q15M PRN BUCCAL DECREASED GLUCOSE; Start 02/04/17 at 02 :00 Miscellaneous Information (Pending [facility] Order For Wound Care) This patient humphries... PRN PRN XX WOUND CARE; Start 02/04/17 at 02:30 Enoxaparin Sodium (Lovenox) 40 mg DAILY@15 SC Last administered on 02/05/17 15 :21; Admin Dose 40 MG; Start 02/04/17 at 15:00 Patient Own Medication 1 ea DAILY BOTH EYES ; Start 02/05/17 at 21:00; Status UNV Miscellaneous Information LUMIGAN DROPS: PLEASE ASK FAMILY... Q8H XX ; Start 05/11 at 17:30 Cefazolin Sodium (Ancef 1 Gm/50 ml (Pmx)) 50 ml @ 100 mls/hr Q8 IVPB Last administered on 02/06/17 05:26; Admin Dose 100 MLS/HR; Start 02/06/17 at 06:00 ; Stop 02/20/17 at 12:00 KIMBERLY CARLSON MD Feb 06, 2017 12:04
[2017-02-06] MEDS: ENOXAPARIN 40 MG/0.4 ML SYG SC SCH (15:00)
--- NOTE | 2017-02-06 15:06 | RADRPT ---
PROCEDURE: XR Left Knee. CLINICAL INDICATION: Trauma due to a fall. Left knee pain. TECHNIQUE: Two views. Frontal and lateral. COMPARISON: No prior studies are available for comparison. FINDINGS: There is no fracture or dislocation. Vascular calcifications are present consistent with atherosclerosis. There are degenerative changes with osteophytes arising from all 3 joint compartment margins. There is medial joint compartment narrowing, subarticular sclerosis, and mild deformity. There is no lytic or blastic lesion. There is no radiopaque foreign body. IMPRESSION: 1. Atherosclerosis. 2. Moderate to severe degenerative changes. 3. Otherwise unremarkable images of the left knee. RPTAT: QQ .Gerald Rey MD, MD Date Time Electronically viewed and signed by .Gerald Rey MD, MD on 02/06/2017 15:06 .R/
--- NOTE | 2017-02-06 15:09 | RADRPT ---
PROCEDURE: Right knee radiographs. CLINICAL INDICATION: Right knee pain. TECHNIQUE: Two views. Frontal and lateral. COMPARISON: No prior studies are available for comparison. FINDINGS: There is no fracture or dislocation. The soft tissues are normal. There are degenerative changes with osteophytes arising from all 3 joint compartment margins. There is medial and lateral joint compartment narrowing. There is lateral joint compartment subarticular s clerosis. There is no lytic or blastic lesion. There is no joint effusion. IMPRESSION: 1. Moderate degenerative changes. 2. Otherwise unremarkable images of the right knee. RPTAT: QQ .Gerald Rey MD, MD Date Time Electronically viewed and signed by .Gerald Rey MD, on 02/06/2017 15:09 .R/
--- NOTE | 2017-02-06 15:10 | CONS ---
Date/Time of Note Date/Time of Note DATE: 02/06/17 TIME: 15:06 Assessment/Plan Assessment/Plan Chief Complaint/Hosp Course SUBJECTIVE DATA: No acute changes over night. Patient is awake, looks comfortable, afebrile, family at bedside. MICROBIOLOGY: Lower extremity wound culture 01/23 grew Pseudomonas aeruginosa, susceptible to all antibiotics. ALLERGIES: PENICILLIN. Abx: Ancef PHYSICAL EXAMINATION: GENERAL: Well-developed, obese, elderly woman, who is awake, in no distress. HEENT: Head atraumatic, normocephalic. Sclerae nonicteric. NECK: Supple. CHEST: Rise symmetrical. Breath sounds clear. HEART: S1, S2. ABDOMEN: Soft, bowel sounds present. EXTREMITIES: With bilateral lower extremity dressing intact. ASSESSMENT: 1. Bilateral lower extremities acute on chronic cellulitis with chronic venous stasis. 2. Peripheral vascular disease. 3. Diabetes. 4. Hypertension. PLAN: Clinically stable, change antibiotics to Cefepime, repeat wound cx, continue local wound care, vascular/podiatry rec-s. DW family at bedside Problems: Consultation Date/Type/Reason Admit Date/Time Feb 03, 2017 at 20:27 Initial Consult Date Type of Consultation: ID Exam/Review of Systems Vital Signs Vitals Vital Signs Date Time Temp Pulse Resp B/P Pulse Ox O2 Delivery O2 Flow Rate FiO2 02/06/17 14:42 98.4 57 20 134/58 98 02/03/17 21:00 Room Air Intake and Output 02/05/17 02/05/17 02/06/17 15:00 23:00 07:00 Intake Total 100 ml 1110 ml 900 ml Balance 100 ml 1110 ml 900 ml Results Result Diagram: 02/05/17 0451 02/06/17 0520 Results 24 hrs Laboratory Tests Test 02/05/17 17:06 02/05/17 21:10 02/06/17 05:20 02/06/17 07:55 Bedside Glucose 110 102 86 Sodium Level 134 L Potassium Level 4.4 Chloride Level 99 Carbon Dioxide Level 31 Anion Gap 8 Blood Urea Nitrogen 28 H Creatinine 0.71 Glucose Level 85 Calcium Level 8.7 Total Bilirubin 0.5 Direct Bilirubin 0.00 Indirect Bilirubin 0.5 Aspartate Amino Transf (AST/SGOT) 17 Alanine Aminotransferase (ALT/SGPT) 22 Alkaline Phosphatase 63 Total Protein 6.5 Albumin 3.1 L Globulin 3.40 H Albumin/Globulin Ratio 0.91 Test 02/06/17 12:11 Bedside Glucose 93 Medications Medications Current Medications Ascorbic Acid (Vitamin C) 500 mg DAILY PO Last administered on 02/05/17 08:58 ; Admin Dose 500 MG; Start 02/04/17 at 09:00 Ferrous Sulfate (Ferrous Sulfate (Ec)) 325 mg DAILY PO Last administered on 08:57; Admin Dose 325 MG; Start 02/04/17 at 09:00 Furosemide (Lasix) 40 mg DAILY PO Last administered on 02/05/17 08:57; Admin Dose 40 MG; Start 02/04/17 at 09:00 Gabapentin (Neurontin) 300 mg TID PO Last administered on 02/05/17 21:06; Admin Dose 300 MG; Start 02/04/17 at 09:00 Latanoprost (Xalatan) 1 drop QHS BOTH EYES Last administered on 02/05/17 21:06 ; Admin Dose 1 DROP; Start 02/04/17 at 21:00 Lisinopril (Zestril) 20 mg DAILY PO Last administered on 02/05/17 08:58; Admin Dose 20 MG; Start 02/04/17 at 09:00 Magnesium Hydroxide (Milk Of Mag) 30 ml Q24H PO Last administered on 02/05/17 22:29; Admin Dose 30 ML; Start 02/03/17 at 23:00 Metoprolol Succinate (Toprol Xl) 100 mg DAILY PO Last administered on 08:57; Admin Dose 100 MG; Start 02/04/17 at 09:00 Nifedipine (Procardia Xl) 90 mg DAILY PO Last administered on 02/05/17 08:59; Admin Dose 90 MG; Start 02/04/17 at 09:00 Nystatin 1 applic Q8 TOP Last administered on 02/06/17 05:26; Admin Dose 1 APPLIC; Start 02/04/17 at 06:00 Insulin Glargine (Lantus) 10 unit DAILY@08 SC ; Start 02/04/17 at 08:00 Ondansetron HCl (Zofran Inj) 4 mg Q6H PRN IV NAUSEA AND/OR VOMITING; Start 04/11 at 23:30 Diagnostic Test (Pha) (Accu-Chek) 1 ea 02 XX ; Start 02/04/17 at 02:00 Acetaminophen (Tylenol Tab) 650 mg Q6H PRN PO PAIN AND OR ELEVATED TEMP; Start 02/03/17 at 23:30 Morphine Sulfate (morphine) 4 mg Q4H PRN IV PAIN Last administered on 13:28; Admin Dose 4 MG; Start 02/04/17 at 02:00 Acetaminophen/ Hydrocodone Bitart ([place] (10/325)) 1 tab Q4H PRN PO PAIN Last administered on 02/04/17 12:30; Admin Dose 1 TAB; Start 02/04/17 at 02:00 Miscellaneous Information 1 ea NOTE XX ; Start 02/04/17 at 02:00 Glucose (Glutose) 15 gm Q15M PRN PO DECREASED GLUCOSE; Start 02/04/17 at 02:00 Glucose (Glutose) 22.5 gm Q15M PRN PO DECREASED GLUCOSE; Start 02/04/17 at 02: 00 Dextrose (D50w Syringe) 25 ml Q15M PRN IV DECREASED GLUCOSE; Start 02/04/17 at 02:00 Dextrose (D50w Syringe) 50 ml Q15M PRN IV DECREASED GLUCOSE; Start 02/04/17 at 02:00 Glucagon (Glucagen) 1 mg Q15M PRN IM DECREASED GLUCOSE; Start 02/04/17 at 02:00 Glucose (Glutose) 15 gm Q15M PRN BUCCAL DECREASED GLUCOSE; Start 02/04/17 at 02 :00 Miscellaneous Information (Pending Santyl Order For Wound Care) This patient humphries... PRN PRN XX WOUND CARE; Start 02/04/17 at 02:30 Enoxaparin Sodium (Lovenox) 40 mg DAILY@15 SC Last administered on 02/05/17 15 :21; Admin Dose 40 MG; Start 02/04/17 at 15:00 Patient Own Medication 1 ea DAILY BOTH EYES ; Start 02/05/17 at 21:00; Status UNV Miscellaneous Information LUMIGAN DROPS: PLEASE ASK FAMILY... Q8H XX ; Start 05/11 at 17:30 Cefazolin Sodium (Ancef 1 Gm/50 ml (Pmx)) 50 ml @ 100 mls/hr Q8 IVPB Last administered on 02/06/17 05:26; Admin Dose 100 MLS/HR; Start 02/06/17 at 06:00 ; Stop 02/20/17 at 12:00 ALECIA SOTELO NP Feb 06, 2017 15:10
--- NOTE | 2017-02-06 16:45 | HPN ---
Date/Time of Note Date/Time of Note DATE: 02/06/17 TIME: 16:45 Interval H&P Admission Note Pt. seen H&P reviewed: No system changes ERIN BLACKBURN MD Feb 06, 2017 16:45
[2017-02-06] MEDS ORDERED: MIDAZOLAM 1 MG/ML 2 ML INJ ONE (16:54)
[2017-02-06] MEDS ORDERED: LIDOCAINE 2% (SDV) 5 ML INJ ONE (17:34)
[2017-02-06] MEDS ORDERED: ETOMIDATE 20 MG INJ ONE (17:34)
[2017-02-06] MEDS ORDERED: CEFAZOLIN 1 GM INJ ONE (17:34)
[2017-02-06] MEDS ORDERED: ONDANSETRON 4 MG INJ ONE (17:34)
[2017-02-06] MEDS ORDERED: FENTAnyl 50 MCG/ML VIAL ONE (17:42)
[2017-02-06] MEDS: morphine (1 MG/ML) 10ML SYRINGE IV PRN ×3 (17:54→18:17)
[2017-02-06] MEDS: FENTAnyl 50 MCG/ML VIAL IV PRN ×2 (17:54→18:16)
[2017-02-06] MEDS ORDERED: DIPHENHYDRAMINE 50 MG INJ IV PRN (18:00)
[2017-02-06] MEDS ORDERED: MEPERIDINE 25 MG INJ IV PRN (18:00)
[2017-02-06] MEDS ORDERED: ONDANSETRON 4 MG INJ IV PRN (18:00)
--- NOTE | 2017-02-06 18:01 | SIPON ---
Date/Time of Note Date/Time of Note DATE: 02/06/17 TIME: 17:42 Operative Report Preoperative Diagnosis BILATERAL LOWER EXTREMITY ULCERS Postoperative Diagnosis SAME Operation/Procedure Performed RLE DEBRIDEMENT AND AMNIOTIC TISSUE GRAFT APPLICATION Surgeon see signature line Anesthesia Type: MAC Estimated Blood Loss: minimal Transfusion Required: no Specimen: none Grafts/Implants AMNIOTIC TISSUE Complications: no ERIN BLACKBURN MD Feb 06, 2017 18:01
--- NOTE | 2017-02-06 20:19 | OPR ---
DATE OF OPERATION: 02/06/2017 PREOPERATIVE DIAGNOSIS: Bilateral lower extremity nonhealing ulcers and venous insufficiency. POSTOPERATIVE DIAGNOSIS: Bilateral lower extremity nonhealing ulcers and venous insufficiency. OPERATION PERFORMED: 1. Right lower extremity sharp excisional debridement of multiple ulcers, greatest measuring 8 x 4 x 1 cm. 2. Application of amniotic tissue application measuring 7 x 6 cm (Amniofix). 3. Application of 1 g of amniotic tissue powder (Amniofill). INDICATIONS: This is a 76-year-old female, whom has had history of bilateral lower extremity arterial venous insufficiency. As of recent the patient had undergone a CO2 angiography that identified patient having severe infrapopliteal disease. However, having inline flow from the common femoral artery all the way down to the ankle via 1 tibial vessel that is intact. However, the patient does have reflux and venous insufficiency bilateral lower extremities that she has had history of bilateral lipodermatosclerosis, telangiectasias, varicose veins and spider veins. Further, the patient has had chronic lower extremity edema and ulcers that have been gradually improving with leg elevation and compression dressings. However, the patient has had history of noncompliance and at times has had issues with her wound is slowly progressing. Risks and benefits, and alternatives were discussed with the patient, including but not limited to, , stroke, [place], heart attack, infection, bleeding, nerve injury, limb loss, re-debridement and patient has agreed to proceed. OPERATIVE PROCEDURE: The patient was brought into the operative table, placed in supine position. Preop antibiotics were given. The patient's lower extremities were marked and confirmed. The right lower extremity was then draped and prepped in the usual standard sterile fashion. Using sharp scissors and number 15 scalpel, debridement of multiple necrotic ulcers of the right lower extremity were performed. These ulcers were on the anterolateral and anteromedial aspect of the segura measuring 1.5 x 1.5 cm in the largest was in the back of the lower leg around the Achilles and the heel where it measured 5 x 3 x 1 cm. Once we had removed all the necrotic fibrinous tissue with a sharp excisional debridement. An adequate rebleeding was generated. We went ahead and applied Amniofill 1 g amniotic tissue powder. Once this was applied we went ahead and applied amniotic Amniofix 67 x 6 cm amniotic tissue and once this was completed, we went ahead and placed Adaptic with Hydrogel. This was then covered by sterile dressing, Kerlix and Meliton wrap. The patient tolerated procedure well, was taken to the postanesthesia care unit in stable condition. All instrument, sponge, needle counts were correct times 2. ANESTHESIA: LMA. ESTIMATED BLOOD LOSS: Minimal. COMPLICATIONS: None. GRAFTS: As recorded in the dictation. PLAN: We will plan to remove the dressing in about 5-7 days. From a Vascular Surgery standpoint, the patient will require to be on IV antibiotics for another 4-5 days as the patient did not improve on p.o. antibiotics when she was discharged. Dictated By: Matt aRi MD /bela/jessica /Document#: [id number]
[2017-02-06] MEDS: CEFEPIME 1GM/50 ML (PMX) 50 ML IVPB SCH (20:54)
[2017-02-06] MEDS: LATANOPROST 0.005% 2.5 ML OPH BOTH EYES SCH (21:04)
[2017-02-06] MEDS: SENNA TAB PO SCH (22:22)
[2017-02-06] MEDS ORDERED: BISACODYL 10 MG SUPP PR ONE (22:30)
[2017-02-06] MEDS: MAGNESIUM HYDROXIDE 30ML CUP PO SCH (23:02)
[2017-02-07] MEDS: LACTULOSE 30ML CUP PO SCH ×4 (00:04→17:56)
[2017-02-07] MEDS: [UNRECOGNIZED DRUG - REMARK] XX SCH (01:30)
[2017-02-07] MEDS: morphine 4 MG/ML VIAL IV PRN ×4 (01:46→22:03)
[2017-02-07] MEDS: ACCU-CHEK XX SCH (01:52)
[2017-02-07 02:45] VITALS: BP 136/62; RESP 16
[2017-02-07] MEDS: NYSTATIN 15 GM POWDER BTL TOP SCH ×3 (06:03→22:05)
[2017-02-07 06:59] LABS: BASOPHIL # 0.1 10^3/ul (0.0-0.1); BASOPHILS % 0.7 % (0.0-2.0); EOSINOPHILS # 0.3 10^3/ul (0.0-0.5); EOSINOPHILS % 2.9 % (0.0-7.0); HEMOGLOBIN 10.9 g/dl (12.0-16.0); LYMPHOCYTES # 2.2 10^3/ul (0.8-2.9); LYMPHOCYTES % 24.8 % (15.0-51.0); MEAN CORPUSCULAR HEMOGLOBIN 24.7 pg (29.0-33.0); MEAN CORPUSCULAR HGB CONC 30.3 g/dl (32.0-37.0); MEAN CORPUSCULAR VOLUME 81.4 fl (82.0-101.0); MEAN PLATELET VOLUME 10.5 fl (7.4-10.4); MONOCYTE # 0.6 10^3/ul (0.3-0.9); NEUTROPHIL # 5.7 10^3/ul (1.6-7.5); NEUTROPHILS % 64.3 % (39.0-77.0); PLATELET COUNT 372 10^3/UL (140-415); RED BLOOD COUNT 4.42 10^6/ul (4.20-5.40); WHITE BLOOD COUNT 8.9 10^3/ul (4.8-10.8)
[2017-02-07 07:25] VITALS: BP 121/59; RESP 16
[2017-02-07 07:25] LABS: CALCIUM 9.2 mg/dl (8.4-10.2); CREATININE 0.7 mg/dl (0.44-1.00); POTASSIUM 4.4 mmol/L (3.5-5.1)
[2017-02-07] MEDS: INSULIN ASPART [NOVOLOG] 3 ML PEN SC SCH ×4 (07:30→21:00)
[2017-02-07] MEDS: SENNA TAB PO SCH ×2 (08:57→20:52)
[2017-02-07] MEDS: GABAPENTIN 300 MG CAP PO SCH ×3 (08:58→20:52)
[2017-02-07] MEDS: ASCORBIC ACID 500 MG TAB PO SCH (08:58)
[2017-02-07] MEDS: CEFEPIME 1GM/50 ML (PMX) 50 ML IVPB SCH ×2 (08:58→20:52)
[2017-02-07] MEDS: NIFEdipine (XL) 90 MG TAB PO SCH ×2 (08:58→09:18)
[2017-02-07] MEDS: FUROSEMIDE 40 MG TAB PO SCH (08:58)
[2017-02-07] MEDS: METOPROLOL (XL) 100 MG TAB PO SCH (08:59)
[2017-02-07] MEDS: LISINOPRIL 20 MG TAB PO SCH (08:59)
[2017-02-07] MEDS: INSULIN GLARGINE [LANtus] 3 ML PEN SC SCH ×2 (09:01→09:18)
[2017-02-07] MEDS: FERROUS SULFATE (EC) 325 MG TAB PO SCH (09:06)
[2017-02-07 14:06] VITALS: BP 99/52; RESP 18
--- NOTE | 2017-02-07 16:28 | PN ---
Date/Time of Note Date/Time of Note DATE: 02/07/17 TIME: 16:26 Assessment/Plan VTE Prophylaxis VTE Prophylaxis Intervention: LMWH Lines/Catheters IV Catheter Type (from Nrsg): [place] Assessment/Plan Assessment/Plan 1. Bilateral lower extremity venous insufficiency with stasis dermatitis and ulcers, with cellulitis, surgical debridement 02/06/2017, on antibiotics per ID 2. Severe pulmonary hypertension 3. Severe aortic stenosis, cardiology/surgery outpatient, discussed with patient and family 4. Peripheral vascular disease. follow up with vascular 5. Diabetes. on insulin, stable 6. Hypertension, stable 7. Patient had DVT on lower extremity 4 years ago that she was taking eliquis but she has stopped it for 4 weeks 8. Recent fall with back pain, spinal x-ray 9. Glaucoma, on eye drops 10. Bilateral knee pain, osteoarthritis, no fracture on x-ray 11. T8 possible mild compression fracture, pain management and PT 12. Recent mechanical fall 13. DVT prophylaxis: lovenox Subjective 24 Hr Interval Summary Free Text/Dictation afebrile Exam/Review of Systems Vital Signs Vitals Vital Signs Date Time Temp Pulse Resp B/P Pulse Ox O2 Delivery O2 Flow Rate FiO2 02/07/17 14:06 98.2 64 18 99/52 97 02/06/17 18:12 Room Air Intake and Output 02/06/17 02/06/17 02/07/17 15:00 23:00 07:00 Intake Total 250 ml 950 ml Output Total 510 ml Balance -260 ml 950 ml Exam Constitutional: alert, obese, oriented, well developed Psych: nl mood/affect, no complaints Head: atraumatic, normocephalic Eyes: EOMI, PERRL, nl conjunctiva, nl lids ENMT: nl external ears & nose, nl lips & teeth, nl nasal mucosa & septum Neck: non-tender, supple Respiratory: clear to auscultation, normal air movement, No congested cough, No crackles/rales, No diminished breath sounds, No intercostal retraction, No labored breathing, No other, No respirations, No tactile fremitus, No wheezing Cardiovascular: nl pulses, regular rate and rhythm, No S3, No S4, No bruits, No diastolic murmur, No edema, No gallop, No irregular rhythm, No jugular venous distention (JVD), No murmurs/extra sounds, No other, No rub, No systolic murmur Gastrointestinal: nl liver, spleen, non-tender, soft, No ascites, No bowel sounds, No distended, No firm, No hepatomegaly, No mass , No other, No rebound or guarding, No splenomegaly, No surgical scars, No tender Musculoskeletal: nl extremities to inspection Extremities: other (wounds on lower extremities) 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, nl mental status, nl speech, nl strength Results Result Diagram: 02/07/1754202/07/17542 Results 24 hrs Laboratory Tests Test 02/06/17 20:53 02/07/17 05:43 02/07/17 08:05 02/07/17 11:41 Bedside Glucose 113 100 88 White Blood Count 8.9 Red Blood Count 4.42 Hemoglobin 10.9 L Hematocrit 36.0 L Mean Corpuscular Volume 81.4 L Mean Corpuscular Hemoglobin 24.7 L Mean Corpuscular Hemoglobin Concent 30.3 L Red Cell Distribution Width 17.0 H Platelet Count 372 # Mean Platelet Volume 10.5 H Neutrophils % 64.3 Lymphocytes % 24.8 Monocytes % 7.0 Eosinophils % 2.9 Basophils % 0.7 Nucleated Red Blood Cells % 0.0 Neutrophils # 5.7 Lymphocytes # 2.2 Monocytes # 0.6 Eosinophils # 0.3 Basophils # 0.1 Nucleated Red Blood Cells # 0.0 Sodium Level 135 Potassium Level 4.4 Chloride Level 99 Carbon Dioxide Level 30 Anion Gap 10 Blood Urea Nitrogen 22 H Creatinine 0.70 Glucose Level 95 Calcium Level 9.2 Medications Medications Current Medications Ascorbic Acid (Vitamin C) 500 mg DAILY PO Last administered on 02/07/17 08:58 ; Admin Dose 500 MG; Start 02/04/17 at 09:00 Ferrous Sulfate (Ferrous Sulfate (Ec)) 325 mg DAILY PO Last administered on 09:06; Admin Dose 325 MG; Start 02/04/17 at 09:00 Furosemide (Lasix) 40 mg DAILY PO Last administered on 02/07/17 08:58; Admin Dose 40 MG; Start 02/04/17 at 09:00 Gabapentin (Neurontin) 300 mg TID PO Last administered on 02/07/17 13:22; Admin Dose 300 MG; Start 02/04/17 at 09:00 Latanoprost (Xalatan) 1 drop QHS BOTH EYES Last administered on 02/06/17 21:04 ; Admin Dose 1 DROP; Start 02/04/17 at 21:00 Lisinopril (Zestril) 20 mg DAILY PO Last administered on 02/07/17 08:59; Admin Dose 20 MG; Start 02/04/17 at 09:00 Magnesium Hydroxide (Milk Of Mag) 30 ml Q24H PO Last administered on 02/06/17 23:02; Admin Dose 30 ML; Start 02/03/17 at 23:00 Metoprolol Succinate (Toprol Xl) 100 mg DAILY PO Last administered on 08:59; Admin Dose 100 MG; Start 02/04/17 at 09:00 Nifedipine (Procardia Xl) 90 mg DAILY PO Last administered on 02/07/17 08:58; Admin Dose 90 MG; Start 02/04/17 at 09:00 Nystatin 1 applic Q8 TOP Last administered on 02/07/17 06:03; Admin Dose 1 APPLIC; Start 02/04/17 at 06:00 Insulin Glargine (Lantus) 10 unit DAILY@08 SC ; Start 02/04/17 at 08:00 Ondansetron HCl (Zofran Inj) 4 mg Q6H PRN IV NAUSEA AND/OR VOMITING; Start 04/11 at 23:30 Diagnostic Test (Pha) (Accu-Chek) 1 ea 02 XX ; Start 02/04/17 at 02:00 Acetaminophen (Tylenol Tab) 650 mg Q6H PRN PO PAIN AND OR ELEVATED TEMP; Start 02/03/17 at 23:30 Morphine Sulfate (morphine) 4 mg Q4H PRN IV PAIN Last administered on 09:02; Admin Dose 4 MG; Start 02/04/17 at 02:00 Acetaminophen/ Hydrocodone Bitart ([place] (10/325)) 1 tab Q4H PRN PO PAIN Last administered on 02/04/17 12:30; Admin Dose 1 TAB; Start 02/04/17 at 02:00 Miscellaneous Information 1 ea NOTE XX ; Start 02/04/17 at 02:00 Glucose (Glutose) 15 gm Q15M PRN PO DECREASED GLUCOSE; Start 02/04/17 at 02:00 Glucose (Glutose) 22.5 gm Q15M PRN PO DECREASED GLUCOSE; Start 02/04/17 at 02: 00 Dextrose (D50w Syringe) 25 ml Q15M PRN IV DECREASED GLUCOSE; Start 02/04/17 at 02:00 Dextrose (D50w Syringe) 50 ml Q15M PRN IV DECREASED GLUCOSE; Start 02/04/17 at 02:00 Glucagon (Glucagen) 1 mg Q15M PRN IM DECREASED GLUCOSE; Start 02/04/17 at 02:00 Glucose (Glutose) 15 gm Q15M PRN BUCCAL DECREASED GLUCOSE; Start 02/04/17 at 02 :00 Miscellaneous Information (Pending Santyl Order For Wound Care) This patient uhmphries... PRN PRN XX WOUND CARE; Start 02/04/17 at 02:30 Enoxaparin Sodium 40 mg 40 mg DAILY@15 SC Last administered on 02/05/17 15:21 ; Admin Dose 40 MG; Start 02/04/17 at 15:00 Cefepime HCl (Maxipime 1gm/50 ml (Pmx)) 50 ml @ 100 mls/hr Q12 IVPB Last administered on 02/07/17 08:58; Admin Dose 100 MLS/HR; Start 02/06/17 at 21:00 ; Stop 02/11/17 at 21:00 Lactulose (Enulose) 30 gm Q6 PO Last administered on 02/07/17 13:22; Admin Dose 30 GM; Start 02/07/17 at 00:00 Senna (Senokot) 2 tab BID PO Last administered on 02/07/17 08:57; Admin Dose 2 TAB; Start 02/06/17 at 22:30 KIMBERLY CARLSON MD Feb 07, 2017 16:28
[2017-02-07] MEDS: ENOXAPARIN 40 MG/0.4 ML SYG SC SCH (17:55)
[2017-02-07 20:32] VITALS: BP 129/60; RESP 18
[2017-02-07] MEDS: LATANOPROST 0.005% 2.5 ML OPH BOTH EYES SCH (20:52)
[2017-02-07] MEDS: MAGNESIUM HYDROXIDE 30ML CUP PO SCH (23:00)
--- NOTE | 2017-02-08 01:59 | PN ---
DATE: 02/07/2017 SUBJECTIVE DATA: No events overnight. The patient is lying comfortably in bed. No fevers. LABORATORY AND DIAGNOSTIC DATA: WBC 8.9. No shift. No bands. BUN 22 and creatinine 0.70. ANTIMICROBIALS: The patient is on cefepime. PHYSICAL EXAMINATION: Well-developed, obese, elderly woman who is in no distress. HEENT: Head is atraumatic and normocephalic. Sclerae are anicteric. Buccal mucosa is pink. NECK: Supple. LUNGS: Chest rise is symmetrical. Breath sounds are clear. HEART: S1, S2. ABDOMEN: Soft. Bowel sounds are present. EXTREMITIES: With dressing of lower extremities intact. ASSESSMENT: 1. Bilateral lower extremities nonhealing wounds with wound culture previously growing Pseudomonas aeruginosa. The patient is on cefepime. She is status post right lower extremity I and D yesterday. 2. Diabetes with diabetic neuropathy. 3. Hypertension. PLAN: The patient remains stable. Continue present care. Antibiotics. Local wound care as per vascular recommendations. Await for intraoperative cx's Dictated By: Rommel Ball NP /bela/matteo /Document#: [id number] [place]
[2017-02-08] MEDS: ACCU-CHEK XX SCH (02:00)
[2017-02-08 03:21] VITALS: BP 158/69; RESP 18
[2017-02-08 06:30] LABS: BASOPHIL # 0.1 10^3/ul (0.0-0.1); BASOPHILS % 0.8 % (0.0-2.0); EOSINOPHILS # 0.5 10^3/ul (0.0-0.5); EOSINOPHILS % 7.3 % (0.0-7.0); HEMATOCRIT 32.7 % (37.0-47.0); LYMPHOCYTES # 2.1 10^3/ul (0.8-2.9); MEAN CORPUSCULAR HEMOGLOBIN 24.6 pg (29.0-33.0); MEAN CORPUSCULAR HGB CONC 30.6 g/dl (32.0-37.0); MEAN CORPUSCULAR VOLUME 80.5 fl (82.0-101.0); MEAN PLATELET VOLUME 10.1 fl (7.4-10.4); MONOCYTE # 0.5 10^3/ul (0.3-0.9); MONOCYTES % 7.6 % (0.0-11.0); NEUTROPHIL # 3.4 10^3/ul (1.6-7.5); PLATELET COUNT 323 10^3/UL (140-415); RED BLOOD COUNT 4.06 10^6/ul (4.20-5.40); WHITE BLOOD COUNT 6.6 10^3/ul (4.8-10.8)
[2017-02-08] MEDS: NYSTATIN 15 GM POWDER BTL TOP SCH ×3 (06:50→21:11)
[2017-02-08] MEDS: LACTULOSE 30ML CUP PO SCH ×5 (06:50→23:42)
[2017-02-08] MEDS: morphine 4 MG/ML VIAL IV PRN ×4 (06:50→23:41)
[2017-02-08 07:01] LABS: CALCIUM 9.2 mg/dl (8.4-10.2); CREATININE 0.81 mg/dl (0.44-1.00); POTASSIUM 4.6 mmol/L (3.5-5.1)
[2017-02-08] MEDS: INSULIN ASPART [NOVOLOG] 3 ML PEN SC SCH ×4 (07:30→21:00)
[2017-02-08 08:16] VITALS: BP 156/67; RESP 18
[2017-02-08] MEDS: ASCORBIC ACID 500 MG TAB PO SCH (09:33)
[2017-02-08] MEDS: FUROSEMIDE 40 MG TAB PO SCH (09:33)
[2017-02-08] MEDS: FERROUS SULFATE (EC) 325 MG TAB PO SCH (09:33)
[2017-02-08] MEDS: GABAPENTIN 300 MG CAP PO SCH ×3 (09:33→20:59)
[2017-02-08] MEDS: LISINOPRIL 20 MG TAB PO SCH (09:33)
[2017-02-08] MEDS: SENNA TAB PO SCH ×2 (09:33→20:59)
[2017-02-08] MEDS: METOPROLOL (XL) 100 MG TAB PO SCH (09:33)
[2017-02-08] MEDS: CEFEPIME 1GM/50 ML (PMX) 50 ML IVPB SCH ×2 (09:34→20:59)
[2017-02-08 14:00] VITALS: BP 123/56; RESP 18
[2017-02-08] MEDS: ENOXAPARIN 40 MG/0.4 ML SYG SC SCH (14:50)
[2017-02-08 20:00] VITALS: BP 105/55; RESP 20
--- NOTE | 2017-02-08 21:02 | CONS ---
Date/Time of Note Date/Time of Note DATE: 02/08/17 TIME: 20:58 Assessment/Plan Assessment/Plan Chief Complaint/Hosp Course ID PROGRESS NOTE CURRENT ABX: Cefepime 24H INTERVAL SUMMARY * Resting, Calm, no fevers, VSS, NAD * No wound cx sent from 02/06 EXAM GEN: Vss, NAD, calm, resting HEENT: Unremarkable NECK: supple CVS: RRR CHEST: Equal chest rise bilaterally, without dyspnea on observation ABD: Soft, NT EXT: No c/c/e NEURO: Grossly intact, moves all extremities SKIN: No diaphoresis, no obvious rash ID ASSESSMENT 76 yo F admit with: 1. Bilateral lower extremities nonhealing wounds with wound culture previously growing Pseudomonas aeruginosa. * s/p I&D 2. Diabetes with diabetic neuropathy. 3. Hypertension. INVASIVES: PIV ABX ALLERGY: PCN CURRENT ABX: Cefepime ID RECOMMENDATIONS 1. Continue Cefepime for hx of PSAR wound infx over the weekend 2. Further recs per clinical course . Problems: Consultation Date/Type/Reason Admit Date/Time Feb 03, 2017 at 20:27 Initial Consult Date Type of Consultation: ID Exam/Review of Systems Vital Signs Vitals Vital Signs Date Time Temp Pulse Resp B/P Pulse Ox O2 Delivery O2 Flow Rate FiO2 02/08/17 14:00 98.5 56 18 123/56 96 02/06/17 18:12 Room Air Intake and Output 02/07/17 02/07/17 02/08/17 15:00 23:00 07:00 Intake Total 100 ml 810 ml 1320 ml Balance 100 ml 810 ml 1320 ml Results Result Diagram: 02/08/17 0552 02/08/17 0552 Results 24 hrs Laboratory Tests Test 02/08/17 05:52 02/08/17 08:07 02/08/17 12:08 02/08/17 17:09 White Blood Count 6.6 # Red Blood Count 4.06 L Hemoglobin 10.0 L Hematocrit 32.7 L Mean Corpuscular Volume 80.5 L Mean Corpuscular Hemoglobin 24.6 L Mean Corpuscular Hemoglobin Concent 30.6 L Red Cell Distribution Width 17.0 H Platelet Count 323 Mean Platelet Volume 10.1 Neutrophils % 52.0 Lymphocytes % 32.0 Monocytes % 7.6 Eosinophils % 7.3 H Basophils % 0.8 Nucleated Red Blood Cells % 0.0 Neutrophils # 3.4 Lymphocytes # 2.1 Monocytes # 0.5 Eosinophils # 0.5 Basophils # 0.1 Nucleated Red Blood Cells # 0.0 Sodium Level 135 Potassium Level 4.6 Chloride Level 100 Carbon Dioxide Level 30 Anion Gap 10 Blood Urea Nitrogen 25 H Creatinine 0.81 Glucose Level 87 Calcium Level 9.2 Bedside Glucose 95 81 122 Medications Medications Current Medications Ascorbic Acid (Vitamin C) 500 mg DAILY PO Last administered on 02/08/17 09:33 ; Admin Dose 500 MG; Start 02/04/17 at 09:00 Ferrous Sulfate (Ferrous Sulfate (Ec)) 325 mg DAILY PO Last administered on 09:33; Admin Dose 325 MG; Start 02/04/17 at 09:00 Furosemide (Lasix) 40 mg DAILY PO Last administered on 02/08/17 09:33; Admin Dose 40 MG; Start 02/04/17 at 09:00 Gabapentin (Neurontin) 300 mg TID PO Last administered on 02/08/17 12:11; Admin Dose 300 MG; Start 02/04/17 at 09:00 Latanoprost (Xalatan) 1 drop QHS BOTH EYES Last administered on 02/07/17 20:52 ; Admin Dose 1 DROP; Start 02/04/17 at 21:00 Lisinopril (Zestril) 20 mg DAILY PO Last administered on 02/08/17 09:33; Admin Dose 20 MG; Start 02/04/17 at 09:00 Magnesium Hydroxide (Milk Of Mag) 30 ml Q24H PO Last administered on 02/06/17 23:02; Admin Dose 30 ML; Start 02/03/17 at 23:00 Metoprolol Succinate (Toprol Xl) 100 mg DAILY PO Last administered on 09:33; Admin Dose 100 MG; Start 02/04/17 at 09:00 Nifedipine (Procardia Xl) 90 mg DAILY PO Last administered on 02/07/17 08:58; Admin Dose 90 MG; Start 02/04/17 at 09:00 Nystatin 1 applic Q8 TOP Last administered on 02/08/17 06:50; Admin Dose 1 APPLIC; Start 02/04/17 at 06:00 Insulin Glargine (Lantus) 10 unit DAILY@08 SC ; Start 02/04/17 at 08:00 Ondansetron HCl (Zofran Inj) 4 mg Q6H PRN IV NAUSEA AND/OR VOMITING; Start 04/11 at 23:30 Diagnostic Test (Pha) (Accu-Chek) 1 ea 02 XX ; Start 02/04/17 at 02:00 Acetaminophen (Tylenol Tab) 650 mg Q6H PRN PO PAIN AND OR ELEVATED TEMP; Start 02/03/17 at 23:30 Morphine Sulfate (morphine) 4 mg Q4H PRN IV PAIN Last administered on 17:13; Admin Dose 4 MG; Start 02/04/17 at 02:00 Acetaminophen/ Hydrocodone Bitart ([place] (10/325)) 1 tab Q4H PRN PO PAIN Last administered on 02/04/17 12:30; Admin Dose 1 TAB; Start 02/04/17 at 02:00 Miscellaneous Information 1 ea NOTE XX ; Start 02/04/17 at 02:00 Glucose (Glutose) 15 gm Q15M PRN PO DECREASED GLUCOSE; Start 02/04/17 at 02:00 Glucose (Glutose) 22.5 gm Q15M PRN PO DECREASED GLUCOSE; Start 02/04/17 at 02: 00 Dextrose (D50w Syringe) 25 ml Q15M PRN IV DECREASED GLUCOSE; Start 02/04/17 at 02:00 Dextrose (D50w Syringe) 50 ml Q15M PRN IV DECREASED GLUCOSE; Start 02/04/17 at 02:00 Glucagon (Glucagen) 1 mg Q15M PRN IM DECREASED GLUCOSE; Start 02/04/17 at 02:00 Glucose (Glutose) 15 gm Q15M PRN BUCCAL DECREASED GLUCOSE; Start 02/04/17 at 02 :00 Miscellaneous Information (Pending Santyl Order For Wound Care) This patient humphries... PRN PRN XX WOUND CARE; Start 02/04/17 at 02:30 Enoxaparin Sodium 40 mg 40 mg DAILY@15 SC Last administered on 02/08/17 14:50 ; Admin Dose 40 MG; Start 02/04/17 at 15:00 Cefepime HCl (Maxipime 1gm/50 ml (Pmx)) 50 ml @ 100 mls/hr Q12 IVPB Last administered on 02/08/17 09:34; Admin Dose 100 MLS/HR; Start 02/06/17 at 21:00 ; Stop 02/11/17 at 21:00 Lactulose (Enulose) 30 gm Q6 PO Last administered on 02/08/17 06:50; Admin Dose 30 GM; Start 02/07/17 at 00:00 Senna (Senokot) 2 tab BID PO Last administered on 02/08/17 09:33; Admin Dose 2 TAB; Start 02/06/17 at 22:30 MARCELO BEE NP Feb 08, 2017 21:02
[2017-02-08] MEDS: LATANOPROST 0.005% 2.5 ML OPH BOTH EYES SCH (21:04)
[2017-02-08] MEDS: MAGNESIUM HYDROXIDE 30ML CUP PO SCH (23:41)
--- NOTE | 2017-02-08 23:55 | PN ---
Date/Time of Note Date/Time of Note DATE: 02/08/17 TIME: 23:51 Assessment/Plan VTE Prophylaxis VTE Prophylaxis Intervention: SCD's Lines/Catheters IV [facility] Saline Lock Assessment/Plan Chief Complaint/Hosp Course Assessment and plan 1. Bilateral lower extremity venous deficiency with stasis dermatitis and ulcers. Patient is status post debridement on February 06, 2017. Continue on antibiotic regimen. Monitor for clinical improvement. 2. Severe aortic stenosis. Patient for cardiology follow-up as outpatient. Family aware. 2. PVD. Vascular surgeon following. Continue recommendations 4. Diabetes. Continue insulin regimen. Stable at present. She has not been 5. Essential hypertension. Continue antihypertensives and adjust 6. Osteoarthritis. No evidence of fracture per imaging. Continue with analgesics. Recent mechanical fall. Fall precautions as needed Disposition plan: Follow-up with surgeon recommendations. Continue with antibiotics and analgesics. Discharge and cleared by consultants Discussed plan of care with Dr. Barrera Problems: Subjective 24 Hr Interval Summary Free Text/Dictation Stable at present. No signs of distress Exam/Review of Systems Vital Signs Vitals Vital Signs Date Time Temp Pulse Resp B/P Pulse Ox O2 Delivery O2 Flow Rate FiO2 02/08/17 20:00 98.1 61 20 105/55 94 02/06/17 18:12 Room Air Intake and Output 02/07/17 02/07/17 02/08/17 15:00 23:00 07:00 Intake Total 100 ml 810 ml 1320 ml Balance 100 ml 810 ml 1320 ml Exam Constitutional: alert, oriented Psych: nl mood/affect Head: normocephalic Eyes: nl conjunctiva Respiratory: clear to auscultation Cardiovascular: regular rate and rhythm Gastrointestinal: soft Musculoskeletal: swelling (Bilateral lower extremities) Neurological: nl mental status Results Result Diagram: 02/08/17 0552 02/08/17 0552 Results 24 hrs Laboratory Tests Test 02/08/17 05:52 02/08/17 08:07 02/08/17 12:08 02/08/17 17:09 White Blood Count 6.6 # Red Blood Count 4.06 L Hemoglobin 10.0 L Hematocrit 32.7 L Mean Corpuscular Volume 80.5 L Mean Corpuscular Hemoglobin 24.6 L Mean Corpuscular Hemoglobin Concent 30.6 L Red Cell Distribution Width 17.0 H Platelet Count 323 Mean Platelet Volume 10.1 Neutrophils % 52.0 Lymphocytes % 32.0 Monocytes % 7.6 Eosinophils % 7.3 H Basophils % 0.8 Nucleated Red Blood Cells % 0.0 Neutrophils # 3.4 Lymphocytes # 2.1 Monocytes # 0.5 Eosinophils # 0.5 Basophils # 0.1 Nucleated Red Blood Cells # 0.0 Sodium Level 135 Potassium Level 4.6 Chloride Level 100 Carbon Dioxide Level 30 Anion Gap 10 Blood Urea Nitrogen 25 H Creatinine 0.81 Glucose Level 87 Calcium Level 9.2 Bedside Glucose 95 81 122 Test 02/08/17 21:10 Bedside Glucose 112 Medications Medications Current Medications Ascorbic Acid (Vitamin C) 500 mg DAILY PO Last administered on 02/08/17 09:33 ; Admin Dose 500 MG; Start 02/04/17 at 09:00 Ferrous Sulfate (Ferrous Sulfate (Ec)) 325 mg DAILY PO Last administered on 09:33; Admin Dose 325 MG; Start 02/04/17 at 09:00 Furosemide (Lasix) 40 mg DAILY PO Last administered on 02/08/17 09:33; Admin Dose 40 MG; Start 02/04/17 at 09:00 Gabapentin (Neurontin) 300 mg TID PO Last administered on 02/08/17 20:59; Admin Dose 300 MG; Start 02/04/17 at 09:00 Latanoprost (Xalatan) 1 drop QHS BOTH EYES Last administered on 02/08/17 21:04 ; Admin Dose 1 DROP; Start 02/04/17 at 21:00 Lisinopril (Zestril) 20 mg DAILY PO Last administered on 02/08/17 09:33; Admin Dose 20 MG; Start 02/04/17 at 09:00 Magnesium Hydroxide (Milk Of Mag) 30 ml Q24H PO Last administered on 02/08/17 23:41; Admin Dose 30 ML; Start 02/03/17 at 23:00 Metoprolol Succinate (Toprol Xl) 100 mg DAILY PO Last administered on 09:33; Admin Dose 100 MG; Start 02/04/17 at 09:00 Nifedipine (Procardia Xl) 90 mg DAILY PO Last administered on 02/07/17 08:58; Admin Dose 90 MG; Start 02/04/17 at 09:00 Nystatin 1 applic Q8 TOP Last administered on 02/08/17 21:11; Admin Dose 1 APPLIC; Start 02/04/17 at 06:00 Insulin Glargine (Lantus) 10 unit DAILY@08 SC ; Start 02/04/17 at 08:00 Ondansetron HCl (Zofran Inj) 4 mg Q6H PRN IV NAUSEA AND/OR VOMITING; Start 04/11 at 23:30 Diagnostic Test (Pha) (Accu-Chek) 1 ea 02 XX ; Start 02/04/17 at 02:00 Acetaminophen (Tylenol Tab) 650 mg Q6H PRN PO PAIN AND OR ELEVATED TEMP; Start 02/03/17 at 23:30 Morphine Sulfate (morphine) 4 mg Q4H PRN IV PAIN Last administered on 23:41; Admin Dose 4 MG; Start 02/04/17 at 02:00 Acetaminophen/ Hydrocodone Bitart ([place] (10/325)) 1 tab Q4H PRN PO PAIN Last administered on 02/04/17 12:30; Admin Dose 1 TAB; Start 02/04/17 at 02:00 Miscellaneous Information 1 ea NOTE XX ; Start 02/04/17 at 02:00 Glucose (Glutose) 15 gm Q15M PRN PO DECREASED GLUCOSE; Start 02/04/17 at 02:00 Glucose (Glutose) 22.5 gm Q15M PRN PO DECREASED GLUCOSE; Start 02/04/17 at 02: 00 Dextrose (D50w Syringe) 25 ml Q15M PRN IV DECREASED GLUCOSE; Start 02/04/17 at 02:00 Dextrose (D50w Syringe) 50 ml Q15M PRN IV DECREASED GLUCOSE; Start 02/04/17 at 02:00 Glucagon (Glucagen) 1 mg Q15M PRN IM DECREASED GLUCOSE; Start 02/04/17 at 02:00 Glucose (Glutose) 15 gm Q15M PRN BUCCAL DECREASED GLUCOSE; Start 02/04/17 at 02 :00 Miscellaneous Information [facility] This patient humphries... PRN PRN XX WOUND CARE; Start 02/04/17 at 02:30 Enoxaparin Sodium 40 mg 40 mg DAILY@15 SC Last administered on 02/08/17 14:50 ; Admin Dose 40 MG; Start 02/04/17 at 15:00 Cefepime HCl (Maxipime 1gm/50 ml (Pmx)) 50 ml @ 100 mls/hr Q12 IVPB Last administered on 02/08/17 20:59; Admin Dose 100 MLS/HR; Start 02/06/17 at 21:00 ; Stop 02/11/17 at 21:00 Lactulose (Enulose) 30 gm Q6 PO Last administered on 02/08/17 23:42; Admin Dose 30 GM; Start 02/07/17 at 00:00 Senna (Senokot) 2 tab BID PO Last administered on 02/08/17 20:59; Admin Dose 2 TAB; Start 02/06/17 at 22:30 SUGEY CASILLAS Feb 08, 2017 23:55
[2017-02-09 02:00] VITALS: BP 147/66; RESP 18
[2017-02-09] MEDS: ACCU-CHEK XX SCH (02:00)
[2017-02-09] MEDS: LACTULOSE 30ML CUP PO SCH ×4 (05:29→23:28)
[2017-02-09] MEDS: NYSTATIN 15 GM POWDER BTL TOP SCH ×3 (05:29→21:36)
[2017-02-09] MEDS: morphine 4 MG/ML VIAL IV PRN ×4 (06:39→23:33)
[2017-02-09] MEDS: INSULIN ASPART [NOVOLOG] 3 ML PEN SC SCH ×4 (07:30→20:19)
[2017-02-09 07:40] VITALS: BP 146/65; RESP 18
[2017-02-09] MEDS: INSULIN GLARGINE [LANtus] 3 ML PEN SC SCH ×2 (08:00→09:07)
[2017-02-09] MEDS: CEFEPIME 1GM/50 ML (PMX) 50 ML IVPB SCH (08:57)
[2017-02-09] MEDS: FERROUS SULFATE (EC) 325 MG TAB PO SCH (08:57)
[2017-02-09] MEDS: SENNA TAB PO SCH ×2 (08:58→20:19)
[2017-02-09] MEDS: GABAPENTIN 300 MG CAP PO SCH ×3 (08:58→20:19)
[2017-02-09] MEDS: ASCORBIC ACID 500 MG TAB PO SCH (08:58)
[2017-02-09] MEDS: LISINOPRIL 20 MG TAB PO SCH (08:59)
[2017-02-09] MEDS: FUROSEMIDE 40 MG TAB PO SCH (08:59)
[2017-02-09] MEDS: NIFEdipine (XL) 90 MG TAB PO SCH ×2 (08:59→09:00)
[2017-02-09] MEDS: METOPROLOL (XL) 100 MG TAB PO SCH (09:00)
--- NOTE | 2017-02-09 12:24 | CONS ---
Date/Time of Note Date/Time of Note DATE: 02/09/17 TIME: 12:16 Assessment/Plan Assessment/Plan Chief Complaint/Hosp Course ID PROGRESS NOTE CURRENT ABX: Cefepime -> Change to PO ABX today = Doxy + Cipro po x 10 days 24H INTERVAL SUMMARY * A/A/O, calm, no fevers, VSS, NAD -- sitting up in bed ready for lunch, tells me no problem taking ABX po and is ready for PO ABX change * No wound cx sent from 02/06 EXAM GEN: Vss, NAD, calm, resting HEENT: Unremarkable NECK: supple CVS: RRR CHEST: Equal chest rise bilaterally, without dyspnea on observation ABD: Soft, NT EXT: No c/c/e, RLEXT ARIANNA wrap DSG NEURO: Grossly intact, moves all extremities SKIN: No diaphoresis, no obvious rash ID ASSESSMENT 76 yo F admit with: 1. Bilateral lower extremities nonhealing wounds with wound culture previously growing Pseudomonas aeruginosa. * s/p I&D 2. Diabetes with diabetic neuropathy. 3. Hypertension. 4. Severe aortic stenosis. INVASIVES: PIV ABX ALLERGY: PCN CURRENT ABX: Cefepime Change to PO ABX today = Doxy + Cipro po x 10 days ID RECOMMENDATIONS 1. Change to po Doxycycline 100mg po BID + Cipro 500mg po BID x 10 days 2. May DC to OP wound care f/u on PO ABX as ordered when cleared by primary . Problems: Consultation Date/Type/Reason Admit Date/Time Feb 03, 2017 at 20:27 Type of Consultation: ID Exam/Review of Systems Vital Signs Vitals Vital Signs Date Time Temp Pulse Resp B/P Pulse Ox O2 Delivery O2 Flow Rate FiO2 02/09/17 07:40 97.5 57 18 146/65 100 02/06/17 18:12 Room Air Intake and Output 02/08/17 02/08/17 02/09/17 15:00 23:00 07:00 Intake Total 50 ml 850 ml 600 ml Balance 50 ml 850 ml 600 ml Results Result Diagram: 02/08/17 0552 02/08/17 0552 Results 24 hrs Laboratory Tests Test 02/08/17 17:09 02/08/17 21:10 02/09/17 08:38 02/09/17 12:01 Bedside Glucose 122 112 81 83 Medications Medications Current Medications Ascorbic Acid (Vitamin C) 500 mg DAILY PO Last administered on 02/09/17 08:58 ; Admin Dose 500 MG; Start 02/04/17 at 09:00 Ferrous Sulfate (Ferrous Sulfate (Ec)) 325 mg DAILY PO Last administered on 08:57; Admin Dose 325 MG; Start 02/04/17 at 09:00 Furosemide (Lasix) 40 mg DAILY PO Last administered on 02/09/17 08:59; Admin Dose 40 MG; Start 02/04/17 at 09:00 Gabapentin (Neurontin) 300 mg TID PO Last administered on 02/09/17 12:11; Admin Dose 300 MG; Start 02/04/17 at 09:00 Latanoprost (Xalatan) 1 drop QHS BOTH EYES Last administered on 02/08/17 21:04 ; Admin Dose 1 DROP; Start 02/04/17 at 21:00 Lisinopril (Zestril) 20 mg DAILY PO Last administered on 02/09/17 08:59; Admin Dose 20 MG; Start 02/04/17 at 09:00 Magnesium Hydroxide (Milk Of Mag) 30 ml Q24H PO Last administered on 02/08/17 23:41; Admin Dose 30 ML; Start 02/03/17 at 23:00 Metoprolol Succinate (Toprol Xl) 100 mg DAILY PO Last administered on 09:33; Admin Dose 100 MG; Start 02/04/17 at 09:00 Nifedipine (Procardia Xl) 90 mg DAILY PO Last administered on 02/07/17 08:58; Admin Dose 90 MG; Start 02/04/17 at 09:00 Nystatin 1 applic Q8 TOP Last administered on 02/09/17 05:29; Admin Dose 1 APPLIC; Start 02/04/17 at 06:00 Insulin Glargine (Lantus) 10 unit DAILY@08 SC ; Start 02/04/17 at 08:00 Ondansetron HCl (Zofran Inj) 4 mg Q6H PRN IV NAUSEA AND/OR VOMITING; Start 04/11 at 23:30 Diagnostic Test (Pha) (Accu-Chek) 1 ea 02 XX ; Start 02/04/17 at 02:00 Acetaminophen (Tylenol Tab) 650 mg Q6H PRN PO PAIN AND OR ELEVATED TEMP; Start 02/03/17 at 23:30 Morphine Sulfate (morphine) 4 mg Q4H PRN IV PAIN Last administered on 12:10; Admin Dose 4 MG; Start 02/04/17 at 02:00 Acetaminophen/ Hydrocodone Bitart ([place] (10)) 1 tab Q4H PRN PO PAIN Last administered on 02/04/17 12:30; Admin Dose 1 TAB; Start 02/04/17 at 02:00 Miscellaneous Information 1 ea NOTE XX ; Start 02/04/17 at 02:00 Glucose (Glutose) 15 gm Q15M PRN PO DECREASED GLUCOSE; Start 02/04/17 at 02:00 Glucose (Glutose) 22.5 gm Q15M PRN PO DECREASED GLUCOSE; Start 02/04/17 at 02: 00 Dextrose (D50w Syringe) 25 ml Q15M PRN IV DECREASED GLUCOSE; Start 02/04/17 at 02:00 Dextrose (D50w Syringe) 50 ml Q15M PRN IV DECREASED GLUCOSE; Start 02/04/17 at 02:00 Glucagon (Glucagen) 1 mg Q15M PRN IM DECREASED GLUCOSE; Start 02/04/17 at 02:00 Glucose (Glutose) 15 gm Q15M PRN BUCCAL DECREASED GLUCOSE; Start 02/04/17 at 02 :00 Miscellaneous Information [facility] This patient humphries... PRN PRN XX WOUND CARE; Start 02/04/17 at 02:30 Enoxaparin Sodium 40 mg 40 mg DAILY@15 SC Last administered on 02/08/17 14:50 ; Admin Dose 40 MG; Start 02/04/17 at 15:00 Cefepime HCl (Maxipime 1gm/50 ml (Pmx)) 50 ml @ 100 mls/hr Q12 IVPB Last administered on 02/09/17 08:57; Admin Dose 100 MLS/HR; Start 02/06/17 at 21:00 ; Stop 02/11/17 at 21:00 Lactulose (Enulose) 30 gm Q6 PO Last administered on 02/09/17 05:29; Admin Dose 30 GM; Start 02/07/17 at 00:00 Senna (Senokot) 2 tab BID PO Last administered on 02/09/17 08:58; Admin Dose 2 TAB; Start 02/06/17 at 22:30 MARCELO BEE NP Feb 09, 2017 12:24
--- NOTE | 2017-02-09 12:44 | PN ---
Date/Time of Note Date/Time of Note DATE: 02/09/17 TIME: 12:41 Assessment/Plan VTE Prophylaxis VTE Prophylaxis Intervention: SCD's Lines/Catheters IV Catheter Type (from Nrs): Saline Lock Assessment/Plan Chief Complaint/Hosp Course Assessment and plan 1. Bilateral lower extremity venous deficiency with stasis dermatitis and ulcers. Patient is status post debridement on February 06, 2017. Continue on antibiotic regimen. Monitor for clinical improvement. 2. Severe aortic stenosis. Patient for cardiology follow-up as outpatient. Family aware. 2. PVD. Vascular surgeon following. Continue recommendations 4. Diabetes. Continue insulin regimen. Stable at present. She has not been 5. Essential hypertension. Continue antihypertensives and adjust 6. Osteoarthritis. No evidence of fracture per imaging. Continue with analgesics. Recent mechanical fall. Fall precautions as needed Disposition plan: cont abx regimen per ID. plan for dressing removal per surgeon 5-7 days from day of surgery (02/06/17). d/c when cleared by consultants Discussed plan of care with Dr. Barrera Problems: Subjective 24 Hr Interval Summary Free Text/Dictation comfortable at present. reports pain under good control. will monitor Exam/Review of Systems Vital Signs Vitals Vital Signs Date Time Temp Pulse Resp B/P Pulse Ox O2 Delivery O2 Flow Rate FiO2 02/09/17 07:40 97.5 57 18 146/65 100 02/06/17 18:12 Room Air Intake and Output 02/08/17 02/08/17 02/09/17 15:00 23:00 07:00 Intake Total 50 ml 850 ml 600 ml Balance 50 ml 850 ml 600 ml Results Result Diagram: 02/08/17 0552 02/08/17 0552 Results 24 hrs Laboratory Tests Test 02/08/17 17:09 02/08/17 21:10 02/09/17 08:38 02/09/17 12:01 Bedside Glucose 122 112 81 83 Medications Medications Current Medications Ascorbic Acid (Vitamin C) 500 mg DAILY PO Last administered on 02/09/17 08:58 ; Admin Dose 500 MG; Start 02/04/17 at 09:00 Ferrous Sulfate (Ferrous Sulfate (Ec)) 325 mg DAILY PO Last administered on 08:57; Admin Dose 325 MG; Start 02/04/17 at 09:00 Furosemide (Lasix) 40 mg DAILY PO Last administered on 02/09/17 08:59; Admin Dose 40 MG; Start 02/04/17 at 09:00 Gabapentin (Neurontin) 300 mg TID PO Last administered on 02/09/17 12:11; Admin Dose 300 MG; Start 02/04/17 at 09:00 Latanoprost (Xalatan) 1 drop QHS BOTH EYES Last administered on 02/08/17 21:04 ; Admin Dose 1 DROP; Start 02/04/17 at 21:00 Lisinopril (Zestril) 20 mg DAILY PO Last administered on 02/09/17 08:59; Admin Dose 20 MG; Start 02/04/17 at 09:00 Magnesium Hydroxide (Milk Of Mag) 30 ml Q24H PO Last administered on 02/08/17 23:41; Admin Dose 30 ML; Start 02/03/17 at 23:00 Metoprolol Succinate (Toprol Xl) 100 mg DAILY PO Last administered on 09:33; Admin Dose 100 MG; Start 02/04/17 at 09:00 Nifedipine (Procardia Xl) 90 mg DAILY PO Last administered on 02/07/17 08:58; Admin Dose 90 MG; Start 02/04/17 at 09:00 Nystatin 1 applic Q8 TOP Last administered on 02/09/17 05:29; Admin Dose 1 APPLIC; Start 02/04/17 at 06:00 Insulin Glargine (Lantus) 10 unit DAILY@08 SC ; Start 02/04/17 at 08:00 Ondansetron HCl (Zofran Inj) 4 mg Q6H PRN IV NAUSEA AND/OR VOMITING; Start 04/11 at 23:30 Diagnostic Test (Pha) (Accu-Chek) 1 ea 02 XX ; Start 02/04/17 at 02:00 Acetaminophen (Tylenol Tab) 650 mg Q6H PRN PO PAIN AND OR ELEVATED TEMP; Start 02/03/17 at 23:30 Morphine Sulfate (morphine) 4 mg Q4H PRN IV PAIN Last administered on 12:10; Admin Dose 4 MG; Start 02/04/17 at 02:00 Acetaminophen/ Hydrocodone Bitart ([place] (10/325)) 1 tab Q4H PRN PO PAIN Last administered on 02/04/17 12:30; Admin Dose 1 TAB; Start 02/04/17 at 02:00 Miscellaneous Information 1 ea NOTE XX ; Start 02/04/17 at 02:00 Glucose (Glutose) 15 gm Q15M PRN PO DECREASED GLUCOSE; Start 02/04/17 at 02:00 Glucose (Glutose) 22.5 gm Q15M PRN PO DECREASED GLUCOSE; Start 02/04/17 at 02: 00 Dextrose (D50w Syringe) 25 ml Q15M PRN IV DECREASED GLUCOSE; Start 02/04/17 at 02:00 Dextrose (D50w Syringe) 50 ml Q15M PRN IV DECREASED GLUCOSE; Start 02/04/17 at 02:00 Glucagon (Glucagen) 1 mg Q15M PRN IM DECREASED GLUCOSE; Start 02/04/17 at 02:00 Glucose (Glutose) 15 gm Q15M PRN BUCCAL DECREASED GLUCOSE; Start 02/04/17 at 02 :00 Miscellaneous Information (Pending [facility] Order For Wound Care) This patient humphries... PRN PRN XX WOUND CARE; Start 02/04/17 at 02:30 Enoxaparin Sodium (Lovenox) 40 mg DAILY@15 SC Last administered on 02/08/17 14 :50; Admin Dose 40 MG; Start 02/04/17 at 15:00 Lactulose (Enulose) 30 gm Q6 PO Last administered on 02/09/17 05:29; Admin Dose 30 GM; Start 02/07/17 at 00:00 Senna (Senokot) 2 tab BID PO Last administered on 02/09/17 08:58; Admin Dose 2 TAB; Start 02/06/17 at 22:30 Doxycycline Hyclate (Vibramycin) 100 mg BID PO ; Start 02/09/17 at 13:30; Stop 02/19/17 at 13:29 Ciprofloxacin (Cipro) 500 mg BID@06,18 PO ; Start 02/09/17 at 18:00; Stop at 17:59 SUGEY CASILLAS Feb 09, 2017 12:44
[2017-02-09] MEDS: DOXYCYCLINE 100 MG TAB PO SCH ×2 (13:49→20:19)
[2017-02-09 14:15] VITALS: BP 109/56; RESP 16
[2017-02-09] MEDS: ENOXAPARIN 40 MG/0.4 ML SYG SC SCH (16:00)
[2017-02-09] MEDS: CIPROFLOXACIN 500 MG TAB PO SCH (17:44)
[2017-02-09] MEDS: LATANOPROST 0.005% 2.5 ML OPH BOTH EYES SCH (20:19)
[2017-02-09 20:59] VITALS: BP 115/56; RESP 19
[2017-02-09] MEDS: MAGNESIUM HYDROXIDE 30ML CUP PO SCH (23:27)
[2017-02-10] MEDS: ACCU-CHEK XX SCH (01:55)
[2017-02-10 02:51] VITALS: BP 135/60; RESP 19
[2017-02-10] MEDS: CIPROFLOXACIN 500 MG TAB PO SCH ×2 (05:22→17:36)
[2017-02-10] MEDS: NYSTATIN 15 GM POWDER BTL TOP SCH ×3 (05:23→22:30)
[2017-02-10] MEDS: LACTULOSE 30ML CUP PO SCH ×4 (05:26→23:58)
[2017-02-10 08:00] VITALS: BP 135/64; RESP 16
[2017-02-10 08:18] VITALS: BP 135/64; RESP 16
[2017-02-10] MEDS: GABAPENTIN 300 MG CAP PO SCH ×3 (08:45→20:17)
[2017-02-10] MEDS: METOPROLOL (XL) 100 MG TAB PO SCH (08:46)
[2017-02-10] MEDS: LISINOPRIL 20 MG TAB PO SCH (08:46)
[2017-02-10] MEDS: FUROSEMIDE 40 MG TAB PO SCH (08:47)
[2017-02-10] MEDS: ASCORBIC ACID 500 MG TAB PO SCH (08:47)
[2017-02-10] MEDS: NIFEdipine (XL) 90 MG TAB PO SCH (08:47)
[2017-02-10] MEDS: SENNA TAB PO SCH ×2 (08:48→20:17)
[2017-02-10] MEDS: DOXYCYCLINE 100 MG TAB PO SCH ×2 (08:48→20:17)
[2017-02-10] MEDS: FERROUS SULFATE (EC) 325 MG TAB PO SCH (08:48)
[2017-02-10] MEDS: morphine 4 MG/ML VIAL IV PRN ×3 (09:21→19:46)
--- NOTE | 2017-02-10 11:19 | PN ---
Date/Time of Note Date/Time of Note DATE: 02/10/17 TIME: 11:17 Assessment/Plan VTE Prophylaxis VTE Prophylaxis Intervention: LMWH Lines/Catheters IV [facility] Saline Lock Urinary Cath still in place: No Assessment/Plan Chief Complaint/Hosp Course 1. Bilateral lower extremity nonhealing ulcers with venous insufficiency. Status post right lower extremity sharp excisional debridement of multiple ulcers with application of amniotic tissue powder on 02/06/2017. Wound Care management as per vascular surgery. Antibiotics as per infectious diseases. 2. Severe aortic stenosis. Patient to follow-up with outpatient cardiac surgery. 3. Peripheral vascular disease. Being followed by vascular surgery. 4. Diabetes mellitus. Hemoglobin A1c 5.3. Blood sugars well controlled without insulin. 5. Essential hypertension. Continue antihypertensives. 6. Pulmonary hypertension. PA systolic pressure of 82 mmHg as per a 2D echocardiogram from 01/21/2017. Most probably secondary to underlying valvular heart disease. 7. Microcytic, hypochromic anemia with underlying iron deficiency. Continue iron supplements. 8. Fluids, electrolytes, and nutrition. Carbohydrate controlled diet. 9. DVT prophylaxis. Subcutaneous Lovenox. 10. Plan. Continue antimicrobials as per infectious diseases. Await further recommendations from vascular surgery. Case discussed with Dr. Sadler. Problems: Subjective 24 Hr Interval Summary Free Text/Dictation Complains of right lower extremity pain. Exam/Review of Systems Vital Signs Vitals Vital Signs Date Time Temp Pulse Resp B/P Pulse Ox O2 Delivery O2 Flow Rate FiO2 02/10/17 08:18 97.6 63 16 135/64 97 02/06/17 18:12 Room Air Intake and Output 02/09/17 02/09/17 02/10/17 15:00 23:00 07:00 Intake Total 50 ml 820 ml 480 ml Balance 50 ml 820 ml 480 ml Exam General: Adequately build 76 year-old male lying in bed in no apparent distress. HEENT: Normocephalic, atraumatic. Eyes: Anicteric sclerae, conjunctivae clear. ENT: Nasal septum midline, oral mucosa moist. Neck supple, no JVD noticed. Respiratory: Bilaterally clear breath sounds. No use of accessory muscles of respiration. No adventitious breath sounds. Cardiovascular: S1, S2 heard. Grade III/ JESSICA. Abdomen: Soft, nontender, and nondistended. Bowel sounds positive in all 4 quadrants. Genitourinary: Deferred. Extremities: No cyanosis, no clubbing. Left lower extremity dorsalis pedis pulse palpable. Right lower extremity dressing. Neurologic: Cranial nerves II through XII grossly intact. The patient is awake, alert, and oriented. Results Result Diagram: 02/08/17 0552 02/08/17 0552 Results 24 hrs Laboratory Tests Test 02/09/17 12:01 02/09/17 17:54 02/09/17 20:18 Bedside Glucose 83 120 88 Medications Medications Current Medications Ascorbic Acid (Vitamin C) 500 mg DAILY PO Last administered on 02/10/17 08:47 ; Admin Dose 500 MG; Start 02/04/17 at 09:00 Ferrous Sulfate (Ferrous Sulfate (Ec)) 325 mg DAILY PO Last administered on 08:48; Admin Dose 325 MG; Start 02/04/17 at 09:00 Furosemide (Lasix) 40 mg DAILY PO Last administered on 02/10/17 08:47; Admin Dose 40 MG; Start 02/04/17 at 09:00 Gabapentin (Neurontin) 300 mg TID PO Last administered on 02/10/17 08:45; Admin Dose 300 MG; Start 02/04/17 at 09:00 Latanoprost (Xalatan) 1 drop QHS BOTH EYES Last administered on 02/09/17 20:19 ; Admin Dose 1 DROP; Start 02/04/17 at 21:00 Lisinopril (Zestril) 20 mg DAILY PO Last administered on 02/10/17 08:46; Admin Dose 20 MG; Start 02/04/17 at 09:00 Magnesium Hydroxide (Milk Of Mag) 30 ml Q24H PO Last administered on 02/09/17 23:27; Admin Dose 30 ML; Start 02/03/17 at 23:00 Metoprolol Succinate (Toprol Xl) 100 mg DAILY PO Last administered on 08:46; Admin Dose 100 MG; Start 02/04/17 at 09:00 Nifedipine (Procardia Xl) 90 mg DAILY PO Last administered on 02/10/17 08:47; Admin Dose 90 MG; Start 02/04/17 at 09:00 Nystatin 1 applic Q8 TOP Last administered on 02/10/17 05:23; Admin Dose 1 APPLIC; Start 02/04/17 at 06:00 Ondansetron HCl (Zofran Inj) 4 mg Q6H PRN IV NAUSEA AND/OR VOMITING; Start 04/11 at 23:30 Acetaminophen (Tylenol Tab) 650 mg Q6H PRN PO PAIN AND OR ELEVATED TEMP; Start 02/03/17 at 23:30 Morphine Sulfate (morphine) 4 mg Q4H PRN IV PAIN Last administered on 09:21; Admin Dose 4 MG; Start 02/04/17 at 02:00 Acetaminophen/ Hydrocodone Bitart ([place] (10/325)) 1 tab Q4H PRN PO PAIN Last administered on 02/04/17 12:30; Admin Dose 1 TAB; Start 02/04/17 at 02:00 Miscellaneous Information 1 ea NOTE XX ; Start 02/04/17 at 02:00 Dextrose (D50w Syringe) 25 ml Q15M PRN IV DECREASED GLUCOSE; Start 02/04/17 at 02:00 Dextrose (D50w Syringe) 50 ml Q15M PRN IV DECREASED GLUCOSE; Start 02/04/17 at 02:00 Miscellaneous Information (Pending [facility] Order For Wound Care) This patient humphries... PRN PRN XX WOUND CARE; Start 02/04/17 at 02:30 Enoxaparin Sodium (Lovenox) 40 mg DAILY@15 SC Last administered on 02/09/17 16 :00; Admin Dose 40 MG; Start 02/04/17 at 15:00 Lactulose (Enulose) 30 gm Q6 PO Last administered on 02/09/17 23:28; Admin Dose 30 GM; Start 02/07/17 at 00:00 Senna (Senokot) 2 tab BID PO Last administered on 02/09/17 20:19; Admin Dose 2 TAB; Start 02/06/17 at 22:30 Doxycycline Hyclate (Vibramycin) 100 mg BID PO Last administered on 02/10/17 08:48; Admin Dose 100 MG; Start 02/09/17 at 13:30; Stop 02/19/17 at 13:29 Ciprofloxacin (Cipro) 500 mg BID@06,18 PO Last administered on 02/10/17 05:22 ; Admin Dose 500 MG; Start 02/09/17 at 18:00; Stop 9/27/17 at 17:59 DOM PADILLA NP Feb 10, 2017 11:19
--- NOTE | 2017-02-10 13:59 | CONS ---
Date/Time of Note Date/Time of Note DATE: 02/10/17 TIME: 13:54 Assessment/Plan Assessment/Plan Chief Complaint/Hosp Course SUBJECTIVE DATA: No events overnight. The patient is lying comfortably in bed. No fevers. ANTIMICROBIALS: Doxycycline and cipro. PHYSICAL EXAMINATION: Well-developed, obese, elderly woman who is in no distress. HEENT: Head is atraumatic and normocephalic. Sclerae are anicteric. Buccal mucosa is pink. NECK: Supple. LUNGS: Chest rise is symmetrical. Breath sounds are clear. HEART: S1, S2. ABDOMEN: Soft. Bowel sounds are present. EXTREMITIES: With dressing of lower extremities intact. ASSESSMENT: 1. Bilateral lower extremities nonhealing wounds with wound culture previously growing Pseudomonas aeruginosa, status post right lower extremity I and D. 2. Diabetes with diabetic neuropathy. 3. Hypertension. PLAN: The patient remains stable. Continue present care. Anticipate D/C on current antbx for 10 more days. Problems: Consultation Date/Type/Reason Admit Date/Time Feb 03, 2017 at 20:27 Initial Consult Date Type of Consultation: ID Exam/Review of Systems Vital Signs Vitals Vital Signs Date Time Temp Pulse Resp B/P Pulse Ox O2 Delivery O2 Flow Rate FiO2 02/10/17 08:18 97.6 63 16 135/64 97 02/06/17 18:12 Room Air Intake and Output 02/09/17 02/09/17 02/10/17 15:00 23:00 07:00 Intake Total 50 ml 820 ml 480 ml Balance 50 ml 820 ml 480 ml Results Result Diagram: 02/08/17 0552 02/08/17 0552 Results 24 hrs Laboratory Tests Test 02/09/17 17:54 02/09/17 20:18 Bedside Glucose 120 88 Medications Medications Current Medications Ascorbic Acid (Vitamin C) 500 mg DAILY PO Last administered on 02/10/17 08:47 ; Admin Dose 500 MG; Start 02/04/17 at 09:00 Ferrous Sulfate (Ferrous Sulfate (Ec)) 325 mg DAILY PO Last administered on 08:48; Admin Dose 325 MG; Start 02/04/17 at 09:00 Furosemide (Lasix) 40 mg DAILY PO Last administered on 02/10/17 08:47; Admin Dose 40 MG; Start 02/04/17 at 09:00 Gabapentin (Neurontin) 300 mg TID PO Last administered on 02/10/17 12:38; Admin Dose 300 MG; Start 02/04/17 at 09:00 Latanoprost (Xalatan) 1 drop QHS BOTH EYES Last administered on 02/09/17 20:19 ; Admin Dose 1 DROP; Start 02/04/17 at 21:00 Lisinopril (Zestril) 20 mg DAILY PO Last administered on 02/10/17 08:46; Admin Dose 20 MG; Start 02/04/17 at 09:00 Magnesium Hydroxide (Milk Of Mag) 30 ml Q24H PO Last administered on 02/09/17 23:27; Admin Dose 30 ML; Start 02/03/17 at 23:00 Metoprolol Succinate (Toprol Xl) 100 mg DAILY PO Last administered on 08:46; Admin Dose 100 MG; Start 02/04/17 at 09:00 Nifedipine (Procardia Xl) 90 mg DAILY PO Last administered on 02/10/17 08:47; Admin Dose 90 MG; Start 02/04/17 at 09:00 Nystatin 1 applic Q8 TOP Last administered on 02/10/17 05:23; Admin Dose 1 APPLIC; Start 02/04/17 at 06:00 Ondansetron HCl (Zofran Inj) 4 mg Q6H PRN IV NAUSEA AND/OR VOMITING; Start 04/11 at 23:30 Acetaminophen (Tylenol Tab) 650 mg Q6H PRN PO PAIN AND OR ELEVATED TEMP; Start 02/03/17 at 23:30 Morphine Sulfate (morphine) 4 mg Q4H PRN IV PAIN Last administered on 09:21; Admin Dose 4 MG; Start 02/04/17 at 02:00 Acetaminophen/ Hydrocodone Bitart ([place] (10/325)) 1 tab Q4H PRN PO PAIN Last administered on 02/04/17 12:30; Admin Dose 1 TAB; Start 02/04/17 at 02:00 Miscellaneous Information 1 ea NOTE XX ; Start 02/04/17 at 02:00 Dextrose (D50w Syringe) 25 ml Q15M PRN IV DECREASED GLUCOSE; Start 02/04/17 at 02:00 Dextrose (D50w Syringe) 50 ml Q15M PRN IV DECREASED GLUCOSE; Start 02/04/17 at 02:00 Miscellaneous Information (Pending Santyl Order For Wound Care) This patient humphries... PRN PRN XX WOUND CARE; Start 02/04/17 at 02:30 Enoxaparin Sodium (Lovenox) 40 mg DAILY@15 SC Last administered on 02/09/17 16 :00; Admin Dose 40 MG; Start 02/04/17 at 15:00 Lactulose (Enulose) 30 gm Q6 PO Last administered on 02/10/17 12:40; Admin Dose 30 GM; Start 02/07/17 at 00:00 Senna (Senokot) 2 tab BID PO Last administered on 02/09/17 20:19; Admin Dose 2 TAB; Start 02/06/17 at 22:30 Doxycycline Hyclate (Vibramycin) 100 mg BID PO Last administered on 02/10/17 08:48; Admin Dose 100 MG; Start 02/09/17 at 13:30; Stop 02/19/17 at 13:29 Ciprofloxacin (Cipro) 500 mg BID@,18 PO Last administered on 02/10/17 05:22 ; Admin Dose 500 MG; Start 02/09/17 at 18:00; Stop 02/19/17 at 17:59 EDIE GARCIA Feb 10, 2017 13:59
[2017-02-10 14:44] VITALS: BP 90/60; RESP 17
[2017-02-10] MEDS: ENOXAPARIN 40 MG/0.4 ML SYG SC SCH (15:00)
[2017-02-10] MEDS: HYDROCODONE/APAP (10/325) TAB PO PRN (16:53)
--- NOTE | 2017-02-10 16:55 | PN ---
Date/Time of Note Date/Time of Note DATE: 02/10/17 TIME: 16:52 Assessment/Plan Lines/Catheters IV [facility] Type (from [facility]): Saline Lock Jones in Place (from Nrs): No Assessment/Plan Chief Complaint/Hosp Course -S/P debridement -Continue with silver alginate to the wounds every-other day -keep legs elevated, -OOB and ambulate as needed -Followup as outpt in 2 weeks Problems: Subjective 24 Hr Interval Summary Constitutional: no complaints Exam/Review of Systems Vital Signs Vitals Vital Signs Date Time Temp Pulse Resp B/P Pulse Ox O2 Delivery O2 Flow Rate FiO2 02/10/17 14:44 97.8 61 17 90/60 95 02/06/17 18:12 Room Air Intake and Output 02/09/17 02/09/17 02/10/17 15:00 23:00 07:00 Intake Total 50 ml 820 ml 480 ml Balance 50 ml 820 ml 480 ml Exam Free Text/Dictation RLE: palpable femoral pulse, faint pedal pulse, motor/sensory intact, edema resolved, dressing removed all sites with amniotic tissue have taken, the Achilles wound with granulation tissue and epithelialization Results Result Diagram: 02/08/17 0552 02/08/17 0552 ERIN BLACKBURN MD Feb 10, 2017 16:55
[2017-02-10] MEDS ORDERED: APIXABAN 5 MG TABLET ONE (19:39)
[2017-02-10] MEDS: LATANOPROST 0.005% 2.5 ML OPH BOTH EYES SCH (20:16)
[2017-02-10] MEDS: APIXABAN 5 MG TABLET PO SCH (20:17)
[2017-02-10 21:07] VITALS: BP 95/49; RESP 18
[2017-02-10] MEDS: MAGNESIUM HYDROXIDE 30ML CUP PO SCH (22:36)
[2017-02-11] MEDS: CIPROFLOXACIN 500 MG TAB PO SCH ×2 (05:20→18:05)
[2017-02-11] MEDS: NYSTATIN 15 GM POWDER BTL TOP SCH ×3 (05:20→22:02)
[2017-02-11] MEDS: morphine 4 MG/ML VIAL IV PRN ×3 (05:20→20:32)
[2017-02-11] MEDS: LACTULOSE 30ML CUP PO SCH ×4 (05:24→23:48)
[2017-02-11 05:53] LABS: BASOPHIL # 0.1 10^3/ul (0.0-0.1); BASOPHILS % 0.9 % (0.0-2.0); EOSINOPHILS # 0.4 10^3/ul (0.0-0.5); EOSINOPHILS % 5.1 % (0.0-7.0); HEMATOCRIT 32.1 % (37.0-47.0); HEMOGLOBIN 9.8 g/dl (12.0-16.0); LYMPHOCYTES # 2.3 10^3/ul (0.8-2.9); LYMPHOCYTES % 28.6 % (15.0-51.0); MEAN CORPUSCULAR HEMOGLOBIN 24.9 pg (29.0-33.0); MEAN CORPUSCULAR HGB CONC 30.5 g/dl (32.0-37.0); MEAN CORPUSCULAR VOLUME 81.7 fl (82.0-101.0); MEAN PLATELET VOLUME 10.3 fl (7.4-10.4); MONOCYTE # 0.7 10^3/ul (0.3-0.9); MONOCYTES % 8.3 % (0.0-11.0); NEUTROPHIL # 4.6 10^3/ul (1.6-7.5); NEUTROPHILS % 56.7 % (39.0-77.0); PLATELET COUNT 300 10^3/UL (140-415); RED BLOOD COUNT 3.93 10^6/ul (4.20-5.40); RED CELL DISTRIBUTION WIDTH 16.9 % (11.5-14.5); WHITE BLOOD COUNT 8.1 10^3/ul (4.8-10.8)
[2017-02-11 06:29] LABS: CHOL/HDL RATIO 2.5 RATIO; MAGNESIUM 2.2 mg/dl (1.7-2.5); PHOSPHORUS 4.7 mg/dl (2.5-4.9)
[2017-02-11 06:32] LABS: CALCIUM 9.3 mg/dl (8.4-10.2); CREATININE 0.81 mg/dl (0.44-1.00); POTASSIUM 4.6 mmol/L (3.5-5.1)
[2017-02-11 08:13] VITALS: BP 109/53; RESP 20
[2017-02-11] MEDS: FUROSEMIDE 40 MG TAB PO SCH (08:47)
[2017-02-11] MEDS: DOXYCYCLINE 100 MG TAB PO SCH ×2 (08:47→20:31)
[2017-02-11] MEDS: ASCORBIC ACID 500 MG TAB PO SCH (08:47)
[2017-02-11] MEDS: APIXABAN 5 MG TABLET PO SCH ×2 (08:47→20:31)
[2017-02-11] MEDS: NIFEdipine (XL) 90 MG TAB PO SCH ×2 (08:48→08:53)
[2017-02-11] MEDS: FERROUS SULFATE (EC) 325 MG TAB PO SCH (08:48)
[2017-02-11] MEDS: GABAPENTIN 300 MG CAP PO SCH ×3 (08:48→20:31)
[2017-02-11] MEDS: METOPROLOL (XL) 100 MG TAB PO SCH (08:49)
[2017-02-11] MEDS: LISINOPRIL 20 MG TAB PO SCH (08:49)
[2017-02-11] MEDS: SENNA TAB PO SCH ×2 (08:50→20:30)
[2017-02-11] MEDS: HYDROCODONE/APAP (10/325) TAB PO PRN (10:21)
--- NOTE | 2017-02-11 10:55 | PN ---
Date/Time of Note Date/Time of Note DATE: 02/11/17 TIME: 10:53 Assessment/Plan VTE Prophylaxis VTE Prophylaxis Intervention: LMWH Lines/Catheters IV [facility] (from [facility]): Saline Lock Urinary Cath still in place: No Assessment/Plan Chief Complaint/Hosp Course 1. Bilateral lower extremity nonhealing ulcers with venous insufficiency. Status post right lower extremity sharp excisional debridement of multiple ulcers with application of amniotic tissue powder on 02/06/2017. Wound Care management as per vascular surgery. Antibiotics as per infectious diseases. 2. Severe aortic stenosis. Patient to follow-up with outpatient cardiac surgery. 3. Peripheral vascular disease. Being followed by vascular surgery. 4. Diabetes mellitus. Hemoglobin A1c 5.3. Blood sugars well controlled without insulin. 5. Essential hypertension. Continue antihypertensives. 6. Pulmonary hypertension. PA systolic pressure of 82 mmHg as per a 2D echocardiogram from 01/21/2017. Most probably secondary to underlying valvular heart disease. 7. Microcytic, hypochromic anemia with underlying iron deficiency. Continue iron supplements. 8. History of paroxysmal atrial fibrillation. On factor Xa inhibitors for stroke prophylaxis. 9. Fluids, electrolytes, and nutrition. Carbohydrate controlled diet. 10. DVT prophylaxis. Subcutaneous Lovenox. 11. Plan. Continue antimicrobials as per infectious diseases. Await further recommendations from vascular surgery. PT evaluation. Case discussed with Dr. Sadler. Problems: Subjective 24 Hr Interval Summary Free Text/Dictation Planes of right lower extremity pain. Remains afebrile. Exam/Review of Systems Vital Signs Vitals Vital Signs Date Time Temp Pulse Resp B/P Pulse Ox O2 Delivery O2 Flow Rate FiO2 02/11/17 08:13 97.5 60 20 109/53 96 Intake and Output 02/10/17 02/10/17 02/11/17 15:00 23:00 07:00 Intake Total 1200 ml 480 ml Balance 1200 ml 480 ml Exam General: Adequately build 76 year-old male lying in bed in no apparent distress. HEENT: Normocephalic, atraumatic. Eyes: Anicteric sclerae, conjunctivae clear. ENT: Nasal septum midline, oral mucosa moist. Neck supple, no JVD noticed. Respiratory: Bilaterally clear breath sounds. No use of accessory muscles of respiration. No adventitious breath sounds. Cardiovascular: S1, S2 heard. Grade III/ JESSICA. Abdomen: Soft, nontender, and nondistended. Bowel sounds positive in all 4 quadrants. Genitourinary: Deferred. Extremities: No cyanosis, no clubbing. Left lower extremity dorsalis pedis pulse palpable. Right lower extremity dressing. Neurologic: Cranial nerves II through XII grossly intact. The patient is awake, alert, and oriented. Results Result Diagram: 02/11/17 0517 02/11/17 0440 Results 24 hrs Laboratory Tests Test 02/11/17 04:40 02/11/17 05:17 Sodium Level 132 L Potassium Level 4.6 Chloride Level 97 Carbon Dioxide Level 31 Anion Gap 9 Blood Urea Nitrogen 53 H Creatinine 0.81 Glucose Level 97 Calcium Level 9.3 Phosphorus Level 4.7 Magnesium Level 2.2 Triglycerides Level 52 Cholesterol Level 140 LDL Cholesterol, Calculated 75 HDL Cholesterol 55 Cholesterol/HDL Ratio 2.5 White Blood Count 8.1 # Red Blood Count 3.93 L Hemoglobin 9.8 L Hematocrit 32.1 L Mean Corpuscular Volume 81.7 L Mean Corpuscular Hemoglobin 24.9 L Mean Corpuscular Hemoglobin Concent 30.5 L Red Cell Distribution Width 16.9 H Platelet Count 300 Mean Platelet Volume 10.3 Neutrophils % 56.7 Lymphocytes % 28.6 Monocytes % 8.3 Eosinophils % 5.1 Basophils % 0.9 Nucleated Red Blood Cells % 0.0 Neutrophils # 4.6 Lymphocytes # 2.3 Monocytes # 0.7 Eosinophils # 0.4 Basophils # 0.1 Nucleated Red Blood Cells # 0.0 Medications Medications Current Medications Ascorbic Acid (Vitamin C) 500 mg DAILY PO Last administered on 02/11/17 08:47 ; Admin Dose 500 MG; Start 02/04/17 at 09:00 Ferrous Sulfate (Ferrous Sulfate (Ec)) 325 mg DAILY PO Last administered on 08:48; Admin Dose 325 MG; Start 02/04/17 at 09:00 Furosemide (Lasix) 40 mg DAILY PO Last administered on 02/11/17 08:47; Admin Dose 40 MG; Start 02/04/17 at 09:00 Gabapentin (Neurontin) 300 mg TID PO Last administered on 02/11/17 08:48; Admin Dose 300 MG; Start 02/04/17 at 09:00 Latanoprost (Xalatan) 1 drop QHS BOTH EYES Last administered on 02/10/17 20:16 ; Admin Dose 1 DROP; Start 02/04/17 at 21:00 Lisinopril (Zestril) 20 mg DAILY PO Last administered on 02/10/17 08:46; Admin Dose 20 MG; Start 02/04/17 at 09:00 Magnesium Hydroxide (Milk Of Mag) 30 ml Q24H PO Last administered on 02/09/17 23:27; Admin Dose 30 ML; Start 02/03/17 at 23:00 Metoprolol Succinate (Toprol Xl) 100 mg DAILY PO Last administered on 08:46; Admin Dose 100 MG; Start 02/04/17 at 09:00 Nifedipine (Procardia Xl) 90 mg DAILY PO Last administered on 02/10/17 08:47; Admin Dose 90 MG; Start 02/04/17 at 09:00 Nystatin 1 applic Q8 TOP Last administered on 02/11/17 05:20; Admin Dose 1 APPLIC; Start 02/04/17 at 06:00 Ondansetron HCl (Zofran Inj) 4 mg Q6H PRN IV NAUSEA AND/OR VOMITING; Start 04/11 at 23:30 Acetaminophen (Tylenol Tab) 650 mg Q6H PRN PO PAIN AND OR ELEVATED TEMP; Start 02/03/17 at 23:30 Morphine Sulfate (morphine) 4 mg Q4H PRN IV PAIN Last administered on 05:20; Admin Dose 4 MG; Start 02/04/17 at 02:00 Acetaminophen/ Hydrocodone Bitart ([place] (10/325)) 1 tab Q4H PRN PO PAIN Last administered on 02/11/17 10:21; Admin Dose 1 TAB; Start 02/04/17 at 02:00 Miscellaneous Information 1 ea NOTE XX ; Start 02/04/17 at 02:00 Dextrose (D50w Syringe) 25 ml Q15M PRN IV DECREASED GLUCOSE; Start 02/04/17 at 02:00 Dextrose (D50w Syringe) 50 ml Q15M PRN IV DECREASED GLUCOSE; Start 02/04/17 at 02:00 Miscellaneous Information (Pending [facility] Order For Wound Care) This patient humphries... PRN PRN XX WOUND CARE; Start 02/04/17 at 02:30 Lactulose (Enulose) 30 gm Q6 PO Last administered on 9/18/17at 12:40; Admin Dose 30 GM; Start 02/07/17 at 00:00 Senna (Senokot) 2 tab BID PO Last administered on 02/10/17 20:17; Admin Dose 2 TAB; Start 02/06/17 at 22:30 Doxycycline Hyclate (Vibramycin) 100 mg BID PO Last administered on 02/11/17 08:47; Admin Dose 100 MG; Start 02/09/17 at 13:30; Stop 02/19/17 at 13:29 Ciprofloxacin (Cipro) 500 mg BID@ PO Last administered on 02/11/17 05:20 ; Admin Dose 500 MG; Start 02/09/17 at 18:00; Stop 02/19/17 at 17:59 Apixaban (Eliquis) 5 mg BID PO Last administered on 02/11/17 08:47; Admin Dose 5 MG; Start 02/10/17 at 21:00 DOM PADILLA NP Feb 11, 2017 10:55
[2017-02-11 14:32] VITALS: BP 124/60; RESP 18
--- NOTE | 2017-02-11 14:32 | CONS ---
Date/Time of Note Date/Time of Note DATE: 02/11/17 TIME: 14:31 Assessment/Plan Assessment/Plan Chief Complaint/Hosp Course SUBJECTIVE DATA: No acute changes over night. Patient is awake, looks comfortable, afebrile, family at bedside. MICROBIOLOGY: Lower extremity wound culture 01/23 grew Pseudomonas aeruginosa, susceptible to all antibiotics. ALLERGIES: PENICILLIN. Abx: Cipro, Doxycycline PHYSICAL EXAMINATION: GENERAL: Well-developed, obese, elderly woman, who is awake, in no distress. HEENT: Head atraumatic, normocephalic. Sclerae nonicteric. NECK: Supple. CHEST: Rise symmetrical. Breath sounds clear. HEART: S1, S2. ABDOMEN: Soft, bowel sounds present. EXTREMITIES: With bilateral lower extremity dressing intact. ASSESSMENT: 1. Bilateral lower extremities acute on chronic cellulitis with chronic venous stasis. 2. Peripheral vascular disease. 3. Diabetes. 4. Hypertension. PLAN: Clinically stable, continue local wound care, vascular/podiatry rec-s, ok dc on PO Cipro. [facility] staff Problems: Consultation Date/Type/Reason Admit Date/Time Feb 03, 2017 at 20:27 Type of Consultation: ID Exam/Review of Systems Vital Signs Vitals Vital Signs Date Time Temp Pulse Resp B/P Pulse Ox O2 Delivery O2 Flow Rate FiO2 02/11/17 08:13 97.5 60 20 109/53 96 Intake and Output 02/10/17 02/10/17 02/11/17 15:00 23:00 07:00 Intake Total 1200 ml 480 ml Balance 1200 ml 480 ml Results Result Diagram: 02/11/17 0517 02/11/17 0440 Results 24 hrs Laboratory Tests Test 02/11/17 04:40 02/11/17 05:17 Sodium Level 132 L Potassium Level 4.6 Chloride Level 97 Carbon Dioxide Level 31 Anion Gap 9 Blood Urea Nitrogen 53 H Creatinine 0.81 Glucose Level 97 Calcium Level 9.3 Phosphorus Level 4.7 Magnesium Level 2.2 Triglycerides Level 52 Cholesterol Level 140 LDL Cholesterol, Calculated 75 HDL Cholesterol 55 Cholesterol/HDL Ratio 2.5 White Blood Count 8.1 # Red Blood Count 3.93 L Hemoglobin 9.8 L Hematocrit 32.1 L Mean Corpuscular Volume 81.7 L Mean Corpuscular Hemoglobin 24.9 L Mean Corpuscular Hemoglobin Concent 30.5 L Red Cell Distribution Width 16.9 H Platelet Count 300 Mean Platelet Volume 10.3 Neutrophils % 56.7 Lymphocytes % 28.6 Monocytes % 8.3 Eosinophils % 5.1 Basophils % 0.9 Nucleated Red Blood Cells % 0.0 Neutrophils # 4.6 Lymphocytes # 2.3 Monocytes # 0.7 Eosinophils # 0.4 Basophils # 0.1 Nucleated Red Blood Cells # 0.0 Medications Medications Current Medications Ascorbic Acid (Vitamin C) 500 mg DAILY PO Last administered on 02/11/17 08:47 ; Admin Dose 500 MG; Start 02/04/17 at 09:00 Ferrous Sulfate (Ferrous Sulfate (Ec)) 325 mg DAILY PO Last administered on 08:48; Admin Dose 325 MG; Start 02/04/17 at 09:00 Furosemide (Lasix) 40 mg DAILY PO Last administered on 02/11/17 08:47; Admin Dose 40 MG; Start 02/04/17 at 09:00 Gabapentin (Neurontin) 300 mg TID PO Last administered on 02/11/17 13:00; Admin Dose 300 MG; Start 02/04/17 at 09:00 Latanoprost (Xalatan) 1 drop QHS BOTH EYES Last administered on 02/10/17 20:16 ; Admin Dose 1 DROP; Start 02/04/17 at 21:00 Lisinopril (Zestril) 20 mg DAILY PO Last administered on 02/10/17 08:46; Admin Dose 20 MG; Start 02/04/17 at 09:00 Magnesium Hydroxide (Milk Of Mag) 30 ml Q24H PO Last administered on 02/09/17 23:27; Admin Dose 30 ML; Start 02/03/17 at 23:00 Metoprolol Succinate (Toprol Xl) 100 mg DAILY PO Last administered on 08:46; Admin Dose 100 MG; Start 02/04/17 at 09:00 Nystatin 1 applic Q8 TOP Last administered on 02/11/17 13:01; Admin Dose 1 APPLIC; Start 02/04/17 at 06:00 Ondansetron HCl (Zofran Inj) 4 mg Q6H PRN IV NAUSEA AND/OR VOMITING; Start 04/11 at 23:30 Acetaminophen (Tylenol Tab) 650 mg Q6H PRN PO PAIN AND OR ELEVATED TEMP; Start 02/03/17 at 23:30 Morphine Sulfate (morphine) 4 mg Q4H PRN IV PAIN Last administered on 13:46; Admin Dose 4 MG; Start 02/04/17 at 02:00 Acetaminophen/ Hydrocodone Bitart ([place] (10/325)) 1 tab Q4H PRN PO PAIN Last administered on 02/11/17 10:21; Admin Dose 1 TAB; Start 02/04/17 at 02:00 Miscellaneous Information 1 ea NOTE XX ; Start 02/04/17 at 02:00 Dextrose (D50w Syringe) 25 ml Q15M PRN IV DECREASED GLUCOSE; Start 02/04/17 at 02:00 Dextrose (D50w Syringe) 50 ml Q15M PRN IV DECREASED GLUCOSE; Start 02/04/17 at 02:00 Miscellaneous Information (Pending [facility] Order For Wound Care) This patient humphries... PRN PRN XX WOUND CARE; Start 02/04/17 at 02:30 Lactulose (Enulose) 30 gm Q6 PO Last administered on 02/10/17 12:40; Admin Dose 30 GM; Start 02/07/17 at 00:00 Senna (Senokot) 2 tab BID PO Last administered on 02/10/17 20:17; Admin Dose 2 TAB; Start 02/06/17 at 22:30 Doxycycline Hyclate (Vibramycin) 100 mg BID PO Last administered on 02/11/17 08:47; Admin Dose 100 MG; Start 02/09/17 at 13:30; Stop 02/19/17 at 13:29 Ciprofloxacin (Cipro) 500 mg BID@ PO Last administered on 02/11/17 05:20 ; Admin Dose 500 MG; Start 02/09/17 at 18:00; Stop 02/19/17 at 17:59 Apixaban (Eliquis) 5 mg BID PO Last administered on 02/11/17 08:47; Admin Dose 5 MG; Start 02/10/17 at 21:00 ALECIA SOTELO NP Feb 11, 2017 14:32
[2017-02-11] MEDS: LATANOPROST 0.005% 2.5 ML OPH BOTH EYES SCH (20:32)
[2017-02-11 21:02] VITALS: BP 124/63; RESP 18
[2017-02-11] MEDS: MAGNESIUM HYDROXIDE 30ML CUP PO SCH ×2 (22:33→22:36)
[2017-02-12] MEDS: morphine 4 MG/ML VIAL IV PRN ×3 (02:50→23:11)
[2017-02-12 03:14] VITALS: BP 151/67; RESP 18
[2017-02-12 05:36] LABS: BASOPHIL # 0.1 10^3/ul (0.0-0.1); BASOPHILS % 0.8 % (0.0-2.0); EOSINOPHILS # 0.4 10^3/ul (0.0-0.5); EOSINOPHILS % 5.4 % (0.0-7.0); HEMATOCRIT 32.5 % (37.0-47.0); HEMOGLOBIN 9.9 g/dl (12.0-16.0); LYMPHOCYTES # 2.5 10^3/ul (0.8-2.9); LYMPHOCYTES % 31.2 % (15.0-51.0); MEAN CORPUSCULAR HEMOGLOBIN 24.6 pg (29.0-33.0); MEAN CORPUSCULAR HGB CONC 30.5 g/dl (32.0-37.0); MEAN CORPUSCULAR VOLUME 80.6 fl (82.0-101.0); MEAN PLATELET VOLUME 9.9 fl (7.4-10.4); MONOCYTE # 0.6 10^3/ul (0.3-0.9); MONOCYTES % 7.6 % (0.0-11.0); NEUTROPHIL # 4.4 10^3/ul (1.6-7.5); NEUTROPHILS % 54.7 % (39.0-77.0); PLATELET COUNT 303 10^3/UL (140-415); RED BLOOD COUNT 4.03 10^6/ul (4.20-5.40); RED CELL DISTRIBUTION WIDTH 17.2 % (11.5-14.5)
[2017-02-12] MEDS: CIPROFLOXACIN 500 MG TAB PO SCH ×2 (05:39→17:38)
[2017-02-12] MEDS: LACTULOSE 30ML CUP PO SCH ×3 (05:40→17:11)
[2017-02-12] MEDS: NYSTATIN 15 GM POWDER BTL TOP SCH ×3 (05:40→22:09)
[2017-02-12 06:12] LABS: MAGNESIUM 1.9 mg/dl (1.7-2.5); PHOSPHORUS 4.7 mg/dl (2.5-4.9)
[2017-02-12 06:25] LABS: CREATININE 0.73 mg/dl (0.44-1.00); POTASSIUM 5.1 mmol/L (3.5-5.1)
[2017-02-12] MEDS: ASCORBIC ACID 500 MG TAB PO SCH (08:00)
[2017-02-12] MEDS: FUROSEMIDE 40 MG TAB PO SCH (08:00)
[2017-02-12] MEDS: GABAPENTIN 300 MG CAP PO SCH ×3 (08:00→20:54)
[2017-02-12] MEDS: APIXABAN 5 MG TABLET PO SCH ×2 (08:00→20:54)
[2017-02-12] MEDS: LISINOPRIL 20 MG TAB PO SCH (08:00)
[2017-02-12] MEDS: FERROUS SULFATE (EC) 325 MG TAB PO SCH (08:00)
[2017-02-12] MEDS: DOXYCYCLINE 100 MG TAB PO SCH (08:00)
[2017-02-12] MEDS: SENNA TAB PO SCH ×2 (08:01→20:54)
[2017-02-12] MEDS: METOPROLOL (XL) 100 MG TAB PO SCH (08:05)
[2017-02-12 08:24] VITALS: BP 147/60; RESP 18
--- NOTE | 2017-02-12 13:03 | PN ---
Date/Time of Note Date/Time of Note DATE: 02/12/17 TIME: 13:01 Assessment/Plan VTE Prophylaxis VTE Prophylaxis Intervention: other (Factor Xa inhibitors.) Lines/Catheters IV [facility]ter Type (from [facility]): Saline Lock Urinary Cath still in place: No Assessment/Plan Chief Complaint/Hosp Course 1. Bilateral lower extremity nonhealing ulcers with venous insufficiency. Status post right lower extremity sharp excisional debridement of multiple ulcers with application of amniotic tissue powder on 02/06/2017. Wound Care management as per vascular surgery. Antibiotics as per infectious diseases. 2. Severe aortic stenosis. Patient to follow-up with outpatient cardiac surgery. 3. Peripheral vascular disease. Being followed by vascular surgery. 4. Diabetes mellitus. Hemoglobin A1c 5.3. Blood sugars well controlled without insulin. 5. Essential hypertension. Continue antihypertensives. 6. Pulmonary hypertension. PA systolic pressure of 82 mmHg as per a 2D echocardiogram from 01/21/2017. Most probably secondary to underlying valvular heart disease. 7. Microcytic, hypochromic anemia with underlying iron deficiency. Continue iron supplements. 8. History of paroxysmal atrial fibrillation. On factor Xa inhibitors for stroke prophylaxis. 9. Fluids, electrolytes, and nutrition. Carbohydrate controlled diet. 10. DVT prophylaxis. Factor Xa inhibitors. 11. Plan. Continue antimicrobials as per infectious diseases. Pending PT evaluation. Plan is to discharge the patient on oral antibiotics. Case discussed with Dr. Sadler. Problems: Subjective 24 Hr Interval Summary Free Text/Dictation Having RLE pain. Exam/Review of Systems Vital Signs Vitals Vital Signs Date Time Temp Pulse Resp B/P Pulse Ox O2 Delivery O2 Flow Rate FiO2 02/12/17 08:24 97.6 65 18 147/60 97 Intake and Output 02/11/17 02/11/17 02/12/17 15:00 23:00 07:00 Intake Total 1200 ml 240 ml Output Total 1500 ml Balance -300 ml 240 ml Exam General: Adequately build 76 year-old male lying in bed in no apparent distress. HEENT: Normocephalic, atraumatic. Eyes: Anicteric sclerae, conjunctivae clear. ENT: Nasal septum midline, oral mucosa moist. Neck supple, no JVD noticed. Respiratory: Bilaterally clear breath sounds. No use of accessory muscles of respiration. No adventitious breath sounds. Cardiovascular: S1, S2 heard. Grade III/ JESSICA. Abdomen: Soft, nontender, and nondistended. Bowel sounds positive in all 4 quadrants. Genitourinary: Deferred. Extremities: No cyanosis, no clubbing. Left lower extremity dorsalis pedis pulse palpable. Right lower extremity dressing. Neurologic: Cranial nerves II through XII grossly intact. The patient is awake, alert, and oriented. Results Result Diagram: 02/12/17 0500 02/12/17 0518 Results 24 hrs Laboratory Tests Test 02/12/17 05:00 02/12/17 05:18 White Blood Count 8.0 Red Blood Count 4.03 L Hemoglobin 9.9 L Hematocrit 32.5 L Mean Corpuscular Volume 80.6 L Mean Corpuscular Hemoglobin 24.6 L Mean Corpuscular Hemoglobin Concent 30.5 L Red Cell Distribution Width 17.2 H Platelet Count 303 Mean Platelet Volume 9.9 Neutrophils % 54.7 Lymphocytes % 31.2 Monocytes % 7.6 Eosinophils % 5.4 Basophils % 0.8 Nucleated Red Blood Cells % 0.0 Neutrophils # 4.4 Lymphocytes # 2.5 Monocytes # 0.6 Eosinophils # 0.4 Basophils # 0.1 Nucleated Red Blood Cells # 0.0 Sodium Level 136 Potassium Level 5.1 Chloride Level 99 Carbon Dioxide Level 32 H Anion Gap 10 Blood Urea Nitrogen 37 #H Creatinine 0.73 Glucose Level 89 Calcium Level 9.0 Phosphorus Level 4.7 Magnesium Level 1.9 Medications Medications Current Medications Ascorbic Acid (Vitamin C) 500 mg DAILY PO Last administered on 02/12/17 08:00 ; Admin Dose 500 MG; Start 02/04/17 at 09:00 Ferrous Sulfate (Ferrous Sulfate (Ec)) 325 mg DAILY PO Last administered on 08:00; Admin Dose 325 MG; Start 02/04/17 at 09:00 Furosemide (Lasix) 40 mg DAILY PO Last administered on 02/12/17 08:00; Admin Dose 40 MG; Start 02/04/17 at 09:00 Gabapentin (Neurontin) 300 mg TID PO Last administered on 02/12/17 12:21; Admin Dose 300 MG; Start 02/04/17 at 09:00 Latanoprost (Xalatan) 1 drop QHS BOTH EYES Last administered on 02/11/17 20:32 ; Admin Dose 1 DROP; Start 02/04/17 at 21:00 Lisinopril (Zestril) 20 mg DAILY PO Last administered on 02/12/17 08:00; Admin Dose 20 MG; Start 02/04/17 at 09:00 Magnesium Hydroxide (Milk Of Mag) 30 ml Q24H PO Last administered on 02/09/17 23:27; Admin Dose 30 ML; Start 02/03/17 at 23:00 Metoprolol Succinate (Toprol Xl) 100 mg DAILY PO Last administered on 08:46; Admin Dose 100 MG; Start 02/04/17 at 09:00 Nystatin 1 applic Q8 TOP Last administered on 02/12/17 05:40; Admin Dose 1 APPLIC; Start 02/04/17 at 06:00 Ondansetron HCl (Zofran Inj) 4 mg Q6H PRN IV NAUSEA AND/OR VOMITING; Start 04/11 at 23:30 Acetaminophen (Tylenol Tab) 650 mg Q6H PRN PO PAIN AND OR ELEVATED TEMP; Start 02/03/17 at 23:30 Morphine Sulfate (morphine) 4 mg Q4H PRN IV PAIN Last administered on 07:57; Admin Dose 4 MG; Start 02/04/17 at 02:00 Acetaminophen/ Hydrocodone Bitart ([place] (10/325)) 1 tab Q4H PRN PO PAIN Last administered on 02/11/17 10:21; Admin Dose 1 TAB; Start 02/04/17 at 02:00 Miscellaneous Information 1 ea NOTE XX ; Start 02/04/17 at 02:00 Dextrose (D50w Syringe) 25 ml Q15M PRN IV DECREASED GLUCOSE; Start 02/04/17 at 02:00 Dextrose (D50w Syringe) 50 ml Q15M PRN IV DECREASED GLUCOSE; Start 02/04/17 at 02:00 Miscellaneous Information (Pending Santyl Order For Wound Care) This patient humphries... PRN PRN XX WOUND CARE; Start 02/04/17 at 02:30 Lactulose (Enulose) 30 gm Q6 PO Last administered on 02/11/17 18:09; Admin Dose 30 GM; Start 02/07/17 at 00:00 Senna (Senokot) 2 tab BID PO Last administered on 02/12/17 08:01; Admin Dose 2 TAB; Start 9/14/17 at 22:30 Doxycycline Hyclate (Vibramycin) 100 mg BID PO Last administered on 02/12/17 08:00; Admin Dose 100 MG; Start 02/09/17 at 13:30; Stop 02/19/17 at 13:29 Ciprofloxacin (Cipro) 500 mg BID@18 PO Last administered on 02/12/17 05:39 ; Admin Dose 500 MG; Start 02/09/17 at 18:00; Stop 02/19/17 at 17:59 Apixaban (Eliquis) 5 mg BID PO Last administered on 02/12/17 08:00; Admin Dose 5 MG; Start 02/10/17 at 21:00 DOM PADILLA NP Feb 12, 2017 13:03
--- NOTE | 2017-02-12 13:17 | CONS ---
Date/Time of Note Date/Time of Note DATE: 02/12/17 TIME: 13:16 Assessment/Plan Assessment/Plan Chief Complaint/Hosp Course SUBJECTIVE DATA: Alert feels good looks comfortable no fevers Temperature 97.6 pulse 65 respirations 18 blood pressure 147/60 saturation 97 on room air WBC 8 H&H 9.9 and 32.5 platelets 303 BUN 37 creatinine 0.73 MICROBIOLOGY: Lower extremity wound culture 01/23 grew Pseudomonas aeruginosa, susceptible to all antibiotics. ALLERGIES: PENICILLIN. Abx: Cipro, Doxycycline PHYSICAL EXAMINATION: GENERAL: Well-developed, obese, elderly woman, who is awake, in no distress. HEENT: Head atraumatic, normocephalic. Sclerae nonicteric. NECK: Supple. CHEST: Rise symmetrical. Breath sounds clear. HEART: S1, S2. ABDOMEN: Soft, bowel sounds present. EXTREMITIES: With bilateral lower extremity dressing intact. ASSESSMENT: 1. Bilateral lower extremities acute on chronic cellulitis with chronic venous stasis. 2. Peripheral vascular disease. 3. Diabetes. 4. Hypertension. PLAN: Clinically stable, discontinue doxycycline, continue local wound care, vascular/podiatry rec-s, anticipate discharge on oral Cipro. DW staff Problems: Consultation Date/Type/Reason Admit Date/Time Feb 03, 2017 at 20:27 Type of Consultation: ID Exam/Review of Systems Vital Signs Vitals Vital Signs Date Time Temp Pulse Resp B/P Pulse Ox O2 Delivery O2 Flow Rate FiO2 02/12/17 08:24 97.6 65 18 147/60 97 Intake and Output 02/11/17 02/11/17 02/12/17 15:00 23:00 07:00 Intake Total 1200 ml 240 ml Output Total 1500 ml Balance -300 ml 240 ml Results Result Diagram: 02/12/17 0500 02/12/17 0518 Results 24 hrs Laboratory Tests Test 02/12/17 05:00 02/12/17 05:18 White Blood Count 8.0 Red Blood Count 4.03 L Hemoglobin 9.9 L Hematocrit 32.5 L Mean Corpuscular Volume 80.6 L Mean Corpuscular Hemoglobin 24.6 L Mean Corpuscular Hemoglobin Concent 30.5 L Red Cell Distribution Width 17.2 H Platelet Count 303 Mean Platelet Volume 9.9 Neutrophils % 54.7 Lymphocytes % 31.2 Monocytes % 7.6 Eosinophils % 5.4 Basophils % 0.8 Nucleated Red Blood Cells % 0.0 Neutrophils # 4.4 Lymphocytes # 2.5 Monocytes # 0.6 Eosinophils # 0.4 Basophils # 0.1 Nucleated Red Blood Cells # 0.0 Sodium Level 136 Potassium Level 5.1 Chloride Level 99 Carbon Dioxide Level 32 H Anion Gap 10 Blood Urea Nitrogen 37 #H Creatinine 0.73 Glucose Level 89 Calcium Level 9.0 Phosphorus Level 4.7 Magnesium Level 1.9 Medications Medications Current Medications Ascorbic Acid (Vitamin C) 500 mg DAILY PO Last administered on 02/12/17 08:00 ; Admin Dose 500 MG; Start 02/04/17 at 09:00 Ferrous Sulfate (Ferrous Sulfate (Ec)) 325 mg DAILY PO Last administered on 08:00; Admin Dose 325 MG; Start 02/04/17 at 09:00 Furosemide (Lasix) 40 mg DAILY PO Last administered on 02/12/17 08:00; Admin Dose 40 MG; Start 02/04/17 at 09:00 Gabapentin (Neurontin) 300 mg TID PO Last administered on 02/12/17 12:21; Admin Dose 300 MG; Start 02/04/17 at 09:00 Latanoprost (Xalatan) 1 drop QHS BOTH EYES Last administered on 02/11/17 20:32 ; Admin Dose 1 DROP; Start 02/04/17 at 21:00 Lisinopril (Zestril) 20 mg DAILY PO Last administered on 02/12/17 08:00; Admin Dose 20 MG; Start 02/04/17 at 09:00 Magnesium Hydroxide (Milk Of Mag) 30 ml Q24H PO Last administered on 02/09/17 23:27; Admin Dose 30 ML; Start 02/03/17 at 23:00 Metoprolol Succinate (Toprol Xl) 100 mg DAILY PO Last administered on 08:46; Admin Dose 100 MG; Start 02/04/17 at 09:00 Nystatin 1 applic Q8 TOP Last administered on 02/12/17 05:40; Admin Dose 1 APPLIC; Start 02/04/17 at 06:00 Ondansetron HCl (Zofran Inj) 4 mg Q6H PRN IV NAUSEA AND/OR VOMITING; Start 04/11 at 23:30 Acetaminophen (Tylenol Tab) 650 mg Q6H PRN PO PAIN AND OR ELEVATED TEMP; Start 02/03/17 at 23:30 Morphine Sulfate (morphine) 4 mg Q4H PRN IV PAIN Last administered on 07:57; Admin Dose 4 MG; Start 02/04/17 at 02:00 Acetaminophen/ Hydrocodone Bitart ([place] (10/325)) 1 tab Q4H PRN PO PAIN Last administered on 02/11/17 10:21; Admin Dose 1 TAB; Start 02/04/17 at 02:00 Miscellaneous Information 1 ea NOTE XX ; Start 02/04/17 at 02:00 Dextrose (D50w Syringe) 25 ml Q15M PRN IV DECREASED GLUCOSE; Start 02/04/17 at 02:00 Dextrose (D50w Syringe) 50 ml Q15M PRN IV DECREASED GLUCOSE; Start 02/04/17 at 02:00 Miscellaneous Information [facility] This patient humphries... PRN PRN XX WOUND CARE; Start 02/04/17 at 02:30 Lactulose (Enulose) 30 gm Q6 PO Last administered on 02/11/17 18:09; Admin Dose 30 GM; Start 02/07/17 at 00:00 Senna (Senokot) 2 tab BID PO Last administered on 02/12/17 08:01; Admin Dose 2 TAB; Start 02/06/17 at 22:30 Doxycycline Hyclate (Vibramycin) 100 mg BID PO Last administered on 02/12/17 08:00; Admin Dose 100 MG; Start 02/09/17 at 13:30; Stop 02/19/17 at 13:29 Ciprofloxacin (Cipro) 500 mg BID@ PO Last administered on 02/12/17 05:39 ; Admin Dose 500 MG; Start 02/09/17 at 18:00; Stop 02/19/17 at 17:59 Apixaban (Eliquis) 5 mg BID PO Last administered on 02/12/17 08:00; Admin Dose 5 MG; Start 02/10/17 at 21:00 ALECIA SOTELO NP Feb 12, 2017 13:17
[2017-02-12 14:00] VITALS: BP 105/52; RESP 18
[2017-02-12] MEDS: HYDROCODONE/APAP (10/325) TAB PO PRN (15:34)
[2017-02-12 15:40] VITALS: BP 109/54
[2017-02-12 19:52] VITALS: BP 123/56; RESP 18
[2017-02-12] MEDS: LATANOPROST 0.005% 2.5 ML OPH BOTH EYES SCH (20:54)
[2017-02-12] MEDS: MAGNESIUM HYDROXIDE 30ML CUP PO SCH (23:04)
[2017-02-13] MEDS: LACTULOSE 30ML CUP PO SCH ×4 (00:11→18:00)
[2017-02-13 02:42] VITALS: BP 136/65; RESP 63
[2017-02-13] MEDS: CIPROFLOXACIN 500 MG TAB PO SCH ×2 (05:26→18:05)
[2017-02-13] MEDS: NYSTATIN 15 GM POWDER BTL TOP SCH ×3 (05:26→21:12)
[2017-02-13 08:00] VITALS: BP 135/62; RESP 20
[2017-02-13] MEDS: SENNA TAB PO SCH ×2 (09:00→20:49)
[2017-02-13] MEDS: FERROUS SULFATE (EC) 325 MG TAB PO SCH (09:15)
[2017-02-13] MEDS: APIXABAN 5 MG TABLET PO SCH ×2 (09:15→20:59)
[2017-02-13] MEDS: ASCORBIC ACID 500 MG TAB PO SCH (09:15)
[2017-02-13] MEDS: LISINOPRIL 20 MG TAB PO SCH (09:16)
[2017-02-13] MEDS: FUROSEMIDE 40 MG TAB PO SCH (09:16)
[2017-02-13] MEDS: GABAPENTIN 300 MG CAP PO SCH ×3 (09:17→20:59)
[2017-02-13] MEDS: METOPROLOL (XL) 100 MG TAB PO SCH (09:17)
[2017-02-13 14:00] VITALS: BP 128/70; RESP 18
--- NOTE | 2017-02-13 14:45 | CONS ---
Date/Time of Note Date/Time of Note DATE: 02/13/17 TIME: 14:45 Assessment/Plan Assessment/Plan Chief Complaint/Hosp Course SUBJECTIVE DATA: Alert feels good looks comfortable no fevers MICROBIOLOGY: Lower extremity wound culture 01/23 grew Pseudomonas aeruginosa, susceptible to all antibiotics stool for C. difficile came back negative. ALLERGIES: PENICILLIN. Abx: Cipro PHYSICAL EXAMINATION: GENERAL: Well-developed, obese, elderly woman, who is awake, in no distress. HEENT: Head atraumatic, normocephalic. Sclerae nonicteric. NECK: Supple. CHEST: Rise symmetrical. Breath sounds clear. HEART: S1, S2. ABDOMEN: Soft, bowel sounds present. EXTREMITIES: With bilateral lower extremity dressing intact. ASSESSMENT: 1. Bilateral lower extremities acute on chronic cellulitis with chronic venous stasis. 2. Peripheral vascular disease. 3. Diabetes. 4. Hypertension. PLAN: Clinically stable, discontinue doxycycline, continue local wound care, vascular/podiatry rec-s, anticipate discharge on oral Cipro to complete 2 weeks course of antibiotics. DW staff Problems: Consultation Date/Type/Reason Admit Date/Time Feb 03, 2017 at 20:27 Type of Consultation: ID Exam/Review of Systems Vital Signs Vitals Vital Signs Date Time Temp Pulse Resp B/P Pulse Ox O2 Delivery O2 Flow Rate FiO2 02/13/17 08:00 97.7 66 20 135/62 100 Intake and Output 02/12/17 02/12/17 02/13/17 15:00 23:00 07:00 Intake Total 1060 ml 1150 ml Balance 1060 ml 1150 ml Results Result Diagram: 02/12/17 0500 02/12/17 0518 Medications Medications Current Medications Ascorbic Acid (Vitamin C) 500 mg DAILY PO Last administered on 02/13/17 09:15 ; Admin Dose 500 MG; Start 02/04/17 at 09:00 Ferrous Sulfate (Ferrous Sulfate (Ec)) 325 mg DAILY PO Last administered on 09:15; Admin Dose 325 MG; Start 02/04/17 at 09:00 Furosemide (Lasix) 40 mg DAILY PO Last administered on 02/13/17 09:16; Admin Dose 40 MG; Start 02/04/17 at 09:00 Gabapentin (Neurontin) 300 mg TID PO Last administered on 02/13/17 13:12; Admin Dose 300 MG; Start 02/04/17 at 09:00 Latanoprost (Xalatan) 1 drop QHS BOTH EYES Last administered on 02/12/17 20:54 ; Admin Dose 1 DROP; Start 02/04/17 at 21:00 Lisinopril (Zestril) 20 mg DAILY PO Last administered on 02/13/17 09:16; Admin Dose 20 MG; Start 02/04/17 at 09:00 Magnesium Hydroxide (Milk Of Mag) 30 ml Q24H PO Last administered on 02/12/17 23:04; Admin Dose 30 ML; Start 02/03/17 at 23:00 Metoprolol Succinate (Toprol Xl) 100 mg DAILY PO Last administered on 09:17; Admin Dose 100 MG; Start 02/04/17 at 09:00 Nystatin 1 applic Q8 TOP Last administered on 02/13/17 13:14; Admin Dose 1 APPLIC; Start 02/04/17 at 06:00 Ondansetron HCl (Zofran Inj) 4 mg Q6H PRN IV NAUSEA AND/OR VOMITING; Start 04/11 at 23:30 Acetaminophen (Tylenol Tab) 650 mg Q6H PRN PO PAIN AND OR ELEVATED TEMP; Start 02/03/17 at 23:30 Morphine Sulfate (morphine) 4 mg Q4H PRN IV PAIN Last administered on 23:11; Admin Dose 4 MG; Start 02/04/17 at 02:00 Acetaminophen/ Hydrocodone Bitart ([place] (10/325)) 1 tab Q4H PRN PO PAIN Last administered on 02/12/17 15:34; Admin Dose 1 TAB; Start 02/04/17 at 02:00 Miscellaneous Information 1 ea NOTE XX ; Start 02/04/17 at 02:00 Dextrose (D50w Syringe) 25 ml Q15M PRN IV DECREASED GLUCOSE; Start 02/04/17 at 02:00 Dextrose (D50w Syringe) 50 ml Q15M PRN IV DECREASED GLUCOSE; Start 02/04/17 at 02:00 Miscellaneous Information (Pending [facility]yl Order For Wound Care) This patient humphries... PRN PRN XX WOUND CARE; Start 02/04/17 at 02:30 Lactulose (Enulose) 30 gm Q6 PO Last administered on 02/13/17 05:26; Admin Dose 30 GM; Start 02/07/17 at 00:00 Senna (Senokot) 2 tab BID PO Last administered on 02/12/17 20:54; Admin Dose 2 TAB; Start 02/06/17 at 22:30 Ciprofloxacin (Cipro) 500 mg BID@,18 PO Last administered on 02/13/17 05:26 ; Admin Dose 500 MG; Start 02/09/17 at 18:00; Stop 02/19/17 at 17:59 Apixaban (Eliquis) 5 mg BID PO Last administered on 02/13/17 09:15; Admin Dose 5 MG; Start 02/10/17 at 21:00 ALECIA SOTELO NP Feb 13, 2017 14:45
[2017-02-13] MEDS: morphine 4 MG/ML VIAL IV PRN ×2 (15:16→21:18)
--- NOTE | 2017-02-13 16:15 | PN ---
Date/Time of Note Date/Time of Note DATE: 02/13/17 TIME: 16:12 Assessment/Plan VTE Prophylaxis VTE Prophylaxis Intervention: other (Factor Xa inhibitors.) Lines/Catheters IV [facility]ter [facility]from [facility] Urinary Cath still in place: No Assessment/Plan Chief Complaint/Hosp Course 1. Bilateral lower extremity nonhealing ulcers with venous insufficiency. Status post right lower extremity sharp excisional debridement of multiple ulcers with application of amniotic tissue powder on 02/06/2017. Wound Care management as per vascular surgery. Antibiotics as per infectious diseases. 2. Severe aortic stenosis. Patient to follow-up with outpatient cardiac surgery. 3. Peripheral vascular disease. Being followed by vascular surgery. 4. Diabetes mellitus. Hemoglobin A1c 5.3. Blood sugars well controlled without insulin. 5. Essential hypertension. Continue antihypertensives. 6. Pulmonary hypertension. PA systolic pressure of 82 mmHg as per a 2D echocardiogram from 01/21/2017. Most probably secondary to underlying valvular heart disease. 7. Microcytic, hypochromic anemia with underlying iron deficiency. Continue iron supplements. 8. History of paroxysmal atrial fibrillation. On factor Xa inhibitors for stroke prophylaxis. 9. Fluids, electrolytes, and nutrition. Carbohydrate controlled diet. 10. DVT prophylaxis. Factor Xa inhibitors. 11. Plan. Stool for C. diff is negative. Continue antimicrobials as per infectious diseases. Plan is to discharge the patient on oral antibiotics. The patient needs placement as per physical therapy notes. Patient's family disagreeing to go back to the previous rehab facility. Will discuss this with case management. Case discussed with Dr. Sadler. Problems: Subjective 24 Hr Interval Summary Free Text/Dictation Was having multiple episodes of diarrhea. Exam/Review of Systems Vital Signs Vitals Vital Signs Date Time Temp Pulse Resp B/P Pulse Ox O2 Delivery O2 Flow Rate FiO2 02/13/17 14:00 98.1 18 128/70 99 02/13/17 08:00 66 Intake and Output 02/12/17 02/12/17 02/13/17 15:00 23:00 07:00 Intake Total 1060 ml 1150 ml Balance 1060 ml 1150 ml Exam General: Adequately build 76 year-old male lying in bed in no apparent distress. HEENT: Normocephalic, atraumatic. Eyes: Anicteric sclerae, conjunctivae clear. ENT: Nasal septum midline, oral mucosa moist. Neck supple, no JVD noticed. Respiratory: Bilaterally clear breath sounds. No use of accessory muscles of respiration. No adventitious breath sounds. Cardiovascular: S1, S2 heard. Grade III/ JESSICA. Abdomen: Soft, nontender, and nondistended. Bowel sounds positive in all 4 quadrants. Genitourinary: Deferred. Extremities: No cyanosis, no clubbing. Left lower extremity dorsalis pedis pulse palpable. Right lower extremity dressing. Neurologic: Cranial nerves II through XII grossly intact. The patient is awake, alert, and oriented. Results Result Diagram: 02/12/17 0500 02/12/17 0518 Medications Medications Current Medications Ascorbic Acid (Vitamin C) 500 mg DAILY PO Last administered on 02/13/17 09:15 ; Admin Dose 500 MG; Start 02/04/17 at 09:00 Ferrous Sulfate (Ferrous Sulfate (Ec)) 325 mg DAILY PO Last administered on 09:15; Admin Dose 325 MG; Start 02/04/17 at 09:00 Furosemide (Lasix) 40 mg DAILY PO Last administered on 02/13/17 09:16; Admin Dose 40 MG; Start 02/04/17 at 09:00 Gabapentin (Neurontin) 300 mg TID PO Last administered on 02/13/17 13:12; Admin Dose 300 MG; Start 02/04/17 at 09:00 Latanoprost (Xalatan) 1 drop QHS BOTH EYES Last administered on 02/12/17 20:54 ; Admin Dose 1 DROP; Start 02/04/17 at 21:00 Lisinopril (Zestril) 20 mg DAILY PO Last administered on 02/13/17 09:16; Admin Dose 20 MG; Start 02/04/17 at 09:00 Magnesium Hydroxide (Milk Of Mag) 30 ml Q24H PO Last administered on 02/12/17 23:04; Admin Dose 30 ML; Start 02/03/17 at 23:00 Metoprolol Succinate (Toprol Xl) 100 mg DAILY PO Last administered on 09:17; Admin Dose 100 MG; Start 02/04/17 at 09:00 Nystatin 1 applic Q8 TOP Last administered on 02/13/17 13:14; Admin Dose 1 APPLIC; Start 02/04/17 at 06:00 Ondansetron HCl (Zofran Inj) 4 mg Q6H PRN IV NAUSEA AND/OR VOMITING; Start 04/11 at 23:30 Acetaminophen (Tylenol Tab) 650 mg Q6H PRN PO PAIN AND OR ELEVATED TEMP; Start 02/03/17 at 23:30 Morphine Sulfate (morphine) 4 mg Q4H PRN IV PAIN Last administered on 15:16; Admin Dose 4 MG; Start 02/04/17 at 02:00 Acetaminophen/ Hydrocodone Bitart ([place] (10/325)) 1 tab Q4H PRN PO PAIN Last administered on 02/12/17 15:34; Admin Dose 1 TAB; Start 02/04/17 at 02:00 Miscellaneous Information 1 ea NOTE XX ; Start 02/04/17 at 02:00 Dextrose (D50w Syringe) 25 ml Q15M PRN IV DECREASED GLUCOSE; Start 02/04/17 at 02:00 Dextrose (D50w Syringe) 50 ml Q15M PRN IV DECREASED GLUCOSE; Start 02/04/17 at 02:00 Miscellaneous Information (Pending [facility] Order For Wound Care) This patient humphries... PRN PRN XX WOUND CARE; Start 02/04/17 at 02:30 Lactulose (Enulose) 30 gm Q6 PO Last administered on 02/13/17 05:26; Admin Dose 30 GM; Start 02/07/17 at 00:00 Senna (Senokot) 2 tab BID PO Last administered on 02/12/17 20:54; Admin Dose 2 TAB; Start 02/06/17 at 22:30 Ciprofloxacin (Cipro) 500 mg BID@,18 PO Last administered on 02/13/17 05:26 ; Admin Dose 500 MG; Start 02/09/17 at 18:00; Stop 02/19/17 at 17:59 Apixaban (Eliquis) 5 mg BID PO Last administered on 02/13/17 09:15; Admin Dose 5 MG; Start 02/10/17 at 21:00 Lactobacillus Acidophilus (Florajen3 Capsule) 1 each BID PO ; Start 02/13/17 at 21:00 DOM PADILLA NP Feb 13, 2017 16:15
[2017-02-13 20:15] VITALS: BP 95/51; RESP 19
[2017-02-13] MEDS: L ACIDOPHIL/B LACTIS/B LONGUM CAPSULE PO SCH (20:59)
[2017-02-13] MEDS: LATANOPROST 0.005% 2.5 ML OPH BOTH EYES SCH (21:00)
[2017-02-13] MEDS: MAGNESIUM HYDROXIDE 30ML CUP PO SCH (22:47)
[2017-02-14 02:18] VITALS: BP 122/60; RESP 18
[2017-02-14] MEDS: CIPROFLOXACIN 500 MG TAB PO SCH ×3 (05:47→20:12)
[2017-02-14] MEDS: LACTULOSE 30ML CUP PO SCH ×2 (05:47)
[2017-02-14] MEDS: morphine 4 MG/ML VIAL IV PRN ×3 (05:47→23:21)
[2017-02-14] MEDS: NYSTATIN 15 GM POWDER BTL TOP SCH ×3 (05:51→22:31)
[2017-02-14 08:25] VITALS: BP 113/50; RESP 18
[2017-02-14] MEDS: L ACIDOPHIL/B LACTIS/B LONGUM CAPSULE PO SCH ×2 (08:56→20:12)
[2017-02-14] MEDS: APIXABAN 5 MG TABLET PO SCH ×2 (08:56→20:12)
[2017-02-14] MEDS: LISINOPRIL 20 MG TAB PO SCH (08:56)
[2017-02-14] MEDS: ASCORBIC ACID 500 MG TAB PO SCH (08:56)
[2017-02-14] MEDS: FUROSEMIDE 40 MG TAB PO SCH (08:56)
[2017-02-14] MEDS: GABAPENTIN 300 MG CAP PO SCH ×3 (08:56→20:12)
[2017-02-14] MEDS: FERROUS SULFATE (EC) 325 MG TAB PO SCH (08:56)
[2017-02-14] MEDS: METOPROLOL (XL) 100 MG TAB PO SCH (09:00)
[2017-02-14] MEDS: SENNA TAB PO SCH ×2 (09:00→20:12)
--- NOTE | 2017-02-14 12:12 | PN ---
Date/Time of Note Date/Time of Note DATE: 02/14/17 TIME: 12:10 Assessment/Plan VTE Prophylaxis VTE Prophylaxis Intervention: other (Factor Xa inhibitors.) Lines/Catheters [facility] Urinary Cath still in place: No Assessment/Plan Chief Complaint/Hosp Course 1. Bilateral lower extremity nonhealing ulcers with venous insufficiency. Status post right lower extremity sharp excisional debridement of multiple ulcers with application of amniotic tissue powder on 02/06/2017. Wound Care management as per vascular surgery. Antibiotics as per infectious diseases. 2. Severe aortic stenosis. Patient to follow-up with outpatient cardiac surgery. 3. Peripheral vascular disease. Being followed by vascular surgery. 4. Diabetes mellitus. Hemoglobin A1c 5.3. Blood sugars well controlled without insulin. 5. Essential hypertension. Continue antihypertensives. 6. Pulmonary hypertension. PA systolic pressure of 82 mmHg as per a 2D echocardiogram from 01/21/2017. Most probably secondary to underlying valvular heart disease. 7. Microcytic, hypochromic anemia with underlying iron deficiency. Continue iron supplements. 8. History of paroxysmal atrial fibrillation. On factor Xa inhibitors for stroke prophylaxis. 9. Fluids, electrolytes, and nutrition. Carbohydrate controlled diet. 10. DVT prophylaxis. Factor Xa inhibitors. 11. Plan. Stool for C. diff is negative. Continue antimicrobials as per infectious diseases. Plan is to discharge the patient on oral antibiotics. The patient needs placement as per physical therapy notes. Patient's family disagreeing to go back to the previous rehab facility. Will discuss this with case management. Case discussed with Dr. Sadler. Problems: Subjective 24 Hr Interval Summary Free Text/Dictation Complains of right knee pain. Exam/Review of Systems Vital Signs Vitals Vital Signs Date Time Temp Pulse Resp B/P Pulse Ox O2 Delivery O2 Flow Rate FiO2 02/14/17 08:25 97.7 55 18 113/50 100 Intake and Output 02/13/17 02/13/17 02/14/17 15:00 23:00 07:00 Intake Total 1640 ml 580 ml Output Total 700 ml Balance 1640 ml -120 ml Exam General: Adequately build 76 year-old male lying in bed in no apparent distress. HEENT: Normocephalic, atraumatic. Eyes: Anicteric sclerae, conjunctivae clear. ENT: Nasal septum midline, oral mucosa moist. Neck supple, no JVD noticed. Respiratory: Bilaterally clear breath sounds. No use of accessory muscles of respiration. No adventitious breath sounds. Cardiovascular: S1, S2 heard. Grade III/ JESSICA. Abdomen: Soft, nontender, and nondistended. Bowel sounds positive in all 4 quadrants. Genitourinary: Deferred. Extremities: No cyanosis, no clubbing. Left lower extremity dorsalis pedis pulse palpable. Right lower extremity dressing. Neurologic: Cranial nerves II through XII grossly intact. The patient is awake, alert, and oriented. Results Result Diagram: 02/12/17 0500 02/12/17 0518 Medications Medications Current Medications Ascorbic Acid (Vitamin C) 500 mg DAILY PO Last administered on 02/14/17 08:56 ; Admin Dose 500 MG; Start 02/04/17 at 09:00 Ferrous Sulfate (Ferrous Sulfate (Ec)) 325 mg DAILY PO Last administered on 08:56; Admin Dose 325 MG; Start 02/04/17 at 09:00 Furosemide (Lasix) 40 mg DAILY PO Last administered on 02/14/17 08:56; Admin Dose 40 MG; Start 02/04/17 at 09:00 Gabapentin (Neurontin) 300 mg TID PO Last administered on 02/14/17 08:56; Admin Dose 300 MG; Start 02/04/17 at 09:00 Latanoprost (Xalatan) 1 drop QHS BOTH EYES Last administered on 02/13/17 21:00 ; Admin Dose 1 DROP; Start 02/04/17 at 21:00 Lisinopril (Zestril) 20 mg DAILY PO Last administered on 02/14/17 08:56; Admin Dose 20 MG; Start 02/04/17 at 09:00 Magnesium Hydroxide (Milk Of Mag) 30 ml Q24H PO Last administered on 02/12/17 23:04; Admin Dose 30 ML; Start 02/03/17 at 23:00 Metoprolol Succinate (Toprol Xl) 100 mg DAILY PO Last administered on 09:17; Admin Dose 100 MG; Start 02/04/17 at 09:00 Nystatin 1 applic Q8 TOP Last administered on 02/14/17 05:51; Admin Dose 1 APPLIC; Start 02/04/17 at 06:00 Ondansetron HCl (Zofran Inj) 4 mg Q6H PRN IV NAUSEA AND/OR VOMITING; Start 04/11 at 23:30 Acetaminophen (Tylenol Tab) 650 mg Q6H PRN PO PAIN AND OR ELEVATED TEMP; Start 02/03/17 at 23:30 Morphine Sulfate (morphine) 4 mg Q4H PRN IV PAIN Last administered on 05:47; Admin Dose 4 MG; Start 02/04/17 at 02:00 Acetaminophen/ Hydrocodone Bitart ([place] (10/325)) 1 tab Q4H PRN PO PAIN Last administered on 02/12/17 15:34; Admin Dose 1 TAB; Start 02/04/17 at 02:00 Miscellaneous Information 1 ea NOTE XX ; Start 02/04/17 at 02:00 Dextrose (D50w Syringe) 25 ml Q15M PRN IV DECREASED GLUCOSE; Start 02/04/17 at 02:00 Dextrose (D50w Syringe) 50 ml Q15M PRN IV DECREASED GLUCOSE; Start 02/04/17 at 02:00 Miscellaneous Information (Pending [facility] Order For Wound Care) This patient humphries... PRN PRN XX WOUND CARE; Start 02/04/17 at 02:30 Senna (Senokot) 2 tab BID PO Last administered on 02/12/17 20:54; Admin Dose 2 TAB; Start 02/06/17 at 22:30 Ciprofloxacin (Cipro) 500 mg BID@06,18 PO Last administered on 02/14/17 05:47 ; Admin Dose 500 MG; Start 02/09/17 at 18:00; Stop 02/19/17 at 17:59 Apixaban (Eliquis) 5 mg BID PO Last administered on 02/14/17 08:56; Admin Dose 5 MG; Start 02/10/17 at 21:00 Lactobacillus Acidophilus (Florajen3 Capsule) 1 each BID PO Last administered on 02/14/17 08:56; Admin Dose 1 EACH; Start 02/13/17 at 21:00 DOM PADILLA NP Feb 14, 2017 12:12
--- NOTE | 2017-02-14 14:21 | CONS ---
Date/Time of Note Date/Time of Note DATE: 02/14/17 TIME: 14:20 Assessment/Plan Assessment/Plan Chief Complaint/Hosp Course SUBJECTIVE DATA: Alert, feels better looks comfortable, family at bedside, afebrile ALLERGIES: PENICILLIN. Abx: Cipro PHYSICAL EXAMINATION: GENERAL: Well-developed, obese, elderly woman, who is awake, in no distress. HEENT: Head atraumatic, normocephalic. Sclerae nonicteric. NECK: Supple. CHEST: Rise symmetrical. Breath sounds clear. HEART: S1, S2. ABDOMEN: Soft, bowel sounds present. EXTREMITIES: With bilateral lower extremity dressing intact. ASSESSMENT: 1. Bilateral lower extremities acute on chronic cellulitis with chronic venous stasis. 2. Peripheral vascular disease. 3. Diabetes. 4. Hypertension. PLAN: Clinically stable, continue local wound care per vascular/podiatry rec-s , continue oral Cipro to complete 2 weeks course of antibiotics. DW patient Problems: Consultation Date/Type/Reason Admit Date/Time Feb 03, 2017 at 20:27 Type of Consultation: ID Exam/Review of Systems Vital Signs Vitals Vital Signs Date Time Temp Pulse Resp B/P Pulse Ox O2 Delivery O2 Flow Rate FiO2 02/14/17 08:25 97.7 55 18 113/50 100 Intake and Output 02/13/17 02/13/17 02/14/17 15:00 23:00 07:00 Intake Total 1640 ml 580 ml Output Total 700 ml Balance 1640 ml -120 ml Results Result Diagram: 02/12/17 0500 02/12/17 0518 Medications Medications Current Medications Ascorbic Acid (Vitamin C) 500 mg DAILY PO Last administered on 02/14/17 08:56 ; Admin Dose 500 MG; Start 02/04/17 at 09:00 Ferrous Sulfate (Ferrous Sulfate (Ec)) 325 mg DAILY PO Last administered on 08:56; Admin Dose 325 MG; Start 02/04/17 at 09:00 Furosemide (Lasix) 40 mg DAILY PO Last administered on 02/14/17 08:56; Admin Dose 40 MG; Start 02/04/17 at 09:00 Gabapentin (Neurontin) 300 mg TID PO Last administered on 02/14/17 13:25; Admin Dose 300 MG; Start 02/04/17 at 09:00 Latanoprost (Xalatan) 1 drop QHS BOTH EYES Last administered on 02/13/17 21:00 ; Admin Dose 1 DROP; Start 02/04/17 at 21:00 Lisinopril (Zestril) 20 mg DAILY PO Last administered on 02/14/17 08:56; Admin Dose 20 MG; Start 02/04/17 at 09:00 Magnesium Hydroxide (Milk Of Mag) 30 ml Q24H PO Last administered on 02/12/17 23:04; Admin Dose 30 ML; Start 02/03/17 at 23:00 Metoprolol Succinate (Toprol Xl) 100 mg DAILY PO Last administered on 09:17; Admin Dose 100 MG; Start 02/04/17 at 09:00 Nystatin 1 applic Q8 TOP Last administered on 02/14/17 13:25; Admin Dose 1 APPLIC; Start 02/04/17 at 06:00 Ondansetron HCl (Zofran Inj) 4 mg Q6H PRN IV NAUSEA AND/OR VOMITING; Start 04/11 at 23:30 Acetaminophen (Tylenol Tab) 650 mg Q6H PRN PO PAIN AND OR ELEVATED TEMP; Start 02/03/17 at 23:30 Morphine Sulfate (morphine) 4 mg Q4H PRN IV PAIN Last administered on 05:47; Admin Dose 4 MG; Start 02/04/17 at 02:00 Acetaminophen/ Hydrocodone Bitart ([place] (10/325)) 1 tab Q4H PRN PO PAIN Last administered on 02/12/17 15:34; Admin Dose 1 TAB; Start 02/04/17 at 02:00 Miscellaneous Information 1 ea NOTE XX ; Start 02/04/17 at 02:00 Dextrose (D50w Syringe) 25 ml Q15M PRN IV DECREASED GLUCOSE; Start 02/04/17 at 02:00 Dextrose (D50w Syringe) 50 ml Q15M PRN IV DECREASED GLUCOSE; Start 02/04/17 at 02:00 Miscellaneous Information (Pending [facility] Order For Wound Care) This patient humphries... PRN PRN XX WOUND CARE; Start 02/04/17 at 02:30 Senna (Senokot) 2 tab BID PO Last administered on 02/12/17 20:54; Admin Dose 2 TAB; Start 02/06/17 at 22:30 Ciprofloxacin (Cipro) 500 mg BID@,18 PO Last administered on 02/14/17 05:47 ; Admin Dose 500 MG; Start 02/09/17 at 18:00; Stop 02/19/17 at 17:59 Apixaban (Eliquis) 5 mg BID PO Last administered on 02/14/17 08:56; Admin Dose 5 MG; Start 02/10/17 at 21:00 Lactobacillus Acidophilus (Florajen3 Capsule) 1 each BID PO Last administered on 02/14/17 08:56; Admin Dose 1 EACH; Start 02/13/17 at 21:00 ALECIA SOTELO NP Feb 14, 2017 14:21
[2017-02-14 14:24] VITALS: BP 101/51; RESP 18
[2017-02-14] MEDS: LATANOPROST 0.005% 2.5 ML OPH BOTH EYES SCH (20:14)
[2017-02-14 20:15] VITALS: BP 109/52; RESP 18
[2017-02-14] MEDS: MAGNESIUM HYDROXIDE 30ML CUP PO SCH (22:28)
[2017-02-15 02:14] VITALS: BP 115/57; RESP 18
[2017-02-15] MEDS: NYSTATIN 15 GM POWDER BTL TOP SCH ×3 (05:09→20:54)
[2017-02-15] MEDS: CIPROFLOXACIN 500 MG TAB PO SCH ×2 (05:10→17:34)
[2017-02-15 07:45] VITALS: BP 139/65; RESP 16
[2017-02-15] MEDS: FERROUS SULFATE (EC) 325 MG TAB PO SCH (08:13)
[2017-02-15] MEDS: ASCORBIC ACID 500 MG TAB PO SCH (08:13)
[2017-02-15] MEDS: SENNA TAB PO SCH ×2 (08:13→20:48)
[2017-02-15] MEDS: APIXABAN 5 MG TABLET PO SCH ×2 (08:13→20:50)
[2017-02-15] MEDS: FUROSEMIDE 40 MG TAB PO SCH (08:14)
[2017-02-15] MEDS: METOPROLOL (XL) 100 MG TAB PO SCH (08:14)
[2017-02-15] MEDS: GABAPENTIN 300 MG CAP PO SCH ×3 (08:21→20:50)
[2017-02-15] MEDS: LISINOPRIL 20 MG TAB PO SCH (08:21)
[2017-02-15] MEDS: morphine 4 MG/ML VIAL IV PRN ×3 (08:22→19:29)
[2017-02-15] MEDS: L ACIDOPHIL/B LACTIS/B LONGUM CAPSULE PO SCH ×2 (08:29→20:50)
--- NOTE | 2017-02-15 12:04 | PN ---
Date/Time of Note Date/Time of Note DATE: 02/15/17 TIME: 12:02 Assessment/Plan VTE Prophylaxis VTE Prophylaxis Intervention: other (Factor Xa inhibitors.) Lines/Catheters IV Catheter Type (from [facility]): Saline Lock Urinary Cath still in place: No Assessment/Plan Chief Complaint/Hosp Course 1. Bilateral lower extremity nonhealing ulcers with venous insufficiency. Status post right lower extremity sharp excisional debridement of multiple ulcers with application of amniotic tissue powder on 02/06/2017. Wound Care management as per vascular surgery. Antibiotics as per infectious diseases. 2. Severe aortic stenosis. Patient to follow-up with outpatient cardiac surgery. 3. Peripheral vascular disease. Being followed by vascular surgery. 4. Diabetes mellitus. Hemoglobin A1c 5.3. Blood sugars well controlled without insulin. 5. Essential hypertension. Continue antihypertensives. 6. Pulmonary hypertension. PA systolic pressure of 82 mmHg as per a 2D echocardiogram from 01/21/2017. Most probably secondary to underlying valvular heart disease. 7. Microcytic, hypochromic anemia with underlying iron deficiency. Continue iron supplements. 8. History of paroxysmal atrial fibrillation. On factor Xa inhibitors for stroke prophylaxis. 9. Fluids, electrolytes, and nutrition. Carbohydrate controlled diet. 10. DVT prophylaxis. Factor Xa inhibitors. 11. Plan. Stool for C. diff is negative. Continue antimicrobials as per infectious diseases. Plan is to discharge the patient on oral antibiotics. The patient needs placement as per physical therapy notes. Patient's family disagreeing to go back to the previous rehab facility. Will discuss this with case management. Case discussed with Dr. Sadler. Problems: Subjective 24 Hr Interval Summary Free Text/Dictation Did not ambulate with PT yesterday. Exam/Review of Systems Vital Signs Vitals Vital Signs Date Time Temp Pulse Resp B/P Pulse Ox O2 Delivery O2 Flow Rate FiO2 02/15/17 07:45 97.5 57 16 139/65 99 Intake and Output 02/14/17 02/14/17 02/15/17 15:00 23:00 07:00 Intake Total 800 ml 560 ml Output Total 650 ml Balance 800 ml -90 ml Exam General: Adequately build 76 year-old male lying in bed in no apparent distress. HEENT: Normocephalic, atraumatic. Eyes: Anicteric sclerae, conjunctivae clear. ENT: Nasal septum midline, oral mucosa moist. Neck supple, no JVD noticed. Respiratory: Bilaterally clear breath sounds. No use of accessory muscles of respiration. No adventitious breath sounds. Cardiovascular: S1, S2 heard. Grade III/ JESSICA. Abdomen: Soft, nontender, and nondistended. Bowel sounds positive in all 4 quadrants. Genitourinary: Deferred. Extremities: No cyanosis, no clubbing. Left lower extremity dorsalis pedis pulse palpable. Right lower extremity dressing. Neurologic: Cranial nerves II through XII grossly intact. The patient is awake, alert, and oriented. Results Result Diagram: 02/12/17 0500 02/12/17 0518 Medications Medications Current Medications Ascorbic Acid (Vitamin C) 500 mg DAILY PO Last administered on 02/15/17 08:13 ; Admin Dose 500 MG; Start 02/04/17 at 09:00 Ferrous Sulfate (Ferrous Sulfate (Ec)) 325 mg DAILY PO Last administered on 08:13; Admin Dose 325 MG; Start 02/04/17 at 09:00 Furosemide (Lasix) 40 mg DAILY PO Last administered on 02/15/17 08:14; Admin Dose 40 MG; Start 02/04/17 at 09:00 Gabapentin (Neurontin) 300 mg TID PO Last administered on 02/15/17 08:21; Admin Dose 300 MG; Start 02/04/17 at 09:00 Latanoprost (Xalatan) 1 drop QHS BOTH EYES Last administered on 02/14/17 20:14 ; Admin Dose 1 DROP; Start 02/04/17 at 21:00 Lisinopril (Zestril) 20 mg DAILY PO Last administered on 02/15/17 08:21; Admin Dose 20 MG; Start 02/04/17 at 09:00 Magnesium Hydroxide (Milk Of Mag) 30 ml Q24H PO Last administered on 02/12/17 23:04; Admin Dose 30 ML; Start 02/03/17 at 23:00 Metoprolol Succinate (Toprol Xl) 100 mg DAILY PO Last administered on 08:14; Admin Dose 100 MG; Start 02/04/17 at 09:00 Nystatin 1 applic Q8 TOP Last administered on 02/15/17 05:09; Admin Dose 1 APPLIC; Start 02/04/17 at 06:00 Ondansetron HCl (Zofran Inj) 4 mg Q6H PRN IV NAUSEA AND/OR VOMITING; Start 04/11 at 23:30 Acetaminophen (Tylenol Tab) 650 mg Q6H PRN PO PAIN AND OR ELEVATED TEMP; Start 02/03/17 at 23:30 Morphine Sulfate (morphine) 4 mg Q4H PRN IV PAIN Last administered on 08:22; Admin Dose 4 MG; Start 02/04/17 at 02:00 Acetaminophen/ Hydrocodone Bitart ([place] (10/325)) 1 tab Q4H PRN PO PAIN Last administered on 02/12/17 15:34; Admin Dose 1 TAB; Start 02/04/17 at 02:00 Miscellaneous Information 1 ea NOTE XX ; Start 02/04/17 at 02:00 Dextrose (D50w Syringe) 25 ml Q15M PRN IV DECREASED GLUCOSE; Start 02/04/17 at 02:00 Dextrose (D50w Syringe) 50 ml Q15M PRN IV DECREASED GLUCOSE; Start 02/04/17 at 02:00 Miscellaneous Information (Pending [facility] Order For Wound Care) This patient humphries... PRN PRN XX WOUND CARE; Start 02/04/17 at 02:30 Senna (Senokot) 2 tab BID PO Last administered on 02/15/17 08:13; Admin Dose 2 TAB; Start 02/06/17 at 22:30 Ciprofloxacin (Cipro) 500 mg BID@06,18 PO Last administered on 02/15/17 05:10 ; Admin Dose 500 MG; Start 02/09/17 at 18:00; Stop 02/19/17 at 17:59 Apixaban (Eliquis) 5 mg BID PO Last administered on 02/15/17 08:13; Admin Dose 5 MG; Start 02/10/17 at 21:00 Lactobacillus Acidophilus (Florajen3 Capsule) 1 each BID PO Last administered on 02/15/17 08:29; Admin Dose 1 EACH; Start 02/13/17 at 21:00 DOM PADILLA NP Feb 15, 2017 12:04
--- NOTE | 2017-02-15 13:21 | CONS ---
Date/Time of Note Date/Time of Note DATE: 02/15/17 TIME: 13:20 Assessment/Plan Assessment/Plan Chief Complaint/Hosp Course SUBJECTIVE DATA: No acute changes. Patient is alert, feels good ALLERGIES: PENICILLIN. Abx: Cipro PHYSICAL EXAMINATION: GENERAL: Well-developed, obese, elderly woman, who is awake, in no distress. HEENT: Head atraumatic, normocephalic. Sclerae nonicteric. NECK: Supple. CHEST: Rise symmetrical. Breath sounds clear. HEART: S1, S2. ABDOMEN: Soft, bowel sounds present. EXTREMITIES: With bilateral lower extremity dressing intact. ASSESSMENT: 1. Bilateral lower extremities acute on chronic cellulitis with chronic venous stasis. 2. Peripheral vascular disease. 3. Diabetes. 4. Hypertension. PLAN: Remains stable, discontinue continue local wound care per vascular/ podiatry rec-s, discontinue Cipro in a.m. DW patient Problems: Consultation Date/Type/Reason Admit Date/Time Feb 03, 2017 at 20:27 Type of Consultation: ID Exam/Review of Systems Vital Signs Vitals Vital Signs Date Time Temp Pulse Resp B/P Pulse Ox O2 Delivery O2 Flow Rate FiO2 02/15/17 07:45 97.5 57 16 139/65 99 Intake and Output 02/14/17 02/14/17 02/15/17 15:00 23:00 07:00 Intake Total 800 ml 560 ml Output Total 650 ml Balance 800 ml -90 ml Results Result Diagram: 02/12/17 0500 02/12/17 0518 Medications Medications Current Medications Ascorbic Acid (Vitamin C) 500 mg DAILY PO Last administered on 02/15/17 08:13 ; Admin Dose 500 MG; Start 02/04/17 at 09:00 Ferrous Sulfate (Ferrous Sulfate (Ec)) 325 mg DAILY PO Last administered on 08:13; Admin Dose 325 MG; Start 02/04/17 at 09:00 Furosemide (Lasix) 40 mg DAILY PO Last administered on 02/15/17 08:14; Admin Dose 40 MG; Start 02/04/17 at 09:00 Gabapentin (Neurontin) 300 mg TID PO Last administered on 02/15/17 12:12; Admin Dose 300 MG; Start 02/04/17 at 09:00 Latanoprost (Xalatan) 1 drop QHS BOTH EYES Last administered on 02/14/17 20:14 ; Admin Dose 1 DROP; Start 02/04/17 at 21:00 Lisinopril (Zestril) 20 mg DAILY PO Last administered on 02/15/17 08:21; Admin Dose 20 MG; Start 02/04/17 at 09:00 Magnesium Hydroxide (Milk Of Mag) 30 ml Q24H PO Last administered on 02/12/17 23:04; Admin Dose 30 ML; Start 02/03/17 at 23:00 Metoprolol Succinate (Toprol Xl) 100 mg DAILY PO Last administered on 08:14; Admin Dose 100 MG; Start 02/04/17 at 09:00 Nystatin 1 applic Q8 TOP Last administered on 02/15/17 05:09; Admin Dose 1 APPLIC; Start 02/04/17 at 06:00 Ondansetron HCl (Zofran Inj) 4 mg Q6H PRN IV NAUSEA AND/OR VOMITING; Start 04/11 at 23:30 Acetaminophen (Tylenol Tab) 650 mg Q6H PRN PO PAIN AND OR ELEVATED TEMP; Start 02/03/17 at 23:30 Morphine Sulfate (morphine) 4 mg Q4H PRN IV PAIN Last administered on 08:22; Admin Dose 4 MG; Start 02/04/17 at 02:00 Acetaminophen/ Hydrocodone Bitart ([place] (10/325)) 1 tab Q4H PRN PO PAIN Last administered on 02/12/17 15:34; Admin Dose 1 TAB; Start 02/04/17 at 02:00 Miscellaneous Information 1 ea NOTE XX ; Start 02/04/17 at 02:00 Dextrose (D50w Syringe) 25 ml Q15M PRN IV DECREASED GLUCOSE; Start 02/04/17 at 02:00 Dextrose (D50w Syringe) 50 ml Q15M PRN IV DECREASED GLUCOSE; Start 02/04/17 at 02:00 Miscellaneous Information (Pending [facility] Order For Wound Care) This patient humphries... PRN PRN XX WOUND CARE; Start 02/04/17 at 02:30 Senna (Senokot) 2 tab BID PO Last administered on 02/15/17 08:13; Admin Dose 2 TAB; Start 02/06/17 at 22:30 Ciprofloxacin (Cipro) 500 mg BID@,18 PO Last administered on 02/15/17 05:10 ; Admin Dose 500 MG; Start 02/09/17 at 18:00; Stop 02/19/17 at 17:59 Apixaban (Eliquis) 5 mg BID PO Last administered on 02/15/17 08:13; Admin Dose 5 MG; Start 02/10/17 at 21:00 Lactobacillus Acidophilus (Florajen3 Capsule) 1 each BID PO Last administered on 02/15/17 08:29; Admin Dose 1 EACH; Start 02/13/17 at 21:00 ALECIA SOTELO NP Feb 15, 2017 13:21
[2017-02-15 14:15] VITALS: BP 110/54; RESP 16
[2017-02-15 19:58] VITALS: BP 105/57; RESP 18
[2017-02-15] MEDS: LATANOPROST 0.005% 2.5 ML OPH BOTH EYES SCH (20:48)
[2017-02-15] MEDS: MAGNESIUM HYDROXIDE 30ML CUP PO SCH (23:06)
[2017-02-16] MEDS: morphine 4 MG/ML VIAL IV PRN ×5 (00:52→20:59)
[2017-02-16 02:15] VITALS: BP 123/59; RESP 18
[2017-02-16] MEDS: CIPROFLOXACIN 500 MG TAB PO SCH (05:25)
[2017-02-16] MEDS: NYSTATIN 15 GM POWDER BTL TOP SCH ×2 (05:27→15:15)
[2017-02-16 08:04] VITALS: BP 139/72; RESP 19
[2017-02-16] MEDS: METOPROLOL (XL) 100 MG TAB PO SCH (08:41)
[2017-02-16] MEDS: FERROUS SULFATE (EC) 325 MG TAB PO SCH (08:42)
[2017-02-16] MEDS: ASCORBIC ACID 500 MG TAB PO SCH (08:42)
[2017-02-16] MEDS: APIXABAN 5 MG TABLET PO SCH ×2 (08:42→20:39)
[2017-02-16] MEDS: L ACIDOPHIL/B LACTIS/B LONGUM CAPSULE PO SCH ×2 (08:42→20:39)
[2017-02-16] MEDS: SENNA TAB PO SCH ×2 (08:42→20:39)
[2017-02-16] MEDS: FUROSEMIDE 40 MG TAB PO SCH (08:42)
[2017-02-16] MEDS: GABAPENTIN 300 MG CAP PO SCH ×3 (08:42→20:39)
[2017-02-16] MEDS: LISINOPRIL 20 MG TAB PO SCH (08:42)
[2017-02-16 14:00] VITALS: BP 113/61; RESP 17
--- NOTE | 2017-02-16 15:00 | PN ---
Date/Time of Note Date/Time of Note DATE: 02/16/17 TIME: 14:58 Assessment/Plan VTE Prophylaxis VTE Prophylaxis Intervention: other (factor Xa inhibitors.) Lines/Catheters IV [facility]from [facility]): Saline Lock Urinary Cath still in place: No Assessment/Plan Chief Complaint/Hosp Course 1. Bilateral lower extremity nonhealing ulcers with venous insufficiency. Status post right lower extremity sharp excisional debridement of multiple ulcers with application of amniotic tissue powder on 02/06/2017. Wound Care management as per vascular surgery. Antibiotics as per infectious diseases. 2. Severe aortic stenosis. Patient to follow-up with outpatient cardiac surgery. 3. Peripheral vascular disease. Being followed by vascular surgery. 4. Diabetes mellitus. Hemoglobin A1c 5.3. Blood sugars well controlled without insulin. 5. Essential hypertension. Continue antihypertensives. 6. Pulmonary hypertension. PA systolic pressure of 82 mmHg as per a 2D echocardiogram from 01/21/2017. Most probably secondary to underlying valvular heart disease. 7. Microcytic, hypochromic anemia with underlying iron deficiency. Continue iron supplements. 8. History of paroxysmal atrial fibrillation. On factor Xa inhibitors for stroke prophylaxis. 9. Fluids, electrolytes, and nutrition. Carbohydrate controlled diet. 10. DVT prophylaxis. Factor Xa inhibitors. 11. Plan. Stool for C. diff is negative. Continue antimicrobials as per infectious diseases. Plan is to discharge the patient on oral antibiotics. The patient needs placement as per physical therapy notes. Patient's family disagreeing to go back to the previous rehab facility. Case management aware. The patient's family is being provided with different choices of SNF as per Case Management. Case discussed with Dr. Sadler. Problems: Subjective 24 Hr Interval Summary Free Text/Dictation No changes in status. Exam/Review of Systems Vital Signs Vitals Vital Signs Date Time Temp Pulse Resp B/P Pulse Ox O2 Delivery O2 Flow Rate FiO2 02/16/17 08:04 97.8 52 19 139/72 100 Intake and Output 02/15/17 02/15/17 02/16/17 15:00 23:00 07:00 Intake Total 850 ml 480 ml Output Total 1500 ml Balance 850 ml -1020 ml Exam General: Adequately build 76 year-old male lying in bed in no apparent distress. HEENT: Normocephalic, atraumatic. Eyes: Anicteric sclerae, conjunctivae clear. ENT: Nasal septum midline, oral mucosa moist. Neck supple, no JVD noticed. Respiratory: Bilaterally clear breath sounds. No use of accessory muscles of respiration. No adventitious breath sounds. Cardiovascular: S1, S2 heard. Grade III/ JESSICA. Abdomen: Soft, nontender, and nondistended. Bowel sounds positive in all 4 quadrants. Genitourinary: Deferred. Extremities: No cyanosis, no clubbing. Left lower extremity dorsalis pedis pulse palpable. Right lower extremity dressing. Neurologic: Cranial nerves II through XII grossly intact. The patient is awake, alert, and oriented. Results Result Diagram: 02/12/17 0500 02/12/17 0518 Medications Medications Current Medications Ascorbic Acid (Vitamin C) 500 mg DAILY PO Last administered on 02/16/17 08:42 ; Admin Dose 500 MG; Start 02/04/17 at 09:00 Ferrous Sulfate (Ferrous Sulfate (Ec)) 325 mg DAILY PO Last administered on 08:42; Admin Dose 325 MG; Start 02/04/17 at 09:00 Furosemide (Lasix) 40 mg DAILY PO Last administered on 02/16/17 08:42; Admin Dose 40 MG; Start 02/04/17 at 09:00 Gabapentin (Neurontin) 300 mg TID PO Last administered on 02/16/17 12:40; Admin Dose 300 MG; Start 02/04/17 at 09:00 Latanoprost (Xalatan) 1 drop QHS BOTH EYES Last administered on 02/15/17 20:48 ; Admin Dose 1 DROP; Start 02/04/17 at 21:00 Lisinopril (Zestril) 20 mg DAILY PO Last administered on 02/16/17 08:42; Admin Dose 20 MG; Start 02/04/17 at 09:00 Magnesium Hydroxide (Milk Of Mag) 30 ml Q24H PO Last administered on 02/15/17 23:06; Admin Dose 30 ML; Start 02/03/17 at 23:00 Metoprolol Succinate (Toprol Xl) 100 mg DAILY PO Last administered on 08:41; Admin Dose 100 MG; Start 02/04/17 at 09:00 Nystatin 1 applic Q8 TOP Last administered on 02/16/17 05:27; Admin Dose 1 APPLIC; Start 02/04/17 at 06:00 Ondansetron HCl (Zofran Inj) 4 mg Q6H PRN IV NAUSEA AND/OR VOMITING; Start 04/11 at 23:30 Acetaminophen (Tylenol Tab) 650 mg Q6H PRN PO PAIN AND OR ELEVATED TEMP; Start 02/03/17 at 23:30 Morphine Sulfate (morphine) 4 mg Q4H PRN IV PAIN Last administered on 10:40; Admin Dose 4 MG; Start 02/04/17 at 02:00 Acetaminophen/ Hydrocodone Bitart ([place] (10/325)) 1 tab Q4H PRN PO PAIN Last administered on 02/12/17 15:34; Admin Dose 1 TAB; Start 02/04/17 at 02:00 Miscellaneous Information 1 ea NOTE XX ; Start 02/04/17 at 02:00 Dextrose (D50w Syringe) 25 ml Q15M PRN IV DECREASED GLUCOSE; Start 02/04/17 at 02:00 Dextrose (D50w Syringe) 50 ml Q15M PRN IV DECREASED GLUCOSE; Start 02/04/17 at 02:00 Miscellaneous Information (Pending [facility] Order For Wound Care) This patient humphries... PRN PRN XX WOUND CARE; Start 02/04/17 at 02:30 Senna (Senokot) 2 tab BID PO Last administered on 02/16/17 08:42; Admin Dose 2 TAB; Start 02/06/17 at 22:30 Apixaban (Eliquis) 5 mg BID PO Last administered on 02/16/17 08:42; Admin Dose 5 MG; Start 02/10/17 at 21:00 Lactobacillus Acidophilus (Florajen3 Capsule) 1 each BID PO Last administered on 02/16/17 08:42; Admin Dose 1 EACH; Start 02/13/17 at 21:00 DOM PADILLA NP Feb 16, 2017 15:00
[2017-02-16 20:26] VITALS: BP 109/54; RESP 20
[2017-02-16] MEDS: LATANOPROST 0.005% 2.5 ML OPH BOTH EYES SCH (20:41)
[2017-02-16] MEDS: MAGNESIUM HYDROXIDE 30ML CUP PO SCH (23:00)
[2017-02-17] MEDS: morphine 4 MG/ML VIAL IV PRN ×3 (02:56→19:16)
[2017-02-17] MEDS: NYSTATIN 15 GM POWDER BTL TOP SCH ×3 (02:58→13:49)
[2017-02-17 03:02] VITALS: BP 133/60; RESP 18
[2017-02-17 07:51] VITALS: BP 134/60; RESP 16
[2017-02-17] MEDS: FERROUS SULFATE (EC) 325 MG TAB PO SCH (08:59)
[2017-02-17] MEDS: SENNA TAB PO SCH (08:59)
[2017-02-17] MEDS: L ACIDOPHIL/B LACTIS/B LONGUM CAPSULE PO SCH (08:59)
[2017-02-17] MEDS: LISINOPRIL 20 MG TAB PO SCH (08:59)
[2017-02-17] MEDS: ASCORBIC ACID 500 MG TAB PO SCH (08:59)
[2017-02-17] MEDS: GABAPENTIN 300 MG CAP PO SCH ×2 (08:59→13:49)
[2017-02-17] MEDS: APIXABAN 5 MG TABLET PO SCH (09:00)
[2017-02-17] MEDS: METOPROLOL (XL) 100 MG TAB PO SCH (09:00)
[2017-02-17] MEDS: FUROSEMIDE 40 MG TAB PO SCH (09:00)
--- NOTE | 2017-02-17 12:08 | PDOCDIS ---
Discharge Instructions DIAGNOSIS Discharge Diagnosis 1. Bilateral lower extremity nonhealing ulcers with venous insufficiency. 2. Severe aortic stenosis. 3. Peripheral vascular disease. 4. Diabetes mellitus. 5. Essential hypertension. 6. Pulmonary hypertension. 7. Microcytic, hypochromic anemia with underlying iron deficiency. 8. History of paroxysmal atrial fibrillation. CONDITION Patient Condition: Stable HOME CARE INSTRUCTIONS: Special Diet: carb controlled diet FOLLOW UP/APPOINTMENTS Follow-up Plan 1. Follow up with Dr. Matt Rai in 1-2 weeks SUGEY CASILLAS Feb 17, 2017 12:08
[2017-02-17] MEDS ORDERED: L.AC460C PO (12:09)
[2017-02-17 14:00] VITALS: BP 101/51; RESP 16
--- NOTE | 2017-02-17 14:10 | DS ---
Date/Time of Note Date/Time of Note DATE: 02/17/17 TIME: 14:09 Discharge Summary Admission/Discharge Info Admit Date/Time Feb 03, 2017 at 20:27 Discharge Date/Time Discharge Diagnosis 1. Bilateral lower extremity nonhealing ulcers with venous insufficiency. 2. Severe aortic stenosis. 3. Peripheral vascular disease. 4. Diabetes mellitus. 5. Essential hypertension. 6. Pulmonary hypertension. 7. Microcytic, hypochromic anemia with underlying iron deficiency. 8. History of paroxysmal atrial fibrillation. Patient Condition: Stable Consults 1. Dr. Balta Herman [facility] This is a 76-year-old female with history of hypertension, chronic bilateral lower extremity ulcers, peripheral vascular disease, DVT, came to [facility] due to worsening lower extremity cellulitis more notably on the right lower extremity. Of [facility] however per daughter report her legs had gotten worse. She was subsequently brought to [facility] for further evaluation. Upon examination patient was noted with ulcers and venous insufficiency and as such was seen by vascular surgeon. She did have debridement of her ulcers on her lower extremities on February 06, 2017. We did continue her on antibiotics per ID consult recommendations and she was continued on wound care per vascular surgery recommendations. She did have good response and did improve during her stay. She was otherwise optimized medically. She did have severe aortic stenosis and was for follow-up with outpatient cardiac surgeon. She also had PVD and we did continue with vascular surgeon recommendations. She also had diabetes but her A1c was under control and we were able to manage her without insulin. For her hypertension she was continued on antihypertensives as well. She was seen with pulmonary hypertension likely secondary to her severe aortic stenosis but she remained with no difficulty with breathing and we did monitor her for this. For her iron deficiency anemia she was continued on iron supplement. She was also continued on Eliquis medication for her history of paroxysmal atrial fibrillation. During her stay she did improve. Plan of care was discussed with the patient and family and patient and family did verbalize understanding. On the day of discharge patient was in stable condition Discussed plan of care of Dr. Barrera Bogata Meds Active Scripts Ciprofloxacin Hcl* (Ciprofloxacin Hcl*) 500 Mg Tablet, 500 MG PO BID for 7 Days , TAB Prov:RONI VERDIN MD 12/30/16 Reported Medications Latanoprost (Latanoprost) 2.5 Ml Drops, 1 DROP BOTH EYES QHS, #1 BOTTLE 02/03/17 Magnesium Hydroxide* (Milk Of Magnesia*) 400 Mg/5 Ml Oral.susp, 30 ML PO Q24H for CONSTIPATION, ML 02/03/17 Nystatin (Nystatin Powder) 1 Each Powder.ea., 1 APPLIC TOPICAL Q8, BOTTLE 02/03/17 Multivitamin with Minerals (Multivitamins with Minerals) 1 Each Tablet, 1 EACH PO DAILY, TAB 02/03/17 Ascorbic Acid (Vitamin C) 500 Mg Tab, 500 MG PO DAILY, TAB 02/03/17 Gabapentin* (Gabapentin*) 300 Mg Capsule, 300 MG PO TID, #90 CAP 02/03/17 Warfarin Sodium* (Warfarin Sodium*) 6 Mg Tablet, 6 MG PO DAILY, TAB 02/03/17 Warfarin Sodium* (Warfarin Sodium*) 4 Mg Tablet, 4 MG PO DAILY, TAB 02/03/17 Apixaban* (Eliquis*) 5 Mg Tablet, 5 MG PO DAILY, TAB 02/03/17 Nifedipine* (Nifedipine ER*) 90 Mg Tablet.sa, 90 MG PO DAILY, TAB.SA 02/03/17 Furosemide* (Furosemide*) 40 Mg Tablet, 40 MG PO DAILY, TAB 02/03/17 Oxycodone HCl/Acetaminophen (Percocet 10-325 mg Tablet) 1 Each Tablet, 1 EACH PO Q6 Y for PAIN, TAB 10/29/16 Ergocalciferol (Vitamin D2) (VITAMIN D2) 50,000 Unit Capsule, 02006 UNIT PO EVERY FRIDAY, CAP 10/29/16 Bimatoprost* (Lumigan*) 0.01%-2.5 Ml Opht Drops, 1 DROP BOTH EYES HS, EA 09/14/16 Alprazolam (Alprazolam) 0.25 Mg Tab.rapdis, 0.25 MG PO hs for INSOMNIA, TAB 09/14/16 Metoprolol Succinate* (Toprol XL*) 100 Mg Tab.sr.24h, 100 MG PO DAILY, #30 TAB 09/14/16 Lisinopril* (Lisinopril*) 20 Mg Tablet, 20 MG PO DAILY, #30 TAB 09/14/16 Ferrous Sulfate* (Ferrous Sulfate*) 325 Mg Tabec, 325 MG PO DAILY, TAB 09/14/16 Follow-up Plan 1. Follow up with Dr. Matt Rai in 1-2 weeks Primary Care Provider Harper Moura Time spent on discharge: > 30 minutes SUGEY CASILLAS Feb 17, 2017 14:10
--- NOTE | 2017-02-17 17:34 | PN ---
DATE: 02/17/2017 SUBJECTIVE DATA: No acute changes. The patient is alert, eating lunch. Denies pain. No fevers. OBJECTIVE DATA: VITAL SIGNS: Vital signs stable. LABORATORY AND DIAGNOSTIC DATA: No labs. ANTIMICROBIALS: She is off antibiotics. PHYSICAL EXAMINATION: GENERAL: Well-developed, obese, elderly woman, who is in no distress. HEENT: Head atraumatic, normocephalic. Sclerae anicteric. Buccal mucosa pink. NECK: Supple. CHEST: Rise symmetrical. Breath sounds clear. HEART: S1, S2. ABDOMEN: Soft, bowel sounds present. EXTREMITIES: With right lower extremity wrapped with Kerlix. ASSESSMENT: 1. Bilateral lower extremities chronic cellulitis secondary to chronic venous stasis. Status post right lower extremity debridement, completed antibiotics. 2. Peripheral vascular disease. 3. Diabetes. PLAN: 1. The patient remains stable. 2. She is off antibiotics. 3. Continue present care. 4. Local wound care as per Vascular team. Dictated By: Rommel Ball NP /bela/jessica /Document#: [id number]
== END 2017-02-17 19:27 | DRG 574 ==
LOC: E/R 18:34 → PP2 20:27
PROVIDERS: ADMIT Internal Medicine; ATTEND Internal Medicine
PROC: 0HRKXK3 Replacement of Right Lower Leg Skin with Nonautologous Tissue Substitute, Full Thickness, External Approach (ICD-10-PCS; principal; 2017-02-06 16:00)
DX: L97.811 Non-pressure chronic ulcer of other part of right lower leg limited to breakdown of skin (principal); L03.115 Cellulitis of right lower limb; S22.069A Unspecified fracture of T7-T8 vertebra, initial encounter for closed fracture; E11.40 Type 2 diabetes mellitus with diabetic neuropathy, unspecified; I27.2 Other secondary pulmonary hypertension; E11.39 Type 2 diabetes mellitus with other diabetic ophthalmic complication; E66.01 Morbid (severe) obesity due to excess calories; L03.116 Cellulitis of left lower limb; I48.0 Paroxysmal atrial fibrillation; I35.0 Nonrheumatic aortic (valve) stenosis; I10 Essential (primary) hypertension; I87.2 Venous insufficiency (chronic) (peripheral); I70.203 Unspecified atherosclerosis of native arteries of extremities, bilateral legs; L97.821 Non-pressure chronic ulcer of other part of left lower leg limited to breakdown of skin; M17.0 Bilateral primary osteoarthritis of knee; M50.321 Other cervical disc degeneration at C4-C5 level; M50.322 Other cervical disc degeneration at C5-C6 level; H40.9 Unspecified glaucoma; D50.9 Iron deficiency anemia, unspecified; W01.0XXA Fall on same level from slipping, tripping and stumbling without subsequent striking against object, initial encounter; Z68.35 Body mass index [BMI] 35.0-35.9, adult; Z91.19 Patient's noncompliance with other medical treatment and regimen; Z79.01 Long term (current) use of anticoagulants; Z79.02 Long term (current) use of antithrombotics/antiplatelets
CPT/HCPCS: 36415; 71010; 72040; 72072; 72100; 73560; 80048; 80053; 80061; 82728; 82962; 83036; 83540; 83690; 83735; 84100; 85025; 85610; 87075; 87081; 93005; 96365; 96367; 97110; 97161; 97530; J0690; J0692; J1650; J1815; J2250; J2270; J2405; J3010; J3370; J7040; J7050

== ENCOUNTER → 2017-05-16 | Outpatient (CLI) | payer MEDICARE, OTHER ==
[~2017-05-16] MED LIST changes: +APIX5TAB PO; +ASC500 PO; -CIPR500T4 PO; -DOXY100T20 PO; +FURO40TA4 PO; +GABA300C16 PO; +L.AC460C PO; +LATA2.5D2 BOTH EYES; +MAGN400O4 PO; +MULT-105 PO; +NIFE90TA21 PO; +NYST1POW22 TOPICAL; -WARF10TA PO
--- NOTE | 2017-05-16 21:32 | RADRPT ---
PROCEDURE: XR Chest. CLINICAL INDICATION: Acute bronchitis. TECHNIQUE: Chest x-ray, two views. COMPARISON: 02/05/2017. FINDINGS: The heart is enlarged and unchanged in size. Aortic arch atherosclerotic calcification is present. P rominence of the central pulmonary vessels is observed. Lung volumes are within normal limits. There is no focal pulmonary parenchymal opacification or evidence of large pleural effusion. Degenerativ e changes of the spine and shoulders are present. The visualized upper abdomen is unremarkable. IMPRESSION: Cardiomegaly and thoracic aortic atherosclerosis with mild prominence of the central pulmonary vesse ls, unchanged. No radiographic evidence of acute cardiopulmonary pathology. RPTAT: [facility]ST .Carla Coombs MD, MD Date Time Electronically viewed and signed by .Carla Coombs MD, on 05/16/2017 21:32 .T/
== END | disposition home or self-care (01) ==
LOC: RAD 17:15
DX: J20.9 Acute bronchitis, unspecified (principal); I51.7 Cardiomegaly; I70.0 Atherosclerosis of aorta
CPT/HCPCS: 71020